=== PATIENT | male | born 1940 | race Caucasian/White ===

== ENCOUNTER 2021-04-23 09:52 | Outpatient (CLI) | payer MEDICARE, SELFPAY ==
--- NOTE | 2021-04-23 10:02 | USCV_ITS ---
Marco Antonio Sebastian Age: 80 Gender: M : 1940 Exam Date: 04/23/2021 10:17 Ordering Phys: Marek Chin MD Technologist: Allie Miller [place] [facility] [place]: HYPERTENSION BP: 167 / 67 HR: 69 Rhythm: Sinus Technical Quality: Adequate MEASUREMENTS (Male / Female) Normal Values 2D ECHO LV Diastolic Diameter PLAX 4.1 cm 4.2 - 5.9 / 3.9 - 5.3 cm LV Systolic Diameter PLAX 2.9 cm IVS Diastolic Thickness 1.5 cm 0.6 - 1.0 / 0.6 - 0.9 cm IVS Systolic Thickness 2.2 cm LVPW Diastolic Thickness 1.1 cm 0.6 - 1.0 / 0.6 - 0.9 cm LVPW Systolic Thickness 1.3 cm RV Chamber Size 3.1 cm LVOT Diameter 2.0 cm LV Ejection Fraction 2D Teich 58.6 % LV Ejection Fraction MOD 2C 55.5 % LV Ejection Fraction 2C AL 56.6 % LA Diameter 3.1 cm LA Width 3.1 cm LA Height 3.5 cm RA Width 2.3 cm RA Height 4.3 cm Aorta at Sinotubular Diameter 2.4 cm M-MODE LV Diastolic Diameter MM 4.9 cm 4.2 - 5.9 / 3.9 - 5.3 cm LV Systolic Diameter MM 3.3 cm LV Ejection Fraction MM Teich 61.3 % IVS Diastolic Thickness MM 1.1 cm 0.6 - 1.0 / 0.6 - 0.9 cm IVS Systolic Thickness MM 1.5 cm LVPW Diastolic Thickness MM 1.2 cm 0.6 - 1.0 / 0.6 - 0.9 cm LVPW Systolic Thickness MM 1.2 cm Aortic Annulus Diameter 2.9 cm LA Ao Ratio MM 1.1 MV E Point Septal Separation 0.4 cm DOPPLER AV Peak Velocity 172.0 cm/s LVOT Peak Velocity 104.0 cm/s AV Area Cont Eq vti 2.2 cm squared AV Area Cont Eq pk 1.9 cm squared MV Area PHT 5.0 cm squared Mitral E to A Ratio 1.3 MV E' Velocity 57.0 cm/s Mitral E to MV E' Ratio 13.3 Mitral E to LV E' Lateral Ratio 12.7 Mitral E to LV E' Septal Ratio 14.0 TR Peak Velocity 272.0 cm/s TR Peak Gradient 29.6 mmHg Right Atrial Pressure 3.0 mmHg Pulmonary Artery Systolic Pressu 32.6 mmHg PV Peak Velocity 99.0 cm/s RV Acceleration Time 0.1 s RV Ejection Time 0.3 s RV AcT/ET 0.3 FINDINGS Left Ventricle Normal left ventricular size. LV systolic function is normal with EF of 55-60%. No regional wall motion abnormalities. Normal diastolic filling pattern. Right Ventricle The right ventricle is normal in size and function. Right Atrium The right atrium is normal in size. Left Atrium The left atrium is normal in size. Mitral Valve Structurally normal mitral valve without significant stenosis or prolapse. There is trace mitral regurgitation. Aortic Valve Thickened aortic valve without significant stenosis. There is mild to moderate aortic regurgitation. Tricuspid Valve Structurally normal tricuspid valve without significant stenosis or regurgitation. Insufficient TR jet to calculate RVSP Pulmonic Valve Structurally normal pulmonic valve without significant stenosis. There is trace pulmonic regurgitation. Pericardium Normal pericardium without effusion. Aorta Normal ascending aorta dimension. CONCLUSIONS LV systolic function is normal with EF of 55-60% Diastolic function is normal Trace mitral regurgitation Mild to moderate aortic regurgitation Trace pumonic regurgitation Jensen Arroyo MD (Electronically Signed) Final Date: 02 May 2021 22:38 S
== END 2021-04-23 09:53 | disposition home or self-care (01) ==
PROVIDERS: PCP Nurse Practitioner Family; Visit Provider Family Medicine
DX: R01.1 Cardiac murmur, unspecified (principal); I10 Essential (primary) hypertension; I35.1 Nonrheumatic aortic (valve) insufficiency
CPT/HCPCS: 93306

== ENCOUNTER 2021-08-03 13:43 | Outpatient (CLI) | payer MEDICARE, SELFPAY ==
--- NOTE | 2021-08-03 13:54 | XR_ITS ---
WS: [id number] Right knee, 4 views, 08/03/2021 Clinical Data: R KNEE JOINT PAIN Comparison: None. Findings: There is lateral joint compartment narrowing with a small spur of the lateral femoral condyle. The po sterior patella shows mild irregularity and there are large spurs in the anterior superior and anteri or inferior portions. No fractures or dislocations. There is vascular calcification. 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 Kellgren-New Classification: grade 3 (moderate): moderate multiple osteoph ytes, definite narrowing of joint space and some sclerosis and possible deformi ty of bone ends
== END 2021-08-03 13:44 | disposition home or self-care (01) ==
PROVIDERS: PCP Nurse Practitioner Family; Visit Provider Nurse Practitioner Family
DX: M17.11 Unilateral primary osteoarthritis, right knee (principal)
CPT/HCPCS: 73564

== ENCOUNTER 2021-12-24 06:33 | Outpatient (CLI) | payer OTHER, SELFPAY ==
--- NOTE | 2021-12-24 | USCV_ITS ---
Marco Antonio Sebastian Age: 81 Gender: M : 1940 Exam Date: 12/24/2021 07:17 Ordering Phys: Tolu Christiansen DO Technologist: Deanna Lucas Exam Location: [facility] [place] Indication: KNOWN BLOCKAGE Risk Factors: Previous Vascular Surgery: Right Brachial BP: / Left Brachial BP: / Right Left Velocity (cm/s) Spectral Plaque Velocity (cm/s) Spectral Plaque Syst/Diast Broadening Syst/Diast Broadening 146.90/20.60 Prox CCA 111.10/ 31.10 107.60/10.60 Hetro Mid CCA 68.50 / 20.90 106.70/13.50 Hetro Distal CCA 74.50 / 11.20 187.30/27.70 Hetro Prox ICA 84.80 / 17.20 Hetro 131.70/28.20 Hetro Mid ICA 143.20/ 28.60 170.90/22.00 Distal ICA 132.90/ 22.90 222.50 Hetro ECA 256.20 Hetro 1.76 ICA/CCA 2.09 Retrograde Vertebral Antegrade / cm/s 52.90/ 8.90 cm/s Bi Subclavian Bi 90.70 180.8 0 CONCLUSIONS Right ICA stenosis 50-69% by strict velocity criteria. Shadowing Right ICA proximally could obscure more severe stenosis. Recommend further evaluation with CTA. . Moderate atheromatous plaque right carotid bulb/ICA. Left ICA stenosis <50%. Moderate atheromatous plaque left carotid bulb/ICA. Retrograde flow noted in the right vertebral artery suspicious for subclavian steal. Blunted biphasic subclavian waveform. Normal antegrade Doppler flow noted in the left vertebral artery. Ramin Rashid MD (Electronically Signed) Final Date: 24 December 2021 11:22 S
--- NOTE | 2021-12-24 | USCV_ITS ---
Marco Antonio Sebastian Age: 81 Gender: M : 1940 Exam Date: 12/24/2021 06:54 Ordering Phys: Tolu Christiansen DO Technologist: Deanna Lucas [place] [facility] [place]: PT STATES KNOW MV DISEASE BP: / HR: 73 Rhythm: Sinus Technical Quality: Adequate MEASUREMENTS (Male / Female) Normal Values 2D ECHO LV Diastolic Diameter PLAX 4.9 cm 4.2 - 5.9 / 3.9 - 5.3 cm LV Systolic Diameter PLAX 2.4 cm LV Chamber Size 3.6 cm IVS Diastolic Thickness 1.1 cm 0.6 - 1.0 / 0.6 - 0.9 cm IVS Systolic Thickness 1.1 cm LVPW Diastolic Thickness 1.1 cm 0.6 - 1.0 / 0.6 - 0.9 cm LVPW Systolic Thickness 1.5 cm RV Chamber Size 3.3 cm LVOT Diameter 2.0 cm LV Ejection Fraction 2D Teich 83.4 % LV Ejection Fraction MOD 2C 68.8 % LV Ejection Fraction 2C AL 68.9 % LA Diameter 3.1 cm LA Width 2.9 cm LA Height 2.7 cm RA Width 2.6 cm RA Height 3.5 cm Aorta at Sinotubular Diameter 3.2 cm M-MODE Aortic Annulus Diameter 0.2 cm LA Ao Ratio MM 16.1 MV E Point Septal Separation 0.5 cm DOPPLER AV Peak Velocity 184.0 cm/s LVOT Peak Velocity 108.0 cm/s AV Area Cont Eq vti 2.2 cm squared AV Area Cont Eq pk 1.9 cm squared MV Area PHT 2.2 cm squared Mitral E to A Ratio 0.9 MV E' Velocity 44.0 cm/s Mitral E to MV E' Ratio 11.3 Mitral E to LV E' Lateral Ratio 11.5 Mitral E to LV E' Septal Ratio 11.2 TR Peak Velocity 228.7 cm/s TR Peak Gradient 20.9 mmHg TR Mean Velocity 175.6 cm/s TR Mean Gradient 13.4 mmHg TR Velocity Time Integral 62.9 cm TV Peak E Velocity 53.0 cm/s Right Atrial Pressure 3.0 mmHg Pulmonary Artery Systolic Pressu 23.9 mmHg PV Peak Velocity 68.0 cm/s RV Acceleration Time 0.2 s RV Ejection Time 0.3 s RV AcT/ET 0.6 FINDINGS Left Ventricle Normal left ventricular cavity size. Normal left ventricular systolic function. No regional wall motion abnormalities. Left ventricular ejection fraction is estimated at 65 %. Grade I/IV diastolic dysfunction (abnormal relaxation filling pattern), normal to mildly elevated filling pressures. Right Ventricle The right ventricle is normal in size and function. Right Atrium The right atrium is normal in size. Left Atrium The left atrium is normal in size. Mitral Valve Moderately thickened mitral valve. No mitral valve stenosis. No mitral valve regurgitation. Aortic Valve Structurally normal aortic valve without significant sclerosis or stenosis. There is no aortic regurgitation. Tricuspid Valve Mild tricuspid valve regurgitation. Pulmonic Valve Structurally normal pulmonic valve without significant stenosis. There is no pulmonic regurgitation. Pericardium Normal pericardium without effusion. Aorta Normal ascending aorta dimension. CONCLUSIONS 1-Normal left ventricular cavity size. Normal left ventricular systolic function. No regional wall motion abnormalities. Left ventricular ejection fraction is estimated at 65 %. Grade I/IV diastolic dysfunction (abnormal relaxation filling pattern), normal to mildly elevated filling pressures. 2-Mild tricuspid valve regurgitation. 3-There is no pericardial effusion. 4-Pulmonary artery systolic pressure is within normal limits. 5-Right atrial pressure is around 5 mm of mercury. 6-No significant change since the prior echocardiogram study of 05/02/2021. Gentry Garduno MD (Electronically Signed) Final Date: 24 December 2021 18:06 S
== END 2021-12-24 06:34 | disposition home or self-care (01) ==
LOC: RAD 06:35
PROVIDERS: PCP Nurse Practitioner Family; Visit Provider Emergency Medicine Emergency Medical Services
DX: I05.9 Rheumatic mitral valve disease, unspecified (principal); I07.1 Rheumatic tricuspid insufficiency; I65.23 Occlusion and stenosis of bilateral carotid arteries
CPT/HCPCS: 93306; 93880

== ENCOUNTER → 2022-01-12 14:24 | Outpatient (BNVA) | payer OTHER, SELFPAY | PROVIDERS: PCP Nurse Practitioner Family; Referring Provider Nurse Practitioner Family; Visit Provider Specialist | DX: M17.12 Unilateral primary osteoarthritis, left knee (principal); M17.11 Unilateral primary osteoarthritis, right knee | CPT/HCPCS: 73560; 73565; 80500; 89051 ==

== ENCOUNTER 2022-09-13 22:09 | Inpatient (IN) | payer MEDICARE, SELFPAY ==
--- NOTE | 2022-09-13 22:11 | XRR_ITS ---
PROCEDURE INFORMATION: Exam: XR Chest Exam date and time: 09/13/2022 10:24 PM Age: 81 years old Clinical indication: Chest pressure and chest wall pain; Additional info: Cp TECHNIQUE: Imaging protocol: Radiologic exam of the chest. Views: 1 view. COMPARISON: CR XR chest 1V [id number] 08/21/2019 6:18 PM FINDINGS: Lungs: Emphysematous changes. Pleural spaces: Unremarkable. No pleural effusion. No pneumothorax. Heart/Mediastinum: Unremarkable. No cardiomegaly. Bones/joints: Unremarkable. XR/XR chest 1V portable [id number] IMPRESSION: 1. Emphysematous changes. 2. Negative for infiltrate
[2022-09-13 22:17] VITALS: BP 187/62; PULSE 78; RESP 16; TEMP 36.3; O2SAT 99
--- NOTE | 2022-09-13 22:17 | ED_ITS ---
HPI - Chest Pain General: Chief Complaint: Chest Pain Stated Complaint: Chest Pain\Cold Sweats Time Seen by Provider: 09/13/22 22:17 Source: patient Mode of arrival: ambulatory Limitations: no limitations History of Present Illness: 81-year-old male states been having chest pains today he states that 3 episodes of a sharp pain he states that has improved currently at 1-2 out of 10. He denies any shortness of breath denies any nausea denies any worsening improving factors. Associated symptoms: Deny abdominal pain, dyspnea, fever(s), nausea or vomiting Review of Systems Const: Denies: fever(s), chills, body aches or change in appetite Eyes: Denies: blurry vision or eye discomfort ENMT: Denies: throat pain or dental pain Card: Reports: chest pain Resp: Denies: dyspnea GI: Denies: abdominal pain, nausea, vomiting or diarrhea : Denies: dysuria Musc: Denies: neck pain or back pain Skin/Breast: Denies: rash Neuro: Denies: headache(s) Psych: Denies: depression Bossman/Lymph: Denies: easy bruising All/Imm: Denies: urticaria PFSH ED PFSH: Medical History (Updated 09/13/22 @ 23:23 by Chance Chaudhry MD) Anemia Gastritis Hyperlipidemia Hypertension Neuropathy PAD (peripheral artery disease) Surgical History H/O colonoscopy 09/11/19 H/O esophagogastroduodenoscopy 09/11/19 History of appendectomy History of hernia surgery Family History Sister Cancer Brother Diabetes Denies family history of Anesthesia complication Bleeding disorder Social History Smoking and tobacco status: current every day smoker Alcohol intake: never Lives independently: Yes Marital status: Single Current occupational status: retired Physical Exam Const: COMMON NORMALS: no acute distress, patient oriented x3 and healthy ap pearing HENMT: COMMON NORMALS: normocephalic and atraumatic HEAD & SCALP: normocephalic and atraumatic Eye: COMMON NORMALS: Equal, round and reactive pupils present and EOMs intact bilaterally PUPIL: Yes Equal, round and reactive pupils present Neck/C-Spine: COMMON NORMALS: full ROM and supple Chest: COMMONS NORMALS: normal inspection of the chest and normal palpation of entire chest wall Resp: COMMON NORMALS: normal respiratory effort, No retractions, No use of accessory muscles and clear to auscultation bilaterally AUSCULTATION: clear to auscultation bilaterally Cardio: COMMON NORMALS: regular rate, regular rhythm and No murmurs present (Cardio) RATE: regular rate RHYTHM: regular rhythm GI: COMMON NORMALS: Normal to inspection, nondistended, normoactive bowel sounds present, Soft to palpation, non-tender and no masses PALPATION: Yes Soft to palpation Extremity: COMMON NORMALS: normal to inspection and full ROM Neuro: COMMON NORMALS: patient oriented x3, moves all extremities and no focal motor deficits Psych: COMMON NORMALS: mental status grossly normal, Normal thought process pr esent and cooperative THOUGHT PROCESS: Normal thought process present Skin: COMMON NORMALS: no rashes or lesions noted and no wounds GENERAL SKIN EXAM: no rashes or lesions noted Course Vital Signs: Vital signs: Vital Signs Temperature 97.4 F L 09/13/22 22:22 Pulse Rate 88 09/13/22 22:50 Respiratory Rate 18 09/13/22 22:50 Blood Pressure 165/56 09/13/22 22:50 Pulse Oximetry 98 09/13/22 22:50 Oxygen Delivery Me thod 09/13/22 22:50 MDM - Chest Pain Medical Decision Making Patient presents here with chest pain his initial troponin here is 71 he is also hyponatremic I spoke to hospitalist Dr. Pettit will admit start on Lovenox he has been pain-free here. Lab Data : 09/13/22 22:20 09/13/22 22:20 Radiology Impressions Chest X-Ray 09/13/22 22:11 IMPRESSION: 1. Emphysematous changes. 2. Negative for infiltrate Laboratory Results WBC 7.2 10^3/uL (4.0-10.0) 09/13/22 22:20 RBC 3.28 10^6/uL (4.1-5.3) L 09/13/22 22:20 Hgb 10.3 g/dL (11.7-16.6) L 09/13/22 22:20 Hct 30.8 % (42.0-52.0) L 09/13/22 22:20 MCV 93.9 fl (80-94) 09/13/22 22:20 MCH 31.4 pg (28.0-34.0) 09/13/22 22:20 MCHC 33.4 g/dL (30.0-36.0) 09/13/22 22:20 RDW 13.2 % (12.1-15.1) 09/13/22:20 Plt Count 246 10^3/cmm (130-400) 09/13/22 22:20 MPV 10.8 fL (7.4-10.4) H 09/13/22 22:20 Neut % (Auto) 58.8 % 09/13/22 22:20 Lymph % (Auto) 25.3 % 09/13/22:20 Beckham % (Auto) 11.6 % 09/13/22 22:20 Eos % (Auto) 3.3 % 09/13/22 22:20 Baso % (Auto) 0.6 % 09/13/22: Neut # (Auto) 4.26 10^3/uL (1.8-7.7) 09/13/22 22:20 Lymph # (Auto) 1.8 10^3/uL (0.8-4.8) 09/13/22 22:20 Beckham # (Auto) 0.8 10^3/uL (0.2-0.9) 09/13/22 22:20 Eos # (Auto) 0.2 10^3/uL (0.0-0.8) 09/13/22:20 Baso # (Auto) 0.0 10^3/uL (0.0-0.1) 09/13/22:20 Nucleated RBC % (auto) 0 % 09/13/22: Nucleated RBCs # 0.0 /100WBC 09/13/22 22:20 PT 14.00 SECONDS (12.1-14.9) 09/13/22 22:20 INR 1.05 (0.8-1.2) 09/13/22 22:20 Sodium 125 mmol/L (136-145) L 09/13/22 22:20 Potassium 4.0 mmol/L (3.5-5.1) 10/18/22 22:20 Chloride 90 mmol/L (98-107) L 09/13/22 22:20 Carbon Dioxide 23 mmol/L (22-29) 09/13/22 22:20 Anion Gap 16.0 (5-19) 09/13/22 22:20 BUN 35 mg/dL (8-23) H 09/13/22 22:20 Creatinine 2.0 mg/dL (0.7-1.2) H 09/13/22 22:20 GFR Calculation Not Reportable 09/13/22 22:20 Glucose 95 mg/dL (65-115) 09/13/22 22:20 Calculated Osmolality 268 mOsm/kg (285-295) L 09/13/22 22:20 Calcium 9.2 mg/dL (8.5-10.5) 09/13/22 22:20 Total Bilirubin 0.3 mg/dL (0.15-1.2) 09/13/22 22:20 AST 16 U/L (0-40) 09/13/22 22:20 ALT 12 U/L (0-41) 09/13/22 22:20 Alkaline Phosphatase 70 U/L (40-130) 09/13/22 22:20 Troponin T Baseline 71 ng/L (0-15) H 09/13/22 22:20 Total Protein 7.3 g/dL (6.6-8.7) 09/13/22 22:20 Albumin 3.7 g/dL (3.5-5.2) 09/13/22 22:20 Globulin 3.6 g/dL (1.3-4.6) 09/13/22 22:20 Discharge Plan Discharge Patient Disposition: Admitted As Inpatient Clinical Impression: Chest pain, Acute hyponatremia Condition: Stable Coding Level of Care Code ED Senior Care Manager for Chg Fwd Exam Comprehensive
--- NOTE | 2022-09-13 22:19 | ECG_ITS ---
[facility] Test Date: 2022-09-13 Pat Name: Marco Antonio Sebastian Department: Room: Gender: Male Information Director: : 1940 Requested By: Chance Chaudhry Order Number: [id number] Rm MD: Patricia Alvarado M.D. Measurements Intervals [place] Rate: 87 P: 71 DC: 173 QRS: 69 QRSD: 93 T: 85 QT: 350 QTc: 423 Interpretive Statements SINUS RHYTHM MODERATE ST DEPRESSION [0.05+ mV ST DEPRESSION] INTERPRETATION BASED ON A DEFAULT AGE OF 40 YEARS No previous ECG available for comparison Electronically Signed On 09-14-2022 21:58:10 CDT by Patricia Alvarado M.D. [id number]
[2022-09-13 22:22] VITALS: BP 187/62; PULSE 78; RESP 16; TEMP 36.3; O2SAT 99
[2022-09-13] MEDS: aspirin 81 mg Chew Tablet 324 MG PO (22:25)
[2022-09-13 22:27] LABS: Basophils % 0.6 %; Eosinophils # 0.2 10^3/uL (0.0-0.8); Eosinophils % 3.3 %; Hematocrit 30.8 % (42.0-52.0); Hemoglobin 10.3 g/dL (11.7-16.6); Lymphocytes # 1.8 10^3/uL (0.8-4.8); Lymphocytes % 25.3 %; Mean Corpuscular HGB Conc 33.4 g/dL (30.0-36.0); Mean Corpuscular Hemoglobin 31.4 pg (28.0-34.0); Mean Corpuscular Volume 93.9 fl (80-94); Mean Platelet Volume 10.8 fL (7.4-10.4); Monocytes # 0.8 10^3/uL (0.2-0.9); Monocytes % 11.6 %; Neutrophils # 4.26 10^3/uL (1.8-7.7); Neutrophils % 58.8 %; Nucleated Red Blood Cells % 0 %; Platelet Count 246 10^3/cmm (130-400); Red Blood Count 3.28 10^6/uL (4.1-5.3); Red Cell Distribution Width 13.2 % (12.1-15.1); White Blood Count 7.2 10^3/uL (4.0-10.0)
[2022-09-13 22:50] VITALS: BP 165/56; PULSE 88; RESP 18; O2SAT 98
[2022-09-13 23:01] LABS: INR 1.05 (0.8-1.2)
[2022-09-13 23:09] LABS: Alanine Aminotransferase 12 U/L (0-41); Albumin Level 3.7 g/dL (3.5-5.2); Alkaline Phosphatase 70 U/L (40-130); Aspartate Amino Transferase 16 U/L (0-40); Blood Urea Nitrogen 35 mg/dL (8-23); Calcium 9.2 mg/dL (8.5-10.5); Carbon Dioxide 23 mmol/L (22-29); Chloride 90 mmol/L (98-107); Globulin 3.6 g/dL (1.3-4.6); Glucose 95 mg/dL (65-115); Osmolality Calculated 268 mOsm/kg (285-295); Sodium 125 mmol/L (136-145); Total Bilirubin 0.3 mg/dL (0.15-1.2); Total Protein 7.3 g/dL (6.6-8.7)
[2022-09-13 23:10] LABS: Troponin(5th) Baseline 71 ng/L (0-15)
[2022-09-13] MEDS: enoxaparin 80 mg/0.8 mL Syringe 60 MG SUBCUT (23:37)
[2022-09-13] MEDS: sodium chloride 0.9% 1,000 ML 999 ML IV (23:37)
[2022-09-13 23:51] VITALS: BP 151/52; PULSE 82; RESP 20; O2SAT 100
[2022-09-14] VITALS (198 sets, daily range): BP systolic 82–176; BP diastolic 40–97; PULSE 65–111; RESP 9–38; TEMP 35.6–36.9; O2SAT 90–100
--- NOTE | 2022-09-14 | P.HP_ITS ---
Providers/Chief Complaint Primary Care Provider: Tyrese Rodriguez NP Chief Complaint: Chest Pain\Cold Sweats History of Present Illness Marco Antonio Sebastian is a 81 year old male with a past medical history of hypertension, hypothyroidism, hyperlipidemia, presenting to the emergency room today for chest pain. His pain started this morning, described as 8 out of 10 at maximum intensity, radiating into the left arm. He was diaphoretic with onset of pain. Denied any dyspnea. Denies any nausea. Has not noted any apparent exacerbating or relieving factors. He received aspirin 325, troponin was noted to be elevated at baseline at 70. No acute ST-T wave changes noted on EKG. No known past history of CAD. Review of Systems General: Reports: 10 or more systems reviewed and unremarkable except in HPI and below Const: Denies: fever(s), chills or body aches Eyes: Denies: change in vision, blurry vision or photophobia ENMT: Reports: hoarseness; Denies: throat pain, enlarged tonsils, odynophagia or nasal congestion Card: Denies: chest pain, palpitations, irregular heart rhythm, edema, swelling of feet/ankles, lightheadedness, pre-syncope, dyspnea on exertion or orthopnea Resp: Denies: dyspnea, productive cough, non-productive cough, wheezing, stridor, pain on inspiration, change in phlegm color, hemoptysis or chest congestion GI: Denies: abdominal pain, nausea, vomiting, hematemesis, coffee ground emesis, dysphagia, heartburn, diarrhea, constipation, GI cramping, change in stool character, hematochezia or melena : Denies: flank pain, dysuria, urinary frequency, urinary urgency, urinary hesitancy or hematuria Musc: Denies: neck pain, back pain, extremity pain, joint swelling, joint warmth or deformity Neuro: Denies: headache(s), numbness in extremities, weakness in extremities, sensory changes, difficulty walking, frequent falls, dizziness, vertigo, behavioral changes, Slurred speech present or seizure-like activity Psych: Denies: anxiety, depression, suicidal ideation or homicidal ideation Endo: Denies: polyuria, polydipsia, tired all the time, cold intolerance or hot flashes Bossman/Lymph: Denies: easy bruising or easy bleeding Medications/Allergies Home Medications Medication Instructions Recorded Confirmed Last Taken Type aspirin 81 mg tablet,delayed 81 mg PO QDAY 12/27/19 09/14/22 09/13/22 History release (Adult Low Dose Aspirin) ferrous sulfate 324 mg (65 mg 324 mg PO BID 12/27/19 09/14/22 09/13/22 History iron) tablet,delayed release gabapentin 400 mg capsule 400 mg PO TID 12/27/19 09/14/22 09/13/22 History pravastatin 40 mg tablet 80 mg PO BEDTIME 12/27/19 09/14/22 09/13/22 20:00 History amlodipine 5 mg tablet 5 mg PO DAILY 09/14/22 09/14/22 09/13/22 08:00 History levothyroxine 112 mcg tablet 112 mcg PO DAILY 09/14/22 09/14/22 09/13/22 08:00 History lisinopril 40 mg tablet 40 mg PO DAILY 09/14/22 09/14/22 09/13/22 08:00 History pantoprazole 40 mg tablet,delayed 40 mg PO DAILY 09/14/22 09/14/22 09/13/22 08:00 History release sucralfate 1 gram tablet 1 g PO BID 09/14/22 09/14/22 09/13/22 18:00 History Allergies Allergy/AdvReac Type Severity Reaction Status Date / Time No Known Allergies Allergy Unverified 01/12/22 14:30 PFSH Acute PFSH: Medical History Anemia Gastritis Hyperlipidemia Hypertension Neuropathy PAD (peripheral artery disease) Surgical History H/O colonoscopy 09/11/19 H/O esophagogastroduodenoscopy 09/11/19 History of appendectomy History of hernia surgery Family History Sister Cancer Brother Diabetes Denies family history of Anesthesia complication Bleeding disorder Social History Smoking and tobacco status: current every day smoker Alcohol intake: never Lives independently: Yes Marital status: Single Current occupational status: retired Vitals/I&O/Wt Last Vital Signs Temp 97.4 F L 09/13/22 22:22 Pulse 82 09/13/22 23:51 Resp 20 H 09/13/22 23:51 BP 151/52 09/13/22 23:51 Pulse Ox 100 09/13/22 23:51 O2 Del Method 09/13/22 23:51 Weight last 48 hrs Weight 63.503 kg Physical Exam Narrative: General: No acute distress, AO x3 HEENT: PERRLA, pupils bilaterally equal and reactive, pallors not present Chest: Normal vesicular breath sounds, no added sounds, equal good air entry bilaterally CVS: S1-S2 regular, no murmurs, no tachycardia, no gallops, no rubs Abdomen: Soft, nontender, no organomegaly, bowel sounds present Neuro: No focal deficits, no facial deformity, AO x3, power 5/5 in all limbs Extremities: No edema clubbing or cyanosis. Data : 09/14/22 03:34 09/14/22 03:34 A&P Assessment and plan (1) Chest pain: Patient presenting today for chest pain, retrosternal, radiating associated with diaphoresis. Baseline for elevated troponin at 70. EKG currently without acute ST-T wave changes. He has received 325 mg of aspirin. Concern for ACS/NSTEMI. Will trend troponin at 2 hours and then again at 6-hour along with serial EKG monitoring. Admitted to [facility]. Aspirin 81 mg p.o. daily, atorvastatin 40 mg p.o. daily to continue Holding lisinopril for now given NIGHAT with creatinine of 2.0. Gentle IV hydration with normal saline at 50 cc an hour. As needed morphine, topical nitro patch for chest pain. He has received 1 mg/kg subcutaneous dose of Lovenox in the ED. Holding off on further doses depending on troponin trend. Attestations Medical Necessity Statement*: Anticipate greater than 2 midnight admission for NSTEMI. Coding Level of Care Code Acute Chartered Financial Analyst for Mark Ochoa Diagnoses Chest pain R07.9
[2022-09-14] MEDS: nitroglycerin 1 gm/inch oint Pkt 0.5 INCH TOPICAL ×4 (01:09→17:50)
[2022-09-14] MEDS: aspirin 81 mg EC Tablet PO ×2 (01:09→12:00)
[2022-09-14] MEDS: sodium chloride 0.9% 1,000 ML 50 ML IV (01:09)
--- NOTE | 2022-09-14 01:12 | PC.NURSE ---
Patient will need transportation to home at discharge.
--- NOTE | 2022-09-14 03:13 | ECG_ITS ---
[facility] Test Date: 2022-09-14 Pat Name: Marco Antonio Sebastian Department: Room: 276 Gender: Male Billing Control Clerk: : 1940 Requested By: Zelda Ross Order Number: [id number] Rm MD: Patricia Alvarado M.D. Measurements Intervals [place] Rate: 82 P: 74 [place]: 176 QRS: 74 QRSD: 102 T: 90 QT: 367 QTc: 430 Interpretive Statements SINUS RHYTHM MARKED ST ELEVATION, CONSIDER INFERIOR INJURY [MARKED ST ELEVATION W/O NORMALLY INFLECTED T-WAVE IN II/aVF] ST changes suggesting high lateral wall ischemia/reciprocal changes ACUTE MD Compared to ECG 09/13/2022 22:19:58 Myocardial infarct finding now present ST (T wave) deviation still present Electronically Signed On 09-14-2022 22:00:17 CDT by Patricia Alvarado M.D. [id number]
[2022-09-14] MEDS: morphine 4 mg/mL SDV 1 mL 2 MG IVP (03:22)
--- NOTE | 2022-09-14 03:28 | PC.NURSE ---
Transfer Note Patient transferred to ICU from [facility] via bed. Handoff received from SUSAN Estevez. Patient oriented to environment and equipment. Covering service notified. Orders reviewed and will continue to monitor. Patient transferred on RA and is alert/oriented x4. Reporting chest pain at this time.
--- NOTE | 2022-09-14 03:28 | PC.RESP ---
critical ekg showing acute WA at approx 0313 printed off and given to to charge nurse (abel)
--- NOTE | 2022-09-14 03:33 | PC.NURSE ---
Observed ST elevation on telemetry monitoring. Patient c/o chest pain. Morphine give as ordered and documented. Informed Dr Ross. Confirmed with ekg st elevation present. STEMI alert called. Patient transferred to ICU 2. Bedside report given to SUSAN Lopez. Dr Ross at bedside discussing plan for emergent heart cath. Patient verbalizing understanding.
--- NOTE | 2022-09-14 03:46 | XACV_ITS ---
Exam Room: [facility] Ht: 178 cm Wt: 64 kg BSA: 1.78 m2 Gender: Male : 1940 Exam Priority: Routine Procedure(s): Procedure Description: Diagnostic procedure Procedure Description: PCI procedure Procedure Description: Drug Eluting Coronary Stent Procedure Description: Coronary Angiography Diagnostic Cath Status: Emergency Diagnostic Findings * Left Main has no significant disease. * Left Anterior Descending has moderate luminal irregularities. Moderate 40% stenosis in mid LAD.. * Circumflex has no disease. Diffuse moderate luminal irregularities. * RCA is a very tortuous * artery * . * Has Leo's crook anatome. Proximal RCA has moderate, calcified 30-40% stenosis. Has mid segment hazy 90% stenosis * . Haziness consistent with thrombus. This is the culprit lesion for ST elevation AK. PDA has a significant 70 % distal vessel stenosis. * INDICATION: 81-year-old man with past medical history of hypertension who had presented with chest pain symptoms that were going on and off. Initial EKG had not shown ST elevation. He developed severe substernal chest pain on the floor and EKG showed inferior wall ST elevations. Auto Body Shop Manager was activated and patient brought emergently to the cardiac Auto Body Shop Manager for coronary angiogram with possible percutaneous coronary intervention.. * Coronary angiography shows right dominance. PCI Status: Emergency PCI Indication: STEMI - Immediate PCI for STEMI Interventional Findings * Procedure detail: We engaged RCA from right radial access with JR4 guide catheter. Wire was advanced into distal vessel however stent could not be advanced given tortuosity and godinez's crook RCA. We then switched to right common femoral artery access. AL 0.75 was used to engage RCA. We used guide liner to advance 3.5 x 15 mm resolute [place] drug-eluting stent to mid RCA. It was successfully dilated and revascularized RCA. Final angiogram was performed that showed excellent stent expansion, no residual stenosis and THELMA-3 flow. Guidewire and guide catheter were removed and patient left the Auto Body Shop Manager in stable condition.. * Mid Right Coronary Artery: 90% stenosis treated with a MDT R LILIA 3.5X15 NIGEL. 0% residual stenosis, THELMA: 3 flow. Conclusions 1. Severe, thrombotic 2. stenosis of mid RCA. This was 3. culprit lesion for ST elevation AK. 4. Revascularization performed with NIGEL x1.. 5. Mid Right Coronary Artery was treated with a Drug Eluting Stent. Recommendations * Transferred back to ICU. * Aspirin and Plavix for at least 1 year. * High intensity statin therapy. * Order echocardiogram. * Outpatient cardiology follow-up in 4 weeks. Interventional RX Recommendation: PCI w/o planned CABG Diagnostic RX Recommendation: PCI w/o planned CABG Anticoagulation: Heparin Pressures Phase:Rest AO : 93 / 41 ( 65 ) @ 5:15:00 AM 130 / 33 ( 69 ) @ 5:52:00 AM 141 / 33 ( 76 ) @ 6:03:00 AM Clinical Evaluation EBL: 5mL-10mL Procedural Details Pre-Procedure Time Out. Identified patient by full name and date of as verbalized by the patient/guarantor. Does the consent match the physician's order: N/A Emergent. Accurate & Complete Informed Consent: N/A Emergent. Inpatient/Outpatient History & Physical on Chart: N/A Emergent. If H&P is completed, is and addenduem needed: No; If yes, is the addendum complete: N/A. Visualize and Verify Site with Patient/Guarantor: N/A. Relevant Radiology Images available: Yes. Relevant Radiology Images available: N/A. Pre-op teaching completed and patient verbalized understanding. The risks, benefits, and alternatives of sedation and/or procedure were discussed by physician. The patient agrees to continue. Procedure started. [facility] Clinical Fraility Score: 4: Vulnerable. Auto Body Shop Manager Indications: ACS <= 24 hours. Chest Pain Symptom Assessment: Typical Angina Symptoms. Correct patient, site and procedure confirmed by cath team. Oxygen started at 3liters/min via nasal canula. Baseline sample Acquired. HR: 85 BPM. Physician arrived. Physician scrubbed in. Immediate Pre-Procedure Time Out. Correct Patient: Yes; Correct Procedure: Yes; Correct Site: Yes; Correct Patient Position: Yes; Correct Supplies: Yes; Dried Flammable Prep: Yes; Blood Products Available: Yes;. Equipment: 6F - Radial. Cardiac Cath Pack. ACIST Manifold Kit Model BT 2000. Heparinized Saline (2 units/mL), 1000 mL bag. Lidocaine 1% infiltrated to the right radial. Arterial access obtained. 6 swazi JR 4 guide catheter was inserted over the wire. Guide catheter out. 6 swazi XB 3.5 guide catheter was inserted over the wire. Multiple views taken of right coronary artery. Multiple views taken of left coronary artery. Inventory is CRD 6FR JR 4 GUIDE 100cm. Inventory is CRD 6 FR XB 3.5 GUIDE. Guide catheter out. 6 swazi JR 4 guide catheter was inserted over the wire. Runthrough guidewire was advanced through the guide catheter to lesion in the mid RCA. Guideliner inserted. MDT R LILIA 3.5x15 NIGEL inserted. Unable to cross lesion in Mid RCA due to difficult anatomy. Intact stent removed. Guideliner and wire removed. Guide catheter out. Physician moving to femoral approach. Lidocaine 1% infiltrated to the right groin. Arterial access obtained with micropuncture set. Inventory is CRD 6FR AL .75 GUIDE. 6 swazi AL 0.75 guide catheter was inserted over the wire. Runthrough guidewire was advanced through the guide catheter to lesion in the mid RCA. MDT R LILIA 3.5x15 NIGEL inserted. Unable to cross lesion in Mid RCA due to difficult anatomy. Intact stent removed. Guideliner inserted. AP pads applied to patient. Inflation Number : 1 A MDT R LILIA 3.5X15 NIGEL -Lot Number# [id number] exp date 01/06/2025 was prepped and advanced across the Mid RCA. The stent was deployed at 12 FRANCES for 0:22 seconds. Stent balloon out over wire. Results checked. Guideliner out. Wire out. Results checked. Guide catheter out. Physician scrubbed out. A Suture was successful obtaining hemostatsis at the Right Femoral artery insertion site. TR band placed. Hemostasis obtained. A TR Band was successful obtaining hemostatsis at the Right Radial artery insertion site. Sheath(s) sutured into position with 2-0 silk and sterile 4x4's and Op-site applied over the site. No oozing or signs and symptoms of hematoma noted. Arterial sheath flushed and connected to tranducer and pressure bag with heparinized saline. Post Procedure: Pulses reassessed and unchanged. PERRLA. Strong, equal hand director marketing bilaterally. No VTE prophylaxis required. Medication's Wasted: Lidocaine 1% = 3 mL. Medication's Wasted: Nitro = 49.6 mg. Medication's Wasted: Heparin = 4000 units. Medication's Wasted: Other = fentanyl 25 mcg. Total IV fluids: 165 mL. Contrast type used: Omnipaque 300 mgI/mL, 500 mL bottle. Post-op diagnosis: severe thrombotic occlusion mid RCA, s/p stent. Complications: none. Estimated blood loss: 5mL-10mL. PCI Indication: STEMI. Responsiveness - Normal response to verbal stimuli; alert and oriented, PERRLA. Airway - Unaffected, no intervention required; spontaneous ventilation. Circulation: W/N/L, pulses unchanged. Nausea/Vomiting: N/A. Procedure completed. Patient transferred by bed to ICU. Vital chart was stopped. Access Site Site: Right Radial artery Sheath Size: 6 Fr Hemostasis Method: TR Band Hemostasis Success: Successful Site: Right Femoral artery Sheath Size: 6 Fr Hemostasis Method: Suture Hemostasis Success: Successful Procedure Medications Start: 4:07 AM Stop: 4:07 AM Medication: Versed Amount: 1 mg Route: I.V. Start: 4:07 AM Stop: 4:07 AM Medication: Fentanyl Amount: 25 mcg Route: I.V. Start: 4:09 AM Stop: 4:09 AM Medication: Versed Amount: 1 mg Route: I.V. Start: 4:12 AM Stop: 4:12 AM Medication: Nitrogylcerin Amount: 200 mcg Route: I.A. Start: 4:19 AM Stop: 4:19 AM Medication: Fentanyl Amount: 25 mcg Route: I.V. Start: 4:28 AM Stop: 4:28 AM Medication: Versed Amount: 1 mg Route: I.V. Start: 4:30 AM Stop: 4:30 AM Medication: Verapamil Amount: 5 mg Route: I.A. Start: 4:41 AM Stop: 4:41 AM Medication: Fentanyl Amount: 25 mcg Route: I.V. Start: 5:01 AM Stop: 5:01 AM Medication: Aggrastat 12.5 mg/250 mL Amount: 32 ml Route: I.V. bolus Start: 5:01 AM Stop: 5:01 AM Medication: Aggrastat 12.5 mg/250 mL Amount: 11.5 ml/hr Route: I.V. drip Start: 5:02 AM Stop: 5:02 AM Medication: Versed Amount: 1 mg Route: I.V. Start: 5:02 AM Stop: 5:02 AM Medication: Nitrogylcerin Amount: 200 mcg Route: I.C. Start: 5:12 AM Stop: 5:12 AM Medication: Plavix Amount: 600 mg Route: P.O. I, the attending physician, have reviewed and verified all procedure medications. Yes, all medications given per verbal order Report Signatures Finalized by Jensen Arroyo MD on 09/14/2022 05:20 PM
[2022-09-14] MEDS: heparin drip 25,000 UNIT/500 ML PREMIX 19 UNIT IV (03:52)
--- NOTE | 2022-09-14 03:55 | PC.NURSE ---
Transfer to Ops Analyst Patient off unit-transferred to oil laboratory analyst.
--- NOTE | 2022-09-14 03:58 | PM.CONSULT ---
Providers/Reason For Consult Consulting Physician/Specialty*: Jensen Arroyo MD/ Interventional Cardiology Reason for Consult*: STEMI Requesting Physician: Dr Ross Attending Physician: Zelda Ross MD Primary Care Provider: Tyrese Rodriguez NP History of Present Illness History of Present Illness Marco Antonio Sebastian is a 81 year old male with past medical history of hypertension who was admitted to the hospital last night with chest pain. Initial troponin was 71. Initial EKG did not show ST elevations. His chest pain was on and off. At around 3 AM, he started having severe substernal chest pain again. EKG was performed that showed inferior leads ST elevations. These changes were dynamic. STEMI alert was called. Patient was emergently taken to the cardiac Sales Vice President. His mid RCA showed filling defect consistent with thrombus. He underwent successful revascularization with NIGEL x1. Review of Systems General: Reports: 10 or more systems reviewed and unremarkable except in HPI and below Const: Denies: fever(s), chills or body aches Eyes: Denies: change in vision, blurry vision or photophobia ENMT: Reports: hoarseness; Denies: throat pain, enlarged tonsils, odynophagia or nasal congestion Card: Reports: chest pain; Denies: palpitations, irregular heart rhythm, edema, swelling of feet/ankles, lightheadedness, pre-syncope, dyspnea on exertion or orthopnea Resp: Denies: dyspnea, productive cough, non-productive cough, wheezing, stridor, pain on inspiration, change in phlegm color, hemoptysis or chest congestion GI: Denies: abdominal pain, nausea, vomiting, hematemesis, coffee ground emesis, dysphagia, heartburn, diarrhea, constipation, GI cramping, change in stool character, hematochezia or melena : Denies: flank pain, dysuria, urinary frequency, urinary urgency, urinary hesitancy or hematuria Musc: Denies: neck pain, back pain, extremity pain, joint swelling, joint warmth or deformity Neuro: Denies: headache(s), numbness in extremities, weakness in extremities, sensory changes, difficulty walking, frequent falls, dizziness, vertigo, behavioral changes, Slurred speech present or seizure-like activity Psych: Denies: anxiety, depression, suicidal ideation or homicidal ideation Endo: Denies: polyuria, polydipsia, tired all the time, cold intolerance or hot flashes Bossman/Lymph: Denies: easy bruising or easy bleeding Medications/Allergies Home Medications Medication Instructions Recorded Confirmed Last Taken Type aspirin 81 mg tablet,delayed 81 mg PO QDAY 12/27/19 09/14/22 09/13/22 History release (Adult Low Dose Aspirin) ferrous sulfate 324 mg (65 mg 324 mg PO BID 12/27/19 09/14/22 09/13/22 History iron) tablet,delayed release gabapentin 400 mg capsule 400 mg PO TID 12/27/19 09/14/22 09/13/22 History pravastatin 40 mg tablet 80 mg PO BEDTIME 12/27/19 09/14/22 09/13/22 20:00 History amlodipine 5 mg tablet 5 mg PO DAILY 09/14/22 09/14/22 09/13/22 08:00 History levothyroxine 112 mcg tablet 112 mcg PO DAILY 09/14/22 09/14/22 09/13/22 08:00 History lisinopril 40 mg tablet 40 mg PO DAILY 09/14/22 09/14/22 09/13/22 08:00 History pantoprazole 40 mg tablet,delayed 40 mg PO DAILY 09/14/22 09/14/22 09/13/22 08:00 History release sucralfate 1 gram tablet 1 g PO BID 09/14/22 09/14/22 09/13/22 18:00 History Allergies Allergy/AdvReac Type Severity Reaction Status Date / Time No Known Allergies Allergy Unverified 01/12/22 14:30 Current Medications Generic Name Dose Route Start Last Admin Trade Name Laurie PRN Reason Stop Dose Admin Aspirin 81 mg 09/13/22 23:45 09/14/22 01:09 Aspirin 81 Mg Ec Tablet PO 81 mg DAILY FATIMAH Administration Sodium Chloride 1,000 mls @ 50 mls/hr 09/13/22 23:45 09/14/22 01:09 Sodium Chloride 0.9% IV 50 mls/hr .Q20H FATIMAH Administration Heparin Sodium/Sodium Chloride 25,000 unit in 500 mls @ 0 mls/hr 09/14/22 03:30 09/14/22 03:52 Heparin Drip IV 14.74 unit/kg/hr .Q0M FATIMAH 19 mls/hr Administration Protocol Per Protocol Morphine Sulfate 2 mg 09/13/22 23:56 09/14/22 03:22 Morphine 4 Mg/Ml Sdv 1 Ml IVP 2 mg Q4H PRN Administration SEVERE PAIN Nitroglycerin 0.5 inch 09/13/22 23:45 09/14/22 01:09 Nitroglycerin 1 Gm/Inch Oint Pkt TOPICAL 0.5 inch Q6H FATIMAH Administration PFSH Acute PFSH: Medical History Anemia CKD (chronic kidney disease) Gastric ulcer Gastritis Hyperlipidemia Hypertension Neuropathy PAD (peripheral artery disease) Primary osteoarthritis of left knee Primary osteoarthritis of right knee Surgical History H/O colonoscopy 09/11/19 H/O esophagogastroduodenoscopy 09/11/19 History of appendectomy History of hernia surgery Family History Sister Cancer Brother Diabetes Denies family history of Anesthesia complication Bleeding disorder Social History Smoking and tobacco status: current every day smoker Alcohol intake: never Lives independently: Yes Marital status: Single Current occupational status: retired Vitals/I&O/Wt Last Vital Signs Temp 98.0 F 09/14/22 00:00 Pulse 106 H 09/14/22 00:00 Resp 20 H 09/14/22 03:22 BP 166/53 09/14/22 00:00 Pulse Ox 99 09/14/22 00:00 O2 Del Method 09/13/22 23:51 09/13/22 09/13/22 09/14/22 14:59 22:59 06:59 Intake Total 1000 / 1000 Balance 1000 / 1000 Weight last 48 hrs Weight 142 lb 1.6 oz Weight 140 lb Physical Exam Narrative: GENERAL: Patient is alert, awake and oriented x3. [] NECK: No jugular vein distension. [] HEENT: No cyanosis. No icterus. No pallor. [] HEART: Regular S1 and S2. No murmur, rub or gallop. [] LUNGS: Clear to auscultate bilaterally. [] ABDOMEN: Soft, nontender and nondistended. Positive bowel sounds. No guarding, rebound or tenderness. [] CENTRAL NERVOUS SYSTEM: Grossly nonfocal. [] EXTREMITIES: Lower extremities with 1+ edema bilaterally. Pulses palpable in the lower extremities, both dorsalis pedis and posterior tibial. [] Data : 09/15/22 04:08 09/15/22 04:08 A&P Assessment and plan (1) ST elevation [place] (STEMI): (2) Chest pain: (3) CKD (chronic kidney disease): (4) Hypertension: (5) Hyperlipidemia: Plan Patient was admitted as a non-ST elevation VT. He evolved into STEMI overnight. Cardiac Sales Vice President was emergently activated and was found to thrombus formation in the mid RCA. He underwent successful revascularization with NIGEL x1. Aspirin and Plavix for at least 1 year ICU monitoring Aggressive risk factor modification. Echocardiogram ordered. Thank you for involving us with care of this patient. We will continue to follow. Please call with questions. Consult Attestations Medical Necessity Statement: Care expected to cross 2 midnights Coding Level of Care Code Acute Park Aide for Mark Ochoa Diagnoses ST elevation [place] (STEMI) I21.3 Chest pain R07.9 CKD (chronic kidney disease) N18.9 Hypertension I10 Hyperlipidemia E78.5
--- NOTE | 2022-09-14 03:59 | W.PM.OPSUD ---
Surgery/Procedure H&P Update DATE OF PROCEDURE: September 14, 2022 DATE H&P PERFORMED: 09/14/22 H&P UPDATE INFORMATION: I have reviewed H&P completed within last 30 days, I have examined patient prior to procedure, No changes to prior documentation and Changes to prior documentation as noted here CHANGES TO PREVIOUS DOCUMENTATION: Patient presented with chest pain that was on and off. Her initial troponin was 71. Patient EKG changes were dynamic and eventually developed inferior wall ST elevations. Cardiac Web Marketing Analyst was emergently activated. Patient brought to the Web Marketing Analyst for emergent coronary angiogram with possible percutaneous coronary intervention PREOP DIAGNOSIS: ST elevation HI PRIMARY INDICATION FOR PROCEDURE: ST elevation HI PLANNED PROCEDURE: Left heart cath with possible percutaneous coronary intervention PATIENT REASSESSED PRIOR TO SEDATION, WITH NO CHANGE NOTED: Yes PHYSICAL EXAM: alert, oriented x 3, clear to auscultation bilaterally and regular rate & rhythm AIRWAY EVAL/ANESTHESIA PLAN: ASA IV, Local Anesthesia, Risks, benefits & alternatives of sedation and/or procedure discussed and Patient agrees to continue as planned ADDITIONAL INFORMATION: Moderate sedation
[2022-09-14 04:01] LABS: Basophils % 0.7 %; Eosinophils # 0.3 10^3/uL (0.0-0.8); Eosinophils % 4.5 %; Hemoglobin 9.6 g/dL (11.7-16.6); Lymphocytes # 2.1 10^3/uL (0.8-4.8); Mean Corpuscular HGB Conc 34.3 g/dL (30.0-36.0); Mean Corpuscular Hemoglobin 31.6 pg (28.0-34.0); Mean Corpuscular Volume 92.1 fl (80-94); Mean Platelet Volume 11.1 fL (7.4-10.4); Monocytes # 0.6 10^3/uL (0.2-0.9); Monocytes % 10.4 %; Neutrophils # 3.04 10^3/uL (1.8-7.7); Neutrophils % 50.2 %; Nucleated Red Blood Cells % 0 %; Platelet Count 228 10^3/cmm (130-400); Red Blood Count 3.04 10^6/uL (4.1-5.3); Red Cell Distribution Width 13.2 % (12.1-15.1); White Blood Count 6.1 10^3/uL (4.0-10.0)
[2022-09-14 04:22] LABS: Alanine Aminotransferase 12 U/L (0-41); Albumin Level 3.4 g/dL (3.5-5.2); Alkaline Phosphatase 61 U/L (40-130); Anion Gap 14.3 (5-19); Aspartate Amino Transferase 13 U/L (0-40); Blood Urea Nitrogen 33 mg/dL (8-23); Calcium 8.8 mg/dL (8.5-10.5); Carbon Dioxide 22 mmol/L (22-29); Chloride 98 mmol/L (98-107); Globulin 2.9 g/dL (1.3-4.6); Glucose 91 mg/dL (65-115); Osmolality Calculated 277 mOsm/kg (285-295); Phosphorus 4.4 mg/dL (2.5-4.5); Potassium 4.3 mmol/L (3.5-5.1); Sodium 130 mmol/L (136-145); Total Bilirubin 0.2 mg/dL (0.15-1.2); Total Protein 6.3 g/dL (6.6-8.7)
--- NOTE | 2022-09-14 04:47 | USCV_ITS ---
Marco Antonio Sebastian Age: 81 Gender: M : 1940 Exam Date: 09/14/2022 05:49 Ordering Phys: Zelda Ross MD Technologist: ESTRELLA Exam Location: [facility] [place] Indication: STEMI BP: 172 / 60 HR: 79 Rhythm: Sinus Technical Quality: Adequate MEASUREMENTS (Male / Female) Normal Values 2D ECHO LVOT Diameter 2.0 cm LV Ejection Fraction MOD 2C 64.8 % LV Ejection Fraction 2C AL 65.7 % LA Diameter 3.4 cm LA Width 3.9 cm LA Height 3.8 cm RA Width 3.5 cm RA Height 3.9 cm Aorta at Sinotubular Diameter 2.4 cm IVC Diameter 0.8 cm M-MODE Aortic Annulus Diameter 2.9 cm LA Ao Ratio MM 1.1 MV E Point Septal Separation 0.2 cm DOPPLER AV Peak Velocity 188.7 cm/s LVOT Peak Velocity 141.0 cm/s AV Area Cont Eq vti 3.5 cm squared AV Area Cont Eq pk 2.4 cm squared MV Peak Velocity 125.0 cm/s MV Area PHT 3.7 cm squared Mitral E to A Ratio 0.9 MV E' Velocity 54.5 cm/s Mitral E to MV E' Ratio 12.7 Mitral E to LV E' Lateral Ratio 11.3 Mitral E to LV E' Septal Ratio 14.5 TV Peak E Velocity 42.0 cm/s Right Atrial Pressure 3.0 mmHg PV Peak Velocity 125.0 cm/s RV Acceleration Time 0.2 s RV Ejection Time 0.4 s RV AcT/ET 0.5 FINDINGS Left Ventricle Left ventricle is normal size. LV systolic function is normal with EF of 60 to 65%. No regional wall motion abnormalities are seen. Right Ventricle Normal in size and function Right Atrium Normal in size Left Atrium Normal in size Mitral Valve Mitral valve is thickened. Mild mitral regurgitation. No significant stenosis Aortic Valve Aortic valve is thickened. No significant stenosis. Mild to moderate aortic regurgitation Tricuspid Valve Mild tricuspid regurgitation. Insufficient TR jet to calculate RVSP Pulmonic Valve Not well visualized Pericardium Normal Aorta Normal in size IVC IVC appears to be normal CONCLUSIONS LV systolic function is normal with EF of 60 to 65%. Mild mitral regurgitation Mild to moderate aortic regurgitation Mild tricuspid regurgitation. Compared to prior echocardiogram from 12/24/2021, patient now has mild to moderate aortic regurgitation and mild mitral regurgitation. Jensen Arroyo MD (Electronically Signed) Final Date: 14 September 2022 17:07 S
--- NOTE | 2022-09-14 05:35 | PC.NURSE ---
Arrival to ICU Patient brought back to ICU via bed from filling station laborer. Upon arrival patient is alert & oriented x4 on room air. Right dorsalis pedis and radial pulses palpable. TR band applied to right wrist with 15mls of air instilled. Sheath to right groin, dressing remains dry/intact with surrounding area soft upon palpation. No lumps/masses felt at this time. Patient denies chest pain.
--- NOTE | 2022-09-14 06:44 | PC.NURSE ---
Shift Note Frequent safety and comfort rounds continue. Orders and/or nursing care completed as indicated. Patient monitored for response to intervention and treatment(s). Education provided includes post cath education. Patient verbalized understanding of teaching. Patient had an eventful shift, please see previous notes for detail. Currently resting in bed, denies chest pain at this time. NS and Aggrastat infusing per orders. Aggrastat to be d/c at 1110 & NS to be d/c at 1400 per . Dina orders. Right wrist TR band and right groin sheath remain in place at this time. Sheath to be removed at 1000 per orders. Will continue to monitor.
[2022-09-14] MEDS: gabapentin 400 mg Capsule PO ×3 (09:16→20:10)
[2022-09-14] MEDS: atorvastatin 40 mg Tablet 80 MG PO (09:16)
[2022-09-14] MEDS: pantoprazole DR 40 mg Tablet PO (10:03)
[2022-09-14] MEDS: amlodipine 10 mg Tablet PO (10:03)
[2022-09-14] MEDS: levothyroxine 125 mcg Tablet PO (10:03)
[2022-09-14 10:12] LABS: Partial Thromboplastin Time 32.5 SECONDS (23.9-36.7)
[2022-09-14 10:14] LABS: Iron 65 ug/dL (59-158); Percent Saturation 27.4 % (20-50); Total Iron Binding Capacity 237 mcg/dl; Unsaturated Iron Binding 172 ug/dL (112-347)
[2022-09-14 10:17] LABS: Estmated Average Glucose 94; Hemoglobin A1C 4.9 % (4.0-6.0)
[2022-09-14 10:33] LABS: Chol HDL Ratio 2.56 mg/dL (1.0-5.00); Cholesterol 138 mg/dL (0-200); HDL Cholesterol 54 mg/dL (60-100); LDL Cholesterol Calculated 74 mg/dL (50-129); Thyroid Stimulating Hormone 0.01 uIU/mL (0.27-4.20); Triglycerides 49 mg/dL (0-150); VLDL Cholestrol Calculation 10 mg/dL (0-30); Vitamin B12 287 pg/mL (232-1245)
[2022-09-14 11:06] LABS: Folate Level 6.8 ng/mL (4.5-32.2)
--- NOTE | 2022-09-14 11:51 | PC.NURSE ---
PTT resulted as 32.5. Nurse removed sheath per orders. Pressure held for 20 minutes. SHeath removed intact. Hematoma formed imemadiately upon removal of sheath, distal to the puncture site. 3CM in size. Hematoma dispersed with manual pressure while also holding pressure on the cath site and is now barely palpable. VItals remained unchanged. Transparent dressing and gauze in place. NUrse continues to monitor.
[2022-09-14] MEDS: clopidogrel 75 mg Tablet PO (12:00)
[2022-09-14 12:09] LABS: Free T4 Free Thyroxine 2.81 ng/dL (0.82-1.77); T3 Free 2.2 PG/ML (2.0-4.4)
[2022-09-14] MEDS: sodium chloride 0.9% 1,000 ML 75 ML IV (12:49)
--- NOTE | 2022-09-14 15:54 | PM.PN ---
Subjective Subjective: H&P, course and labs appreciated. Today morning examination patient lying comfortably in bed. Femoral sheath in place. Denies any chest pain. Denies any nausea vomiting, headache. Blood pressure is elevated. Vitals/I&O/Wt Last Vital Signs Temp 97.7 F 09/14/22 12:25 Pulse 78 09/14/22 14:00 Resp 19 H 09/14/22 12:25 BP 128/54 09/14/22 12:25 Pulse Ox 95 09/14/22 12:25 O2 Del Method 09/14/22 08:00 09/14/22 09/14/22 09/14/22 06:59 14:59 22:59 Intake Total 1002.217 / 1002.217 300 / 300 Output Total 1400 / 1400 Balance 1002.217 / 1002.217 -1100 / -1100 Weight last 48 hrs Weight 64.455 kg Weight 63.503 kg Physical Exam Narrative: General: No acute distress, AO x3 HEENT: PERRLA, pupils bilaterally equal and reactive, pallors not present Chest: Normal vesicular breath sounds, no added sounds, equal good air entry bilaterally CVS: S1-S2 regular, no murmurs, no tachycardia, no gallops, no rubs Abdomen: Soft, nontender, no organomegaly, bowel sounds present Neuro: No focal deficits, no facial deformity, AO x3, power 5/5 in all limbs Extremities: No edema clubbing or cyanosis. Data : 09/14/22 03:34 09/14/22 03:34 A&P Assessment and plan (1) ST elevation [place] (STEMI): Post PCI to RCA. Continue with aspirin, Plavix, statin. Start on metoprolol 25 mg twice daily. Hold off on starting CAROL inhibitor given NIGHAT on CKD. Echocardiogram results appreciated. Appreciate cardiology recommendations. (2) Acute hyponatremia: Most likely secondary to dehydration. Resolving. Sodium back up to 130. Continue with IV hydration. (3) CKD (chronic kidney disease): Baseline creatinine seems to be 1.6 with last BMP from 2019. (4) Acute kidney injury superimposed on CKD: Creatinine on admission 2. Trending down to 1.8. Most likely secondary to ACS. Post cardiac angiography and PCI. Continue with gentle IV hydration. Hold off on CAROL inhibitor's for now. (5) Hyperlipidemia: (6) Hypertension: Goal blood pressure less than 140/90 mmHg. Continuing home dose of amlodipine. Add metoprolol 25 mg twice daily. Plan Hypothyroidism: Takes levothyroxine 112 mcg daily at home. TSH 0.01. Free T4 mildly elevated. Will decrease the dose of levothyroxine 100 mcg daily. Will need to repeat thyroid profile in 1 month. Transfer to CSU. Full code. Cardiac diet. Protonix for PUD prophylaxis. Attestations Medical Necessity Statement*: Requires further hospitalization for management of ST elevation WI, post PCI Time Spent in Patient Care: Greater than 35 minutes Coding Level of Care Code Acute Speech Pathology Supervisor for Chg Fwd Diagnoses ST elevation [place] (STEMI) I21.3 Acute hyponatremia E87.1 CKD (chronic kidney disease) N18.9 Acute kidney injury superimposed on CKD N17.9; N18.9 Hyperlipidemia E78.5 Hypertension I10
[2022-09-14] MEDS: ferrous gluconate 324 mg Tablet PO (17:50)
[2022-09-14] MEDS: sucralfate 1 gm Tablet PO (17:50)
--- NOTE | 2022-09-14 18:33 | PC.NURSE ---
Shift SUmmary: Uneventful shift. Patient came back form equipment operator/laborer this morning. Sheath removed at 11am. Patient remained compliant with bed rest orders. Up to a chair at 5pm. After initial small hematoma formation which was disprersed with manual pressure, no additional hematoma formation or signs of bleeding even after up to a chair.
[2022-09-14] MEDS: metoprolol tartrate 25 mg Tablet PO (20:10)
--- NOTE | 2022-09-14 22:07 | PC.NURSE ---
Blood Pressure Patient's blood pressure trending down. At 2100, blood pressure was 100/41 MAP 60, then at 0 patient's blood pressure further decreased to 82/45 MAP 57. Patient asymptomatic when awake, resting well. 25 mg Metoprolol administered at 2009 as ordered when blood pressure 139/[address] Ross notified; no new orders received. If patient's blood pressure decreases further or he becomes symptomatic, to call for further orders.
[2022-09-15] VITALS (55 sets, daily range): BP systolic 90–182; BP diastolic 42–78; PULSE 68–89; RESP 12–40; TEMP 36.5–37; O2SAT 91–99
--- NOTE | 2022-09-15 00:59 | PC.NURSE ---
Blood Pressure At 2330, Patient's blood pressure 95/43 MAP 60 while patient resting. This shift, patient had voided only once with an amount unknown due to spilled urinal. Fluid responsiveness assessment completed using cheeta; results indicated patient would be fluid responsive with an SVI of 53.2%. Following assessment, patient urinated 250 ml. Topical nitro-bid removed from chest, next scheduled dose not applied due to low blood pressures. Dr. Ross contacted; urine output, fluid balance, cheeta results, and nitro-bid non-administration relayed. Nitro-bid order discontinued by Dr. Ross, no new orders received.
--- NOTE | 2022-09-15 01:45 | PC.NURSE ---
Maintenance Fluid At 0120, Dr. Ross on the unit, patient's blood pressure back down to 90/46 MAP 60. Verbal order received to keep maintenance fluid of NS to run at 75 ml/hr continuous. Order placed and fluids administered per JAN.
[2022-09-15] MEDS: sodium chloride 0.9% 1,000 ML 75 ML IV (02:00)
[2022-09-15 04:27] LABS: Basophils % 0.6 %; Eosinophils # 0.3 10^3/uL (0.0-0.8); Eosinophils % 4.3 %; Hematocrit 22.9 % (42.0-52.0); Hemoglobin 7.3 g/dL (11.7-16.6); Lymphocytes # 1.6 10^3/uL (0.8-4.8); Lymphocytes % 25.9 %; Mean Corpuscular HGB Conc 31.9 g/dL (30.0-36.0); Mean Corpuscular Hemoglobin 30.5 pg (28.0-34.0); Mean Corpuscular Volume 95.8 fl (80-94); Mean Platelet Volume 11.1 fL (7.4-10.4); Monocytes # 0.7 10^3/uL (0.2-0.9); Neutrophils # 3.59 10^3/uL (1.8-7.7); Neutrophils % 57.9 %; Nucleated Red Blood Cells % 0 %; Platelet Count 187 10^3/cmm (130-400); Red Blood Count 2.39 10^6/uL (4.1-5.3); Red Cell Distribution Width 13.5 % (12.1-15.1); White Blood Count 6.2 10^3/uL (4.0-10.0)
[2022-09-15 04:54] LABS: Alanine Aminotransferase 10 U/L (0-41); Albumin Level 2.6 g/dL (3.5-5.2); Alkaline Phosphatase 49 U/L (40-130); Anion Gap 14.5 (5-19); Aspartate Amino Transferase 11 U/L (0-40); Blood Urea Nitrogen 34 mg/dL (8-23); Calcium 8.3 mg/dL (8.5-10.5); Carbon Dioxide 19 mmol/L (22-29); Chloride 105 mmol/L (98-107); Globulin 2.5 g/dL (1.3-4.6); Glucose 88 mg/dL (65-115); Osmolality Calculated 285 mOsm/kg (285-295); Potassium 4.5 mmol/L (3.5-5.1); Sodium 134 mmol/L (136-145); Total Bilirubin 0.2 mg/dL (0.15-1.2); Total Protein 5.1 g/dL (6.6-8.7)
[2022-09-15] MEDS: gabapentin 400 mg Capsule PO ×3 (08:02→20:16)
[2022-09-15] MEDS: metoprolol tartrate 25 mg Tablet PO ×2 (08:02→20:16)
[2022-09-15] MEDS: pantoprazole DR 40 mg Tablet PO ×2 (08:02→17:36)
[2022-09-15] MEDS: ferrous gluconate 324 mg Tablet PO ×2 (08:02→17:36)
[2022-09-15] MEDS: atorvastatin 40 mg Tablet 80 MG PO (08:03)
[2022-09-15] MEDS: aspirin 81 mg EC Tablet PO (08:03)
[2022-09-15] MEDS: clopidogrel 75 mg Tablet PO (08:03)
[2022-09-15] MEDS: sucralfate 1 gm Tablet PO (08:03)
[2022-09-15] MEDS: levothyroxine 100 mcg Tablet PO (08:04)
--- NOTE | 2022-09-15 08:28 | P.PN_ITS ---
Subjective Subjective: Patient is overall stable. No complaints of chest pain. Has drop in hemoglobin. Renal function is stable. Vitals/I&O/Wt Last Vital Signs Temp 98.6 F 09/15/22 04:00 Pulse 86 09/15/22 08:00 Resp 16 09/15/22 06:15 BP 103/47 09/15/22 06:15 Pulse Ox 96 09/15/22 08:00 O2 Del Method 09/15/22 08:00 09/14/22 09/15/22 09/15/22 22:59 06:59 14:59 Intake Total 200 / 500 1000 / 1500 Output Total 275 / 1675 250 / 1925 Balance -75 / -1175 750 / -425 Weight last 48 hrs Weight 142 lb 1.6 oz Weight 140 lb Physical Exam Narrative: GENERAL: Patient is alert, awake and oriented x3. [] NECK: No jugular vein distension. [] HEENT: No cyanosis. No icterus. No pallor. [] HEART: Regular S1 and S2. No murmur, rub or gallop. [] LUNGS: Clear to auscultate bilaterally. [] ABDOMEN: Soft, nontender and nondistended. Positive bowel sounds. No guarding, rebound or tenderness. [] CENTRAL NERVOUS SYSTEM: Grossly nonfocal. [] EXTREMITIES: Lower extremities with no edema bilaterally. Pulses palpable in the lower extremities, both dorsalis pedis and posterior tibial. [] Data : 09/15/22 04:08 09/15/22 04:08 A&P Assessment and plan (1) ST elevation [place] (STEMI): (2) Chest pain: (3) CKD (chronic kidney disease): (4) Hypertension: (5) Hyperlipidemia: Plan Patient was admitted as a non-ST elevation [place]. He evolved into STEMI overnight. Cardiac Large Engine Assembler was emergently activated and was found to thrombus formation in the mid RCA. He underwent successful revascularization with NIGEL x1. Aspirin and Plavix for at least 1 year Hemoglobin has dropped to 7.3. Will recommend blood transfusion and workup per primary team. ICU monitoring Aggressive risk factor modification. Cardiac function is normal on echocardiogram Thank you for involving us with care of this patient. We will continue to follow. Please call with questions. Attestations Medical Necessity Statement*: Care expected to cross 2 midnights. Coding Level of Care Code Acute Production Coordinator for g Fwd Diagnoses ST elevation [place] (STEMI) I21.3 Chest pain R07.9 CKD (chronic kidney disease) N18.9 Hypertension I10 Hyperlipidemia E78.5
--- NOTE | 2022-09-15 09:11 | P.PN_ITS ---
Subjective Subjective: H&P, course and labs appreciated. Today morning examination patient lying comfortably in bed. Femoral sheath in place. Denies any chest pain. Denies any nausea vomiting, headache. Blood pressure is elevated. Vitals/I&O/Wt Last Vital Signs Temp 98.6 F 09/15/22 04:00 Pulse 79 09/15/22 08:00 Resp 20 H 09/15/22 08:00 BP 121/46 09/15/22 08:00 Pulse Ox 95 09/15/22 08:00 O2 Del Method 09/15/22 08:00 09/14/22 09/15/22 09/15/22 22:59 06:59 14:59 Intake Total 200 / 500 1000 / 1500 350 / 350 Output Total 275 / 1675 250 / 1925 Balance -75 / -1175 750 / -425 350 / 350 Weight last 48 hrs Weight 64.455 kg Weight 63.503 kg Physical Exam Narrative: General: No acute distress, AO x3 HEENT: PERRLA, pupils bilaterally equal and reactive, pallors not present Chest: Normal vesicular breath sounds, no added sounds, equal good air entry bilaterally CVS: S1-S2 regular, no murmurs, no tachycardia, no gallops, no rubs Abdomen: Soft, nontender, no organomegaly, bowel sounds present Neuro: No focal deficits, no facial deformity, AO x3, power 5/5 in all limbs Extremities: No edema clubbing or cyanosis. Data : 09/15/22 04:08 09/15/22 04:08 A&P Assessment and plan (1) Anemia: Most likely secondary to dilutional from IV fluids in setting of anemia of CKD. Cannot rule out slow GI bleed. Protonix 40 mg twice daily, Carafate before meals and at bedtime. Transfuse 2 unit of blood transfusion. Target hemoglobin over [address]. Stool for occult blood. Check reticulocyte count, haptoglobin, LDH Patient would benefit from repeat hemoglobin in 2 weeks and if hemoglobin is trending down with plan for endoscopy as an outpatient while we continue aspirin and Plavix which is needed currently secondary to recent PCI. (2) ST elevation CT (STEMI): Post PCI to RCA. Continue with aspirin, Plavix, statin. Start on metoprolol 25 mg twice daily. Hold off on starting CAROL inhibitor given NIGHAT on CKD. Echocardiogram results appreciated. Appreciate cardiology recommendations. (3) Acute hyponatremia: Most likely secondary to dehydration. Resolved. (4) CKD (chronic kidney disease): Baseline creatinine seems to be 1.6 with last BMP from 2019. (5) Acute kidney injury superimposed on CKD: Creatinine back to baseline and stable. Stop IV fluids. Transfusion as above. Post cardiac angiography and PCI. Hold off on CAROL inhibitor's for now. (6) Hyperlipidemia: (7) Hypertension: Goal blood pressure less than 140/90 mmHg. Continuing home dose of amlodipine. Add metoprolol 25 mg twice daily. Plan Hypothyroidism: Takes levothyroxine 112 mcg daily at home. TSH 0.01. Free T4 mildly elevated. Will decrease the dose of levothyroxine 100 mcg daily. Will need to repeat thyroid profile in 1 month. Transfer to CSU. Full code. Cardiac diet. Protonix for PUD prophylaxis. Attestations Medical Necessity Statement*: Requires further hospitalization for management of anemia while patient requires blood transfusion and further work-up in setting of post ST elevation CT emergent PCI Time Spent in Patient Care: Greater than 35 minutes Coding Level of Care Code Acute Investor Relations Specialist for Chg Fwd Diagnoses Anemia D64.[address] (STEMI) I21.3 Acute hyponatremia E87.1 CKD (chronic kidney disease) N18.9 Acute kidney injury superimposed on CKD N17.9; N18.9 Hyperlipidemia E78.5 Hypertension I10
[2022-09-15 09:56] LABS: Lactate Dehydrogenase 99 U/L (135-225)
[2022-09-15] MEDS: cyanocobalamin 1,000 mcg/mL SDV 1000 MCG IM (10:03)
--- NOTE | 2022-09-15 10:10 | PC.NURSE ---
Dr. Cotto at bedside, ordered 2 units of blood, starting meds for possible gastric ulcer, possible D/C tomorrow
--- NOTE | 2022-09-15 12:48 | PC.CHAP ---
Pastoral Care Encounter/Spiritual Assessment Type of Contact [] Declined drive in theater attendant visit [] Patient/Family/Request visit [] Outpatient visit [] Follow-up visit [] Physician referral [] Code/Alert [x] Routine visit [] Staff referral [] Actively dying [] Patient sleeping [] Family support [] [] Out of room [] Palliative care [] [] Receiving care in room [] Pre-surgical visit [] Trauma [] Long length of stay [x] ICU visit [] Other: Relational/Emotional Strength [] Patient feels connected with others/family/visitors/staff [] Distress [] Loneliness/isolation [] Abandonment Spirituality of Patient [] Person of Gayatri [] Attends Episcopal of their Gayatri [] Believes in Prayer [] Reads Bible or Yarsani materials [] There are Spiritual issues to be addressed Vocational Instructor Interventions [x] Prayer [] Active listening [] Non-anxious presence [] Spiritual/emotional support [] Crisis/trauma care [] Spiritual counseling [] Bereavement support [] Provided bereavement packet [] Provided Bible/devotional materials [] Provided toy/stuffed animal, coloring book to patient or family member [] Provided Communion [] Anointing/[place] [] Salvation [x] Completed spiritual assessment [] Other: Impact on Illness or Injury [] Angry [] Fearful [] Anxious [] Often cries [] Exhaustion [] Unable to work [] Unable to attend orthodox [] Unable to walk/stand [] Unable to read [] Unable to drive [] Unable to eat/drink [] Unable to sleep [] Unable to be with family [] Patient intubated [] Other: Summary Time spent with patient
[2022-09-15] MEDS: sucralfate 1 gm/10 mL Oral Liq UDC PO ×2 (17:36→20:16)
--- NOTE | 2022-09-15 18:54 | PC.NURSE ---
Patient refused 2nd unit of blood, Dr. Cotto notified
[2022-09-15] MEDS: acetaminophen 325 mg Tablet 650 MG PO (22:35)
[2022-09-16] VITALS (19 sets, daily range): BP systolic 104–174; BP diastolic 50–62; PULSE 64–78; RESP 14–20; TEMP 36.7–36.8; O2SAT 91–98
--- NOTE | 2022-09-16 01:02 | PHA.FALL ---
A Pharmacy Consult Was Conducted For Marco Antonio Sebastian Due To: Quintero Fall Scale Risk Level: High Fall Risk On 09/15/22 20:06 And A Medication Fall Risk Score Greater Than 10. The Recommendations Are As Follows: Amlodipine ARNAUD: 1,3,4,5,7,9,10 Gabapentin ARNAUD: 1,3,4,5,6,7,8,10 Lisinopril ARNAUD: 1,3,4,5,8,9 Alprazolam ARNAUD: 1,3,4,5,6,8,10 Morphine ARNAUD: 1,2,3,4,5,6,7,8,9,10 Metoprolol ARNAUD: 1,2,3,4,5,9,10 Temazepam ARNAUD: 1,2,4,5,8 Medications which cause/contribute to: 1= sedation/fatigue/lethargy 2= decreased alertness 3= postural/orthostatic hypotension 4= dizziness 5= decreased neuromuscular function/ataxia 6=decreased memory/cognitive impairment 7= blurred vision 8= confusion 9= arrhythmias 10= syncope 11= anemia
[2022-09-16 03:53] LABS: Basophils % 0.5 %; Eosinophils # 0.4 10^3/uL (0.0-0.8); Eosinophils % 4.8 %; Hematocrit 27.6 % (42.0-52.0); Hemoglobin 8.8 g/dL (11.7-16.6); Lymphocytes # 1.8 10^3/uL (0.8-4.8); Lymphocytes % 23.2 %; Mean Corpuscular HGB Conc 31.9 g/dL (30.0-36.0); Mean Corpuscular Hemoglobin 29.9 pg (28.0-34.0); Mean Corpuscular Volume 93.9 fl (80-94); Mean Platelet Volume 11.1 fL (7.4-10.4); Monocytes # 0.7 10^3/uL (0.2-0.9); Monocytes % 9.8 %; Neutrophils # 4.64 10^3/uL (1.8-7.7); Neutrophils % 61.6 %; Nucleated Red Blood Cells % 0 %; Platelet Count 160 10^3/cmm (130-400); Red Blood Count 2.94 10^6/uL (4.1-5.3); Red Cell Distribution Width 14.6 % (12.1-15.1); White Blood Count 7.5 10^3/uL (4.0-10.0)
[2022-09-16 04:22] LABS: Alanine Aminotransferase 9 U/L (0-41); Albumin Level 2.7 g/dL (3.5-5.2); Alkaline Phosphatase 50 U/L (40-130); Anion Gap 12.9 (5-19); Aspartate Amino Transferase 11 U/L (0-40); Blood Urea Nitrogen 30 mg/dL (8-23); Calcium 8.7 mg/dL (8.5-10.5); Carbon Dioxide 20 mmol/L (22-29); Chloride 107 mmol/L (98-107); Globulin 2.7 g/dL (1.3-4.6); Glucose 89 mg/dL (65-115); Osmolality Calculated 286 mOsm/kg (285-295); Potassium 4.9 mmol/L (3.5-5.1); Sodium 135 mmol/L (136-145); Total Bilirubin 0.4 mg/dL (0.15-1.2); Total Protein 5.4 g/dL (6.6-8.7)
[2022-09-16] MEDS: sucralfate 1 gm/10 mL Oral Liq UDC PO (06:16)
--- NOTE | 2022-09-16 07:36 | P.PN_ITS ---
Subjective Subjective: Patient is overall stable. Denies any recurrence of chest pain. His hemoglobin went up to 8.8 after transfusion of blood yesterday. Vitals/I&O/Wt Last Vital Signs Temp 98.2 F 09/16/22 04:00 Pulse 69 09/16/22 06:30 Resp 15 09/16/22 06:30 BP 174/62 09/16/22 06:30 Pulse Ox 98 09/16/22 06:30 O2 Del Method 09/16/22 06:30 09/15/22 09/16/22 09/16/22 22:59 06:59 14:59 Intake Total 650 / 1400 Output Total 275 / 525 350 / 875 Balance 375 / 875 -350 / 525 Physical Exam Narrative: GENERAL: Patient is alert, awake and oriented x3. [] NECK: No jugular vein distension. [] HEENT: No cyanosis. No icterus. No pallor. [] HEART: Regular S1 and S2. No murmur, rub or gallop. [] LUNGS: Clear to auscultate bilaterally. [] ABDOMEN: Soft, nontender and nondistended. Positive bowel sounds. No guarding, rebound or tenderness. [] CENTRAL NERVOUS SYSTEM: Grossly nonfocal. [] EXTREMITIES: Lower extremities with no edema bilaterally. Pulses palpable in the lower extremities, both dorsalis pedis and posterior tibial. [] Data : 09/16/22 03:22 09/16/22 03:22 Micro: Microbiology 09/16/22 00:45 Occult Blood (FIT) - Final Stool Routine Collection A&P Assessment and plan (1) ST elevation [place] (STEMI): (2) Chest pain: (3) CKD (chronic kidney disease): (4) Hypertension: (5) Hyperlipidemia: Plan Patient was admitted as a non-ST elevation [place]. He evolved into STEMI overnight. Cardiac Edging Machine Operator was emergently activated and was found to thrombus formation in the mid RCA. He underwent successful revascularization with NIGEL x1. Aspirin and Plavix for at least 1 year Hemoglobin dropped to 7.3. Received blood transfusion and resolved to 8.8 today. Work-up per primary team. If there is no further decline, can do outpatient CBC monitoring. Metoprolol uptitrated to 50 mg twice daily as blood pressure is elevated. Cardiac function is normal on echocardiogram Thank you for involving us with care of this patient. Please call with questions. Attestations Medical Necessity Statement*: Care expected to cross 2 midnights Coding Level of Care Code Acute Assembler Ping Pong Table for Mark Ochoa Diagnoses ST elevation [place] (STEMI) I21.3 Chest pain R07.9 CKD (chronic kidney disease) N18.9 Hypertension I10 Hyperlipidemia E78.5
[2022-09-16] MEDS: ferrous gluconate 324 mg Tablet PO (08:25)
[2022-09-16] MEDS: cyanocobalamin 1,000 mcg Tablet 500 MCG PO (08:25)
[2022-09-16] MEDS: gabapentin 400 mg Capsule PO (08:25)
[2022-09-16] MEDS: metoprolol tartrate 50 mg Tablet PO (08:25)
[2022-09-16] MEDS: atorvastatin 40 mg Tablet 80 MG PO (08:25)
[2022-09-16] MEDS: levothyroxine 100 mcg Tablet PO (08:25)
[2022-09-16] MEDS: clopidogrel 75 mg Tablet PO (08:25)
[2022-09-16] MEDS: pantoprazole DR 40 mg Tablet PO (08:25)
[2022-09-16] MEDS: aspirin 81 mg EC Tablet PO (08:26)
[2022-09-16] MEDS: sucralfate 1 gm Tablet PO (08:26)
--- NOTE | 2022-09-16 10:14 | P.DS_ITS ---
Discharge Providers Date of Admission: 09/14/22 00:09 Date of Discharge: September 16, 2022 Attending Provider at Admission: Zelda Ross MD Attending Provider at Discharge: Everardo Cotto MD Consults: Cardiology: Dr. Arroyo Primary Care Provider: Tyrese Rodriguez NP Diagnoses at Discharge Discharge Diagnosis (1) ST elevation [place] (STEMI): Status: Acute (2) Chest pain: Status: Acute (3) CKD (chronic kidney disease): Status: Acute (4) Hypertension: Status: Acute (5) Hyperlipidemia: Status: Acute Reason for Visit Reason for Visit: Chest Pain\[place] Hospital Course Hospital Course Marco Antonio Sebastian is a 81 year old male with past medical history of hypertension who was admitted to the hospital on 09/14 night with chest pain.? Initial troponin was 71.? Initial EKG did not show ST elevations.? His chest pain was on and off.? At around 3 AM, he started having severe substernal chest pain again.? EKG was performed that showed inferior leads ST elevations.? These changes were dynamic.? STEMI alert was called.? Patient was emergently taken to the cardiac Manager [employer].? His mid RCA showed filling defect consistent with thrombus.? He underwent successful revascularization with NIGEL x1. Patient hospital course was complicated by him developing anemia. There was no active site of bleeding. There were no concerns for GI bleed for now. It is possible anemia secondary to chronic disease from kidney dysfunction and dilution with IV fluids. He received a blood transfusion and hospitalization to maintain hemoglobin over 8. Has been discharged medically stable condition advised to follow-up with a primary care provider in 2 weeks for repeat CBC. If hemoglobin is trending down at that point he would need an endoscopy and colonoscopy for further evaluation. Patient is to continue taking dual antiplatelets for now. Care plan was discussed in detail with patient and his family members and they were agreeable. All the questions were answered. Physical Exam Narrative: General: No acute distress, AO x3 HEENT: PERRLA, pupils bilaterally equal and reactive, pallors not present Chest: Normal vesicular breath sounds, no added sounds, equal good air entry bilaterally CVS: S1-S2 regular, no murmurs, no tachycardia, no gallops, no rubs Abdomen: Soft, nontender, no organomegaly, bowel sounds present Neuro: No focal deficits, no facial deformity, AO x3, power 5/5 in all limbs Extremities: No edema clubbing or cyanosis. Discharge Data Studies Completed and Pending Completed Studies During Hospitalization Category Date Time Status MATH PROFESSOR request for service Routine Exams 09/14/22 03:46 Completed XR chest 1V portable [id number] Stat Exams 09/13/22 22:11 Completed CV. echo complete* [id number] Routine Ultrasound 09/14/22 04:47 Completed Pending at discharge Category Date Time Status Leukocyte Reduced RBC Stat Lab 09/15/22 09:42 Results Type and Screen Stat Lab 09/15/22 09:42 Results Radiology Impressions Chest X-Ray 09/13/22 22:11 IMPRESSION: 1. Emphysematous changes. 2. Negative for infiltrate Echocardiogram: CONCLUSIONS ?LV systolic function is normal with EF of 60 to 65%. ?Mild mitral regurgitation ?Mild to moderate aortic regurgitation ?Mild tricuspid regurgitation. ?Compared to prior echocardiogram from 12/24/2021, patient now has ?mild to moderate aortic regurgitation and mild mitral ?regurgitation. ?Jensen Arroyo MD ?(Electronically Signed) ?Final Date:? ? ? 14 September 2022 ? 17:07 Laboratory Results WBC 7.5 10^3/uL (4.0-10.0) 09/16/22 03:22 RBC 2.94 10^6/uL (4.1-5.3) L 09/16/22 03:22 Hgb 8.8 g/dL (11.7-16.6) L 09/16/22 03:22 Hct 27.6 % (42.0-52.0) L 09/16/22 03:22 MCV 93.9 fl (80-94) 09/16/22 03:22 MCH 29.9 pg (28.0-34.0) 09/16/22 03:22 MCHC 31.9 g/dL (30.0-36.0) 09/16/22 03:22 RDW 14.6 % (12.1-15.1) 09/16/22 03:22 Plt Count 160 10^3/cmm (130-400) 09/16/22 03:22 MPV 11.1 fL (7.4-10.4) H 09/16/22 03:22 Neut % (Auto) 61.6 % 09/16/22 03:22 Lymph % (Auto) 23.2 % 09/16/22 03:22 Logan % (Auto) 9.8 % 09/16/22 03:22 Eos % (Auto) 4.8 % 09/16/22 03:22 Baso % (Auto) 0.5 % 09/16/22 03:22 Reticulocyte % (Auto) 1.0 % (0.5-2.0) 09/15/22 04:08 Neut # (Auto) 4.64 10^3/uL (1.8-7.7) 09/16/22 03:22 Lymph # (Auto) 1.8 10^3/uL (0.8-4.8) 09/16/22 03:22 Logan # (Auto) 0.7 10^3/uL (0.2-0.9) 09/16/22 03:22 Eos # (Auto) 0.4 10^3/uL (0.0-0.8) 09/16/22 03:22 Baso # (Auto) 0.0 10^3/uL (0.0-0.1) 09/16/22 03:22 Nucleated RBC % (auto) 0 % 09/16/22 03:22 Nucleated RBCs # 0.0 /100WBC 09/16/22 03:22 PT 14.00 SECONDS (12.1-14.9) 09/13/22 22:20 INR 1.05 (0.8-1.2) 09/13/22 22:20 APTT 32.5 SECONDS (23.9-36.7) 09/14/22 09:52 Sodium 135 mmol/L (136-145) L 09/16/22 03:22 Potassium 4.9 mmol/L (3.5-5.1) 09/16/22 03:22 Chloride 107 mmol/L (98-107) 09/16/22 03:22 Carbon Dioxide 20 mmol/L (22-29) L 09/16/22 03:22 Anion Gap 12.9 (5-19) 09/16/22 03:22 BUN 30 mg/dL (8-23) H 09/16/22 03:22 Creatinine 1.7 mg/dL (0.7-1.2) H 09/16/22 03:22 GFR Calculation Not Reportable 09/16/22 03:22 Glucose 89 mg/dL (65-115) 09/16/22 03:22 Estimat Average Glucose 94 09/14/22 03:34 Hemoglobin A1c 4.9 % (4.0-6.0) 09/14/22 03:34 Calculated Osmolality 286 mOsm/kg (285-295) 09/16/22 03:22 Calcium 8.7 mg/dL (8.5-10.5) 09/16/22 03:22 Phosphorus 4.4 mg/dL (2.5-4.5) 09/14/22 03:34 Magnesium 2.0 mg/dL (1.7-2.3) 09/14/22 03:34 Iron 65 ug/dL (59-158) 09/14/22 03:34 TIBC 237 mcg/dl 09/14/22 03:34 % Saturation 27.4 % (20-50) 09/14/22 03:34 Unsat Iron Binding 172 ug/dL (112-347) 09/14/22 03:34 Total Bilirubin 0.4 mg/dL (0.15-1.2) 09/16/22 03:22 AST 11 U/L (0-40) 09/16/22 03:22 ALT 9 U/L (0-41) 09/16/22 03:22 Alkaline Phosphatase 50 U/L (40-130) 09/16/22 03:22 Lactate Dehydrogenase 99 U/L (135-225) L 09/15/22 04:08 Troponin T Baseline 71 ng/L (0-15) H 09/13/22 22:20 Total Protein 5.4 g/dL (6.6-8.7) L 09/16/22 03:22 Albumin 2.7 g/dL (3.5-5.2) L 09/16/22 03:22 Globulin 2.7 g/dL (1.3-4.6) 09/16/22 03:22 Triglycerides 49 mg/dL (0-150) 09/14/22 03:34 Cholesterol 138 mg/dL (0-200) 09/14/22 03:34 LDL Cholesterol, Calc 74 mg/dL (50-129) 09/14/22 03:34 Total VLDL Cholesterol 10 mg/dL (0-30) 09/14/22 03:34 HDL Cholesterol 54 mg/dL (60-100) L 09/14/22 03:34 Cholesterol/HDL Ratio 2.56 mg/dL (1.0-5.00) 09/14/22 03:34 Vitamin B12 287 pg/mL (232-1245) 09/14/22 03:34 Folate 6.8 ng/mL (4.5-32.2) 09/14/22 03:34 TSH 0.01 uIU/mL (0.27-4.20) L 09/14/22 03:34 Free T4 2.81 ng/dL (0.82-1.77) H 09/14/22 03:34 Free T3 2.2 PG/ML (2.0-4.4) 09/14/22 03:34 Blood Type A Positive 09/15/22 09:42 Rho(D) Type Positive 09/15/22 09:42 Antibody Screen Negative 09/15/22 09:42 Crossmatch See Detail 09/15/22 09:42 Vitals Last Vital Signs Temp 98.2 F 09/16/22 04:00 Pulse 78 09/16/22 08:30 Resp 20 H 09/16/22 08:30 BP 153/57 09/16/22 08:30 Pulse Ox 95 09/16/22 08:30 O2 Del Method 09/16/22 06:30 Discharge Plan Discharge Patient Disposition: Home Condition: Stable Prescriptions: New clopidogrel 75 mg Tablet 75 mg PO DAILY Qty: 30 0RF metoprolol tartrate 50 mg Tablet 50 mg PO BID@0900,2100 Qty: 60 0RF levothyroxine [Levoxyl] 100 mcg Tablet 100 mcg PO DAILY Qty: 30 0RF Continued gabapentin 400 mg capsule 400 mg PO TID aspirin [Adult Low Dose Aspirin] 81 mg tablet,delayed release (DR/EC) 81 mg PO QDAY ferrous sulfate 324 mg (65 mg iron) tablet,delayed release (DR/EC) 324 mg PO BID pravastatin 40 mg tablet 80 mg PO BEDTIME sucralfate 1 gram tablet 1 g PO BID Changed pantoprazole 40 mg tablet,delayed release (DR/EC) 40 mg PO BIDWMEAL Qty: 60 0RF lisinopril 40 mg tablet 20 mg PO DAILY Qty: 30 0RF Discontinued amlodipine 5 mg tablet 5 mg PO DAILY levothyroxine 112 mcg tablet 112 mcg PO DAILY Discharge Orders: Discharge Order (Routine); Ordered 09/16/22 Ordered By: Everardo Cotto Referrals: Tyrese Rodriguez NP [Primary Care Provider] - 2 weeks (Repeat CBC and CMP.) Lottie Rider FNP [Nurse Practitioner] - 7-10 days Discharge Diet: Cardiac Discharge Activity: Resume usual activity and Increase activity as tolerated Patient Instructions: Opioid Safety Activity Restrictions/Additional Instructions: Please continue take your medications as prescribed. Dose of levothyroxine has been changed to 100 mcg daily. Dose of lisinopril has been changed to 20 mg daily. Do not take amlodipine anymore. Take metoprolol 50 mg twice daily morning and evening. Take Protonix twice daily morning and evening. Please follow-up with your primary care provider within next 2 weeks for repeat CBC and CMP. Please follow-up with nurse practitioner from [facility] within next 1 week for further evaluation and management. You should have a repeat thyroid profile checked in 1 month. Discharge Attestations Time Spent in Discharge Care*: greater than 30 min Specific Discharge Activities: educating patient, discussing with pcp/other providers, discussing with correctional casework specialist/social workers/dc planners, documenting/other paperwork and evaluating patient/reviewing data Status at Discharge: Cognitive status at discharge: cognitively intact , Behavioral status at discharge: cooperative , Functional status at discharge: independent ambulation , Overall status at discharge: patient is back to baseline Quality Metrics Clinical Quality Measures [ Acute Myocardial Infaction { Clinical Trial Participant: No; Contraindication to aspirin: None; Aspirin prescribed; Contraindication to statin: None; Statin prescribed; Contraindication to PCI: None; PCI performed;}] Coding Level of Care Code Acute [facility] note Diagnoses ST elevation [place] (STEMI) I21.3 Chest pain R07.9 CKD (chronic kidney disease) N18.9 Hypertension I10 Hyperlipidemia E78.5
--- NOTE | 2022-09-16 12:53 | PC.CHAP ---
Pastoral Care Encounter/Spiritual Assessment Type of Contact [] Declined manager route visit [] Patient/Family/Request visit [] Outpatient visit [] Follow-up visit [] Physician referral [] Code/Alert [x] Routine visit [] Staff referral [] Actively dying [] Patient sleeping [] Family support [] [] Out of room [] Palliative care [] [] Receiving care in room [] Pre-surgical visit [] Trauma [] Long length of stay [x] ICU visit [x Other:gone home Relational/Emotional Strength [] Patient feels connected with others/family/visitors/staff [] Distress [] Loneliness/isolation [] Abandonment Spirituality of Patient [] Person of Gayatri [] Attends Yarsani of their Gayatri [] Believes in Prayer [] Reads Bible or Bahai materials [] There are Spiritual issues to be addressed Cpo Interventions [] Prayer [] Active listening [] Non-anxious presence [] Spiritual/emotional support [] Crisis/trauma care [] Spiritual counseling [] Bereavement support [] Provided bereavement packet [] Provided Bible/devotional materials [] Provided toy/stuffed animal, coloring book to patient or family member [] Provided Communion [] Anointing/[place] [] Salvation [] Completed spiritual assessment [] Other: Impact on Illness or Injury [] Angry [] Fearful [] Anxious [] Often cries [] Exhaustion [] Unable to work [] Unable to attend baptism [] Unable to walk/stand [] Unable to read [] Unable to drive [] Unable to eat/drink [] Unable to sleep [] Unable to be with family [] Patient intubated [] Other: Summary Time spent with patient
--- NOTE | 2022-09-16 13:46 | PC.NURSE ---
clarified with daughter over phone medication changes and apts.
== END 2022-09-16 12:00 | disposition home or self-care (01) | DRG 247 ==
LOC: ER 23:23 → MEDSURG 09-14 00:17 → ICU 09-14 08:09 → MEDSURG 09-15 00:50
PROVIDERS: Internal Medicine; Admitting Provider Student in an Organized Health Care Education/Training Program; Emergency Provider Emergency Medicine; PCP Nurse Practitioner Family; Visit Provider Student in an Organized Health Care Education/Training Program
PROC: 027034Z Dilation of Coronary Artery, One Artery with Drug-eluting Intraluminal Device, Percutaneous Approach (ICD-10-PCS; principal; 2022-09-14 03:50)
PROC: 027034Z Dilation of Coronary Artery, One Artery with Drug-eluting Intraluminal Device, Percutaneous Approach (ICD-10-PCS; 2022-09-14 03:50)
DX: I21.11 ST elevation (STEMI) myocardial infarction involving right coronary artery (principal); N17.9 Acute kidney failure, unspecified; E87.1 Hypo-osmolality and hyponatremia; I12.9 Hypertensive chronic kidney disease with stage 1 through stage 4 chronic kidney disease, or unspecified chronic kidney disease; N18.1 Chronic kidney disease, stage 1; E03.9 Hypothyroidism, unspecified; E78.5 Hyperlipidemia, unspecified; D63.1 Anemia in chronic kidney disease; I73.9 Peripheral vascular disease, unspecified; G62.9 Polyneuropathy, unspecified; F17.200 Nicotine dependence, unspecified, uncomplicated; E86.0 Dehydration; Z79.82 Long term (current) use of aspirin
CPT/HCPCS: 36415; 36430; 71045; 80048; 80053; 80061; 82274; 82607; 82746; 83036; 83540; 83550; 83615; 83735; 84100; 84439; 84443; 84481; 84484; 85025; 85045; 85610; 85730; 86850; 86900; 86920; 93005; 93306; 93454; 96360; 96372; 99152; 99153; 99285; C1725; C1769; C1874; C1887; C1894; C9600; J1644; J1650; J2250; J2270; J3010; J3420; J3490; J7030; P9016; Q9967

== ENCOUNTER → 2022-09-29 12:15 | Outpatient (BNVA) | payer MEDICARE, SELFPAY | PROVIDERS: PCP Nurse Practitioner Family; Visit Provider Nurse Practitioner Family | DX: I25.10 Atherosclerotic heart disease of native coronary artery without angina pectoris (principal); F17.200 Nicotine dependence, unspecified, uncomplicated; I12.9 Hypertensive chronic kidney disease with stage 1 through stage 4 chronic kidney disease, or unspecified chronic kidney disease; N18.9 Chronic kidney disease, unspecified | CPT/HCPCS: 99213 ==

== ENCOUNTER → 2022-12-23 11:06 | Outpatient (BNVA) | payer MEDICARE, SELFPAY | PROVIDERS: PCP Nurse Practitioner Family; Visit Provider Internal Medicine | DX: I25.10 Atherosclerotic heart disease of native coronary artery without angina pectoris (principal); E78.5 Hyperlipidemia, unspecified; I65.23 Occlusion and stenosis of bilateral carotid arteries; I12.9 Hypertensive chronic kidney disease with stage 1 through stage 4 chronic kidney disease, or unspecified chronic kidney disease; F17.200 Nicotine dependence, unspecified, uncomplicated; N18.9 Chronic kidney disease, unspecified | CPT/HCPCS: 99214 ==

== ENCOUNTER 2022-12-30 12:09 | Observation (INO) | payer MEDICARE, SELFPAY ==
[2022-12-30] VITALS (8 sets, daily range): BP systolic 149–188; BP diastolic 51–64; PULSE 64–78; RESP 10–18; TEMP 36.5–36.6; O2SAT 93–98; BMI 23.3; BMI 20.7
--- NOTE | 2022-12-30 12:37 | ED_ITS ---
HPI - Chest Pain General: Chief Complaint: Chest Pain Stated Complaint: CHEST DISCOMFORT Time Seen by Provider: 12/30/22 12:34 Source: patient Limitations: no limitations History of Present Illness: This 82-year-old male with a history of coronary artery disease, presents to the ER with chest pain that started 2 to 3 days ago. He finds it difficult to describe the pain but at best notes that the pain is burning and sometimes dull in nature. Pain is 8 out of 10 in severity and does not seem to radiate. Patient denies nausea, vomiting or fever. He had a stent placed just over a month ago and has been taking all his medicat ions as prescribed. Patient has mild bilateral pedal edema but is clinically stable. Review of Systems Const: Denies: chills, body aches or change in appetite Eyes: Denies: change in vision or eye discharge ENMT: Denies: throat pain, dental pain or nasal discharge Card: Reports: chest pain : Denies: dysuria Musc: Denies: neck pain or back pain Neuro: Denies: headache(s) or weakness in extremities Psych: Denies: depression Bossman/Lymph: Denies: easy bruising All/Imm: Denies: urticaria, tongue swelling or facial swelling PFSH ED PFSH: Medical History Anemia Atherosclerosis of coronary artery CKD (chronic kidney disease) Gastric ulcer Gastritis Hyperlipidemia Hypertension Neuropathy PAD (peripheral artery disease) Primary osteoarthritis of left knee Primary osteoarthritis of right knee Surgical History H/O colonoscopy 09/11/19 H/O esophagogastroduodenoscopy 09/11/19 History of appendectomy History of hernia surgery Family History Sister Cancer Brother Diabetes Denies family history of Anesthesia complication Bleeding disorder Social History Smoking and tobacco status: current every day smoker Alcohol intake: never Lives independently: Yes Marital status: Single Current occupational status: retired Physical Exam Const: COMMON NORMALS: no acute distress, patient oriented x3, no limitations and alert HENMT: COMMON NORMALS: normocephalic HEAD & SCALP: normocephalic Eye: COMMON NORMALS: EOMs intact bilaterally Neck/C-Spine: COMMON NORMALS: full ROM and supple Chest: COMMONS NORMALS: normal inspection of the chest Resp: COMMON NORMALS: normal respiratory effort, No retractions and No use of accessory muscles OTHER: Coarse breath sounds bilaterally. Occasional terminal expiratory wheeze. No acute respiratory distress. L Cardio: COMMON NORMALS: regular rate, regular rhythm and No murmurs present (Cardio) RATE: regular rate RHYTHM: regular rhythm GI: COMMON NORMALS: Normal to inspection, nondistended, normoactive bowel sounds present and non-tender : COMMON NORMALS: Yes no CVA tenderness BLADDER/KIDNEY EXAM: Yes no CVA tenderness Back/Pelvis: COMMON NORMALS: no CVA tenderness and no thoracic nor lumbar tenderness Extremity: GENERAL: Yes normal exam except as noted Neuro: COMMON NORMALS: patient oriented x3 and no focal motor deficits SENSORIUM/ORIENTATION: Yes alert Psych: COMMON NORMALS: mental status grossly normal and cooperative Course Vital Signs: Vital signs: Vital Signs Temperature 97.8 F 12/30/22 19:17 Pulse Rate 64 12/30/22 21:25 Respiratory Rate 10 L 12/30/22 20:59 Blood Pressure 149/60 12/30/22 20:59 Pulse Oximetry 93 12/30/22 20:59 Oxygen Delivery Me thod 12/30/22 20:59 MDM - Chest Pain Medical Decision Making Medical decision making: Patient has a history of coronary artery disease and presents to the ER with chest pain. Initial troponin is 48 and repeat troponin 2 hours later is 49.03. Patient had initial relief from nitroglycerin but pain came back later. She will be admitted for serial troponin and further management. Dr. Rolon accepted patient for observation placement. Lab Data 12/30/22 12:22 12/30/22 12:22 Radiology Impressions Chest X-Ray 12/30/22 12:44 Impression: Hyperinflation Laboratory Results WBC 5.4 10^3/uL (4.0-10.0) 12/30/22 12:22 RBC 2.97 10^6/uL (4.1-5.3) L 12/30/22 12:22 Hgb 9.4 g/dL (11.7-16.6) L 12/30/22 12:22 Hct 29.7 % (42.0-52.0) L 12/30/22 12:22 MCV 100.0 fl (80-94) H 12/30/22 12:22 MCH 31.6 pg (28.0-34.0) 12/30/22 12:22 MCHC 31.6 g/dL (30.0-36.0) 12/30/22 12:22 RDW 15.5 % (12.1-15.1) H 12/30/22 12:22 Plt Count 182 10^3/cmm (130-400) 12/30/22 12:22 MPV 11.5 fL (7.4-10.4) H 12/30/22 12:22 Neut % (Auto) 56.4 % 12/30/22 12:22 Lymph % (Auto) 28.1 % 12/30/22 12:22 [place] % (Auto) 8.1 % 12/30/22 12:22 Eos % (Auto) 5.9 % 12/30/22 12:22 Baso % (Auto) 1.3 % 12/30/22 12:22 Neut # (Auto) 3.07 10^3/uL (1.8-7.7) 12/30/22 12:22 Lymph # (Auto) 1.5 10^3/uL (0.8-4.8) 12/30/22 12:22 [place] # (Auto) 0.4 10^3/uL (0.2-0.9) 12/30/22 12:22 Eos # (Auto) 0.3 10^3/uL (0.0-0.8) 12/30/22 12:22 Baso # (Auto) 0.1 10^3/uL (0.0-0.1) 12/30/22 12:22 Nucleated RBC % (auto) 0 % 12/30/22 12:22 Nucleated RBCs # 0.0 /100WBC 12/30/22 12:22 D-Dimer 1.63 ug/mIFEU (0-0.59) H 12/30/22 12:22 Sodium 137 mmol/L (136-145) 12/30/22 12:22 Potassium 3.6 mmol/L (3.5-5.1) 12/30/22 12:22 Chloride 105 mmol/L (98-107) 12/30/22 12:22 Carbon Dioxide 20 mmol/L (22-29) L 12/30/22 12:22 Anion Gap 15.6 (5-19) 12/30/22 12:22 BUN 23 mg/dL (8-23) 12/30/22 12:22 Creatinine 2.2 mg/dL (0.7-1.2) H 12/30/22 12:22 GFR Calculation Not Reportable 12/30/22 12:22 Glucose 117 mg/dL (65-115) H 12/30/22 12:22 Calculated Osmolality 289 mOsm/kg (285-295) 12/30/22 12:22 Calcium 8.6 mg/dL (8.5-10.5) 12/30/22 12:22 Total Bilirubin 0.2 mg/dL (0.15-1.2) 12/30/22 12:22 AST 18 U/L (0-40) 12/30/22 12:22 ALT 9 U/L (0-41) 12/30/22 12:22 Alkaline Phosphatase 63 U/L (40-130) 12/30/22 12:22 Troponin T Baseline 48 ng/L (0-15) H 12/30/22 12:22 Troponin T 120 Minute 49.03 ng/L (0-15) H 12/30/22 14:38 Delta Troponin T 1.03 ABS# (0-10) 12/30/22 14:38 NT-Pro-B Natriuret Pep 1296 pg/mL (0-450) H 12/30/22 12:22 Total Protein 7.1 g/dL (6.6-8.7) 12/30/22 12:22 Albumin 3.7 g/dL (3.5-5.2) 12/30/22 12:22 Globulin 3.4 g/dL (1.3-4.6) 12/30/22 12:22 TSH 58.50 uIU/mL (0.27-4.20) H 12/30/22 14:38 Discharge Plan Discharge Patient Disposition: Placed in Observation Admit Provider: Dhara Rolon Clinical Impression: Chest pain Coding Level of Care Code ED Aeronautical Products Sales Engineer for Chg Fwd Exam Comprehensive
--- NOTE | 2022-12-30 12:40 | ECG_ITS ---
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 Measurements Intervals [place] Rate: 76 P: 77 [place]: 178 QRS: 74 QRSD: 108 T: 76 QT: 419 QTc: 471 Interpretive Statements SINUS RHYTHM Compared to ECG 09/14/2022 03:18:15 Myocardial infarct finding no longer present ST (T wave) deviation no longer present Possible ischemia no longer present Electronically Signed On 12-30-2022 13:06:48 FACILITIES MANAGEMENT EXECUTIVE by Jensen Arroyo M.D. [email or web address]/store/[id number]
--- NOTE | 2022-12-30 12:44 | XR_ITS ---
WS: [id number] Portable AP upright chest, 12/30/2022 Clinical Data: chest pain Comparison: Portable chest, 09/13/2022 Findings: No nodules, masses or effusions are seen. The heart is normal. The pulmonary vascularity is not increased. No pneumonia or pneumothorax is seen. The diaphragms are flattened. XR/XR chest 1V portable [id number] Impression: Hyperinflation
[2022-12-30 13:04] LABS: Basophils # 0.1 10^3/uL (0.0-0.1); Basophils % 1.3 %; Eosinophils # 0.3 10^3/uL (0.0-0.8); Eosinophils % 5.9 %; Hematocrit 29.7 % (42.0-52.0); Hemoglobin 9.4 g/dL (11.7-16.6); Lymphocytes # 1.5 10^3/uL (0.8-4.8); Lymphocytes % 28.1 %; Mean Corpuscular HGB Conc 31.6 g/dL (30.0-36.0); Mean Corpuscular Hemoglobin 31.6 pg (28.0-34.0); Mean Platelet Volume 11.5 fL (7.4-10.4); Monocytes # 0.4 10^3/uL (0.2-0.9); Monocytes % 8.1 %; Neutrophils # 3.07 10^3/uL (1.8-7.7); Neutrophils % 56.4 %; Nucleated Red Blood Cells % 0 %; Platelet Count 182 10^3/cmm (130-400); Red Blood Count 2.97 10^6/uL (4.1-5.3); Red Cell Distribution Width 15.5 % (12.1-15.1); White Blood Count 5.4 10^3/uL (4.0-10.0)
--- NOTE | 2022-12-30 13:12 | ECG_ITS ---
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 Measurements Intervals [place] Rate: 66 P: 73 [place]: 164 QRS: 70 QRSD: 94 T: 72 QT: 434 QTc: 458 Interpretive Statements SINUS RHYTHM MODERATE ST DEPRESSION [0.05+ mV ST DEPRESSION] Compared to ECG 12/30/2022 12:40:09 ST (T wave) deviation now present Electronically Signed On 12-30-2022 23:26:45 LOG WASHER by Jensen Arroyo M.D. [id number]
[2022-12-30] MEDS: nitroglycerin 0.4 mg sublingual Tablet SUBLINGUAL (13:15)
[2022-12-30 13:28] LABS: Troponin(5th) Baseline 48 ng/L (0-15)
[2022-12-30 13:45] LABS: Alanine Aminotransferase 9 U/L (0-41); Albumin Level 3.7 g/dL (3.5-5.2); Alkaline Phosphatase 63 U/L (40-130); Anion Gap 15.6 (5-19); Aspartate Amino Transferase 18 U/L (0-40); Blood Urea Nitrogen 23 mg/dL (8-23); Calcium 8.6 mg/dL (8.5-10.5); Carbon Dioxide 20 mmol/L (22-29); Chloride 105 mmol/L (98-107); Globulin 3.4 g/dL (1.3-4.6); Glucose 117 mg/dL (65-115); NT Pro B Type Natriuretic Pept 1296 pg/mL (0-450); Osmolality Calculated 289 mOsm/kg (285-295); Potassium 3.6 mmol/L (3.5-5.1); Sodium 137 mmol/L (136-145); Total Bilirubin 0.2 mg/dL (0.15-1.2); Total Protein 7.1 g/dL (6.6-8.7)
--- NOTE | 2022-12-30 14:45 | ECG_ITS ---
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 Measurements Intervals [place] Rate: 65 P: 81 [place]: 176 QRS: 73 QRSD: 106 T: 84 QT: 435 QTc: 455 Interpretive Statements SINUS RHYTHM Compared to ECG 12/30/2022 13:12:15 ST (T wave) deviation no longer present Electronically Signed On 12-30-2022 23:28:33 KNIFER UP by Jensen Arroyo M.D. [email or web address] hospitalBardolino [employer]ille/store/[id number]
[2022-12-30 15:02] LABS: Troponin 5 2HR 49.03 ng/L (0-15)
[2022-12-30 15:03] LABS: Troponin 5 2HR Delta 1.03 ABS# (0-10)
--- NOTE | 2022-12-30 16:18 | USCV_ITS ---
Marco Antonio Sebastian Age: 82 Gender: M : 1940 Exam Date: 12/30/2022 17:29 Ordering Phys: Dhara Rolon MD Technologist: RAMO Exam Location: [facility] [place] Indication: chest pain prior 09/17 BP: 0 / 60 HR: 71 Rhythm: Sinus Technical Quality: Adequate MEASUREMENTS (Male / Female) Normal Values DOPPLER AV Peak Velocity 131.0 cm/s LVOT Peak Velocity 109.0 cm/s FINDINGS Left Ventricle Normal left ventricular size, systolic function and wall thickness, with no regional wall motion abnormalities. Left ventricular ejection fraction is estimated at 70 %. Right Ventricle Normal right ventricular size and systolic function. Right Atrium Normal right atrial size. Left Atrium Normal left atrial size. Mitral Valve Mild mitral annular calcification. Mildly thickened mitral valve. No mitral valve stenosis. Trace mitral valve regurgitation. Aortic Valve Structurally normal trileaflet aortic valve. No aortic valve stenosis. Dyls-dq-ehcsevck aortic valve regurgitation. Tricuspid Valve Structurally normal tricuspid valve. Trace tricuspid valve regurgitation. Pulmonic Valve Structurally normal pulmonic valve. No pulmonary valve stenosis. No pulmonary valve regurgitation. Pericardium No pericardial effusion. Aorta Normal size aortic root and proximal ascending aorta. IVC Normal IVC dimension with >50% respiratory change of the inferior vena cava. CONCLUSIONS 1. Normal left ventricular size, systolic function and wall thickness, with no regional wall motion abnormalities. Left ventricular ejection fraction is estimated at 70 %. 2. Wxhb-gx-jtkkuusy aortic valve regurgitation. 3. No change when compared to study dated 09/14/2022. Silvina Velez MD (Electronically Signed) Final Date: 31 December 2022 11:02 S
[2022-12-30] MEDS: pantoprazole DR 40 mg Tablet PO (18:06)
[2022-12-30] MEDS: sucralfate 1 gm Tablet PO (18:06)
--- NOTE | 2022-12-30 18:15 | PC.NURSE ---
I did not administer the heparin due at 16:[address] Rolon. Patient's hgb was 9.4. Dr. Rolon advised to wait for 6 hour troponin.
[2022-12-30] MEDS: acetaminophen 325 mg Tablet 650 MG PO (19:19)
--- NOTE | 2022-12-30 19:29 | P.HP_ITS ---
Providers/Chief Complaint Admitting Physician: Dhara Rolon MD Primary Care Provider: Tyrese Rodriguez NP Chief Complaint: CHEST DISCOMFORT History of Present Illness Marco Antonio Sebastian is a 82 year old male last year he was admitted for NSTEMI, while inpatient he started having chest pain repeat EKG showed inferior wall KS he was taken to the [facility] received RCA stent, hospitalization was complicated by him developing anemia, received 1 unit PRBC, no active GI bleed, it was deemed secondary to chronic kidney disease presenting today with chief complaint of chest pain. Patient is stating that he has been experiencing right-sided chest pain for last 3 days, he is describing chest pain as achy in nature which is reproducible, he has not lifted any heavy objects, no nausea, vomiting, sweating. Last time when he got stent placed he was experiencing chest pain on the left side. He has not felt suffered any injury. No recent flulike symptoms. Patient is endorsing smoking, patient stating he is not ready to quit he has smoked for more than 50 years In the ER troponins are flat, no ischemic or infarctive changes on EKG Hemoglobin 9.4 Chest pain-free Carotid disease with right-sided 50 to 69% stenosis Hypertension EF is preserved He was FOBT negative Review of Systems Const: Denies: fever(s) Eyes: Denies: change in vision ENMT: Denies: throat pain Card: Reports: chest pain Resp: Denies: dyspnea GI: Denies: abdominal pain : Denies: flank pain Musc: Denies: neck pain Skin/Breast: Denies: rash Neuro: Denies: headache(s) Psych: Denies: anxiety Endo: Denies: polyuria Bossman/Lymph: Denies: easy bruising All/Imm: Denies: urticaria Medications/Allergies Home Medications Medication Instructions Recorded Confirmed Last Taken Type gabapentin 400 mg capsule 400 mg PO TID 12/27/19 12/30/22 12/30/22 History sucralfate 1 gram tablet 1 g PO BID 09/14/22 12/30/22 09/13/22 18:00 History levothyroxine 100 mcg tablet 100 mcg PO DAILY #30 tabs 09/16/22 12/30/22 12/30/22 Rx (Levoxyl) pantoprazole 40 mg tablet,delayed 40 mg PO BIDWMEAL #60 tabs 09/16/22 12/30/22 09/13/22 08:00 Rx release aspirin 81 mg tablet,delayed 81 mg PO QDAY #90 tabs 12/23/22 12/30/22 12/30/22 Rx release (Adult Low Dose Aspirin) clopidogrel 75 mg tablet 75 mg PO DAILY #90 tabs 12/23/22 12/30/22 12/30/22 Rx lisinopril 40 mg tablet 40 mg PO DAILY #90 tabs 12/23/22 12/30/22 12/30/22 Rx metoprolol tartrate 50 mg tablet 50 mg PO BID@0900,2100 #180 tabs 12/23/22 12/30/22 12/30/22 Rx pravastatin 40 mg tablet 80 mg PO BEDTIME #90 tabs 12/23/22 12/30/22 12/29/22 Rx amlodipine 5 mg tablet 5 mg PO DAILY 12/30/22 12/30/22 Unknown History hydrochlorothiazide 12.5 mg tablet 12.5 mg PO DAILY 12/30/22 12/30/22 12/30/22 History Allergies Allergy/AdvReac Type Severity Reaction Status Date / Time No Known Allergies Allergy Verified 12/30/22 12:52 PFSH Acute PFSH: Medical History Anemia Atherosclerosis of coronary artery CKD (chronic kidney disease) Gastric ulcer Gastritis Hyperlipidemia Hypertension Neuropathy PAD (peripheral artery disease) Primary osteoarthritis of left knee Primary osteoarthritis of right knee Surgical History H/O colonoscopy 09/11/19 H/O esophagogastroduodenoscopy 09/11/19 History of appendectomy History of hernia surgery Family History Sister Cancer Brother Diabetes Denies family history of Anesthesia complication Bleeding disorder Social History Smoking and tobacco status: current every day smoker Alcohol intake: never Lives independently: Yes Marital status: Single Current occupational status: retired Vitals/I&O/Wt Last Vital Signs Temp 97.8 F 12/30/22 19:17 Pulse 70 12/30/22 19:17 Resp 14 12/30/22 19:17 BP 182/56 12/30/22 19:17 Pulse Ox 94 12/30/22 19:17 O2 Del Method 12/30/22 19:17 12/30/22 12/30/22 12/30/22 06:59 14:59 22:59 Intake Total 240 / 240 Balance 240 / 240 Weight last 48 hrs Weight 65.346 kg Weight 73.936 kg Physical Exam Narrative: Patient is awake and alert Right-sided pleuritic chest pain Reproducible Awake and alert hemodynamic stable Euvolemic Abdomen soft Awake and alert Pleasant and cooperative GCS 15 Nonfocal neuro exam Appears stated age Laying supine Data 12/30/22 12:22 12/30/22 12:22 A&P Assessment and plan (1) Atypical chest pain: Plan Atypical chest pain Reproducible Pleuritic chest pain on right side Check D-dimer Troponins are flat Ischemic or infarctive changes not present on vaccine customer representative overnight Cardiac diet Patient is an active smoker Patient is not ready to quit at all Full code DVT prophylaxis on board Continue dual antiplatelet therapy Carotid disease outpatient follow-up Patient need to readjust his levothyroxine dose TSH is 58, might need 125 mcg at the time of discharge instead of 100 mcg If patient remains stable he might be able to go home by tomorrow, he does not want to stay here until Monday for stress test Attestations 2 Medical Necessity Statement*: Anticipating discharge within 48 hours Time Spent in Patient Care: 30 Coding Level of Care Code Acute Code for Chg Fwd Diagnoses Atypical chest pain R07.89
[2022-12-30 19:35] LABS: Troponin 5 6HR 45.38 ng/L (0-15)
[2022-12-30 19:36] LABS: Troponin 5 6HR Delta -2.62 ng/L (0-12)
[2022-12-30] MEDS: atorvastatin 40 mg Tablet 20 MG PO (20:02)
[2022-12-30] MEDS: metoprolol tartrate 50 mg Tablet PO (20:02)
[2022-12-30] MEDS: gabapentin 400 mg Capsule PO (20:02)
[2022-12-30 21:35] LABS: D Dimer 1.63 ug/mIFEU (0-0.59)
--- NOTE | 2022-12-30 21:47 | PC.NURSE ---
Messaged and made him aware of patient with elevated D-Dimer of 1.63. No new orders at this time.
[2022-12-31] VITALS (105 sets, daily range): BP systolic 119–177; BP diastolic 45–79; PULSE 54–83; RESP 9–22; TEMP 36.6–36.9; O2SAT 82–97
[2022-12-31 04:27] LABS: Basophils % 0.6 %; Eosinophils # 0.3 10^3/uL (0.0-0.8); Eosinophils % 6.5 %; Hematocrit 24.9 % (42.0-52.0); Hemoglobin 7.8 g/dL (11.7-16.6); Lymphocytes # 1.4 10^3/uL (0.8-4.8); Lymphocytes % 27.4 %; Mean Corpuscular HGB Conc 31.3 g/dL (30.0-36.0); Mean Corpuscular Hemoglobin 31.3 pg (28.0-34.0); Mean Platelet Volume 10.9 fL (7.4-10.4); Monocytes # 0.4 10^3/uL (0.2-0.9); Monocytes % 8.7 %; Neutrophils # 2.79 10^3/uL (1.8-7.7); Neutrophils % 56.6 %; Nucleated Red Blood Cells % 0 %; Platelet Count 188 10^3/cmm (130-400); Red Blood Count 2.49 10^6/uL (4.1-5.3); Red Cell Distribution Width 15.2 % (12.1-15.1); White Blood Count 4.9 10^3/uL (4.0-10.0)
[2022-12-31 04:47] LABS: Anion Gap 10.1 (5-19); Blood Urea Nitrogen 25 mg/dL (8-23); Calcium 8.2 mg/dL (8.5-10.5); Carbon Dioxide 24 mmol/L (22-29); Chloride 109 mmol/L (98-107); Glucose 93 mg/dL (65-115); Magnesium 2.2 mg/dL (1.7-2.3); Osmolality Calculated 292 mOsm/kg (285-295); Potassium 4.1 mmol/L (3.5-5.1); Sodium 139 mmol/L (136-145)
[2022-12-31] MEDS: levothyroxine 100 mcg Tablet 125 MCG PO (08:22)
[2022-12-31] MEDS: aspirin 81 mg EC Tablet PO (08:22)
[2022-12-31] MEDS: clopidogrel 75 mg Tablet PO (08:24)
[2022-12-31] MEDS: amlodipine 5 mg Tablet PO (08:24)
[2022-12-31] MEDS: lisinopril 20 mg Tablet 40 MG PO (08:24)
[2022-12-31] MEDS: gabapentin 400 mg Capsule PO ×3 (08:24→20:51)
[2022-12-31] MEDS: hydroCHLOROthiazide 25 mg Tablet 12.5 MG PO (08:25)
[2022-12-31] MEDS: sucralfate 1 gm Tablet PO ×2 (08:25→17:16)
[2022-12-31] MEDS: pantoprazole DR 40 mg Tablet PO ×2 (08:25→17:16)
[2022-12-31] MEDS: metoprolol tartrate 50 mg Tablet PO ×2 (08:26→20:52)
--- NOTE | 2022-12-31 08:41 | PM.PN ---
Subjective Subjective: Seen this AM. No chest pain overnight. Hemoglobin did drop to 7.8. It was 9.4 on admission. Vitals/I&O/Wt Last Vital Signs Temp 98.0 F 12/31/22 08:29 Pulse 55 L 12/31/22 08:29 Resp 14 12/31/22 08:29 BP 136/56 12/31/22 08:29 Pulse Ox 91 12/31/22 08:29 O2 Del Method 12/31/22 08:29 12/30/22 12/31/22 12/31/22 22:59 06:59 14:59 Intake Total 380 / 380 240 / 240 Output Total 250 / 250 250 / 500 Balance 130 / 130 -250 / -120 240 / 240 Weight last 48 hrs Weight 65.346 kg Weight 73.936 kg Physical Exam Narrative: General: Alert oriented x3, patient seen lying in bed appearing comfortable at this time. No chest pain. HEENT: Normocephalic, atraumatic, EOMI, breathing comfortably on room air. Cardio: Regular rate rhythm, normal S1-S2, chest pain reproducible to palpation on right lower thoracic area. Respiratory: Good bilateral air entry, no wheezes no rhonchi appreciated GI: Abdomen soft, nontender, nondistended, bowel sounds + Extremities: Trace bilateral lower extremity edema. Data 12/31/22 03:23 12/31/22 03:23 A&P Assessment and plan (1) Atypical chest pain: (2) Anemia: (3) Hyperlipidemia: (4) Hypertension: (5) Acute kidney injury superimposed on CKD: (6) Chest pain: Plan #Atypical reproducible chest pain on right side of chest #Acute on chronic anemia #History of recent STEMI August 2022 #NIGHAT on CKD #Hyperlipidemia #Hypertension #History of mild to moderate aortic regurgitation ? Hemoglobin dropped to 7.8 from 9.4. Due to patient's history of coronary artery disease threshold to transfuse should be less than 8. We will order 1 unit packed RBC at this time. Check FOBT. Check type and screen -Hemoglobin may be low secondary to kidney disease?. Similar drop in hemoglobin high. Previous admit as well as in August. Patient was advised to have endoscopy colonoscopy for further evaluation if this were to happen again. ? Chest pain seems to be reproducible and atypical in nature. I do not believe this is cardiac. We will wait for echo to rule out wall motion abnormalities ? May consider stress testing however patient is not interested in staying in the hospital till Monday for that. We will check echo and then decide further course of action. Troponins negative x3 and flat. Delta troponin less than 10. ? EKG without ischemic changes ? Patient follows with Dr. Arroyo as an outpatient and recently saw on December 23. ? Continue aspirin Plavix, levothyroxine, hydrochlorothiazide, lisinopril, metoprolol tartrate, pantoprazole, sucralfate. -Await results of FOBT. Full code DVT prophylaxis: SCDs. Due to the hospital point we will hold heparin or Lovenox at this time. Attestations Medical Necessity Statement*: Continue hospitalized patient for acute on chronic anemia at this time. He will be getting unit of blood today. Echo is pending at this time. Coding Level of Care Code Acute Code for Chg Fwd Diagnoses Atypical chest pain R07.89 Anemia D64.9 Hyperlipidemia E78.5 Hypertension I10 Acute kidney injury superimposed on CKD N17.9; N18.9 Chest pain R07.9
[2022-12-31] MEDS: sodium chloride 0.9% (100 ml) 100 ML (12:41)
[2022-12-31 20:34] LABS: Basophils % 0.6 %; Eosinophils # 0.4 10^3/uL (0.0-0.8); Eosinophils % 5.9 %; Hematocrit 30.9 % (42.0-52.0); Lymphocytes # 1.6 10^3/uL (0.8-4.8); Lymphocytes % 25.4 %; Mean Corpuscular HGB Conc 32.4 g/dL (30.0-36.0); Mean Corpuscular Hemoglobin 31.1 pg (28.0-34.0); Mean Platelet Volume 10.7 fL (7.4-10.4); Monocytes # 0.5 10^3/uL (0.2-0.9); Monocytes % 8.7 %; Neutrophils # 3.69 10^3/uL (1.8-7.7); Neutrophils % 59.2 %; Nucleated Red Blood Cells % 0 %; Platelet Count 213 10^3/cmm (130-400); Red Blood Count 3.22 10^6/uL (4.1-5.3); Red Cell Distribution Width 17.5 % (12.1-15.1); White Blood Count 6.2 10^3/uL (4.0-10.0)
[2022-12-31] MEDS: atorvastatin 40 mg Tablet 20 MG PO (20:51)
[2023-01-01] VITALS (9 sets, daily range): BP systolic 134–167; BP diastolic 40–74; PULSE 55–73; RESP 12–19; TEMP 36.4–36.6; O2SAT 86–98
[2023-01-01 05:39] LABS: Basophils # 0.1 10^3/uL (0.0-0.1); Basophils % 0.9 %; Eosinophils # 0.4 10^3/uL (0.0-0.8); Eosinophils % 7.1 %; Hematocrit 30.9 % (42.0-52.0); Hemoglobin 9.6 g/dL (11.7-16.6); Lymphocytes # 1.3 10^3/uL (0.8-4.8); Mean Corpuscular HGB Conc 31.1 g/dL (30.0-36.0); Mean Corpuscular Hemoglobin 30.9 pg (28.0-34.0); Mean Corpuscular Volume 99.4 fl (80-94); Mean Platelet Volume 10.8 fL (7.4-10.4); Monocytes # 0.4 10^3/uL (0.2-0.9); Neutrophils # 3.32 10^3/uL (1.8-7.7); Neutrophils % 60.6 %; Nucleated Red Blood Cells % 0 %; Platelet Count 199 10^3/cmm (130-400); Red Blood Count 3.11 10^6/uL (4.1-5.3); Red Cell Distribution Width 17.4 % (12.1-15.1); White Blood Count 5.5 10^3/uL (4.0-10.0)
[2023-01-01 05:57] LABS: Blood Urea Nitrogen 27 mg/dL (8-23); Calcium 8.2 mg/dL (8.5-10.5); Carbon Dioxide 20 mmol/L (22-29); Chloride 108 mmol/L (98-107); Glucose 87 mg/dL (65-115); Osmolality Calculated 286 mOsm/kg (285-295); Sodium 136 mmol/L (136-145)
[2023-01-01] MEDS: pantoprazole DR 40 mg Tablet PO ×2 (07:51→17:09)
[2023-01-01] MEDS: lisinopril 20 mg Tablet 40 MG PO (07:55)
[2023-01-01] MEDS: amlodipine 5 mg Tablet PO (07:56)
[2023-01-01] MEDS: aspirin 81 mg EC Tablet PO (08:38)
[2023-01-01] MEDS: sucralfate 1 gm Tablet PO ×2 (08:38→17:08)
[2023-01-01] MEDS: gabapentin 400 mg Capsule PO ×3 (08:38→20:41)
[2023-01-01] MEDS: hydroCHLOROthiazide 25 mg Tablet 12.5 MG PO (08:39)
[2023-01-01] MEDS: clopidogrel 75 mg Tablet PO (08:39)
[2023-01-01] MEDS: levothyroxine 100 mcg Tablet 125 MCG PO (08:40)
--- NOTE | 2023-01-01 15:24 | PM.PN ---
Subjective Subjective: Denies any chest pain dyspnea today. On 0.5 L/min supplemental O2. Hemoglobin stable this morning at 9.6. He had 3 bowel movements yesterday, reports brown. FOBT was not collected. He has not noticed any francis melena. Initially patient was being planned to be discharged, however upon standing up he became lightheaded and nearly fell therefore discharge was canceled. Medications: Reviewed: Yes Vitals/I&O/Wt Last Vital Signs Temp 97.5 F L 01/01/23 03:53 Pulse 65 01/01/23 08:00 Resp 19 H 01/01/23 08:00 BP 167/55 01/01/23 08:00 Pulse Ox 95 01/01/23 13:45 O2 Del Method 01/01/23 08:00 O2 Flow Rate 3 01/01/23 13:45 01/01/23 01/01/23 01/01/23 06:59 14:59 22:59 Intake Total 720 / 720 Output Total 350 / 350 Balance 370 / 370 Weight last 48 hrs Weight 65.346 kg Physical Exam Narrative: General: No acute distress, AO x3, chronically ill-appearing male chronically ill appearing male HEENT: PERRLA, pupils bilaterally equal and reactive, pallors not present Chest: Normal vesicular breath sounds, no added sounds, equal good air entry bilaterally CVS: S1-S2 regular, no murmurs, no tachycardia, no gallops, no rubs Abdomen: Soft, nontender, no organomegaly, bowel sounds present Neuro: No focal deficits, no facial deformity, AO x3, power 5/5 in all limbs Extremities: No edema or clubbing Data 01/01/23 05:17 01/01/23 05:17 A&P Assessment and plan (1) Atypical chest pain: (2) Anemia: (3) Hyperlipidemia: (4) Hypertension: (5) Acute kidney injury superimposed on CKD: (6) Chest pain: Plan #Atypical reproducible chest pain on right side of chest, likely musculoskeletal #Acute on chronic anemia, symptomatic #History of recent STEMI August 2022 #NIGHAT on CKD #Hyperlipidemia #Hypertension #History of mild to moderate aortic regurgitation ? Hemoglobin stable today at 9.6 . Due to patient's history of coronary artery disease threshold to transfuse should be less than 8. We will order 1 unit packed RBC at this time. Pending FOBT still -Hemoglobin may be low secondary to kidney disease?. Similar drop in hemoglobin on previous admit as well as in August. Patient was advised to have endoscopy colonoscopy for further evaluation however he is not interested in it at this time. - echo to with LVEF 70%, no new changes - Troponins negative x3 and flat. Delta troponin less than 10. ? EKG without ischemic changes ? Continue aspirin Plavix, hydrochlorothiazide, lisinopril, metoprolol tartrate, pantoprazole, sucralfate. Planned to be discharged today but felt dizzy on getting out of bed and nearly fell over, Check orthostatics, PT/OT assessment, encourge ambulation to ensure safe discharge,. Recheck H&H Hypothyroidism: Elevated TSH at 50, t4 normal, will check FT3, may need adjustment with levothyroxine dose prior to discharge: Full code DVT prophylaxis: SCDs. Due to the hospital point we will hold heparin or Lovenox at this time. Attestations Medical Necessity Statement*: Pres yncopal episode today, check h&H, orthostatics, PT assessment, safe dispo planning Coding Level of Care Code Acute Code for Chg Fwd Diagnoses Atypical chest pain R07.89 Anemia D64.9 Hyperlipidemia E78.5 Hypertension I10 Acute kidney injury superimposed on CKD N17.9; N18.9 Chest pain R07.9
[2023-01-01 16:07] LABS: Hematocrit 33.7 % (42.0-52.0)
[2023-01-01] MEDS: hyDRALAzine 20 mg/mL INJ 1 mL 10 MG IVP ×2 (18:24→18:26)
[2023-01-01 18:53] LABS: Hematocrit 35.5 % (42.0-52.0); Hemoglobin 11.1 g/dL (11.7-16.6)
[2023-01-01] MEDS: metoprolol tartrate 25 mg Tablet PO (20:41)
[2023-01-01] MEDS: atorvastatin 40 mg Tablet 20 MG PO (20:41)
[2023-01-02] VITALS: BP 143/49; PULSE 62; RESP 13; TEMP 36.8; O2SAT 97
[2023-01-02 04:00] VITALS: BP 145/45; PULSE 70; RESP 16; TEMP 36.8; O2SAT 90
[2023-01-02 04:03] LABS: Basophils % 0.5 %; Eosinophils # 0.4 10^3/uL (0.0-0.8); Eosinophils % 4.8 %; Hematocrit 31.1 % (42.0-52.0); Hemoglobin 10.1 g/dL (11.7-16.6); Lymphocytes # 1.4 10^3/uL (0.8-4.8); Lymphocytes % 18.5 %; Mean Corpuscular HGB Conc 32.5 g/dL (30.0-36.0); Mean Corpuscular Hemoglobin 31.1 pg (28.0-34.0); Mean Corpuscular Volume 95.7 fl (80-94); Mean Platelet Volume 11.2 fL (7.4-10.4); Monocytes # 0.6 10^3/uL (0.2-0.9); Monocytes % 7.6 %; Neutrophils # 5.21 10^3/uL (1.8-7.7); Neutrophils % 68.3 %; Nucleated Red Blood Cells % 0 %; Platelet Count 222 10^3/cmm (130-400); Red Blood Count 3.25 10^6/uL (4.1-5.3); Red Cell Distribution Width 16.7 % (12.1-15.1); White Blood Count 7.6 10^3/uL (4.0-10.0)
[2023-01-02 04:32] LABS: Alanine Aminotransferase 7 U/L (0-41); Albumin Level 2.9 g/dL (3.5-5.2); Alkaline Phosphatase 55 U/L (40-130); Anion Gap 11.9 (5-19); Aspartate Amino Transferase 11 U/L (0-40); Blood Urea Nitrogen 24 mg/dL (8-23); Calcium 8.4 mg/dL (8.5-10.5); Carbon Dioxide 21 mmol/L (22-29); Chloride 106 mmol/L (98-107); Globulin 2.8 g/dL (1.3-4.6); Glucose 92 mg/dL (65-115); Osmolality Calculated 284 mOsm/kg (285-295); Potassium 3.9 mmol/L (3.5-5.1); Sodium 135 mmol/L (136-145); Total Bilirubin 0.2 mg/dL (0.15-1.2); Total Protein 5.7 g/dL (6.6-8.7)
[2023-01-02 06:00] VITALS: PULSE 61
[2023-01-02 07:35] VITALS: BP 155/52; PULSE 67; RESP 13; TEMP 36.6; O2SAT 93
[2023-01-02] MEDS: sucralfate 1 gm Tablet PO (08:32)
[2023-01-02] MEDS: metoprolol tartrate 25 mg Tablet PO (08:32)
[2023-01-02] MEDS: amlodipine 5 mg Tablet PO (08:33)
[2023-01-02] MEDS: levothyroxine 100 mcg Tablet 125 MCG PO (08:33)
[2023-01-02] MEDS: lisinopril 20 mg Tablet 40 MG PO (08:33)
[2023-01-02] MEDS: gabapentin 400 mg Capsule PO (08:33)
[2023-01-02] MEDS: pantoprazole DR 40 mg Tablet PO ×2 (08:33→08:39)
[2023-01-02] MEDS: aspirin 81 mg EC Tablet PO (08:34)
[2023-01-02] MEDS: clopidogrel 75 mg Tablet PO (08:36)
[2023-01-02] MEDS: hydroCHLOROthiazide 25 mg Tablet 12.5 MG PO (08:37)
--- NOTE | 2023-01-02 10:45 | P.DS_ITS ---
Discharge Providers Date of Admission: 12/30/22 16:27 Date of Discharge: January 02, 2023 Attending Provider at Admission: Dhara Rolon MD Attending Provider at Discharge: Gentry Lewis MD Primary Care Provider: Tyrese Rodriguez NP Diagnoses at Discharge Discharge Diagnosis (1) Atypical chest pain: Status: Acute (2) Anemia: Status: Acute (3) Hyperlipidemia: Status: Acute (4) Hypertension: Status: Acute (5) Acute kidney injury superimposed on CKD: Status: Acute (6) Chest pain: Status: Acute Reason for Visit Reason for Visit: CHEST DISCOMFORT Hospital Course Hospital Course 82-year-old male who was admitted for management evaluation of chest pain, his chest pain was atypical, reproducible, right-sided, EKG without ischemic or infarctive changes, echo showed EF 70% without regional wall motion abnormalities, patient remained chest pain-free however became bradycardic and Experienced Presyncopal Event in the Hospital on Monday, at the time of discharge his metoprolol dose was decreased, he has uncontrolled hypothyroidism levothyroxine dose was increased. Chronic kidney disease without any worsening, troponins around 40s without significant delta Physical Exam Narrative: Patient is awake and alert Chest pain-free Able to walk down the nova walk 150 feet No chest pain or shortness of breath Doing well on room air Abdomen soft Euvolemic Discharge Data Studies Completed and Pending Completed Studies During Hospitalization Category Date Time Status XR chest 1V portable [id number] Stat Exams 12/30/22 12:44 Completed CV. echo limited [id number] Stat Ultrasound 12/30/22 16:18 Completed Pending at discharge Category Date Time Status Occult Blood Stool [Immunochemical Fecal OCB] Stat Lab 12/31/22 08:40 Uncollected Radiology Impressions Chest X-Ray 12/30/22 12:44 Impression: Hyperinflation Laboratory Results WBC 7.6 10^3/uL (4.0-10.0) 01/02/23 03:23 RBC 3.25 10^6/uL (4.1-5.3) L 01/02/23 03:23 Hgb 10.1 g/dL (11.7-16.6) L 01/02/23 03:23 Hct 31.1 % (42.0-52.0) L 01/02/23 03:23 MCV 95.7 fl (80-94) H 01/02/23 03:23 MCH 31.1 pg (28.0-34.0) 01/02/23 03: MCHC 32.5 g/dL (30.0-36.0) 01/02/23 03: RDW 16.7 % (12.1-15.1) H 01/02/23 03:23 Plt Count 222 10^3/cmm (130-400) 01/02/23 03:23 MPV 11.2 fL (7.4-10.4) H 01/02/23 03:23 Neut % (Auto) 68.3 % 01/02/23 03:23 Lymph % (Auto) 18.5 % 01/02/23 03:23 [place] % (Auto) 7.6 % 01/02/23 03: Eos % (Auto) 4.8 % 01/02/23 03: Baso % (Auto) 0.5 % 01/02/23 03: Neut # (Auto) 5.21 10^3/uL (1.8-7.7) 01/02/23 03:23 Lymph # (Auto) 1.4 10^3/uL (0.8-4.8) 01/02/23 03:23 [place] # (Auto) 0.6 10^3/uL (0.2-0.9) 01/02/23 03:23 Eos # (Auto) 0.4 10^3/uL (0.0-0.8) 01/02/23 03:23 Baso # (Auto) 0.0 10^3/uL (0.0-0.1) 01/02/23 03: Nucleated RBC % (auto) 0 % 01/02/23 03: Nucleated RBCs # 0.0 /100WBC 01/02/23 03:23 D-Dimer 1.63 ug/mIFEU (0-0.59) H 12/30/22 12:22 Sodium 135 mmol/L (136-145) L 01/02/23 03:23 Potassium 3.9 mmol/L (3.5-5.1) 01/02/23 03:23 Chloride 106 mmol/L (98-107) 01/02/23 03:23 Carbon Dioxide 21 mmol/L (22-29) L 01/02/23 03:23 Anion Gap 11.9 (5-19) 01/02/23 03:23 BUN 24 mg/dL (8-23) H 01/02/23 03:23 Creatinine 2.1 mg/dL (0.7-1.2) H 01/02/23 03:23 GFR Calculation Not Reportable 01/02/23 03:23 Glucose 92 mg/dL (65-115) 01/02/23 03:23 Calculated Osmolality 284 mOsm/kg (285-295) L 01/02/23 03:23 Calcium 8.4 mg/dL (8.5-10.5) L 01/02/23 03:23 Magnesium 2.0 mg/dL (1.7-2.3) 01/01/23 05:17 Total Bilirubin 0.2 mg/dL (0.15-1.2) 01/02/23 03:23 AST 11 U/L (0-40) 01/02/23 03:23 ALT 7 U/L (0-41) 01/02/23 03:23 Alkaline Phosphatase 55 U/L (40-130) 01/02/23 03:23 Troponin T Baseline 48 ng/L (0-15) H 12/30/22 12:22 Troponin T 120 Minute 49.03 ng/L (0-15) H 12/30/22 14:38 Delta Troponin T 1.03 ABS# (0-10) 12/30/22 14:38 Troponin T Hi Sens 6Hr 45.38 ng/L (0-15) H 12/30/22 18:56 Troponin T Hi Sens 6Hr Delta -2.62 ng/L (0-12) L 12/30/22 18:56 NT-Pro-B Natriuret Pep 1296 pg/mL (0-450) H 12/30/22 12:22 Total Protein 5.7 g/dL (6.6-8.7) L 01/02/23 03:23 Albumin 2.9 g/dL (3.5-5.2) L 01/02/23 03:23 Globulin 2.8 g/dL (1.3-4.6) 01/02/23 03:23 TSH 58.50 uIU/mL (0.27-4.20) H 12/30/22 14:38 Free T4 1.10 ng/dL (0.82-1.77) 12/30/22 18:56 Blood Type A Positive 12/31/22 09:35 Rho(D) Type Positive 12/31/22 09:35 Antibody Screen Negative 12/31/22 09:35 Crossmatch See Detail 12/31/22 09:35 Vitals Last Vital Signs Temp 97.9 F 01/02/23 07:35 Pulse 67 01/02/23 07:35 Resp 13 01/02/23 07:35 BP 155/52 01/02/23 07:35 Pulse Ox 93 01/02/23 07:35 O2 Del Method 01/02/23 07:35 O2 Flow Rate 3 01/01/23 13:45 Discharge Plan Discharge Patient Disposition: Home Condition: Stable Prescriptions: New metoprolol tartrate 25 mg tablet 12.5 mg PO BID Qty: 60 0RF Continued gabapentin 400 mg capsule 400 mg PO TID lisinopril 40 mg tablet 40 mg PO DAILY Qty: 90 3RF aspirin [Adult Low Dose Aspirin] 81 mg tablet,delayed release (DR/EC) 81 mg PO QDAY Qty: 90 3RF clopidogrel 75 mg tablet 75 mg PO DAILY Qty: 90 3RF pravastatin 40 mg tablet 80 mg PO BEDTIME Qty: 90 3RF sucralfate 1 gram tablet 1 g PO BID pantoprazole 40 mg tablet,delayed release (DR/EC) 40 mg PO BIDWMEAL Qty: 60 0RF amlodipine 5 mg tablet 5 mg PO DAILY hydrochlorothiazide 12.5 mg tablet 12.5 mg PO DAILY Changed Levoxyl 100 mcg Tablet 125 mcg PO DAILY Qty: 30 3RF Discontinued metoprolol tartrate 50 mg tablet 50 mg PO BID@0900,2100 Qty: 180 3RF Discharge Orders: Discharge Order (Routine); Ordered 01/02/23 Ordered By: Gentry Lewis Referrals: Tyrese Rodriguez NP [Primary Care Provider] - 01/05/23 2:30 pm ([facility] has scheduled an appointment with ANDREZ Rodriguez on 01/05/2023 at 2:30. If you have any questons, please call [phone].) Discharge Diet: Cardiac Discharge Activity: Increase activity as tolerated Patient Instructions: Anemia, Chest Pain (DC), COPD Stoplight, Chest Pain Stoplight, Opioid Safety Discharge Attestations Time Spent in Discharge Care*: less than 30 min Status at Discharge: Cognitive status at discharge: cognitively intact , Behavioral status at discharge: cooperative , Quality Metrics Clinical Quality Measures [ No reported AMI, CVA or VTE this stay] Coding Level of Care Code Acute Code for Chg Fwd Diagnoses Atypical chest pain R07.89 Anemia D64.9 Hyperlipidemia E78.5 Hypertension I10 Acute kidney injury superimposed on CKD N17.9; N18.9 Chest pain R07.9
[2023-01-02 11:07] VITALS: BP 155/52; PULSE 67; RESP 13; TEMP 36.6; O2SAT 93
--- NOTE | 2023-01-02 12:05 | PC.NURSE ---
pt ambulated full legth of nova.no c/o dizziness.discharge instructions given and explained to pt and pt's daughter.they verb understanding.discharged via w/c to exit at this time.
== END 2023-01-02 12:03 | disposition home or self-care (01) ==
LOC: ER 16:11 → CSU 16:28
PROVIDERS: Student in an Organized Health Care Education/Training Program; Admitting Provider Internal Medicine; Emergency Provider Family Medicine; PCP Nurse Practitioner Family; Visit Provider Internal Medicine
DX: R07.89 Other chest pain (principal); E78.5 Hyperlipidemia, unspecified; I12.9 Hypertensive chronic kidney disease with stage 1 through stage 4 chronic kidney disease, or unspecified chronic kidney disease; N18.9 Chronic kidney disease, unspecified; D63.1 Anemia in chronic kidney disease; N17.9 Acute kidney failure, unspecified; Z79.82 Long term (current) use of aspirin; I25.10 Atherosclerotic heart disease of native coronary artery without angina pectoris; E03.9 Hypothyroidism, unspecified; F17.200 Nicotine dependence, unspecified, uncomplicated
CPT/HCPCS: 36415; 36430; 71045; 80048; 80053; 83735; 83880; 84439; 84443; 84484; 85014; 85018; 85025; 85378; 86850; 86900; 86920; 93005; 93308; 94760; 96374; 97116; 97161; 97530; 99285; G0378; J0360; P9016

== ENCOUNTER 2023-01-30 07:43 | Outpatient (CLI) | payer MEDICARE, SELFPAY ==
--- NOTE | 2023-01-30 08:00 | USCV_ITS ---
JazMarco Antonio jones Age: 82 Gender: M : 1940 Exam Date: 01/30/2023 07:56 Ordering Phys: Jensen Arroyo M.D ([email or web address]) Technologist: CT [place]am [place] [facility] [place]: stenosis Risk Factors: Previous Vascular Surgery: Right Brachial BP: / Left Brachial BP: / Right Left Velocity (cm/s) Spectral Plaque Velocity (cm/s) Spectral Plaque Syst/Diast Broadening Syst/Diast Broadening 138.60/0.00 Prox CCA 118.10/ 0.00 162.50/0.00 Mid CCA 122.70/ 5.70 87.50/ 0.00 Distal CCA 88.40 / 0.00 206.70/28.00 Prox ICA 82.40 / 9.90 183.30/18.10 Mid ICA 87.70 / 7.90 101.50/11.40 Distal ICA 87.00 / 9.00 329.40 ECA 261.00 1.27 ICA/CCA 0.72 Antegrade Vertebral Antegrade 125.8/ 1.40 cm/s 62.10/ 7.80 cm/s 0 Bi Subclavian Bi 79.00 250.7 0 FINDINGS stenosis on rt, mixed diffuse calcified plq bilaterally CONCLUSIONS Right ICA stenosis 50-69%. Moderate atheromatous plaque right carotid bulb/ICA. Calcified plaque CCA. Left ICA stenosis <50%. Mild atheromatous plaque left carotid bulb/ICA. Normal antegrade Doppler flow noted in the right vertebral artery. Normal antegrade Doppler flow noted in the left vertebral artery. Ramin Rashid MD (Electronically Signed) Final Date: 30 January 2023 11:35 S
== END 2023-01-30 07:44 | disposition home or self-care (01) ==
PROVIDERS: PCP Nurse Practitioner Family; Visit Provider Internal Medicine
DX: I65.23 Occlusion and stenosis of bilateral carotid arteries (principal)
CPT/HCPCS: 93880

== ENCOUNTER 2023-01-31 19:49 | Inpatient (IN) | payer MEDICARE, SELFPAY ==
[2023-01-31] VITALS (39 sets, daily range): BP systolic 141–170; BP diastolic 50–90; PULSE 58–95; RESP 10–21; TEMP 36.7–37.2; O2SAT 66–100; BMI 22.2; BMI 21.2
--- NOTE | 2023-01-31 19:54 | XRR_ITS ---
PROCEDURE INFORMATION: Exam: XR Chest Exam date and time: 01/31/2023 7:58 PM Age: 82 years old Clinical indication: Pain; Chest pressure; Additional info: Cp TECHNIQUE: Imaging protocol: Radiologic exam of the chest. Views: 1 view. COMPARISON: CR XR chest 1V portable [id number] 12/30/2022 12:50 PM FINDINGS: Lungs: Diffuse interstitial infiltrates greatest in the lung bases are now present. Pleural spaces: Unremarkable. Small right pleural effusion. No pneumothorax. Heart/Mediastinum: Heart size unchanged. Bones/joints: Stable bones. XR/XR chest 1V portable [id number] IMPRESSION: 1. Diffuse interstitial infiltrates greatest in the lung bases are now present. This is suspicious for pneumonia - correlate with clinical findings. 2. Small right pleural effusion.
--- NOTE | 2023-01-31 19:54 | ECG_ITS ---
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 Measurements Intervals [place] Rate: 63 P: 68 CT: 178 QRS: 52 QRSD: 100 T: -8 QT: 433 QTc: 445 Interpretive Statements SINUS RHYTHM NONSPECIFIC ST & T-WAVE ABNORMALITY Compared to ECG 12/30/2022 14:45:54 T-wave abnormality now present Electronically Signed On 02-01-2023 15:04:42 GLEASON GEAR GENERATOR by Serge Thomas M.D. [id number]
--- NOTE | 2023-01-31 20:19 | ED_ITS ---
HPI - Chest Pain General: Chief Complaint: Chest Pain Stated Complaint: CP Time Seen by Provider: 01/31/23 19:53 Source: patient Mode of arrival: ambulatory Limitations: no limitations History of Present Illness: 82-year-old male history of chronic kidney disease states that he has had increasing shortness of breath over the last 2 to 3 days along with a cough he is a chronic smoker he denies any known history of COPD or emphysema patient 66% here on room air he denies any oxygen use at home. He has had some slight pain denies any known fevers denies any vomiting or diarrhea. Associated symptoms: Reports dyspnea; Deny abdominal pain, fever(s), nausea or vomiting Review of Systems Const: Denies: fever(s), chills, body aches or change in appetite Eyes: Denies: blurry vision or eye discomfort ENMT: Denies: throat pain or dental pain Card: Denies: chest pain Resp: Reports: dyspnea and non-productive cough GI: Denies: abdominal pain, nausea, vomiting or diarrhea : Denies: dysuria Musc: Denies: neck pain or back pain Skin/Breast: Denies: rash Neuro: Denies: headache(s) Psych: Denies: depression Bossman/Lymph: Denies: easy bruising All/Imm: Denies: urticaria PFSH ED PFSH: Medical History Acute kidney injury superimposed on CKD Anemia Anemia Atherosclerosis of coronary artery Atypical chest pain Chest pain CKD (chronic kidney disease) Gastric ulcer Gastritis Hyperlipidemia Hypertension Neuropathy PAD (peripheral artery disease) Primary osteoarthritis of left knee Primary osteoarthritis of right knee Surgical History H/O colonoscopy 09/11/19 H/O esophagogastroduodenoscopy 09/11/19 History of appendectomy History of hernia surgery Family History Sister Cancer Brother Diabetes Denies family history of Anesthesia complication Bleeding disorder Social History Smoking and tobacco status: current every day smoker Alcohol intake: never Lives independently: Yes Marital status: Single Current occupational status: retired Physical Exam Const: COMMON NORMALS: patient oriented x3 GENERAL APPEARANCE: in distress and ill appearing HENMT: COMMON NORMALS: normocephalic and atraumatic HEAD & SCALP: normocephalic and atraumatic Eye: COMMON NORMALS: Equal, round and reactive pupils present and EOMs intact bilaterally PUPIL: Yes Equal, round and reactive pupils present Neck/C-Spine: COMMON NORMALS: full ROM and supple Chest: COMMONS NORMALS: normal inspection of the chest and normal palpation of entire chest wall Resp: EFFORT & INSPECTION: Yes tachypneic and Yes respiratory distress AUSCULTATION: rales Cardio: COMMON NORMALS: regular rate, regular rhythm and No murmurs present (Cardio) RATE: regular rate RHYTHM: regular rhythm GI: COMMON NORMALS: Normal to inspection, nondistended, normoactive bowel sounds present, Soft to palpation, non-tender and no masses PALPATION: Yes Soft to palpation Extremity: COMMON NORMALS: normal to inspection and full ROM Neuro: COMMON NORMALS: patient oriented x3, moves all extremities and no focal motor deficits Psych: COMMON NORMALS: mental status grossly normal, Normal thought process present and cooperative THOUGHT PROCESS: Normal thought process present Skin: COMMON NORMALS: no rashes or lesions noted and no wounds GENERAL SKIN EXAM: no rashes or lesions noted Course Vital Signs: Vital signs: Vital Signs Temperature 98.9 F 01/31/23 20:02 Pulse Rate 65 01/31/23 22:00 Respiratory Rate 21 H 01/31/23 22:00 Blood Pressure 170/78 01/31/23 22:00 Pulse Oximetry 95 01/31/23 22:00 Oxygen Delivery Me thod 01/31/23 21:15 Fraction of Inspir ed Oxygen 50 01/31/23 21:05 MDM - Chest Pain Medical Decision Making Patient presents for shortness of breath he is quite hypoxic here x-ray shows likely pneumonia he does have an elevated troponin from his baseline along with BNP concern for possible PE as well we will start him on Lovenox EKG is normal he does not have any chest pain he does have chronic kidney disease so not able to do a CTA I spoke to the hospitalist will admit to the ICU and likely get a VQ scan in the morning. He has been stable down here on BiPAP Lab Data 01/31/23 20:10 01/31/23 20:10 Radiology Impressions Chest X-Ray 01/31/23 19:54 IMPRESSION: 1. Diffuse interstitial infiltrates greatest in the lung bases are now present. This is suspicious for pneumonia - correlate with clinical findings. 2. Small right pleural effusion. Laboratory Results WBC 9.3 10^3/uL (4.0-10.0) 01/31/23 20:10 RBC 3.44 10^6/uL (4.1-5.3) L 01/31/23 20:10 Hgb 10.7 g/dL (11.7-16.6) L 01/31/23 20:10 Hct 33.9 % (42.0-52.0) L 01/31/23 20:10 MCV 98.5 fl (80-94) H 01/31/23 20:10 MCH 31.1 pg (28.0-34.0) 01/31/23 20:10 MCHC 31.6 g/dL (30.0-36.0) 01/31/23 20:10 RDW 15.3 % (12.1-15.1) H 01/31/23 20:10 Plt Count 285 10^3/cmm (130-400) 01/31/23 20:10 MPV 10.9 fL (7.4-10.4) H 01/31/23 20:10 Neut % (Auto) 71.7 % 01/31/23 20:10 Lymph % (Auto) 18.0 % 01/31/23 20:10 [place] % (Auto) 6.0 % 01/31/23 20:10 Eos % (Auto) 3.5 % 01/31/23 20:10 Baso % (Auto) 0.4 % 01/31/23 20:10 Neut # (Auto) 6.66 10^3/uL (1.8-7.7) 01/31/23 20:10 Lymph # (Auto) 1.7 10^3/uL (0.8-4.8) 01/31/23 20:10 [place] # (Auto) 0.6 10^3/uL (0.2-0.9) 01/31/23 20:10 Eos # (Auto) 0.3 10^3/uL (0.0-0.8) 01/31/23 20:10 Baso # (Auto) 0.0 10^3/uL (0.0-0.1) 01/31/23 20:10 Nucleated RBC % (auto) 0 % 01/31/23 20:10 Nucleated RBCs # 0.0 /100WBC 01/31/23 20:10 PT 13.50 SECONDS (12.1-14.9) 01/31/23 20:10 INR 1.00 (0.8-1.2) 01/31/23 20:10 Specimen Type Arterial 01/31/23 20:12 Sample Site Brachial, right 01/31/23 20:12 ABG pH 7.37 (7.35-7.45) 01/31/23 20:12 ABG pCO2 36.7 mmHg (35-45) 01/31/23 20:12 ABG pO2 72.2 mmHg (80.0-100.0) L 01/31/23 20:12 ABG HCO3 21.3 mmol/L (22-26) L 01/31/23 20:12 ABG Base Excess -3.5 mmol/L (-2.0-2.0) L 01/31/23 20:12 Narinder Test Pos 01/31/23 20:12 Hematocrit 30.2 % (42-52) L 01/31/23 20:12 O2 Delivery Device Nrb 01/31/23 20:12 FiO2 99.0 % 01/31/23 20:12 Apprenticeship Training Representative ID [email or web address] 01/31/23 20:12 Sodium 139 mmol/L (136-145) 01/31/23 20:10 Potassium 4.2 mmol/L (3.5-5.1) 01/31/23 20:10 Chloride 104 mmol/L (98-107) 01/31/23 20:10 Carbon Dioxide 21 mmol/L (22-29) L 01/31/23 20:10 Anion Gap 18.2 (5-19) 01/31/23 20:10 BUN 34 mg/dL (8-23) H 01/31/23 20:10 Creatinine 1.9 mg/dL (0.7-1.2) H 01/31/23 20:10 GFR Calculation Not Reportable 01/31/23 20:10 Glucose 116 mg/dL (65-115) H 01/31/23 20:10 Calculated Osmolality 297 mOsm/kg (285-295) H 01/31/23 20:10 Calcium 8.7 mg/dL (8.5-10.5) 01/31/23 20:10 Total Bilirubin 0.2 mg/dL (0.15-1.2) 01/31/23 20:10 AST 17 U/L (0-40) 01/31/23 20:10 ALT 9 U/L (0-41) 01/31/23 20:10 Alkaline Phosphatase 95 U/L (40-130) 01/31/23 20:10 Troponin T Baseline 111 ng/L (0-15) H* 01/31/23 20:10 NT-Pro-B Natriuret Pep 56028 pg/mL (0-450) H 01/31/23 20:10 Total Protein 7.6 g/dL (6.6-8.7) 01/31/23 20:10 Albumin 3.6 g/dL (3.5-5.2) 01/31/23 20:10 Globulin 4.0 g/dL (1.3-4.6) 01/31/23 20:10 Influenza Type A Ag negative (Negative) 01/31/23 20:36 Influenza Type B Ag negative (Negative) 01/31/23 20:36 SARS-CoV-2 Ag (Rapid) negative (Negative) 01/31/23 20:36 EKG Data EKG 1: I personally reviewed and interpreted this EKG as follows: EKG interpretation date: 01/31/23 EKG interpretation time: 20:50 Interpretation: nsr hr [address] or t wave abnormalities qrs 100 qtc 441 Critical Care Time Critical Care Time: Critical Care Time: Yes Total Critical Care Time: 45 Attestation: The high probability of a clinically significant, sudden or life threatening deterioration of the patient's resp system(s) required my full and direct attention, intervention and personal management. The critical care time is as shown. This time is in addition to time spent performing any reported procedures but includes the following: [x] Data and vital sign review and interpretation [x] Patient assessment, examination and intervention [x] Documentation [x] Medication orders and management Discharge Plan Discharge Patient Disposition: Admitted As Inpatient Admit Provider: Zelda Ross Clinical Impression: Pneumonia, Acute respiratory failure with hypoxia, Elevated troponin Condition: Stable Coding Level of Care Code ED Sieve Maker for Chg Fwd
[2023-01-31 20:22] LABS: Basophils % 0.4 %; Eosinophils # 0.3 10^3/uL (0.0-0.8); Eosinophils % 3.5 %; Hematocrit 33.9 % (42.0-52.0); Hemoglobin 10.7 g/dL (11.7-16.6); Lymphocytes # 1.7 10^3/uL (0.8-4.8); Mean Corpuscular HGB Conc 31.6 g/dL (30.0-36.0); Mean Corpuscular Hemoglobin 31.1 pg (28.0-34.0); Mean Corpuscular Volume 98.5 fl (80-94); Mean Platelet Volume 10.9 fL (7.4-10.4); Monocytes # 0.6 10^3/uL (0.2-0.9); Neutrophils # 6.66 10^3/uL (1.8-7.7); Neutrophils % 71.7 %; Nucleated Red Blood Cells % 0 %; Platelet Count 285 10^3/cmm (130-400); Red Blood Count 3.44 10^6/uL (4.1-5.3); Red Cell Distribution Width 15.3 % (12.1-15.1); White Blood Count 9.3 10^3/uL (4.0-10.0)
[2023-01-31 20:22] LABS: ABG PCO2 36.7 mmHg (35-45); ABG PH Result 7.37 (7.35-7.45); Arterial Blood Gas Hematocrit 30.2 % (42-52); Base Excess ABG -3.5 mmol/L (-2.0-2.0); Blood Gas Allen Test Pos; Blood Gas Sample Type Arterial; HCO3 ABG 21.3 mmol/L (22-26); PO2 ABG 72.2 mmHg (80.0-100.0)
[2023-01-31 20:23] LABS: Blood Gas Sample Site Brachial, right; Oxygen Device NRB
[2023-01-31 20:49] LABS: Alanine Aminotransferase 9 U/L (0-41); Albumin Level 3.6 g/dL (3.5-5.2); Alkaline Phosphatase 95 U/L (40-130); Anion Gap 18.2 (5-19); Aspartate Amino Transferase 17 U/L (0-40); Blood Urea Nitrogen 34 mg/dL (8-23); Calcium 8.7 mg/dL (8.5-10.5); Carbon Dioxide 21 mmol/L (22-29); Chloride 104 mmol/L (98-107); Glucose 116 mg/dL (65-115); NT Pro B Type Natriuretic Pept 19750 pg/mL (0-450); Osmolality Calculated 297 mOsm/kg (285-295); Potassium 4.2 mmol/L (3.5-5.1); Sodium 139 mmol/L (136-145); Total Bilirubin 0.2 mg/dL (0.15-1.2); Total Protein 7.6 g/dL (6.6-8.7)
[2023-01-31] MEDS: FUROsemide 10 mg/mL SDV 4mL 40 MG IVP (21:03)
[2023-01-31] MEDS: ipratropium 0.5 mg/2.5 mL Neb 0.25 MG INHALATION (21:05)
[2023-01-31] MEDS: albuterol 2.5 mg/3 mL Neb 5 MG INHALATION (21:05)
[2023-01-31 21:06] LABS: Influenza A by IFA negative (Negative); Influenza B by IFA negative (Negative); SARS Covid-2 Antigen negative (Negative)
[2023-01-31] MEDS: cefTRIAXone 1,000 MG in sodium chloride 0.9% (plus) 50 ML 100 MG IV (21:15)
[2023-01-31] MEDS: azithromycin 500 MG in sodium chloride 0.9% 250 ML 250 MG IV (21:37)
[2023-01-31 21:44] LABS: Troponin(5th) Baseline 111 ng/L (0-15)
[2023-01-31] MEDS: enoxaparin 80 mg/0.8 mL Syringe 70 MG SUBCUT (22:05)
--- NOTE | 2023-01-31 22:44 | ECG_ITS ---
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 Measurements Intervals [place] Rate: 63 P: 73 [place]: 194 QRS: 77 QRSD: 94 T: 39 QT: 472 QTc: 484 Interpretive Statements SINUS RHYTHM MODERATE ST DEPRESSION [0.05+ mV ST DEPRESSION] PROLONGED QT INTERVAL Compared to ECG 01/31/2023 20:50:46 ST (T wave) deviation now present Prolonged QT interval now present T-wave abnormality no longer present Electronically Signed On 02-01-2023 15:11:26 ASSISTANT FARM OPERATIONS MANAGER by Serge Thomas M.D. [id number]
--- NOTE | 2023-01-31 23:20 | P.HP_ITS ---
Providers/Chief Complaint Admitting Physician: Zelda Ross MD Primary Care Provider: Tyrese Rodriguez NP Chief Complaint: CP History of Present Illness Marco Antonio Sebastian is a 82 year old male with history of coronary artery disease, status post stenting to RCA in August 2022 for a STEMI presenting to the emergency room today with 2 days of feeling unwell. He reports symptoms of fe dany chills breaking out into sweats cough with sputum production. He has not measured his fever however subjectively states that he possibly has these. Planes of vague chest discomfort which she attributes to excessive coughing. Denies any palpitations syncope or shortness of breath. Upon arrival to the ER he was noted to be hypoxic with O2 sat 66% on room air. He is currently on 4 L/min supplemental O2. CXR shows Diffuse interstitial infiltrates greatest in the lung bases suspi cious for pneumonia and a small right pleural effusion. His baseline trop is elevated > 100, pending 2 and 6 hr assessments. Review of Systems General: Reports: 10 or more systems reviewed and unremarkable except in HPI and below Const: Denies: fever(s), chills or body aches Eyes: Denies: change in vision, blurry vision or photophobia ENMT: Reports: hoarseness; Denies: throat pain, enlarged tonsils, odynophagia or nasal congestion Card: Denies: chest pain, palpitations, irregular heart rhythm, edema, swelling of feet/ankles, lightheadedness, pre-syncope, dyspnea on exertion or orthopnea Resp: Denies: dyspnea, productive cough, non-productive cough, wheezing, st ridor, pain on inspiration, change in phlegm color, hemoptysis or chest congestion GI: Denies: abdominal pain, nausea, vomiting, hematemesis, coffee ground emesis, dysphagia, heartburn, diarrhea, constipation, GI cramping, change in stool character, hematochezia or melena : Denies: flank pain, dysuria, urinary frequency, urinary urgency, urinary hesitancy or hematuria Musc: Denies: neck pain, back pain, extremity pain, joint swelling, joint warmth or deformity Neuro: Denies: headache(s), numbness in extremities, weakness in extremities, sensory changes, difficulty walking, frequent falls, dizziness, vertigo, behavioral changes, Slurred speech present or seizure-like activity Psych: Denies: anxiety, depression, suicidal ideation or homicidal ideation Endo: Denies: polyuria, polydipsia, tired all the time, cold intolerance or hot flashes Bossman/Lymph: Denies: easy bruising or easy bleeding Medications/Allergies Home Medications Medication Instructions Recorded Confirmed Last Taken Type gabapentin 400 mg capsule 400 mg PO TID 12/27/19 01/03/23 12/30/22 History sucralfate 1 gram tablet 1 g PO BID 09/14/22 01/03/23 09/13/22 18:00 History pantoprazole 40 mg tablet,delayed 40 mg PO BIDWMEAL #60 tabs 09/16/22 01/03/23 09/13/22 08:00 Rx release aspirin 81 mg tablet,delayed 81 mg PO QDAY #90 tabs 12/23/22 01/03/23 12/30/22 Rx release (Adult Low Dose Aspirin) clopidogrel 75 mg tablet 75 mg PO DAILY #90 tabs 12/23/22 01/03/23 12/30/22 Rx lisinopril 40 mg tablet 40 mg PO DAILY #90 tabs 12/23/22 01/03/23 12/30/22 Rx pravastatin 40 mg tablet 80 mg PO BEDTIME #90 tabs 12/23/22 01/03/23 12/29/22 Rx amlodipine 5 mg tablet 5 mg PO DAILY 12/30/22 01/03/23 Unknown History hydrochlorothiazide 12.5 mg tablet 12.5 mg PO DAILY 12/30/22 01/03/23 12/30/22 History levothyroxine 100 mcg tablet 125 mcg PO DAILY #30 tabs 01/02/23 01/03/23 12/30/22 Rx (Levoxyl) metoprolol tartrate 25 mg tablet 12.5 mg PO BID #60 tabs 01/02/23 01/03/23 Unknown Rx Allergies Allergy/AdvReac Type Severity Reaction Status Date / Time No Known Allergies Allergy Verified 12/30/22 12:52 PFSH Acute PFSH: Medical History Acute kidney injury superimposed on CKD Anemia Anemia Atherosclerosis of coronary artery Atypical chest pain Chest pain CKD (chronic kidney disease) Gastric ulcer Gastritis Hyperlipidemia Hypertension Neuropathy PAD (peripheral artery disease) Primary osteoarthritis of left knee Primary osteoarthritis of right knee Surgical History H/O colonoscopy 09/11/19 H/O esophagogastroduodenoscopy 09/11/19 History of appendectomy History of hernia surgery Family History Sister Cancer Brother Diabetes Denies family history of Anesthesia complication Bleeding disorder Social History Smoking and tobacco status: current every day smoker Alcohol intake: never Lives independently: Yes Marital status: Single Current occupational status: retired Vitals/I&O/Wt Last Vital Signs Temp 98.9 F 01/31/23 20:02 Pulse 65 01/31/23 22:00 Resp 21 H 01/31/23 22:00 BP 170/78 01/31/23 22:00 Pulse Ox 95 01/31/23 22:00 O2 Del Method 01/31/23 21:15 FiO2 50 01/31/23 21:05 01/31/23 01/31/23 02/01/23 14:59 22:59 06:59 Intake Total 300 / 300 Balance 300 / 300 Weight last 48 hrs Weight 70.307 kg Physical Exam Narrative: General: No acute distress, AO x3 HEENT: PERRLA, pupils bilaterally equal and reactive, pallors not present Chest: Normal vesicular breath sounds, no added sounds, equal good air entry bilaterally CVS: S1-S2 regular, no murmurs, no tachycardia, no gallops, no rubs Abdomen: Soft, nontender, no organomegaly, bowel sounds present Neuro: No focal deficits, no facial deformity, AO x3, power 5/5 in all limbs Data 01/31/23 20:10 01/31/23 20:10 Micro: Microbiology 01/31/23 21:00 Blood Culture - Preliminary Blood SPECIMEN COLLECTED 01/31/23 20:44 Blood Culture - Preliminary Blood SPECIMEN COLLECTED A&P Assessment and plan (1) Pneumonia: chest x-ray showing bilateral infiltrates right greater than left concerning for pneumonia Start treatment with ceftriaxone 1 g IV every 24 hours added azithromycin 500 mg daily Check urine bacterial antigen and Legionella antigen, sputum culture. Blood culture taken in the emergency room. Initially required BiPAP upon presentation, currently comfortable on 4 L/min supplemental O2 (2) Acute respiratory failure with hypoxia: Likely contributed by pneumonia. Laso noted to have Elevated BN comcerning for CHF, , patient has received 40 mg IV Lasix in the emergency room. He clinically currently does not appear to be in decompensated heart failure. (3) NSTEMI (non-ST elevated myocardial infarction): Nonspecific ST-T wave depression in leads II and aVF Elevated troponin baseline greater than 100, pending 2 one 6-hour levels Given Lovenox full dose in the emergency room. Continue aspirin Plavix statin and metoprolol holding lisinopril 5mg given soft BP 70s Attestations Medical Necessity Statement*: Greater than 2 midnight admission is anticipated for IV antibiotics for pneumonia, NSTEMI Coding Level of Care Code Acute Code for Chg Fwd High MDM includes number and complexity of problems actively addressed during encounter, amount and/or complexity of data reviewed/ordered and described risk of complication, morbidity or mortality of management as documented Diagnoses Pneumonia J18.9 Acute respiratory failure with hypoxia J96.01 NSTEMI (non-ST elevated myocardial infarction) I21.4
[2023-02-01] VITALS (93 sets, daily range): BP systolic 87–167; BP diastolic 42–84; PULSE 58–99; RESP 11–29; TEMP 36.6–37.1; O2SAT 85–100
[2023-02-01] MEDS: aspirin 81 mg EC Tablet PO (00:32)
--- NOTE | 2023-02-01 01:54 | ECG_ITS ---
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 Measurements Intervals [place] Rate: 66 P: 69 VA: 169 QRS: 67 QRSD: 97 T: -32 QT: 456 QTc: 478 Interpretive Statements SINUS RHYTHM NONSPECIFIC ST & T-WAVE ABNORMALITY PROLONGED QT INTERVAL Compared to ECG 01/31/2023 22:44:37 T-wave abnormality now present ST (T wave) deviation no longer present Electronically Signed On 02-01-2023 15:11:46 FEED HANDLER by Serge Thomas M.D. [id number]
[2023-02-01 03:33] LABS: Basophils % 0.1 %; Hematocrit 32.2 % (42.0-52.0); Hemoglobin 10.1 g/dL (11.7-16.6); Lymphocytes # 0.7 10^3/uL (0.8-4.8); Lymphocytes % 9.1 %; Mean Corpuscular HGB Conc 31.4 g/dL (30.0-36.0); Mean Corpuscular Hemoglobin 30.8 pg (28.0-34.0); Mean Corpuscular Volume 98.2 fl (80-94); Mean Platelet Volume 11.5 fL (7.4-10.4); Monocytes % 0.5 %; Neutrophils # 6.54 10^3/uL (1.8-7.7); Neutrophils % 89.9 %; Nucleated Red Blood Cells % 0 %; Platelet Count 273 10^3/cmm (130-400); Red Blood Count 3.28 10^6/uL (4.1-5.3); Red Cell Distribution Width 15.2 % (12.1-15.1); White Blood Count 7.3 10^3/uL (4.0-10.0)
[2023-02-01 03:56] LABS: Alanine Aminotransferase 9 U/L (0-41); Albumin Level 3.2 g/dL (3.5-5.2); Alkaline Phosphatase 80 U/L (40-130); Anion Gap 17.1 (5-19); Aspartate Amino Transferase 16 U/L (0-40); Blood Urea Nitrogen 36 mg/dL (8-23); Calcium 8.3 mg/dL (8.5-10.5); Carbon Dioxide 21 mmol/L (22-29); Chloride 104 mmol/L (98-107); Globulin 3.6 g/dL (1.3-4.6); Glucose 190 mg/dL (65-115); Osmolality Calculated 299 mOsm/kg (285-295); Potassium 4.1 mmol/L (3.5-5.1); Sodium 138 mmol/L (136-145); Total Bilirubin 0.2 mg/dL (0.15-1.2); Total Protein 6.8 g/dL (6.6-8.7)
[2023-02-01] MEDS: heparin drip 25,000 UNIT/500 ML PREMIX 19 UNIT IV (04:46)
--- NOTE | 2023-02-01 05:53 | PC.NURSE ---
0430 Critical troponin called by lab, [address] Ross in unit and result reported verbally, orders received for heparin gtt, no bolus. Started as ordered.
[2023-02-01] MEDS: metoprolol tartrate 25 mg Tablet 12.5 MG PO ×2 (08:13→17:25)
[2023-02-01] MEDS: sucralfate 1 gm Tablet PO ×2 (08:15→17:25)
[2023-02-01] MEDS: gabapentin 400 mg Capsule PO ×3 (08:15→20:19)
[2023-02-01] MEDS: pantoprazole DR 40 mg Tablet PO (08:15)
[2023-02-01] MEDS: levothyroxine 125 mcg Tablet PO (08:16)
--- NOTE | 2023-02-01 09:52 | P.CONIM_ITS ---
Providers/Reason For Consult Consulting Physician/Specialty*: ADEEL Alvarado MD/cardiology Reason for Consult*: Patient with chest pain and elevated troponin T Requesting Physician: Attending Physician: Gentry Lewis MD Primary Care Provider: Tyrese Rodriguez NP History of Present Illness History of Present Illness Marco Antonio Sebastian is a 82 year old male with a history of coronary artery disease and severe COPD, he is admitted to hospital with worsening shortness of breath and cough. He also was complaining of some chest tightness/heaviness. He was found to have elevated troponin T. He also has features of pneumonia with a COPD exacerbation. Cardiology consult is requested for further cardiac evaluation recommendations. This patient apparently has been his baseline state of health up until 3 days ago when he started having using shortness of breath and cough. He was bringing up yellowish sputum. No hemoptysis. He has a history of previous smoking abuse. He continues to smoke. He described the chest pain as a squeezing/pressure-like feeling in the mid substernal area more towards the right side no associated nausea or vomiting. No sweating or dizziness. He has a baseline shortness of breath which was getting worse for the last few days. He is not sure whether he had a fever or not. No chills. No other specific complaints. In August of last year, he had a non-ST elevation myocardial infarction. He had a high-grade lesion in the mid RCA and a 70% gnosis in the distal PDA. He had angioplasty and stent. Placement of the mid RCA lesion at that time. He was found to have mild diffuse disease in the other vessels. The RCA was found to be very tortuous. The angiogram was done through the right radial artery. But intervention was performed to the right groin because of the abnormal jennifer ghanshyam of the artery-the RCA ostium had a godinez hook takeoff. Patient initially had hypercapnic respiratory failure. He was placed on BiPAP. Currently he is off the BiPAP. He is on 5 L of oxygen by nasal cannula. Oxygen saturation is around 94% ? Review of Systems Narrative: CONSTITUTIONAL: No fever or chills. EYES: No blurring of vision or other visual disturbances lately. ENT: No hoarseness of voice, auditory disturbances or sore throat. CARDIOVASCULAR: As mentioned above. RESPIRATORY: Severe COPD and ongoing smoking abuse GASTROINTESTINAL: No hematemesis or melena. GENITOURINARY: No dysuria or hematuria. INTEGUMENTARY: No skin rashes or history of skin cancer. NEURO: No transient ischemic attacks or amaurosis. PSYCHIATRIC: No history of psychosis or major depression. HEMATOLOGIC: No bleeding disorders or significant anemia. ENDOCRINE: No history of polyuria or polydipsia. MUSCULOSKELETAL: No recent joint pain or swelling. ALLERGY/IMMUNOLOGY: As mentioned above. Medications/Allergies Home Medications Medication Instructions Recorded Confirmed Last Taken Type gabapentin 400 mg capsule 400 mg PO TID 12/27/19 02/01/23 12/30/22 History sucralfate 1 gram tablet 1 g PO BID 09/14/22 02/01/23 09/13/22 18:00 History clopidogrel 75 mg tablet 75 mg PO DAILY #90 tabs 12/23/22 02/01/23 12/30/22 Rx lisinopril 40 mg tablet 40 mg PO DAILY #90 tabs 12/23/22 02/01/23 12/30/22 Rx pravastatin 40 mg tablet 80 mg PO BEDTIME #90 tabs 12/23/22 02/01/23 12/29/22 Rx amlodipine 5 mg tablet 10 mg PO QAM 12/30/22 02/01/23 Unknown History hydrochlorothiazide 12.5 mg tablet 12.5 mg PO QAM 12/30/22 02/01/23 12/30/22 History aspirin 81 mg tablet,delayed 81 mg PO QAM 02/01/23 02/01/23 Unknown History release levothyroxine 100 mcg tablet 100 mcg PO QAM 02/01/23 02/01/23 Unknown History metoprolol tartrate 50 mg tablet 50 mg PO BID 02/01/23 02/01/23 Unknown History pantoprazole 40 mg tablet,delayed 40 mg PO DAILY 02/01/23 02/01/23 Unknown History release Allergies Allergy/AdvReac Type Severity Reaction Status Date / Time No Known Allergies Allergy Verified 02/01/23 09:59 Current Medications Generic Name Dose Route Start Last Admin Trade Name Freq PRN Reason Stop Dose Admin Gabapentin 400 mg 02/01/23 09:00 02/01/23 08:15 Gabapentin 400 Mg Capsule PO 400 mg TID FATIMAH Administration Heparin Sodium/Sodium Chloride 25,000 unit in 500 mls @ 0 mls/hr 02/01/23 04:30 02/01/23 04:46 Heparin Drip IV 14.16 unit/kg/hr .Q0M FATIMAH 19 mls/hr Administration Protocol Per Protocol Levothyroxine Sodium 125 mcg 02/01/23 09:00 02/01/23 08:16 Levothyroxine 125 Mcg Tablet PO 125 mcg DAILY FATIMAH Administration Metoprolol Tartrate 12.5 mg 02/01/23 09:00 02/01/23 08:13 Metoprolol Tartrate 25 Mg Tablet PO 12.5 mg BID FATIMAH Administration Pantoprazole Sodium 40 mg 02/01/23 09:00 02/01/23 08:[address] 40 Mg Tablet PO 40 mg DAILY FATIMAH Administration Sucralfate 1 gm 02/01/23 09:00 02/01/23 08:15 Sucralfate 1 Gm Tablet PO 1 gm BID FATIMAH Administration PFSH Acute PFSH: Medical History (Updated 02/02/23 @ 11:32 by Gentry Lewis MD) Acute kidney injury superimposed on CKD Anemia Anemia Atherosclerosis of coronary artery Atypical chest pain Chest pain CKD (chronic kidney disease) Gastric ulcer Gastritis Hyperlipidemia Hypertension Neuropathy PAD (peripheral artery disease) Primary osteoarthritis of left knee Primary osteoarthritis of right knee Surgical History H/O colonoscopy 09/11/19 H/O esophagogastroduodenoscopy 09/11/19 History of appendectomy History of hernia surgery Family History Sister Cancer Brother Diabetes Denies family history of Anesthesia complication Bleeding disorder Social History Smoking and tobacco status: current every day smoker Alcohol intake: never Lives independently: Yes Marital status: Single Current occupational status: retired Vitals/I&O/Wt Last Vital Signs Temp 98.8 F 02/01/23 07:30 Pulse 64 02/01/23 08:30 Resp 16 02/01/23 08:30 BP 149/51 02/01/23 08:30 Pulse Ox 98 02/01/23 08:30 O2 Del Method 01/31/23 23:57 O2 Flow Rate 4 01/31/23 23:57 FiO2 30 01/31/23 23:48 01/31/23 02/01/23 02/01/23 22:59 06:59 14:59 Intake Total 300 / 300 Output Total 1000 / 1000 Balance 300 / 300 -1000 / -700 Weight last 48 hrs Weight 147 lb 14.883 oz Weight 155 lb Physical Exam Narrative: GENERAL: The patient is alert and oriented times three. Not in any acute distress. HEENT: No significant pallor, icterus or lymphadenopathy.Oral cavity: There are no mucous membrane lesions. NECK: Trachea appears to be central. No masses noted. No JVD or thyromegaly appreciated. RESPIRATORY: The breath sounds are heard bilaterally. Patient has coarse crackles and scattered expiratory wheezes bilaterally. The intensity of breath sounds are diminished in the bases. BREASTS: Deferred. HEART: The heart sounds are normal. No S3 or S4. Short systolic murmur in the lower sternal border. No diastolic murmurs no pericardial rub ABDOMEN: No vessel pulsations or distention. No tenderness. No organomegaly appreciated. Bowel sounds are normally heard. : Deferred. RECTAL: Deferred. LYMPHATIC: No lymphadenopathy noted in the neck. EXTREMITIES: No edema or cyanosis. No clubbing. MUSCULOSKELETAL: No acute joint deformities or swelling SKIN: There are no significant rashes or ecchymosis NEUROPSYCHIATRIC: The patient is alert and oriented x3. Appears to be in a good mood. No tremors or rigidity noted. Urinary Catheter Management: [place]: Cath Placed During This Visit: yes Reason for Continuing Indwelling Catheter: Accurate Measurement of Urinary Output in Critically Ill Patients Urinary Catheter Date of Insertion: 01/31/23 Urinary Catheter Time of Insertion: 23:30 Data 02/01/23 02:21 02/01/23 02:21 Other Labs: Laboratory Last Values WBC 7.3 10^3/uL (4.0-10.0) 02/01/23 02:21 RBC 3.28 10^6/uL (4.1-5.3) L 02/01/23 02:21 Hgb 10.1 g/dL (11.7-16.6) L 02/01/23 02:21 Hct 32.2 % (42.0-52.0) L 02/01/23 02:21 MCV 98.2 fl (80-94) H 02/01/23 02:21 MCH 30.8 pg (28.0-34.0) 02/01/23 02:21 MCHC 31.4 g/dL (30.0-36.0) 02/01/23 02:21 RDW 15.2 % (12.1-15.1) H 02/01/23 02:21 Plt Count 273 10^3/cmm (130-400) 02/01/23 02:21 MPV 11.5 fL (7.4-10.4) H 02/01/23 02:21 Neut % (Auto) 89.9 % 02/01/23 02:21 Lymph % (Auto) 9.1 % 02/01/23 02:21 [place] % (Auto) 0.5 % 02/01/23 02:21 Eos % (Auto) 0.0 % 02/01/23 02:21 Baso % (Auto) 0.1 % 02/01/23 02: Neut # (Auto) 6.54 10^3/uL (1.8-7.7) 02/01/23 02:21 Lymph # (Auto) 0.7 10^3/uL (0.8-4.8) L 02/01/23 02:21 [place] # (Auto) 0.0 10^3/uL (0.2-0.9) L 02/01/23 02:21 Eos # (Auto) 0.0 10^3/uL (0.0-0.8) 02/01/23 02:21 Baso # (Auto) 0.0 10^3/uL (0.0-0.1) 02/01/23 02:21 Nucleated RBC % (auto) 0 % 02/01/23 02: Nucleated RBCs # 0.0 /100WBC 02/01/23 02:21 PT 13.50 SECONDS (12.1-14.9) 01/31/23 20:10 INR 1.00 (0.8-1.2) 01/31/23 20:10 Specimen Type Arterial 01/31/23 20:12 Sample Site Brachial, right 01/31/23 20:12 ABG pH 7.37 (7.35-7.45) 01/31/23 20:12 ABG pCO2 36.7 mmHg (35-45) 01/31/23 20:12 ABG pO2 72.2 mmHg (80.0-100.0) L 01/31/23 20:12 ABG HCO3 21.3 mmol/L (22-26) L 01/31/23 20:12 ABG Base Excess -3.5 mmol/L (-2.0-2.0) L 01/31/23 20:12 Narinder Test Pos 01/31/23 20:12 Hematocrit 30.2 % (42-52) L 01/31/23 20:12 O2 Delivery Device Nrb 01/31/23 20:12 FiO2 99.0 % 01/31/23 20:12 Animal Pathologist ID [email or web address] 01/31/23 20:12 Sodium 138 mmol/L (136-145) 02/01/23 02:21 Potassium 4.1 mmol/L (3.5-5.1) 02/01/23 02:21 Chloride 104 mmol/L (98-107) 02/01/23 02:21 Carbon Dioxide 21 mmol/L (22-29) L 02/01/23 02:21 Anion Gap 17.1 (5-19) 02/01/23 02:21 BUN 36 mg/dL (8-23) H 02/01/23 02:21 Creatinine 2.3 mg/dL (0.7-1.2) H 02/01/23 02:21 GFR Calculation Not Reportable 02/01/23 02:21 Glucose 190 mg/dL (65-115) H 02/01/23 02:21 Calculated Osmolality 299 mOsm/kg (285-295) H 02/01/23 02:21 Calcium 8.3 mg/dL (8.5-10.5) L 02/01/23 02:21 Total Bilirubin 0.2 mg/dL (0.15-1.2) 02/01/23 02:21 AST 16 U/L (0-40) 02/01/23 02:21 ALT 9 U/L (0-41) 02/01/23 02:21 Alkaline Phosphatase 80 U/L (40-130) 02/01/23 02:21 Troponin T Baseline 111 ng/L (0-15) H* 01/31/23 20:10 Troponin T 120 Minute 125.0 ng/L (0-15) H 01/31/23 22:17 Delta Troponin T 14.0 ABS# (0-10) H* 01/31/23 22:17 Troponin T Hi Sens 6Hr 143.0 ng/L (0-15) H 02/01/23 02:21 Troponin T Hi Sens 6Hr Delta 32.0 ng/L (0-12) H* 02/01/23 02:21 NT-Pro-B Natriuret Pep 43057 pg/mL (0-450) H 01/31/23 20:10 Total Protein 6.8 g/dL (6.6-8.7) 02/01/23 02:21 Albumin 3.2 g/dL (3.5-5.2) L 02/01/23 02:21 Globulin 3.6 g/dL (1.3-4.6) 02/01/23 02:21 Procalcitonin 0.10 ng/mL (0-0.5) 02/01/23 02:21 Influenza Type A Ag negative (Negative) 01/31/23 20:36 Influenza Type B Ag negative (Negative) 01/31/23 20:36 SARS-CoV-2 Ag (Rapid) negative (Negative) 01/31/23 20:36 Micro: Microbiology 01/31/23 21:00 Blood Culture - Preliminary Blood SPECIMEN COLLECTED 01/31/23 20:44 Blood Culture - Preliminary Blood SPECIMEN COLLECTED Cardiac catheterization: My impression: 09/14/2022 ?Left Main has no significant disease. ? * Left Anterior Descending has moderate luminal irregularities.? Moderate 40% stenosis in mid LAD.. ? * Circumflex has no disease. Diffuse moderate luminal irregularities. ? * RCA is a very tortuous ? * artery ? * . ? * Has Leo's crook anatome. Proximal RCA has moderate, calcified 30-40% stenosis. Has mid segment hazy 90% stenosis ? * . Haziness consistent with thrombus. This is the culprit lesion for ST elevation DE.? PDA has a significant 70 % distal vessel stenosis. CXR: My impression: ? EKG 1: My Interpretation: The EKG showed a sinus rhythm with nonspecific ST-T changes in the inferolateral leads. No acute ST-T changes. A&P Assessment and plan (1) NSTEMI (non-ST elevated myocardial infarction): Patient has elevated baseline 2-hour delta of 14 and 6-hour delta of 32. The EKG changes are nonspecific. And non-ST lesion myocardial infarction is a likely possibility. Patient may be treated with Plavix, aspirin, subcu Lovenox and other current medications. A limited 2D echocardiogram be helpful to evaluate LV function and rule out any other pathology. After reviewing the above, further recommendations will be made (2) Acute respiratory failure with hypoxia: The patient's oxygen saturation is improving. He was on a BiPAP but currently on 5 L of oxygen by nasal cannula. Oxygen saturation seems to be appropriate. (3) Pneumonia: May continue the current medication. (4) Atherosclerosis of coronary artery: The angiogram findings from August 2022 is as mentioned above. Patient may require a repeat angiogram which will be decided after reviewing the echocardiogram. (5) Hypertension: May continue on the current medications. The blood pressures are stage II. We will try to optimize the antihypertensive medications. (6) Hyperlipidemia: Patient may be kept on the statin drug. Plan Based on the clinical progress and the results of the above, further recommendations will be made. Thank you for the opportunity to evaluate this patient and make these recommendations. Consult Attestations Medical Necessity Statement: Patient requires continued hospital stay for close monitoring and further management Coding Level of Care Code Acute Code for [facility] Diagnoses NSTEMI (non-ST elevated myocardial infarction) I21.4 Acute respiratory failure with hypoxia J96.01 Pneumonia J18.9 Atherosclerosis of coronary artery I25.10 Hypertension I10 Hyperlipidemia E78.5
--- NOTE | 2023-02-01 10:00 | USCV_ITS ---
Marco Antonio Sebastian Age: 82 Gender: M : 1940 Exam Date: 02/01/2023 10:52 Ordering Phys: Patricia Alvarado MD ([email or web address]) Technologist: Edmund Ernst Exam Location: [facility] [place] Indication: elevated trops BP: 149 / 51 HR: 61 Rhythm: Sinus Technical Quality: Adequate MEASUREMENTS (Male / Female) Normal Values 2D ECHO LV Diastolic Diameter PLAX 5.6 cm 4.2 - 5.9 / 3.9 - 5.3 cm LV Systolic Diameter PLAX 3.8 cm IVS Diastolic Thickness 0.7 cm 0.6 - 1.0 / 0.6 - 0.9 cm IVS Systolic Thickness 1.1 cm LVPW Diastolic Thickness 1.1 cm 0.6 - 1.0 / 0.6 - 0.9 cm LVPW Systolic Thickness 1.7 cm LVOT Diameter 2.0 cm LV Ejection Fraction 2D Teich 60.1 % LV Ejection Fraction MOD 2C 68.0 % LV Ejection Fraction 2C AL 67.6 % LA Diameter 3.8 cm LA Width 3.2 cm LA Height 3.8 cm RA Width 4.0 cm RA Height 4.4 cm Aorta at Sinotubular Diameter 2.4 cm IVC Diameter 1.3 cm M-MODE Aortic Annulus Diameter 2.5 cm LA Ao Ratio MM 1.6 MV E Point Septal Separation 0.5 cm DOPPLER AV Peak Velocity 188.0 cm/s LVOT Peak Velocity 96.0 cm/s AV Area Cont Eq vti 2.0 cm squared AV Area Cont Eq pk 1.7 cm squared MV Peak Velocity 122.0 cm/s MV Area PHT 5.9 cm squared Mitral E to A Ratio 1.0 MV E' Velocity 44.0 cm/s Mitral E to MV E' Ratio 7.1 Mitral E to LV E' Lateral Ratio 5.3 Mitral E to LV E' Septal Ratio 10.7 TR Peak Velocity 360.8 cm/s TR Peak Gradient 52.1 mmHg TR Mean Velocity 288.7 cm/s TR Mean Gradient 35.0 mmHg TR Velocity Time Integral 99.5 cm Right Atrial Pressure 3.0 mmHg Pulmonary Artery Systolic Pressu 55.1 mmHg PV Peak Velocity 78.0 cm/s RV Acceleration Time 0.1 s RV Ejection Time 0.3 s RV AcT/ET 0.2 FINDINGS Left Ventricle Normal left ventricular size and systolic function, EF 61 %. Mild left ventricular hypertrophy. No regional wall motion abnormalities. Grade I/IV diastolic dysfunction (abnormal relaxation filling pattern), normal to mildly elevated filling pressures. Right Ventricle The right ventricle is normal in size and function. Right Atrium The right atrium is normal in size. Left Atrium The left atrium is normal in size. Mitral Valve Thickened mitral valve. Mild-moderate mitral valve regurgitation. Aortic Valve Thickened aortic valve. [id number] aortic valve regurgitation. Tricuspid Valve Trace tricuspid valve regurgitation. Pulmonic Valve Structurally normal pulmonic valve without significant stenosis. There is no pulmonic regurgitation. Pericardium Normal pericardium without effusion. Aorta . Normal aortic annulus size. IVC Normal inferior vena cava. CONCLUSIONS Normal left ventricular size and systolic function, EF 61 %. Mild left ventricular hypertrophy. No regional wall motion abnormalities. Grade I/IV diastolic dysfunction (abnormal relaxation filling pattern), normal to mildly elevated filling pressures. Thickened mitral valve. Mild-moderate mitral valve regurgitation. Thickened aortic valve. [id number] aortic valve regurgitation. Trace tricuspid valve regurgitation. Estimated pulmonary artery peak systolic pressure was 35 mmHg. This could be an underestimation because of poor Doppler signal There is no pericardial effusion. Dr Patricia Alvarado MD [facility] (Electronically Signed) Final Date: 02 February 2023 12:57 S
--- NOTE | 2023-02-01 10:08 | PC.PHAR ---
pt and pts daughter verified medications-pt states the dr increased his amlodipine to 10mg daily ext med history shows last filled 11/28/22 90d/s 5mg daily-pts daughter states the pts med bottle has levothyroxine 100mcg daily filled 11/28/22 60d/s rx written on 01/02/23 125mcg daily-notes are made in the pharmacy comments
--- NOTE | 2023-02-01 10:11 | USCV_ITS ---
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 Dr Patricia Alvarado MD [facility] (Electronically Signed) Final Date: 02 February 2023 12:48 S
--- NOTE | 2023-02-01 11:47 | PM.PN ---
Subjective Subjective: Patient not in any active chest pain Cardiac consultation and recommendation appreciated Afebrile Currently on 3 L Chest pain-free Pleuritic pain on taking deep breaths Afebrile No leukocytosis Troponin elevation noted Vitals/I&O/Wt Last Vital Signs Temp 98.8 F 02/01/23 07:30 Pulse 64 02/01/23 08:30 Resp 16 02/01/23 08:30 BP 149/51 02/01/23 08:30 Pulse Ox 98 02/01/23 08:30 O2 Del Method 01/31/23 23:57 O2 Flow Rate 4 01/31/23 23:57 FiO2 30 01/31/23 23:48 01/31/23 02/01/23 02/01/23 22:59 06:59 14:59 Intake Total 300 / 300 Output Total 1000 / 1000 Balance 300 / 300 -1000 / -700 Weight last 48 hrs Weight 67.1 kg Weight 70.307 kg Physical Exam Narrative: Fatigue lethargic currently on 3 L No active wheezing Pleuritic pain S1, S2 Pleasant cooperative Euvolemic Nonfocal neuro exam GCS 15 Urinary Catheter Management: Lizarraga: Cath Placed During This Visit: yes Reason for Continuing Indwelling Catheter: Accurate Measurement of Urinary Output in Critically Ill Patients Urinary Catheter Date of Insertion: 01/31/23 Urinary Catheter Time of Insertion: 23:30 Data 02/01/23 02:21 02/01/23 02:21 Micro: Microbiology 01/31/23 21:00 Blood Culture - Preliminary Blood SPECIMEN COLLECTED 01/31/23 20:44 Blood Culture - Preliminary Blood SPECIMEN COLLECTED A&P Assessment and plan (1) NSTEMI (non-ST elevated myocardial infarction): (2) Pneumonia: (3) Acute respiratory failure with hypoxia: (4) Elevated troponin: Plan Right lower lobe pneumonia Continue antibiotics DuoNeb every 4 as needed NSTEMI: ACS protocol for now Requested cardiac consultation We will follow-up with echo report Procalcitonin unremarkable No active chest pain Complaining of pleuritic pain Chronic kidney disease creatinine seems around baseline Full code Cardiac diet ACS protocol Attestations Medical Necessity Statement*: Continue medical management Diagnoses NSTEMI (non-ST elevated myocardial infarction) I21.4 Pneumonia J18.9 Acute respiratory failure with hypoxia J96.01 Elevated troponin R77.8
[2023-02-01 12:11] LABS: Partial Thromboplastin Time 67.1 SECONDS (23.9-36.7)
[2023-02-01 18:18] LABS: Partial Thromboplastin Time 30.9 SECONDS (23.9-36.7)
[2023-02-01] MEDS: heparin 5,000 unit/mL INJ 1 mL IV (19:04)
[2023-02-01] MEDS: azithromycin 250 mg Tablet 500 MG PO (20:19)
[2023-02-01] MEDS: atorvastatin 40 mg Tablet PO (20:19)
[2023-02-01] MEDS: cefTRIAXone 1,000 MG in sodium chloride 0.9% (plus) 50 ML 100 MG IV (20:20)
[2023-02-02] VITALS (43 sets, daily range): BP systolic 90–149; BP diastolic 39–69; PULSE 59–82; RESP 11–23; TEMP 36.6–37.2; O2SAT 85–100
[2023-02-02 01:31] LABS: Basophils % 0.2 %; Hematocrit 25.4 % (42.0-52.0); Lymphocytes # 2.1 10^3/uL (0.8-4.8); Lymphocytes % 11.4 %; Mean Corpuscular HGB Conc 31.5 g/dL (30.0-36.0); Mean Corpuscular Hemoglobin 31.5 pg (28.0-34.0); Mean Platelet Volume 11.5 fL (7.4-10.4); Monocytes # 1.4 10^3/uL (0.2-0.9); Monocytes % 7.3 %; Neutrophils # 14.89 10^3/uL (1.8-7.7); Nucleated Red Blood Cells % 0 %; Platelet Count 212 10^3/cmm (130-400); Red Blood Count 2.54 10^6/uL (4.1-5.3); Red Cell Distribution Width 15.6 % (12.1-15.1); White Blood Count 18.6 10^3/uL (4.0-10.0)
[2023-02-02 01:46] LABS: Anion Gap 14.1 (5-19); Blood Urea Nitrogen 44 mg/dL (8-23); Calcium 7.9 mg/dL (8.5-10.5); Carbon Dioxide 22 mmol/L (22-29); Chloride 106 mmol/L (98-107); Glucose 120 mg/dL (65-115); Osmolality Calculated 298 mOsm/kg (285-295); Potassium 4.1 mmol/L (3.5-5.1); Sodium 138 mmol/L (136-145)
[2023-02-02 02:07] LABS: Partial Thromboplastin Time 196.6 SECONDS (23.9-36.7)
--- NOTE | 2023-02-02 03:07 | PC.NURSE ---
PTT Patient's ptt came back critical at 196.6 at 0206 A.M. Three attempts made to notify physician. Heparin drip stopped. Dr. Ross contacted again at [phone] and telephone orders received to keep heparin drip stopped for total of 4 hours, then recheck the ptt.
[2023-02-02 07:03] LABS: Partial Thromboplastin Time 51.8 SECONDS (23.9-36.7)
[2023-02-02 08:12] LABS: Basophils % 0.2 %; Eosinophils % 0.1 %; Hematocrit 23.3 % (42.0-52.0); Hemoglobin 7.4 g/dL (11.7-16.6); Lymphocytes # 2.4 10^3/uL (0.8-4.8); Lymphocytes % 14.8 %; Mean Corpuscular HGB Conc 31.8 g/dL (30.0-36.0); Mean Corpuscular Hemoglobin 31.4 pg (28.0-34.0); Mean Corpuscular Volume 98.7 fl (80-94); Mean Platelet Volume 12.2 fL (7.4-10.4); Monocytes # 1.1 10^3/uL (0.2-0.9); Monocytes % 6.6 %; Neutrophils # 12.71 10^3/uL (1.8-7.7); Neutrophils % 77.8 %; Nucleated Red Blood Cells % 0 %; Platelet Count 193 10^3/cmm (130-400); Red Blood Count 2.36 10^6/uL (4.1-5.3); Red Cell Distribution Width 15.7 % (12.1-15.1); White Blood Count 16.4 10^3/uL (4.0-10.0)
[2023-02-02] MEDS: gabapentin 400 mg Capsule PO ×3 (08:27→20:16)
[2023-02-02] MEDS: metoprolol tartrate 25 mg Tablet 12.5 MG PO (08:27)
[2023-02-02] MEDS: sucralfate 1 gm Tablet PO (08:27)
[2023-02-02] MEDS: pantoprazole DR 40 mg Tablet PO (08:27)
[2023-02-02] MEDS: levothyroxine 125 mcg Tablet PO (08:27)
--- NOTE | 2023-02-02 11:30 | PM.PN ---
Subjective Subjective: Patient is chest pain-free Feeling slightly better today Hemoglobin 7.4 patient endorsing hemoptysis with excessive cough Repeat H&H Leukocytosis 16,000 Afebrile Currently on 4 L Plan for stress test tomorrow morning Spoke with Dr. Christiano Encarnacion 2.3 Vitals/I&O/Wt Last Vital Signs Temp 97.9 F 02/02/23 04:00 Pulse 75 02/02/23 08:30 Resp 17 02/02/23 08:30 BP 127/59 02/02/23 08:30 Pulse Ox 92 02/02/23 08:30 O2 Del Method 02/02/23 07:57 O2 Flow Rate 4 02/02/23 07:57 FiO2 30 01/31/23 23:48 02/01/23 02/02/23 02/02/23 22:59 06:59 14:59 Intake Total 611.7 / 971.7 228.3 / 1200.0 240 / 240 Output Total 625 / 625 275 / 900 200 / 200 Balance -13.3 / 346.7 -46.7 / 300.0 40 / 40 Weight last 48 hrs Weight 67.1 kg Weight 70.307 kg Physical Exam Narrative: Patient is euvolemic Chest pain-free Currently on 4 L Awake and alert GCS 15 Lizarraga catheter draining dilute urine Pleasant cooperative Resting comfortably in Urinary Catheter Management: Lizarraga: Cath Placed During This Visit: yes Reason for Continuing Indwelling Catheter: Accurate Measurement of Urinary Output in Critically Ill Patients Urinary Catheter Date of Insertion: 01/31/23 Urinary Catheter Time of Insertion: 23:30 Data 02/02/23 06:45 02/02/23 01:20 Micro: Microbiology 01/31/23 21:00 Blood Culture - Preliminary Blood NEGATIVE TO DATE 01/31/23 20:44 Blood Culture - Preliminary Blood NEGATIVE TO DATE A&P Assessment and plan (1) NSTEMI (non-ST elevated myocardial infarction): (2) Hyperlipidemia: (3) Hypertension: (4) Pneumonia: (5) Elevated troponin: (6) Hemoptysis: Plan Acute on chronic anemia: Patient is endorsing mild hypophyseal excessive coughing Drop in hemoglobin noted Repeat H&H Hold heparin drip for now NSTEMI Plan for stress test tomorrow morning Considering anemia I will hold heparin Community-acquired pneumonia continue ceftriaxone and azithromycin GERD: Continue sucralfate and Protonix Hypotension given 1 L IV fluid Transfer out of ICU Fatigued and lethargic Stress test tomorrow morning N.p.o. after midnight Attestations Medical Necessity Statement*: Patient will return home over the weekend Diagnoses NSTEMI (non-ST elevated myocardial infarction) I21.4 Hyperlipidemia E78.5 Hypertension I10 Pneumonia J18.9 Elevated troponin R77.8 Hemoptysis R04.2
[2023-02-02 12:01] LABS: Hematocrit 24.5 % (42.0-52.0); Hemoglobin 7.8 g/dL (11.7-16.6)
--- NOTE | 2023-02-02 13:29 | ECG_ITS ---
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 Interpretive Statements NAME OF STUDY: LEXISCAN SESTAMIBI STRESS TEST INDICATION: NSTEMI PROCEDURE: At the baseline, the EKG revealed normal sinus rhythm with a poor R wave progression. Nonspecific ST-T changes in the inferior and anterolateral leads. The baseline heart was 77 bpm with a blood pressue of 147 on a mm of Hg Lexiscan was infused over a period of 20 seconds. A total of 0.4 milligrams of Lexiscan was infused. The stress phase was continued for a total of 5 minutes. Heart rate at the end of the stress phase was 92 bpm with a blood pressure 102/50 to mm of Hg. The EKG at the peak infusion revealed more prominent ST-T changes with occasional PVCs. Sestamibi was injected 20 seconds after the Lexiscan infusion. Heart rate at the end of the recovery phase was 97 bpm with a blood pressure of 95/46 mm of Hg. CONCLUSION: 1. Nonspecific EKG changes with the LexiScan infusion 2. No LexiScan induced chest pain or cardiac arrhythmia 3. Normal blood pressure and heart rate response 4. Sestamibi/sestamibi perfusion scan pending; see separate report. Electronically Signed On 02-06-2023 0:23:54 CDT by Patricia Alvarado M.D. [id number]
[2023-02-02 15:28] LABS: Partial Thromboplastin Time 36.1 SECONDS (23.9-36.7)
--- NOTE | 2023-02-02 17:26 | PM.PN ---
Subjective Subjective: This patient apparently had a hemoptysis and drop in the hemoglobin to 7.8. He denies any chest pain. Heparin was held. Shortness of breath is improving. Currently he is on 3 L of oxygen by nasal cannula. Medications: Medication Review Details: Current Medications Acetaminophen (Acetaminophen 325 Mg Tablet) 650 mg PO Q6H PRN PRN Reason: Mild/Mod Pain Or Temp >/= 101 Atorvastatin Calcium (Atorvastatin 40 Mg Tablet) 40 mg PO BEDTIME FATIMAH Last Admin: 02/01/23 20:19 Dose: 40 mg Azithromycin (Azithromycin 250 Mg Tablet) 500 mg PO BEDTIME FATIMAH; Protocol Last Admin: 02/01/23 20:19 Dose: 500 mg Benzonatate (Benzonatate 100 Mg Capsule) 100 mg PO TID PRN PRN Reason: COUGH Gabapentin (Gabapentin 400 Mg Capsule) 400 mg PO TID [facility] Last Admin: 02/02/23 14:01 Dose: 400 mg Heparin Sodium (Porcine) (Heparin 5,000 Unit/Ml Inj 1 Ml) 0 unit IV PRN PRN; Protocol PRN Reason: Heparin weight-base protocol Last Admin: 02/01/23 19:04 Dose: 3,400 unit Ceftriaxone Sodium 1,000 mg/ (Sodium Chloride) 50 mls @ 100 mls/hr IV Q24H FATIMAH; Protocol Last Infusion: 02/01/23 20:50 Dose: Infused Heparin Sodium/Sodium Chloride (Heparin Drip) 25,000 unit in 500 mls @ 0 mls/hr IV .Q0M FATIMAH; Protocol Last Titration: 02/02/23 02:30 Dose: Infused Levothyroxine Sodium (Levothyroxine 125 Mcg Tablet) 125 mcg PO DAILY FATIMAH Last Admin: 02/02/23 08:27 Dose: 125 mcg Levothyroxine Sodium (Levothyroxine 100 Mcg Tablet) 100 mcg PO QAM FATIMAH Metoprolol Tartrate (Metoprolol Tartrate 25 Mg Tablet) 12.5 mg PO BID [facility] Last Admin: 02/02/23 08:27 Dose: 12.5 mg Morphine Sulfate (Morphine 4 Mg/Ml Sdv 1 Ml) 2 mg IVP Q4H PRN PRN Reason: SEVERE PAIN Naloxone HCl (Naloxone 0.4 Mg/Ml Sdv) 0.1 mg IVP Q2M PRN PRN Reason: OPIATERV Ondansetron HCl (Ondansetron 2 Mg/Ml Sdv 2 Ml) 4 mg IVP Q8H PRN PRN Reason: vomiting, or N/V if npo Pantoprazole Sodium (Pantoprazole Dr 40 Mg Tablet) 40 mg PO DAILY [facility] Last Admin: 02/02/23 08:27 Dose: 40 mg Pantoprazole Sodium (Pantoprazole Dr 40 Mg Tablet) 40 mg PO DAILY [facility] Sucralfate (Sucralfate 1 Gm Tablet) 1 gm PO BID [facility] Last Admin: 02/02/23 16:48 Dose: Not Given Vitals/I&O/Wt Last Vital Signs Temp 97.9 F 02/02/23 04:00 Pulse 67 02/02/23 16:30 Resp 13 02/02/23 16:30 BP 124/64 02/02/23 16:00 Pulse Ox 96 02/02/23 16:30 O2 Del Method 02/02/23 07:57 O2 Flow Rate 4 02/02/23 07:57 FiO2 30 01/31/23 23:48 02/02/23 02/02/23 02/02/23 06:59 14:59 22:59 Intake Total 228.3 / 1200.0 600 / 600 Output Total 275 / 900 200 / 200 600 / 800 Balance -46.7 / 300.0 400 / 400 -600 / -200 Weight last 48 hrs Weight 147 lb 14.883 oz Weight 155 lb Physical Exam Narrative: GENERAL: The patient is alert and oriented times three. Not in any acute distress. HEENT: No significant pallor, icterus or lymphadenopathy.Oral cavity: There are no mucous membrane lesions. NECK: Trachea appears to be central. No masses noted. No JVD or thyromegaly appreciated. RESPIRATORY: Scattered expiratory wheezing. BREASTS: Deferred. HEART: The heart sounds are normal. No S3 or S4. No significant murmurs. No pericardial rub ABDOMEN: No vessel pulsations or distention. No tenderness. No organomegaly appreciated. Bowel sounds are normally heard. : Deferred. RECTAL: Deferred. LYMPHATIC: No lymphadenopathy noted in the neck. EXTREMITIES: No edema or cyanosis. No clubbing. MUSCULOSKELETAL: No acute joint deformities or swelling SKIN: There are no significant rashes or ecchymosis NEUROPSYCHIATRIC: The patient is alert and oriented x3. Appears to be in a good mood. No tremors or rigidity noted. Urinary Catheter Management: Lizarraga: Cath Placed During This Visit: yes Reason for Continuing Indwelling Catheter: Accurate Measurement of Urinary Output in Critically Ill Patients Urinary Catheter Date of Insertion: 01/31/23 Urinary Catheter Time of Insertion: 23:30 Data 02/02/23 11:45 02/02/23 01:20 Other Labs: Laboratory Last Values WBC 16.4 10^3/uL (4.0-10.0) H 02/02/23 06:45 RBC 2.36 10^6/uL (4.1-5.3) L 02/02/23 06:45 Hgb 7.8 g/dL (11.7-16.6) L 02/02/23 11:45 Hct 24.5 % (42.0-52.0) L 02/02/23 11:45 MCV 98.7 fl (80-94) H 02/02/23 06:45 MCH 31.4 pg (28.0-34.0) 02/02/23 06:45 MCHC 31.8 g/dL (30.0-36.0) 02/02/23 06:45 RDW 15.7 % (12.1-15.1) H 02/02/23 06:45 Plt Count 193 10^3/cmm (130-400) 02/02/23 06:45 MPV 12.2 fL (7.4-10.4) H 02/02/23 06:45 Neut % (Auto) 77.8 % 02/02/23 06:45 Lymph % (Auto) 14.8 % 02/02/23 06:45 Sullivan % (Auto) 6.6 % 02/02/23 06:45 Eos % (Auto) 0.1 % 02/02/23 06:45 Baso % (Auto) 0.2 % 02/02/23 06:45 Neut # (Auto) 12.71 10^3/uL (1.8-7.7) H 02/02/23 06:45 Lymph # (Auto) 2.4 10^3/uL (0.8-4.8) 02/02/23 06:45 Sullivan # (Auto) 1.1 10^3/uL (0.2-0.9) H 02/02/23 06:45 Eos # (Auto) 0.0 10^3/uL (0.0-0.8) 02/02/23 06:45 Baso # (Auto) 0.0 10^3/uL (0.0-0.1) 02/02/23 06:45 Nucleated RBC % (auto) 0 % 02/02/23 06:45 Nucleated RBCs # 0.0 /100WBC 02/02/23 06:45 PT 13.50 SECONDS (12.1-14.9) 01/31/23 20:10 INR 1.00 (0.8-1.2) 01/31/23 20:10 APTT 36.1 SECONDS (23.9-36.7) 02/02/23 14:45 Specimen Type Arterial 01/31/23 20:12 Sample Site Brachial, right 01/31/23 20:12 ABG pH 7.37 (7.35-7.45) 01/31/23 20:12 ABG pCO2 36.7 mmHg (35-45) 01/31/23 20:12 ABG pO2 72.2 mmHg (80.0-100.0) L 01/31/23 20:12 ABG HCO3 21.3 mmol/L (22-26) L 01/31/23 20:12 ABG Base Excess -3.5 mmol/L (-2.0-2.0) L 01/31/23 20:12 Narinder Test Pos 01/31/23 20:12 Hematocrit 30.2 % (42-52) L 01/31/23 20:12 O2 Delivery Device Nrb 01/31/23 20:12 FiO2 99.0 % 01/31/23 20:12 Centrifugal Casting Machine Operator ID [email or web address] 01/31/23 20:12 Sodium 138 mmol/L (136-145) 02/02/23 01:20 Potassium 4.1 mmol/L (3.5-5.1) 02/02/23 01:20 Chloride 106 mmol/L (98-107) 02/02/23 01:20 Carbon Dioxide 22 mmol/L (22-29) 02/02/23 01:20 Anion Gap 14.1 (5-19) 02/02/23 01:20 BUN 44 mg/dL (8-23) H 02/02/23 01:20 Creatinine 2.3 mg/dL (0.7-1.2) H 02/02/23 01:20 GFR Calculation Not Reportable 02/02/23 01:20 Glucose 120 mg/dL (65-115) H 02/02/23 01:20 Calculated Osmolality 298 mOsm/kg (285-295) H 02/02/23 01:20 Calcium 7.9 mg/dL (8.5-10.5) L 02/02/23 01:20 Total Bilirubin 0.2 mg/dL (0.15-1.2) 02/01/23 02:21 AST 16 U/L (0-40) 02/01/23 02:21 ALT 9 U/L (0-41) 02/01/23 02:21 Alkaline Phosphatase 80 U/L (40-130) 02/01/23 02:21 Troponin T Baseline 111 ng/L (0-15) H* 01/31/23 20:10 Troponin T 120 Minute 125.0 ng/L (0-15) H 01/31/23 22:17 Delta Troponin T 14.0 ABS# (0-10) H* 01/31/23 22:17 Troponin T Hi Sens 6Hr 143.0 ng/L (0-15) H 02/01/23 02:21 Troponin T Hi Sens 6Hr Delta 32.0 ng/L (0-12) H* 02/01/23 02:21 NT-Pro-B Natriuret Pep 60477 pg/mL (0-450) H 01/31/23 20:10 Total Protein 6.8 g/dL (6.6-8.7) 02/01/23 02:21 Albumin 3.2 g/dL (3.5-5.2) L 02/01/23 02:21 Globulin 3.6 g/dL (1.3-4.6) 02/01/23 02:21 Procalcitonin 0.10 ng/mL (0-0.5) 02/01/23 02:21 Influenza Type A Ag negative (Negative) 01/31/23 20:36 Influenza Type B Ag negative (Negative) 01/31/23 20:36 SARS-CoV-2 Ag (Rapid) negative (Negative) 01/31/23 20:36 Micro: Microbiology 01/31/23 21:00 Blood Culture - Preliminary Blood NEGATIVE TO DATE 01/31/23 20:44 Blood Culture - Preliminary Blood NEGATIVE TO DATE Other data: Echocardiogram on 02/01/2023 ?normal left ventricular size and systolic function, EF 61 %. ?Mild left ventricular hypertrophy. No regional wall motion ?abnormalities. Grade I/IV diastolic dysfunction (abnormal ?relaxation filling pattern), normal to mildly elevated filling ?pressures. ?Thickened mitral valve. Mild-moderate mitral valve ?regurgitation. ?Thickened aortic valve. Zhly-[id number] aortic valve ?regurgitation. ?Trace tricuspid valve regurgitation. ?Estimated pulmonary artery peak systolic pressure was 35 mmHg.? ?This could be an underestimation because of poor Doppler signal ?There is no pericardial effusion. A&P Assessment and plan (1) NSTEMI (non-ST elevated myocardial infarction): Patient has elevated baseline 2-hour delta of 14 and 6-hour delta of 32. The EKG changes are nonspecific. And non-ST lesion myocardial infarction is a likely possibility. In view of the hemoptysis, the heparin and aspirin were discontinued. Continue the Plavix. (2) Acute respiratory failure with hypoxia: The respiratory status is improving. (3) Pneumonia: Management as per the primary attending. (4) Atherosclerosis of coronary artery: In view of the patient's anemia, chronic kidney disease and poor physical condition, he is at high risk for procedure related complications. Once the hemoglobin improves, it would be appropriate to do a Myocardial perfusion imaging and then decide on angiogram. If the ischemic burden is low, it would be appropriate to manage medically. (5) Hypertension: The blood pressure seems to be under full at this time. Continue the monitoring. (6) Hyperlipidemia: Patient may be kept on the statin drug. Plan I would like to see the hemoglobin around 9, before proceeding with the stress test. May continue with your current measures. Discussed with Dr. Joshua Styles Medical Necessity Statement*: Patient requires continued hospital stay for close monitoring and further management Coding Level of Care Code 21968 Diagnoses NSTEMI (non-ST elevated myocardial infarction) I21.4 Acute respiratory failure with hypoxia J96.01 Pneumonia J18.9 Atherosclerosis of coronary artery I25.10 Hypertension I10 Hyperlipidemia E78.5
--- NOTE | 2023-02-02 19:16 | PC.NURSE ---
Heparin gtt off this shift per orders. Lizarraga also removed per pt request this AM. Patient was able to void shortly after.
[2023-02-02 19:33] LABS: Ferritin 43 ng/mL (30-400); Iron 32 ug/dL (59-158); Percent Saturation 11.8 % (20-50); Total Iron Binding Capacity 271 mcg/dl; Unsaturated Iron Binding 239 ug/dL (112-347)
[2023-02-02] MEDS: azithromycin 250 mg Tablet 500 MG PO (20:16)
[2023-02-02] MEDS: atorvastatin 40 mg Tablet PO (20:17)
[2023-02-02] MEDS: cefTRIAXone 1,000 MG in sodium chloride 0.9% (plus) 50 ML 100 MG IV (23:33)
[2023-02-03] VITALS (10 sets, daily range): BP systolic 95–148; BP diastolic 45–72; PULSE 67–100; RESP 14–21; TEMP 36.4–37; O2SAT 90–98
[2023-02-03 05:15] LABS: Basophils % 0.4 %; Eosinophils # 0.1 10^3/uL (0.0-0.8); Eosinophils % 1.1 %; Hematocrit 27.2 % (42.0-52.0); Hemoglobin 8.5 g/dL (11.7-16.6); Lymphocytes # 1.5 10^3/uL (0.8-4.8); Lymphocytes % 15.1 %; Mean Corpuscular HGB Conc 31.3 g/dL (30.0-36.0); Mean Corpuscular Hemoglobin 30.4 pg (28.0-34.0); Mean Corpuscular Volume 97.1 fl (80-94); Mean Platelet Volume 11.8 fL (7.4-10.4); Monocytes # 0.8 10^3/uL (0.2-0.9); Neutrophils # 7.52 10^3/uL (1.8-7.7); Nucleated Red Blood Cells % 0 %; Platelet Count 182 10^3/cmm (130-400)
[2023-02-03 05:47] LABS: Anion Gap 14.7 (5-19); Blood Urea Nitrogen 42 mg/dL (8-23); Calcium 8.2 mg/dL (8.5-10.5); Carbon Dioxide 21 mmol/L (22-29); Chloride 108 mmol/L (98-107); Glucose 88 mg/dL (65-115); Osmolality Calculated 300 mOsm/kg (285-295); Potassium 3.7 mmol/L (3.5-5.1); Sodium 140 mmol/L (136-145)
[2023-02-03] MEDS: levothyroxine 100 mcg Tablet PO (06:18)
--- NOTE | 2023-02-03 07:14 | CT_ITS ---
WS: [id number] CT CHEST TECHNIQUE: Noncontrast CT of the chest with coronal and sagittal reformatted images. CLINICAL INFORMATION: hemoptysis COMPARISON: CT chest 2008 DLP: 320.[address] scans at [facility] use at least one of these dose optimization techniques: automated e xposure control; mA and/or kV adjustment per patient size (includes targeted exams where dose is matc hed to clinical indication); or iterative reconstruction. FINDINGS: Chronic emphysematous changes. Small bilateral pleural effusions with compressive atelectasis in the lung bases. Mild interstitial edema in the lung bases. Upper lobes are better aerated. Fibrosis in th e lung apices. Normal caliber thoracic aorta. Aortic calcification. Coronary calcification. No mediastinal or hilar lymphadenopathy. No axillary lymphadenopathy. Small RIGHT hepatic cyst. Small esophageal hiatal herni a. Adrenal glands are normal. Increased attenuation LEFT renal lesion likely proteinaceous or hemorrh agic cyst measuring [address]/CT chest wo con [id number] IMPRESSION: 1. Moderate chronic emphysematous changes. 2. Small bilateral pleural effusions with compressive atelectasis in the lung bases. 3. Slight interstitial thickening in the lung bases bilaterally and inferior s egments of the upper lobes. 4. No mediastinal or hilar lymphadenopathy. 5. No other remarkable findings.
--- NOTE | 2023-02-03 07:14 | PM.PN ---
Subjective Subjective: Patient is still endorsing some mild hemoptysis Blood pressure stable Hemoglobin 8.4 after 1 unit PRBC Continue Plavix Aspirin heparin on hold We will request home O2 eval Awaiting stress test today: If stress test is negative we might be able to discharge him todayif oxygen currently below 4 L Vitals/I&O/Wt Last Vital Signs Temp 98.1 F 02/03/23 04:26 Pulse 74 02/03/23 04:26 Resp 16 02/03/23 04:26 BP 121/53 02/03/23 04:26 Pulse Ox 92 02/03/23 04:26 O2 Del Method 02/03/23 00:00 O2 Flow Rate 5 02/03/23 00:00 FiO2 30 02/02/23 20:00 02/02/23 02/03/23 02/03/23 22:59 06:59 14:59 Intake Total 0 / 600 400 / 1000 Output Total 600 / 800 Balance -600 / -200 400 / 200 Physical Exam Narrative: Patient is still endorsing hemoptysis Awake and alert No conversational dyspnea Euvolemic No extremity no edema Abdomen soft S1, S2 Currently on 4 L of nasal cannula GCS 15 Nonfocal neuro exam Urinary Catheter Management: Lizarraga: Cath Placed During This Visit: yes Reason for Continuing Indwelling Catheter: Accurate Measurement of Urinary Output in Critically Ill Patients Urinary Catheter Date of Insertion: 01/31/23 Urinary Catheter Time of Insertion: 23:30 Data 02/03/23 04:09 02/03/23 04:09 A&P Assessment and plan (1) Hemoptysis: (2) Hypertension: (3) NSTEMI (non-ST elevated myocardial infarction): (4) Pneumonia: (5) Hypoxia: Plan Hypoxemia related to pneumonia Currently patient is on 4 L of oxygen Try to wean oxygen down to room air if possible We will request CT chest as patient is endorsing hemoptysis Active hemoptysis mild, status post 1 unit PRBC I do believe his anemia is secondary to anemia of chronic disease due to underlying chronic renal dysfunction Hemodynamically stable NSTEMI Awaiting cardiac stress test today Chronic kidney disease creatinine 1.8 Hemoglobin 8.5 today Low iron with low saturation consistent with iron deficiency anemia FOBT is pending Requesting home O2 eval there is any possibility for PE related hemoptysis I will be able to CTA chest because of creatinine 1.8 Attestations Medical Necessity Statement*: Awaiting cardiac stress test today Diagnoses Hemoptysis R04.2 Hypertension I10 NSTEMI (non-ST elevated myocardial infarction) I21.4 Pneumonia J18.9 Hypoxia R09.02
--- NOTE | 2023-02-03 08:00 | NMCV_ITS ---
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 Supine position only as patient was unable to lay prone. SPECT RESULTS Technical Quality: Excellent Raw Data Analysis: Normal Image Corrections: No attenuation or motion correction applied Summed Stress Score: 20 Summed Rest Score: 23 Summed Difference Score: 1 PERFUSION FINDINGS Moderate area of moderate to severely decreased tracer uptake was noted in the mid and apical inferior, mid inferolateral, and all the apical segments. A small area of slight reversibility was noted in the mid inferolateral region FUNCTIONAL RESULTS (calculated via Gated SPECT) Stress Image LV EF (%): 54 Stress EDV (mL):142 TID: 1.02 Stress ESV (mL):65 FUNCTIONAL FINDINGS: Segmental wall motion analysis revealed severe diffuse hypokinesia of the LV apex. IMPRESSIONS 1. Myocardial perfusion imaging revealing moderate area of moderate to severely decreased tracer uptake in the inferior, inferolateral and apical regions with a subtle area of reversibility in the inferolateral region, suggestive of myocardial scarring in the distribution of all the 3 coronary arteries with a small area of possible rama-infarction ischemia in the distribution of the left circumflex artery. 2. Normal LV ejection fraction of 54%. 3. LV wall motion abnormalities as mentioned above. 4. Mildly dilated LV cavity with an end-systolic volume of 65 ml. No similar previous studies are available for comparison Dr Patricia Alvarado MD [facility] (Electronically Signed) Final Date: 03 February 2023 10:55 S
[2023-02-03] MEDS: regadenoson 0.4 Mg/5 ml Syringe IVP (08:56)
[2023-02-03] MEDS: sucralfate 1 gm Tablet PO ×2 (10:31→17:21)
[2023-02-03] MEDS: clopidogrel 75 mg Tablet PO (10:31)
[2023-02-03] MEDS: pantoprazole DR 40 mg Tablet PO (10:31)
[2023-02-03] MEDS: gabapentin 400 mg Capsule PO ×3 (10:31→21:25)
[2023-02-03] MEDS: levothyroxine 125 mcg Tablet PO (10:32)
--- NOTE | 2023-02-03 13:54 | PM.PN ---
Subjective Subjective: Patient had a Myocardial perfusion imaging today. He was found to have areas of fixed defects in the distribution of the circumflex artery and the right coronary artery with some reversibility in the distribution of the right coronary artery. The ischemic burden appears to be small. The hemoglobin has improved to 8.5 today. No fever or chills Medications: Medication Review Details: Current Medications Acetaminophen (Acetaminophen 325 Mg Tablet) 650 mg PO Q6H PRN PRN Reason: Mild/Mod Pain Or Temp >/= 101 Aminophylline (Aminophylline 25 Mg/Ml Sdv 10 Ml) 25 mg IVP Q2M PRN PRN Reason: see dose instructions Stop: 02/04/23 08:10 Atorvastatin Calcium (Atorvastatin 40 Mg Tablet) 40 mg PO BEDTIME FATIMAH Last Admin: 02/02/23 20:17 Dose: 40 mg Azithromycin (Azithromycin 250 Mg Tablet) 500 mg PO BEDTIME FATIMAH; Protocol Last Admin: 02/02/23 20:16 Dose: 500 mg Benzonatate (Benzonatate 100 Mg Capsule) 100 mg PO TID PRN PRN Reason: COUGH Clopidogrel Bisulfate (Clopidogrel 75 Mg Tablet) 75 mg PO DAILY [facility] Last Admin: 02/03/23 10:31 Dose: 75 mg Gabapentin (Gabapentin 400 Mg Capsule) 400 mg PO TID FATIMAH Last Admin: 02/03/23 10:31 Dose: 400 mg Heparin Sodium (Porcine) (Heparin 5,000 Unit/Ml Inj 1 Ml) 0 unit IV PRN PRN; Protocol PRN Reason: Heparin weight-base protocol Last Admin: 02/01/23 19:04 Dose: 3,400 unit Ceftriaxone Sodium 1,000 mg/ (Sodium Chloride) 50 mls @ 100 mls/hr IV Q24H FATIMAH; Protocol Last Infusion: 02/03/23 00:52 Dose: Infused Heparin Sodium/Sodium Chloride (Heparin Drip) 25,000 unit in 500 mls @ 0 mls/hr IV .Q0M FATIMAH; Protocol Last Titration: 02/02/23 02:30 Dose: Infused Levothyroxine Sodium (Levothyroxine 125 Mcg Tablet) 125 mcg PO DAILY [facility] Last Admin: 02/03/23 10:32 Dose: 125 mcg Levothyroxine Sodium (Levothyroxine 100 Mcg Tablet) 100 mcg PO QAM FATIMAH Last Admin: 02/03/23 06:18 Dose: 100 mcg Metoprolol Tartrate (Metoprolol Tartrate 25 Mg Tablet) 12.5 mg PO BID [facility] Last Admin: 02/02/23 08:27 Dose: 12.5 mg Morphine Sulfate (Morphine 4 Mg/Ml Sdv 1 Ml) 2 mg IVP Q4H PRN PRN Reason: SEVERE PAIN Naloxone HCl (Naloxone 0.4 Mg/Ml Sdv) 0.1 mg IVP Q2M PRN PRN Reason: OPIATERV Nitroglycerin (Nitroglycerin 0.4 Mg Sublingual Tablet) 0.4 mg SUBLINGUAL Q5M PRN PRN Reason: CHEST PAIN Stop: 02/04/23 08:10 Ondansetron HCl (Ondansetron 2 Mg/Ml Sdv 2 Ml) 4 mg IVP Q8H PRN PRN Reason: vomiting, or N/V if npo Ondansetron HCl (Ondansetron 2 Mg/Ml Sdv 2 Ml) 4 mg IVP Q2M PRN PRN Reason: NAUSEA Pantoprazole Sodium (Pantoprazole Dr 40 Mg Tablet) 40 mg PO DAILY [facility] Last Admin: 02/03/23 10:31 Dose: 40 mg Sodium Chloride (Sodium Chloride 0.9% 100 Ml Bag) 50 ml IV PRN PRN PRN Reason: Blood transfusion prime and flush Stop: 02/03/23 18:04 Sucralfate (Sucralfate 1 Gm Tablet) 1 gm PO BID [facility] Last Admin: 02/03/23 10:31 Dose: 1 gm Vitals/I&O/Wt Last Vital Signs Temp 98.2 F 02/03/23 12:00 Pulse 76 02/03/23 12:00 Resp 16 02/03/23 12:00 BP 113/50 02/03/23 12:00 Pulse Ox 98 02/03/23 12:00 O2 Del Method 02/03/23 12:00 O2 Flow Rate 5 02/03/23 00:00 FiO2 30 02/02/23 20:00 02/02/23 02/03/23 02/03/23 22:59 06:59 14:59 Intake Total 0 / 600 400 / 1000 Output Total 600 / 800 Balance -600 / -200 400 / 200 Physical Exam Narrative: GENERAL: The patient is alert and oriented times three. Not in any acute distress. Chronically debilitated HEENT: No significant pallor, icterus or lymphadenopathy.Oral cavity: There are no mucous membrane lesions. NECK: Trachea appears to be central. No masses noted. No JVD or thyromegaly appreciated. RESPIRATORY: Chest is symmetrical. No intercostals muscle retraction or any accessory muscle activation. There is no chest wall tenderness. Breath sounds are heard bilaterally. Diminished intensity of breath sounds in the bases. No evidence of consolidation. BREASTS: Deferred. HEART: The heart sounds are normal. No S3 or S4. No significant murmurs. No pericardial rub ABDOMEN: No vessel pulsations or distention. No tenderness. No organomegaly appreciated. Bowel sounds are normally heard. : Deferred. RECTAL: Deferred. LYMPHATIC: No lymphadenopathy noted in the neck. EXTREMITIES: No edema or cyanosis. No clubbing. MUSCULOSKELETAL: No acute joint deformities or swelling SKIN: There are no significant rashes or ecchymosis NEUROPSYCHIATRIC: The patient is alert and oriented x3. Appears to be in a good mood. No tremors or rigidity noted. Urinary Catheter Management: Lizarraga: Cath Placed During This Visit: yes Reason for Continuing Indwelling Catheter: Accurate Measurement of Urinary Output in Critically Ill Patients Urinary Catheter Date of Insertion: 01/31/23 Urinary Catheter Time of Insertion: 23:30 Data 02/03/23 04:09 02/03/23 04:09 Other Labs: Laboratory Last Values WBC 10.0 10^3/uL (4.0-10.0) 02/03/23 04:09 RBC 2.80 10^6/uL (4.1-5.3) L 02/03/23 04:09 Hgb 8.5 g/dL (11.7-16.6) L 02/03/23 04:09 Hct 27.2 % (42.0-52.0) L 02/03/23 04:09 MCV 97.1 fl (80-94) H 02/03/23 04:09 MCH 30.4 pg (28.0-34.0) 02/03/23 04:09 MCHC 31.3 g/dL (30.0-36.0) 02/03/23 04:09 RDW 16.0 % (12.1-15.1) H 02/03/23 04:09 Plt Count 182 10^3/cmm (130-400) 02/03/23 04:09 MPV 11.8 fL (7.4-10.4) H 02/03/23 04:09 Neut % (Auto) 75.0 % 02/03/23 04:09 Lymph % (Auto) 15.1 % 02/03/23 04:09 [place] % (Auto) 8.0 % 02/03/23 04:09 Eos % (Auto) 1.1 % 02/03/23 04:09 Baso % (Auto) 0.4 % 02/03/23 04:09 Neut # (Auto) 7.52 10^3/uL (1.8-7.7) 02/03/23 04:09 Lymph # (Auto) 1.5 10^3/uL (0.8-4.8) 02/03/23 04:09 [place] # (Auto) 0.8 10^3/uL (0.2-0.9) 02/03/23 04:09 Eos # (Auto) 0.1 10^3/uL (0.0-0.8) 02/03/23 04:09 Baso # (Auto) 0.0 10^3/uL (0.0-0.1) 02/03/23 04:09 Nucleated RBC % (auto) 0 % 02/03/23 04:09 Nucleated RBCs # 0.0 /100WBC 02/03/23 04:09 PT 13.50 SECONDS (12.1-14.9) 01/31/23 20:10 INR 1.00 (0.8-1.2) 01/31/23 20:10 APTT 36.1 SECONDS (23.9-36.7) 02/02/23 14:45 Specimen Type Arterial 01/31/23 20:12 Sample Site Brachial, right 01/31/23 20:12 ABG pH 7.37 (7.35-7.45) 01/31/23 20:12 ABG pCO2 36.7 mmHg (35-45) 01/31/23 20:12 ABG pO2 72.2 mmHg (80.0-100.0) L 01/31/23 20:12 ABG HCO3 21.3 mmol/L (22-26) L 01/31/23 20:12 ABG Base Excess -3.5 mmol/L (-2.0-2.0) L 01/31/23 20:12 Narinder Test Pos 01/31/23 20:12 Hematocrit 30.2 % (42-52) L 01/31/23 20:12 O2 Delivery Device Nrb 01/31/23 20:12 FiO2 99.0 % 01/31/23 20:12 Statement Clerks Supervisor ID [email or web address] 01/31/23 20:12 Sodium 140 mmol/L (136-145) 02/03/23 04:09 Potassium 3.7 mmol/L (3.5-5.1) 02/03/23 04:09 Chloride 108 mmol/L (98-107) H 02/03/23 04:09 Carbon Dioxide 21 mmol/L (22-29) L 02/03/23 04:09 Anion Gap 14.7 (5-19) 02/03/23 04:09 BUN 42 mg/dL (8-23) H 02/03/23 04:09 Creatinine 1.8 mg/dL (0.7-1.2) H 02/03/23 04:09 GFR Calculation Not Reportable 02/03/23 04:09 Glucose 88 mg/dL (65-115) 02/03/23 04:09 Calculated Osmolality 300 mOsm/kg (285-295) H 02/03/23 04:09 Calcium 8.2 mg/dL (8.5-10.5) L 02/03/23 04:09 Iron 32 ug/dL (59-158) L 02/02/23 18:48 TIBC 271 mcg/dl 02/02/23 18:48 % Saturation 11.8 % (20-50) L 02/02/23 18:48 Unsat Iron Binding 239 ug/dL (112-347) 02/02/23 18:48 Ferritin 43 ng/mL (30-400) 02/02/23 18:48 Total Bilirubin 0.2 mg/dL (0.15-1.2) 02/01/23 02:21 AST 16 U/L (0-40) 02/01/23 02:21 ALT 9 U/L (0-41) 02/01/23 02:21 Alkaline Phosphatase 80 U/L (40-130) 02/01/23 02:21 Troponin T Baseline 111 ng/L (0-15) H* 01/31/23 20:10 Troponin T 120 Minute 125.0 ng/L (0-15) H 01/31/23 22:17 Delta Troponin T 14.0 ABS# (0-10) H* 01/31/23 22:17 Troponin T Hi Sens 6Hr 143.0 ng/L (0-15) H 02/01/23 02:21 Troponin T Hi Sens 6Hr Delta 32.0 ng/L (0-12) H* 02/01/23 02:21 NT-Pro-B Natriuret Pep 82381 pg/mL (0-450) H 01/31/23 20:10 Total Protein 6.8 g/dL (6.6-8.7) 02/01/23 02:21 Albumin 3.2 g/dL (3.5-5.2) L 02/01/23 02:21 Globulin 3.6 g/dL (1.3-4.6) 02/01/23 02:21 Procalcitonin 0.10 ng/mL (0-0.5) 02/01/23 02:21 Influenza Type A Ag negative (Negative) 01/31/23 20:36 Influenza Type B Ag negative (Negative) 01/31/23 20:36 SARS-CoV-2 Ag (Rapid) negative (Negative) 01/31/23 20:36 Blood Type A Positive 02/02/23 18:48 Rho(D) Type Positive 02/02/23 18:48 Antibody Screen Not Reportable 02/02/23 18:48 PEG Antibody Screen Negative 02/02/23 18:48 Crossmatch See Detail 02/02/23 18:48 Myocardial perfusion imaging: My impression: 1.? Myocardial perfusion imaging revealing moderate area of moderate to ?severely decreased tracer uptake in the inferior, inferolateral and apical ?regions with a subtle area of reversibility in the inferolateral region, ?suggestive of myocardial scarring in the distribution of all the 3 coronary ?arteries with a small area of possible rama-infarction ischemia in the ?distribution of the left circumflex artery. ?2.? Normal LV ejection fraction of 54%. ?3.? LV wall motion abnormalities as mentioned above. ?4.? Mildly dilated LV cavity with an end-systolic volume of 65 ml. ?No similar previous studies are available for comparison A&P Assessment and plan (1) NSTEMI (non-ST elevated myocardial infarction): Myocardial perfusion imaging results were discussed with the patient and his family in detail. Based on the current findings, the ischemic burden is small. At this point, it may be appropriate to optimize the medical treatment. Because of his low blood pressure, I may start him on Ranexa 500 mg p.o. twice daily. Other medications may be continued as the days. (2) Atherosclerosis of coronary artery: As long as the patient remaining asymptomatic with no chest pain, I may hold off for any invasive procedures. Continue the medications as mentioned above (3) Acute respiratory failure with hypoxia: The respiratory status is improving. Continue the current measures (4) Pneumonia: Management as per the primary attending. (5) Hypertension: The blood pressure seems to be remaining in the normal range. We will continue on the current medications. (6) Hyperlipidemia: Patient may be kept on the statin drug. Plan If he continues to remain stable, may be discharged home tomorrow. He will be appropriate to see his response to the Plavix-making sure that he has no more hemoptysis on this medication Attestations Medical Necessity Statement*: Deferred to the primary Coding Level of Care Code 99547 Diagnoses NSTEMI (non-ST elevated myocardial infarction) I21.4 Atherosclerosis of coronary artery I25.10 Acute respiratory failure with hypoxia J96.01 Pneumonia J18.9 Hypertension I10 Hyperlipidemia E78.5
[2023-02-03] MEDS: cefTRIAXone 1,000 MG in sodium chloride 0.9% (plus) 50 ML 100 MG IV (21:25)
[2023-02-03] MEDS: azithromycin 250 mg Tablet 500 MG PO (21:25)
[2023-02-03] MEDS: atorvastatin 40 mg Tablet PO (21:25)
[2023-02-04] VITALS (7 sets, daily range): BP systolic 109–153; BP diastolic 43–69; PULSE 16–88; RESP 15–17; TEMP 36.6–36.8; O2SAT 81–96
[2023-02-04 03:25] LABS: Basophils % 0.5 %; Eosinophils # 0.1 10^3/uL (0.0-0.8); Eosinophils % 2.1 %; Hematocrit 28.6 % (42.0-52.0); Hemoglobin 8.9 g/dL (11.7-16.6); Lymphocytes # 1.4 10^3/uL (0.8-4.8); Lymphocytes % 21.5 %; Mean Corpuscular HGB Conc 31.1 g/dL (30.0-36.0); Mean Corpuscular Hemoglobin 30.4 pg (28.0-34.0); Mean Corpuscular Volume 97.6 fl (80-94); Mean Platelet Volume 11.6 fL (7.4-10.4); Monocytes # 0.6 10^3/uL (0.2-0.9); Monocytes % 9.7 %; Neutrophils # 4.34 10^3/uL (1.8-7.7); Neutrophils % 65.7 %; Nucleated Red Blood Cells % 0 %; Platelet Count 190 10^3/cmm (130-400); Red Blood Count 2.93 10^6/uL (4.1-5.3); Red Cell Distribution Width 16.1 % (12.1-15.1); White Blood Count 6.6 10^3/uL (4.0-10.0)
[2023-02-04 04:01] LABS: Anion Gap 14.9 (5-19); Blood Urea Nitrogen 38 mg/dL (8-23); Calcium 8.4 mg/dL (8.5-10.5); Carbon Dioxide 22 mmol/L (22-29); Chloride 107 mmol/L (98-107); Glucose 107 mg/dL (65-115); Osmolality Calculated 300 mOsm/kg (285-295); Potassium 3.9 mmol/L (3.5-5.1); Sodium 140 mmol/L (136-145)
[2023-02-04 04:03] LABS: Creatinine Clr Calc Pharmacy 29.4333
[2023-02-04] MEDS: levothyroxine 100 mcg Tablet PO (05:54)
--- NOTE | 2023-02-04 08:55 | P.DS_ITS ---
Discharge Providers Date of Admission: 01/31/23 22:14 Date of Discharge: February 03, 2023 Attending Provider at Admission: Zelda Ross MD Attending Provider at Discharge: Gentry Lewis MD Primary Care Provider: Tyrese Rodriguez NP Diagnoses at Discharge Discharge Diagnosis (1) NSTEMI (non-ST elevated myocardial infarction): Status: Acute (2) Atherosclerosis of coronary artery: Status: Acute (3) Acute respiratory failure with hypoxia: Status: Acute (4) Pneumonia: Status: Acute (5) Hypertension: Status: Acute (6) Hyperlipidemia: Status: Acute Reason for Visit Reason for Visit: CP Hospital Course Hospital Course 82-year-old male who was admitted for management evaluation of NSTEMI, community-acquired pneumonia, he was put on ACS protocol, heparin was discontinued when his hemoglobin dropped secondary to chronic kidney disease with iron-deficiency anemia, he was given 1 unit PRBC, no active source of bleed was identified, he did show some speckles of blood on a piece of tissue paper with cough. CT chest was done which did not show any sign of malignancy, stress test was recommended in order to avoid giving contrast for angiogram, stress test is showing no significant area of ischemia Dr. Alvarado has recommended medical management. Echo did not show any new wall motion abnormality. Preserved ejection fraction. Grade 1 diastolic function. Cultures remain negative In the hospital patient received ceftriaxone and azithromycin, at the time of discharge she will receive levofloxacin every other day regimen Secondary to low blood pressure and chronic kidney disease I have discontinued hydrochlorothiazide, lisinopril and amlodipine His systolic blood pressure has been ranging between 10 9-1 20s mmhg. Physical Exam Narrative: Patient is doing well on room air Hemodynamically stable Euvolemic GCS 15 Pleasant and cooperative No audible stridor or wheezing No active chest pain Urinary Catheter Management: Lizarraga: Cath Placed During This Visit: yes Reason for Continuing Indwelling Catheter: Accurate Measurement of Urinary Output in Critically Ill Patients Urinary Catheter Date of Insertion: 01/31/23 Urinary Catheter Time of Insertion: 23:30 Discharge Data Studies Completed and Pending Completed Studies During Hospitalization Category Date Time Status CT chest wo con [id number] Routine Cat Scan 02/03/23 07:14 Completed Sestamibi Stress Test Request Routine Exams 02/02/23 13:29 Draft XR chest 1V portable [id number] Stat Exams 01/31/23 19:54 Completed NM abdullahi perf SPECT r/s* [id number] Routine Nuc Med 02/03/23 08:00 Completed US YEIMY [CV ankle brachial index 03419] Stat Ultrasound 02/01/23 10:11 Completed US echo complete [CV. echo complete* [id number]] Stat Ultrasound 02/01/23 10:00 Completed Pending at discharge Category Date Time Status Basic Metabolic Panel AM LABS Lab 02/04/23 04:00 Ordered Blood Culture Stat Lab 01/31/23 21:00 Results Complete Blood Count w/Auto AM LABS Lab 02/04/23 04:00 Ordered Occult Blood Stool [Immunochemical Fecal OCB] Routine Lab 02/02/23 18:05 Uncollected Platelet Count Q2D Lab 02/05/23 04:00 Ordered Radiology Impressions Chest X-Ray 01/31/23 19:54 IMPRESSION: 1. Diffuse interstitial infiltrates greatest in the lung bases are now present. This is suspicious for pneumonia - correlate with clinical findings. 2. Small right pleural effusion. Chest CT 02/03/23 07:14 IMPRESSION: 1. Moderate chronic emphysematous changes. 2. Small bilateral pleural effusions with compressive atelectasis in the lung bases. 3. Slight interstitial thickening in the lung bases bilaterally and inferior segments of the upper lobes. 4. No mediastinal or hilar lymphadenopathy. 5. No other remarkable findings. Laboratory Results WBC 10.0 10^3/uL (4.0-10.0) 02/03/23 04:09 RBC 2.80 10^6/uL (4.1-5.3) L 02/03/23 04:09 Hgb 8.5 g/dL (11.7-16.6) L 02/03/23 04:09 Hct 27.2 % (42.0-52.0) L 02/03/23 04:09 MCV 97.1 fl (80-94) H 02/03/23 04:09 MCH 30.4 pg (28.0-34.0) 02/03/23 04:09 MCHC 31.3 g/dL (30.0-36.0) 02/03/23 04:09 RDW 16.0 % (12.1-15.1) H 02/03/23 04:09 Plt Count 182 10^3/cmm (130-400) 02/03/23 04:09 MPV 11.8 fL (7.4-10.4) H 02/03/23 04:09 Neut % (Auto) 75.0 % 02/03/23 04:09 Lymph % (Auto) 15.1 % 02/03/23 04:09 [place] % (Auto) 8.0 % 02/03/23 04:09 Eos % (Auto) 1.1 % 02/03/23 04:09 Baso % (Auto) 0.4 % 02/03/23 04:09 Neut # (Auto) 7.52 10^3/uL (1.8-7.7) 02/03/23 04:09 Lymph # (Auto) 1.5 10^3/uL (0.8-4.8) 02/03/23 04:09 [place] # (Auto) 0.8 10^3/uL (0.2-0.9) 02/03/23 04:09 Eos # (Auto) 0.1 10^3/uL (0.0-0.8) 02/03/23 04:09 Baso # (Auto) 0.0 10^3/uL (0.0-0.1) 02/03/23 04:09 Nucleated RBC % (auto) 0 % 02/03/23 04:09 Nucleated RBCs # 0.0 /100WBC 02/03/23 04:09 PT 13.50 SECONDS (12.1-14.9) 01/31/23 20:10 INR 1.00 (0.8-1.2) 01/31/23 20:10 APTT 36.1 SECONDS (23.9-36.7) 02/02/23 14:45 Specimen Type Arterial 01/31/23 20:12 Sample Site Brachial, right 01/31/23 20:12 ABG pH 7.37 (7.35-7.45) 01/31/23 20:12 ABG pCO2 36.7 mmHg (35-45) 01/31/23 20:12 ABG pO2 72.2 mmHg (80.0-100.0) L 01/31/23 20:12 ABG HCO3 21.3 mmol/L (22-26) L 01/31/23 20:12 ABG Base Excess -3.5 mmol/L (-2.0-2.0) L 01/31/23 20:12 Narinder Test Pos 01/31/23 20:12 Hematocrit 30.2 % (42-52) L 01/31/23 20:12 O2 Delivery Device Nrb 01/31/23 20:12 FiO2 99.0 % 01/31/23 20:12 Fire Watcher ID [email or web address] 01/31/23 20:12 Sodium 140 mmol/L (136-145) 02/03/23 04:09 Potassium 3.7 mmol/L (3.5-5.1) 02/03/23 04:09 Chloride 108 mmol/L (98-107) H 02/03/23 04:09 Carbon Dioxide 21 mmol/L (22-29) L 02/03/23 04:09 Anion Gap 14.7 (5-19) 02/03/23 04:09 BUN 42 mg/dL (8-23) H 02/03/23 04:09 Creatinine 1.8 mg/dL (0.7-1.2) H 02/03/23 04:09 GFR Calculation Not Reportable 02/03/23 04:09 Glucose 88 mg/dL (65-115) 02/03/23 04:09 Calculated Osmolality 300 mOsm/kg (285-295) H 02/03/23 04:09 Calcium 8.2 mg/dL (8.5-10.5) L 02/03/23 04:09 Iron 32 ug/dL (59-158) L 02/02/23 18:48 TIBC 271 mcg/dl 02/02/23 18:48 % Saturation 11.8 % (20-50) L 02/02/23 18:48 Unsat Iron Binding 239 ug/dL (112-347) 02/02/23 18:48 Ferritin 43 ng/mL (30-400) 02/02/23 18:48 Total Bilirubin 0.2 mg/dL (0.15-1.2) 02/01/23 02:21 AST 16 U/L (0-40) 02/01/23 02:21 ALT 9 U/L (0-41) 02/01/23 02:21 Alkaline Phosphatase 80 U/L (40-130) 02/01/23 02:21 Troponin T Baseline 111 ng/L (0-15) H* 01/31/23 20:10 Troponin T 120 Minute 125.0 ng/L (0-15) H 01/31/23 22:17 Delta Troponin T 14.0 ABS# (0-10) H* 01/31/23 22:17 Troponin T Hi Sens 6Hr 143.0 ng/L (0-15) H 02/01/23 02:21 Troponin T Hi Sens 6Hr Delta 32.0 ng/L (0-12) H* 02/01/23 02:21 NT-Pro-B Natriuret Pep 54565 pg/mL (0-450) H 01/31/23 20:10 Total Protein 6.8 g/dL (6.6-8.7) 02/01/23 02:21 Albumin 3.2 g/dL (3.5-5.2) L 02/01/23 02:21 Globulin 3.6 g/dL (1.3-4.6) 02/01/23 02:21 Procalcitonin 0.10 ng/mL (0-0.5) 02/01/23 02:21 Influenza Type A Ag negative (Negative) 01/31/23 20:36 Influenza Type B Ag negative (Negative) 01/31/23 20:36 SARS-CoV-2 Ag (Rapid) negative (Negative) 01/31/23 20:36 Blood Type A Positive 02/02/23 18:48 Rho(D) Type Positive 02/02/23 18:48 Antibody Screen Not Reportable 02/02/23 18:48 PEG Antibody Screen Negative 02/02/23 18:48 Crossmatch See Detail 02/02/23 18:48 Vitals Last Vital Signs Temp 98.1 F 02/03/23 16:00 Pulse 77 02/03/23 16:00 Resp 15 02/03/23 16:00 BP 107/57 02/03/23 16:00 Pulse Ox 95 02/03/23 16:00 O2 Del Method 02/03/23 12:00 O2 Flow Rate 5 02/03/23 00:00 FiO2 30 02/02/23 20:00 Discharge Plan Discharge Patient Disposition: Home Condition: Stable Prescriptions: New metoprolol tartrate 25 mg Tablet 12.5 mg PO BID Qty: 60 2RF levofloxacin 750 mg tablet 750 mg PO Q48H 7 Days Qty: 4 0RF Continued gabapentin 400 mg capsule 400 mg PO TID clopidogrel 75 mg tablet 75 mg PO DAILY Qty: 90 3RF pravastatin 40 mg tablet 80 mg PO BEDTIME Qty: 90 3RF levothyroxine 100 mcg tablet 100 mcg PO QAM pantoprazole 40 mg tablet,delayed release (DR/EC) 40 mg PO DAILY sucralfate 1 gram tablet 1 g PO BID aspirin 81 mg Tablet,Delayed Release (Dr/Ec) 81 mg PO QAM Qty: 30 0RF Discontinued lisinopril 40 mg tablet 40 mg PO DAILY Qty: 90 3RF metoprolol tartrate 50 mg tablet 50 mg PO BID amlodipine 5 mg tablet 10 mg PO QAM hydrochlorothiazide 12.5 mg tablet 12.5 mg PO QAM Referrals: Tyrese Rodriguez NP [Primary Care Provider] - Lottie Rider FNP [Nurse Practitioner] - 2 weeks Patient Instructions: Opioid Safety Discharge Attestations Time Spent in Discharge Care*: less than 30 min Status at Discharge: Cognitive status at discharge: cognitively intact , Behavioral status at discharge: cooperative , Quality Metrics Clinical Quality Measures [ No reported AMI, CVA or VTE this stay] Coding Level of Care Code Acute Code for [facility] Diagnoses NSTEMI (non-ST elevated myocardial infarction) I21.4 Atherosclerosis of coronary artery I25.10 Acute respiratory failure with hypoxia J96.01 Pneumonia J18.9 Hypertension I10 Hyperlipidemia E78.5
[2023-02-04] MEDS: levothyroxine 125 mcg Tablet PO (09:07)
[2023-02-04] MEDS: gabapentin 400 mg Capsule PO ×3 (09:07→22:24)
[2023-02-04] MEDS: pantoprazole DR 40 mg Tablet PO (09:07)
[2023-02-04] MEDS: clopidogrel 75 mg Tablet PO (09:07)
[2023-02-04] MEDS: sucralfate 1 gm Tablet PO ×2 (09:07→18:28)
--- NOTE | 2023-02-04 10:52 | PM.PN ---
Subjective Subjective: Patient continues to feel better. No chest pain or shortness of breath. Remains afebrile. He is not ambulating much. Mostly stays in bed. Medications: Medication Review Details: Current Medications Acetaminophen (Acetaminophen 325 Mg Tablet) 650 mg PO Q6H PRN PRN Reason: Mild/Mod Pain Or Temp >/= 101 Atorvastatin Calcium (Atorvastatin 40 Mg Tablet) 40 mg PO BEDTIME [facility] Last Admin: 02/03/23 21:25 Dose: 40 mg Azithromycin (Azithromycin 250 Mg Tablet) 500 mg PO BEDTIME [facility]; Protocol Last Admin: 02/03/23 21:25 Dose: 500 mg Benzonatate (Benzonatate 100 Mg Capsule) 100 mg PO TID PRN PRN Reason: COUGH Clopidogrel Bisulfate (Clopidogrel 75 Mg Tablet) 75 mg PO DAILY [facility] Last Admin: 02/04/23 09:07 Dose: 75 mg Gabapentin (Gabapentin 400 Mg Capsule) 400 mg PO TID [facility] Last Admin: 02/04/23 09:07 Dose: 400 mg Heparin Sodium (Porcine) (Heparin 5,000 Unit/Ml Inj 1 Ml) 0 unit IV PRN PRN; Protocol PRN Reason: Heparin weight-base protocol Last Admin: 02/01/23 19:04 Dose: 3,400 unit Ceftriaxone Sodium 1,000 mg/ (Sodium Chloride) 50 mls @ 100 mls/hr IV Q24H [facility]; Protocol Last Infusion: 02/03/23 23:11 Dose: Infused Heparin Sodium/Sodium Chloride (Heparin Drip) 25,000 unit in 500 mls @ 0 mls/hr IV .Q0M [facility]; Protocol Last Titration: 02/02/23 02:30 Dose: Infused Levothyroxine Sodium (Levothyroxine 125 Mcg Tablet) 125 mcg PO DAILY [facility] Last Admin: 02/04/23 09:07 Dose: 125 mcg Levothyroxine Sodium (Levothyroxine 100 Mcg Tablet) 100 mcg PO QAM [facility] Last Admin: 02/04/23 05:54 Dose: 100 mcg Metoprolol Tartrate (Metoprolol Tartrate 25 Mg Tablet) 12.5 mg PO BID [facility] Last Admin: 02/02/23 08:27 Dose: 12.5 mg Morphine Sulfate (Morphine 4 Mg/Ml Sdv 1 Ml) 2 mg IVP Q4H PRN PRN Reason: SEVERE PAIN Naloxone HCl (Naloxone 0.4 Mg/Ml Sdv) 0.1 mg IVP Q2M PRN PRN Reason: OPIATERV Ondansetron HCl (Ondansetron 2 Mg/Ml Sdv 2 Ml) 4 mg IVP Q8H PRN PRN Reason: vomiting, or N/V if npo Ondansetron HCl (Ondansetron 2 Mg/Ml Sdv 2 Ml) 4 mg IVP Q2M PRN PRN Reason: NAUSEA Pantoprazole Sodium (Pantoprazole Dr 40 Mg Tablet) 40 mg PO DAILY [facility] Last Admin: 02/04/23 09:07 Dose: 40 mg Sucralfate (Sucralfate 1 Gm Tablet) 1 gm PO BID [facility] Last Admin: 02/04/23 09:07 Dose: 1 gm Vitals/I&O/Wt Last Vital Signs Temp 97.9 F 02/04/23 08:00 Pulse 16 L 02/04/23 08:00 Resp 16 02/04/23 08:00 BP 153/69 02/04/23 08:00 Pulse Ox 88 L 02/04/23 09:33 O2 Del Method 02/04/23 03:57 O2 Flow Rate 4 02/04/23 09:33 FiO2 30 02/02/23 20:00 02/03/23 02/04/23 02/04/23 22:59 06:59 14:59 Intake Total 340 / 340 530 / 870 240 / 240 Output Total 200 / 200 Balance 140 / 140 530 / 670 240 / 240 Physical Exam Narrative: GENERAL: The patient is alert and oriented times three. Not in any acute distress. HEENT: No significant pallor, icterus or lymphadenopathy.Oral cavity: There are no mucous membrane lesions. NECK: Trachea appears to be central. No masses noted. No JVD or thyromegaly appreciated. RESPIRATORY: Chest is symmetrical. No intercostals muscle retraction or any accessory muscle activation. There is no chest wall tenderness. Breath sounds are heard bilaterally. No rales or rhonchi heard. No evidence of any consolidation. BREASTS: Deferred. HEART: The heart sounds are normal. No S3 or S4. Short systolic murmur in the lower sternal border. No diastolic murmurs no pericardial rub ABDOMEN: No vessel pulsations or distention. No tenderness. No organomegaly appreciated. Bowel sounds are normally heard. : Deferred. RECTAL: Deferred. LYMPHATIC: No lymphadenopathy noted in the neck. EXTREMITIES: No edema or cyanosis. No clubbing. MUSCULOSKELETAL: No acute joint deformities or swelling SKIN: There are no significant rashes or ecchymosis NEUROPSYCHIATRIC: The patient is alert and oriented x3. Appears to be in a good mood. No tremors or rigidity noted. Urinary Catheter Management: Lizarraga: Cath Placed During This Visit: yes Reason for Continuing Indwelling Catheter: Accurate Measurement of Urinary Output in Critically Ill Patients Urinary Catheter Date of Insertion: 01/31/23 Urinary Catheter Time of Insertion: 23:30 Data 02/04/23 03:05 02/04/23 03:05 Other Labs: Laboratory Last Values WBC 6.6 10^3/uL (4.0-10.0) 02/04/23 03:05 RBC 2.93 10^6/uL (4.1-5.3) L 02/04/23 03:05 Hgb 8.9 g/dL (11.7-16.6) L 02/04/23 03:05 Hct 28.6 % (42.0-52.0) L 02/04/23 03:05 MCV 97.6 fl (80-94) H 02/04/23 03:05 MCH 30.4 pg (28.0-34.0) 02/04/23 03:05 MCHC 31.1 g/dL (30.0-36.0) 02/04/23 03:05 RDW 16.1 % (12.1-15.1) H 02/04/23 03:05 Plt Count 190 10^3/cmm (130-400) 02/04/23 03:05 MPV 11.6 fL (7.4-10.4) H 02/04/23 03:05 Neut % (Auto) 65.7 % 02/04/23 03:05 Lymph % (Auto) 21.5 % 02/04/23 03:05 Rice % (Auto) 9.7 % 02/04/23 03:05 Eos % (Auto) 2.1 % 02/04/23 03:05 Baso % (Auto) 0.5 % 02/04/23 03:05 Neut # (Auto) 4.34 10^3/uL (1.8-7.7) 02/04/23 03:05 Lymph # (Auto) 1.4 10^3/uL (0.8-4.8) 02/04/23 03:05 Rice # (Auto) 0.6 10^3/uL (0.2-0.9) 02/04/23 03:05 Eos # (Auto) 0.1 10^3/uL (0.0-0.8) 02/04/23 03:05 Baso # (Auto) 0.0 10^3/uL (0.0-0.1) 02/04/23 03:05 Nucleated RBC % (auto) 0 % 02/04/23 03:05 Nucleated RBCs # 0.0 /100WBC 02/04/23 03:05 PT 13.50 SECONDS (12.1-14.9) 01/31/23 20:10 INR 1.00 (0.8-1.2) 01/31/23 20:10 APTT 36.1 SECONDS (23.9-36.7) 02/02/23 14:45 Specimen Type Arterial 01/31/23 20:12 Sample Site Brachial, right 01/31/23 20:12 ABG pH 7.37 (7.35-7.45) 01/31/23 20:12 ABG pCO2 36.7 mmHg (35-45) 01/31/23 20:12 ABG pO2 72.2 mmHg (80.0-100.0) L 01/31/23 20:12 ABG HCO3 21.3 mmol/L (22-26) L 01/31/23 20:12 ABG Base Excess -3.5 mmol/L (-2.0-2.0) L 01/31/23 20:12 Narinder Test Pos 01/31/23 20:12 Hematocrit 30.2 % (42-52) L 01/31/23 20:12 O2 Delivery Device Nrb 01/31/23 20:12 FiO2 99.0 % 01/31/23 20:12 Wax Pumper ID Tunca2 01/31/23 20:12 Sodium 140 mmol/L (136-145) 02/04/23 03:05 Potassium 3.9 mmol/L (3.5-5.1) 02/04/23 03:05 Chloride 107 mmol/L (98-107) 02/04/23 03:05 Carbon Dioxide 22 mmol/L (22-29) 02/04/23 03:05 Anion Gap 14.9 (5-19) 02/04/23 03:05 BUN 38 mg/dL (8-23) H 02/04/23 03:05 Creatinine 1.9 mg/dL (0.7-1.2) H 02/04/23 03:05 GFR Calculation Not Reportable 02/04/23 03:05 Glucose 107 mg/dL (65-115) 02/04/23 03:05 Calculated Osmolality 300 mOsm/kg (285-295) H 02/04/23 03:05 Calcium 8.4 mg/dL (8.5-10.5) L 02/04/23 03:05 Iron 32 ug/dL (59-158) L 02/02/23 18:48 TIBC 271 mcg/dl 02/02/23 18:48 % Saturation 11.8 % (20-50) L 02/02/23 18:48 Unsat Iron Binding 239 ug/dL (112-347) 02/02/23 18:48 Ferritin 43 ng/mL (30-400) 02/02/23 18:48 Total Bilirubin 0.2 mg/dL (0.15-1.2) 02/01/23 02:21 AST 16 U/L (0-40) 02/01/23 02:21 ALT 9 U/L (0-41) 02/01/23 02:21 Alkaline Phosphatase 80 U/L (40-130) 02/01/23 02:21 Troponin T Baseline 111 ng/L (0-15) H* 01/31/23 20:10 Troponin T 120 Minute 125.0 ng/L (0-15) H 01/31/23 22:17 Delta Troponin T 14.0 ABS# (0-10) H* 01/31/23 22:17 Troponin T Hi Sens 6Hr 143.0 ng/L (0-15) H 02/01/23 02:21 Troponin T Hi Sens 6Hr Delta 32.0 ng/L (0-12) H* 02/01/23 02:21 NT-Pro-B Natriuret Pep 62651 pg/mL (0-450) H 01/31/23 20:10 Total Protein 6.8 g/dL (6.6-8.7) 02/01/23 02:21 Albumin 3.2 g/dL (3.5-5.2) L 02/01/23 02:21 Globulin 3.6 g/dL (1.3-4.6) 02/01/23 02:21 Procalcitonin 0.10 ng/mL (0-0.5) 02/01/23 02:21 Influenza Type A Ag negative (Negative) 01/31/23 20:36 Influenza Type B Ag negative (Negative) 01/31/23 20:36 SARS-CoV-2 Ag (Rapid) negative (Negative) 01/31/23 20:36 Blood Type A Positive 02/02/23 18:48 Rho(D) Type Positive 02/02/23 18:48 Antibody Screen Not Reportable 02/02/23 18:48 PEG Antibody Screen Negative 02/02/23 18:48 Crossmatch See Detail 02/02/23 18:48 A&P Assessment and plan (1) NSTEMI (non-ST elevated myocardial infarction): Ranexa 500 mg p.o. twice daily. Continue the Plavix. The hemoglobin continues to improve. No evidence of any bleed (2) Atherosclerosis of coronary artery: As long as the patient remaining asymptomatic with no chest pain, I may hold off for any invasive procedures. Continue the medications as mentioned above (3) Acute respiratory failure with hypoxia: The respiratory status is improving. Continue the current measures (4) Pneumonia: Management as per the primary attending. (5) Hypertension: Blood pressure seems to be fluctuating. We will hold off on any medication changes at this time. (6) Hyperlipidemia: Patient may be kept on the statin drug. Plan Possible discharge home today. Attestations Medical Necessity Statement*: Disposition as per the primary attending. Coding Level of Care Code 41057 Diagnoses NSTEMI (non-ST elevated myocardial infarction) I21.4 Atherosclerosis of coronary artery I25.10 Acute respiratory failure with hypoxia J96.01 Pneumonia J18.9 Hypertension I10 Hyperlipidemia E78.5
--- NOTE | 2023-02-04 11:14 | PC.NURSE ---
Waiting on oxygen to be delivered and FOBT before patient can be discharged.
[2023-02-04] MEDS: ranolazine (12HR) 500 mg Tablet PO (18:28)
--- NOTE | 2023-02-04 18:38 | PC.NURSE ---
Pt is currently resting comfortably in bed. Pt was going to d/c earlier but has further testing for tomorrow. This nurse has addressed any questions/concerns of the pt. Pt denies any pain or needs at this time. Call light and table are within reach.
--- NOTE | 2023-02-04 22:08 | PM.PN ---
Subjective Subjective: Discharge order was canceled when his stool test came back positive for occult blood For EGD General surgery was consulted Patient remained hemodynamically stable Vitals/I&O/Wt Last Vital Signs Temp 98.2 F 02/04/23 19:37 Pulse 88 02/04/23 19:37 Resp 16 02/04/23 19:37 BP 116/62 02/04/23 19:37 Pulse Ox 96 02/04/23 19:37 O2 Del Method 02/04/23 19:37 O2 Flow Rate 4 02/04/23 09:33 FiO2 30 02/02/23 20:00 02/04/23 02/04/23 02/04/23 06:59 14:59 22:59 Intake Total 530 / 870 480 / 480 560 / 1040 Balance 530 / 670 480 / 480 560 / 1040 Physical Exam Narrative: Awake and alert S1, S2 Abdomen soft GCS 15 In good spirits On 2 L of oxygen Urinary Catheter Management: Lizarraga: Cath Placed During This Visit: yes Reason for Continuing Indwelling Catheter: Accurate Measurement of Urinary Output in Critically Ill Patients Urinary Catheter Date of Insertion: 01/31/23 Urinary Catheter Time of Insertion: 23:30 Data 02/04/23 03:05 02/04/23 03:05 Micro: Microbiology 02/04/23 06:06 Occult Blood (FIT) - Final Stool Routine Collection A&P Assessment and plan (1) Occult blood in stools: (2) Hypoxia: (3) Hemoptysis: (4) Hypertension: (5) Hyperlipidemia: (6) NSTEMI (non-ST elevated myocardial infarction): (7) Pneumonia: Plan Cancel discharge orders Patient will need EGD Positive FOBT Required 1 unit PRBC Hemoglobin stable Iron deficiency anemia Anemia of chronic disease as well Community-acquired pneumonia he will go home on antibiotics Chronic kidney disease, stable Disposition: Home possibly tomorrow after EGD After EGD for the changes will need whether we can continue aspirin and Plavix for recent PCI Spoke with the nurse and the surgeon Patient was hypoxic without respiratory failure Attestations Medical Necessity Statement*: Continue medical management Diagnoses Occult blood in stools R19.5 Hypoxia R09.02 Hemoptysis R04.2 Hypertension I10 Hyperlipidemia E78.5 NSTEMI (non-ST elevated myocardial infarction) I21.4 Pneumonia J18.9
[2023-02-04] MEDS: sodium chloride 0.9% 1,000 ML 30 ML IV (22:23)
[2023-02-04] MEDS: azithromycin 250 mg Tablet 500 MG PO (22:24)
[2023-02-04] MEDS: cefTRIAXone 1,000 MG in sodium chloride 0.9% (plus) 50 ML 100 MG IV (22:24)
[2023-02-04] MEDS: atorvastatin 40 mg Tablet PO (22:25)
[2023-02-05] VITALS (9 sets, daily range): BP systolic 127–151; BP diastolic 46–69; PULSE 72–82; RESP 14–16; TEMP 36.4–36.9; O2SAT 92–94
[2023-02-05] MEDS: levothyroxine 100 mcg Tablet PO (06:00)
--- NOTE | 2023-02-05 06:16 | ANES.PREANE2 ---
Pre-Anesthetic Assessment Height/Weight: Height 1.78 m Weight 67.1 kg Temp Pulse Resp BP Pulse Ox O2 Del Method O2 Flow Rate 98.0 F 72 16 127/64 92 2 02/04/23 23:40 02/05/23 05:33 02/05/23 04:00 02/05/23 04:00 02/05/23 04:00 02/05/23 04:00 02/05/23 04:00 FiO2 30 02/02/23 20:00 Preop Diagnosis: Heme posiive stool with nausea Operation Date: 02/05/23 08:30 Proposed Procedures p EGD(Not Applicable) - Jorge Mejia MD Familial anesthetic complications: None Was Beta Stewart taken within 24 hours: Yes Was Clonidine taken within 24 hours: N/A Last intake: Intake Last Liquid Date 02/04/23 Last Liquid Time 23:00 Last Solid Date 02/04/23 Last Solid Time 17:00 Social Tobacco and No alcohol Exam alert, oriented x 3, clear to auscultation bilaterally and regular rate & rhythm Airway Mallampati: Class II Dentition: other (very poor dentition) Pulmonary Chronic Obstructive Pulmonary Disease (on 2 L NC) CV/HEM Anemia, Stable Angina, Coronary Artery Disease, Hypertension and Myocardial Infarction (RCA stent sep 17) EF 61% w/ Mild to Mod Mitral and aortic valve regurge GI gastric ulcre Anesthetic Plan ASA status: 4 Anesthesia: MAC Risk of > 500 ml blood loss (7ml/kg in children): No Medications/Allergies Home Medications Medication Instructions Recorded Confirmed Last Taken Type gabapentin 400 mg capsule 400 mg PO TID 12/27/19 02/01/23 12/30/22 History sucralfate 1 gram tablet 1 g PO BID 09/14/22 02/01/23 09/13/22 18:00 History clopidogrel 75 mg tablet 75 mg PO DAILY #90 tabs 12/23/22 02/01/23 12/30/22 Rx pravastatin 40 mg tablet 80 mg PO BEDTIME #90 tabs 12/23/22 02/01/23 12/29/22 Rx levothyroxine 100 mcg tablet 100 mcg PO QAM 02/01/23 02/01/23 Unknown History pantoprazole 40 mg tablet,delayed 40 mg PO DAILY 02/01/23 02/01/23 Unknown History release aspirin 81 mg tablet,delayed 81 mg PO QAM #30 tabs 02/03/23 02/01/23 Unknown Rx release metoprolol tartrate 25 mg tablet 12.5 mg PO BID #60 tabs 02/03/23 Unknown Rx amlodipine 5 mg tablet 10 mg PO QAM #60 tabs 02/04/23 02/01/23 Unknown Rx isosorbide mononitrate 30 mg 30 mg PO DAILY #30 tabs 02/04/23 Unknown Rx tablet,extended release 24 hr levofloxacin 750 mg tablet 750 mg PO Q48H 7 days #4 tabs 02/04/23 Unknown Rx Allergies Allergy/AdvReac Type Severity Reaction Status Date / Time No Known Allergies Allergy Verified 02/01/23 09:59 Current Medications Generic Name Dose Route Start Last Admin Trade Name Freq PRN Reason Stop Dose Admin Atorvastatin Calcium 40 mg 02/01/23 21:00 02/04/23 22:25 Atorvastatin 40 Mg Tablet PO 40 mg BEDTIME FATIMAH Administration Azithromycin 500 mg 02/01/23 21:00 02/04/23 22:24 Azithromycin 250 Mg Tablet PO 500 mg BEDTIME FATIMAH Administration Protocol Clopidogrel Bisulfate 75 mg 02/03/23 09:00 02/04/23 09:07 Clopidogrel 75 Mg Tablet PO 75 mg DAILY FATIMAH Administration Gabapentin 400 mg 02/01/23 09:00 02/04/23 22:24 Gabapentin 400 Mg Capsule PO 400 mg TID FATIMAH Administration Heparin Sodium (Porcine) 0 unit 02/01/23 04:22 02/01/23 19:04 Heparin 5,000 Unit/Ml Inj 1 Ml IV 3,400 unit PRN PRN Administration Heparin weight-base protocol Protocol Ceftriaxone Sodium 1,000 mg/ 50 mls @ 100 mls/hr 02/01/23 21:00 02/04/23 23:12 Sodium Chloride IV Infused Q24H FATIMAH Infusion Protocol Heparin Sodium/Sodium Chloride 25,000 unit in 500 mls @ 0 mls/hr 02/01/23 04:30 02/02/23 02:30 Heparin Drip IV Infused .Q0M FATIMAH Titration Protocol Per Protocol Sodium Chloride 1,000 mls @ 30 mls/hr 02/04/23 17:47 02/04/23 22:23 Sodium Chloride 0.9% IV 02/05/23 17:46 30 mls/hr .Q24H ONE Administration Levothyroxine Sodium 125 mcg 02/01/23 09:00 02/04/23 09:07 Levothyroxine 125 Mcg Tablet PO 125 mcg DAILY FATIMAH Administration Levothyroxine Sodium 100 mcg 02/03/23 06:00 02/05/23 06:00 Levothyroxine 100 Mcg Tablet PO 100 mcg QAM FATIMAH Administration Metoprolol Tartrate 12.5 mg 02/01/23 09:00 02/02/23 08:27 Metoprolol Tartrate 25 Mg Tablet PO 12.5 mg BID FATIMAH Administration Pantoprazole Sodium 40 mg 02/01/23 09:00 02/04/23 09:[address] 40 Mg Tablet PO 40 mg DAILY FATIMAH Administration Ranolazine 500 mg 02/04/23 18:00 02/04/23 18:28 Ranolazine (12hr) 500 Mg Tablet PO 500 mg BID FATIMAH Administration Sucralfate 1 gm 02/01/23 09:00 02/04/23 18:28 Sucralfate 1 Gm Tablet PO 1 gm BID FATIMAH Administration [facility] Anesthesia Medical History (Updated 02/03/23 @ 07:17 by Gentry Lewis MD) Acute kidney injury superimposed on CKD Anemia Anemia Atherosclerosis of coronary artery Atypical chest pain Chest pain CKD (chronic kidney disease) Gastric ulcer Gastritis Hyperlipidemia Hypertension Neuropathy PAD (peripheral artery disease) Primary osteoarthritis of left knee Primary osteoarthritis of right knee Surgical History H/O colonoscopy 09/11/19 H/O esophagogastroduodenoscopy 09/11/19 History of appendectomy History of hernia surgery Family History Sister Cancer Brother Diabetes Denies family history of Anesthesia complication Bleeding disorder Social History Smoking and tobacco status: current every day smoker Alcohol intake: never Lives independently: Yes Marital status: Single Current occupational status: retired Data Anesthesia 02/04/23 03:05 02/04/23 03:05 Short CBC 02/04/23 Range/Units 03:05 WBC 6.6 (4.0-10.0) 10^3/uL Hgb 8.9 L (11.7-16.6) g/dL Hct 28.6 L (42.0-52.0) % MCV 97.6 H (80-94) fl Plt Count 190 (130-400) 10^3/cmm Neut % (Auto) 65.7 % Neut # (Auto) 4.34 (1.8-7.7) 10^3/uL BMP 02/03/23 02/04/23 04:09 03:05 Sodium 140 140 Potassium 3.7 3.9 Chloride 108 H 107 Carbon Dioxide 21 L 22 BUN 42 H 38 H Creatinine 1.8 H 1.9 H Glucose 88 107 Calcium 8.2 L 8.4 L Microbiology 02/04/23 06:06 Occult Blood (FIT) - Final Stool Routine Collection Cardiac Studies: Echocardiogram 02/01/23 Echocardiogram Limited Views 12/30/22 Echocardiogram Ultrasound 04/23/21 Sestamibi Stress Test (Cardiology) 02/02/23
--- NOTE | 2023-02-05 07:10 | PM.CONSULT ---
Providers/Reason For Consult Consulting Physician/Specialty*: Jorge Mejia M.D., General surgery Reason for Consult*: Heme + stool and history of anemia Attending Physician: Gentry Lewis MD Primary Care Provider: Tyrese Rodriguez NP History of Present Illness History of Present Illness Marco Antonio Sebastian is a 82 year old male who has undergone evaluation for cardiopulmonary status and is now found to have heme + stool with history of anemia. Request is made for esophagogastroduodenoscopy prior to discharge Review of Systems General: Reports: 10 or more systems reviewed and unremarkable except in HPI and below Const: Denies: fever(s) or chills Eyes: Denies: change in vision or blurry vision ENMT: Denies: throat pain or hoarseness Card: Denies: orthopnea Resp: Reports: dyspnea and hemoptysis GI: Reports: nausea and hematochezia; Denies: dysphagia, early satiety, change in bowel habits or melena : Denies: difficulty urinating or urinary urgency Skin/Breast: Denies: rash or pruritus Medications/Allergies Home Medications Medication Instructions Recorded Confirmed Last Taken Type gabapentin 400 mg capsule 400 mg PO TID 12/27/19 02/06/23 12/30/22 History sucralfate 1 gram tablet 1 g PO BID 09/14/22 02/06/23 09/13/22 18:00 History clopidogrel 75 mg tablet 75 mg PO DAILY #90 tabs 12/23/22 02/06/23 12/30/22 Rx pravastatin 40 mg tablet 80 mg PO BEDTIME #90 tabs 12/23/22 02/06/23 12/29/22 Rx levothyroxine 100 mcg tablet 100 mcg PO QAM 02/01/23 02/06/23 Unknown History pantoprazole 40 mg tablet,delayed 40 mg PO DAILY 02/01/23 02/06/23 Unknown History release aspirin 81 mg tablet,delayed 81 mg PO QAM #30 tabs 02/03/23 02/06/23 Unknown Rx release metoprolol tartrate 25 mg tablet 12.5 mg PO BID #60 tabs 02/03/23 02/06/23 Unknown Rx amlodipine 5 mg tablet 10 mg PO QAM #60 tabs 02/04/23 02/06/23 Unknown Rx isosorbide mononitrate 30 mg 30 mg PO DAILY #30 tabs 03/11/23 03/13/23 Unknown Rx tablet,extended release 24 hr levofloxacin 750 mg tablet 750 mg PO Q48H 7 days #4 tabs 02/04/23 02/06/23 Unknown Rx Allergies Allergy/AdvReac Type Severity Reaction Status Date / Time No Known Allergies Allergy Verified 02/01/23 09:59 Current Medications Generic Name Dose Route Start Last Admin Trade Name Freq PRN Reason Stop Dose Admin Atorvastatin Calcium 40 mg 02/01/23 21:00 02/04/23 22:25 Atorvastatin 40 Mg Tablet PO 40 mg BEDTIME FATIMAH Administration Azithromycin 500 mg 02/01/23 21:00 02/04/23 22:24 Azithromycin 250 Mg Tablet PO 500 mg BEDTIME FATIMAH Administration Protocol Clopidogrel Bisulfate 75 mg 02/03/23 09:00 02/04/23 09:07 Clopidogrel 75 Mg Tablet PO 75 mg DAILY FATIMAH Administration Gabapentin 400 mg 02/01/23 09:00 02/04/23 22:24 Gabapentin 400 Mg Capsule PO 400 mg TID FATIMAH Administration Heparin Sodium (Porcine) 0 unit 02/01/23 04:22 02/01/23 19:04 Heparin 5,000 Unit/Ml Inj 1 Ml IV 3,400 unit PRN PRN Administration Heparin weight-base protocol Protocol Ceftriaxone Sodium 1,000 mg/ 50 mls @ 100 mls/hr 02/01/23 21:00 02/04/23 23:12 Sodium Chloride IV Infused Q24H FATIMAH Infusion Protocol Heparin Sodium/Sodium Chloride 25,000 unit in 500 mls @ 0 mls/hr 02/01/23 04:30 02/02/23 02:30 Heparin Drip IV Infused .Q0M FATIMAH Titration Protocol Per Protocol Sodium Chloride 1,000 mls @ 30 mls/hr 02/04/23 17:47 02/04/23 22:23 Sodium Chloride 0.9% IV 02/05/23 17:46 30 mls/hr .Q24H ONE Administration Levothyroxine Sodium 125 mcg 02/01/23 09:00 02/04/23 09:07 Levothyroxine 125 Mcg Tablet PO 125 mcg DAILY FATIMAH Administration Levothyroxine Sodium 100 mcg 02/03/23 06:00 02/05/23 06:00 Levothyroxine 100 Mcg Tablet PO 100 mcg QAM FATIMAH Administration Metoprolol Tartrate 12.5 mg 02/01/23 09:00 02/02/23 08:27 Metoprolol Tartrate 25 Mg Tablet PO 12.5 mg BID FATIMAH Administration Pantoprazole Sodium 40 mg 02/01/23 09:00 02/04/23 09:[address] 40 Mg Tablet PO 40 mg DAILY FATIMAH Administration Ranolazine 500 mg 02/04/23 18:00 02/04/23 18:28 Ranolazine (12hr) 500 Mg Tablet PO 500 mg BID FATIMAH Administration Sucralfate 1 gm 02/01/23 09:00 02/04/23 18:28 Sucralfate 1 Gm Tablet PO 1 gm BID FATIMAH Administration PFSH Acute PFSH: Medical History (Updated 02/09/23 @ 14:46 by Jorge Mejia MD) Acute kidney injury superimposed on CKD Acute respiratory failure with hypoxia Anemia Anemia Atherosclerosis of coronary artery Atypical chest pain Chest pain CKD (chronic kidney disease) Elevated troponin Gastric ulcer Gastritis Hemoptysis Hyperlipidemia Hypertension Hypoxia Neuropathy NSTEMI (non-ST elevated myocardial infarction) Occult blood in stools PAD (peripheral artery disease) Pneumonia Primary osteoarthritis of left knee Primary osteoarthritis of right knee Surgical History H/O colonoscopy 09/11/19 H/O esophagogastroduodenoscopy 09/11/19 History of appendectomy History of hernia surgery Family History Sister Cancer Brother Diabetes Denies family history of Anesthesia complication Bleeding disorder Social History Smoking and tobacco status: current every day smoker Alcohol intake: never Lives independently: Yes Marital status: Single Current occupational status: retired Vitals/I&O/Wt Last Vital Signs Temp 98.0 F 02/04/23 23:40 Pulse 72 02/05/23 05:33 Resp 16 02/05/23 04:00 BP 127/64 02/05/23 04:00 Pulse Ox 92 02/05/23 04:00 O2 Del Method 02/05/23 04:00 O2 Flow Rate 2 02/05/23 04:00 FiO2 30 02/02/23 20:00 02/04/23 02/05/23 02/05/23 21:59 06:59 14:59 Intake Total Output Total Balance Physical Exam Narrative: WDWN male in no distress Const: COMMON NORMALS: no acute distress and patient oriented x3 HENMT: COMMON NORMALS: normocephalic HEAD & SCALP: normocephalic Eye: COMMON NORMALS: Equal, round and reactive pupils present, EOMs intact bilaterally and no scleral icterus PUPIL: Yes Equal, round and reactive pupils present Neck/C-Spine: COMMON NORMALS: supple Lymph: LYMPHATIC: no lymphadenopathy noted Chest: COMMONS NORMALS: normal inspection of the chest Resp: COMMON NORMALS: clear to auscultation bilaterally AUSCULTATION: clear to auscultation bilaterally Cardio: COMMON NORMALS: regular rate and No murmurs present (Cardio) RATE: regular rate GI: COMMON NORMALS: Soft to palpation and non-tender PALPATION: Yes Soft to palpation Extremity: COMMON NORMALS: normal to inspection and full ROM Neuro: COMMON NORMALS: patient oriented x3 and CN's II-XII intact bilaterally Psych: COMMON NORMALS: mental status grossly normal and cooperative Skin: COMMON NORMALS: no rashes or lesions noted and no wounds GENERAL SKIN EXAM: no rashes or lesions noted Urinary Catheter Management: Lizarraga: Cath Placed During This Visit: yes Reason for Continuing Indwelling Catheter: Accurate Measurement of Urinary Output in Critically Ill Patients Urinary Catheter Date of Insertion: 01/31/23 Urinary Catheter Time of Insertion: 23:30 Data 02/04/23 03:05 02/04/23 03:05 Micro: Microbiology 02/04/23 06:06 Occult Blood (FIT) - Final Stool Routine Collection A&P Assessment and plan (1) Hemoptysis: Plan Heme positive stool with history of anemia Plan: inpatient EGD on 02/05/23 Consult Attestations Medical Necessity Statement: Patient warrants this assessment prior to consideration for disposition from hospital. Coding Level of Care Code Acute Code for Chg Fwd Diagnoses Hemoptysis R04.2
[2023-02-05] MEDS: sodium chloride 0.9% 1,000 ML 30 ML IV (08:18)
--- NOTE | 2023-02-05 08:47 | P.OP_ITS ---
Operative Report Date of procedure: February 05, 2023 Pre-op diagnosis: Preop Diagnosis Heme posiive stool with nausea Post-op diagnosis: Same Post-op findings: No source of bleeding pathology in UGI tract Procedure done: Esophagogastroduodenoscopy with h. pylori biopsy of antrum Pathology: Gastric antrum for h. pylori Surgeon: Jorge Mejia M.D. Anesthesia: MAC Estimated blood loss: Minimal from biopsy Findings: No active bleeding, no hiatal hernia, no active duodenitis, gastritis or reflux esophagitis. Condition: stable Disposition: floor Brief History: 82 y.o. male with heme + stool and hemoptysis of uncertain source Procedure: Risks and benefits of procedure were explained to patient, who accepts. Time out was accomplished per WHO three-phase protocol. Patient was placed in left lateral decubitus position and titrated to sedation with intravenous propafol. Pentax gastroscope was inserted under direct visualization through the oropharynx, esophagus and stomach, to second part of the duodenum. No active inflammation of the duodenum was noted, and there were no retained clots. Duodenal bulb was well-visualized. Scope was retracted to the antrum of the stomach, and again no clots, gastritis, or active pathology was noted. A biopsy was obtained from the antrum for h.pylori evaluation. Scope was then retroflexed to allow full visualization of the fundus, and no pathology was identified. No hiatal hernia could be demonstr ated under insufflation, and there was no suggestion of reflux esophagitis. No polyps, tumors, or other neoplasia was identified. Scope was withdrawn, and patient tolerated the procedure well. Findings: Normal esophagus, stomach and duodenum No tumors, polyps or other neoplasia No retained clots or active bleeding Biopsy of antrum for h.pylori obtained.
--- NOTE | 2023-02-05 11:15 | PC.NURSE ---
Message sent to [facility] to make follow up appointment for patient in 2 weeks.
--- NOTE | 2023-02-05 12:42 | P.DS_ITS ---
Discharge Providers Date of Admission: 01/31/23 22:14 Date of Discharge: February 05, 2023 Attending Provider at Admission: Zelda Ross MD Attending Provider at Discharge: Gentry Lewis MD Primary Care Provider: Tyrese Rodriguez NP Diagnoses at Discharge Discharge Diagnosis (1) Hemoptysis: Status: Deleted Reason for Visit Reason for Visit: CP Hospital Course Hospital Course 82-year-old male who was admitted for management evaluation of NSTEMI, community-acquired pneumonia, he was put on ACS protocol, heparin was discontinued when his hemoglobin dropped secondary to chronic kidney disease with iron-deficiency anemia, he was given 1 unit PRBC, no active source of bleed was identified, he did show some speckles of blood on a piece of tissue paper with cough. CT chest was done which did not show any sign of malignancy, stress test was recommended in order to avoid giving contrast for angiogram, stress test is showing no significant area of ischemia Dr. Alvarado has recommended medical management. Echo did not show any new wall motion abnormality. Pres erved ejection fraction. Grade 1 diastolic function. Cultures remain negative In the hospital patient received ceftriaxone and azithromycin, at the time of discharge she will receive levofloxacin every other day regimen Secondary to low blood pressure and chronic kidney disease I have discontinued hydrochlorothiazide, lisinopril and amlodipine His systolic blood pressure has been ranging between 10 9-1 20s mmhg. General surgery was consulted for EGD for positive FOBT EGD which showed gastritis, biopsies consistent with gastritis as well no sign of malignancy Physical Exam Narrative: Patient is doing well on room air Hemodynamically stable Euvolemic GCS 15 Pleasant and cooperative No audible stridor or wheezing No active chest pain Urinary Catheter Management: Lizarraga: Cath Placed During This Visit: yes Reason for Continuing Indwelling Catheter: Accurate Measurement of Urinary Output in Critically Ill Patients Urinary Catheter Date of Insertion: 01/31/23 Urinary Catheter Time of Insertion: 23:30 Discharge Data Studies Completed and Pending Completed Studies During Hospitalization Category Date Time Status CT chest wo con [id number] Routine Cat Scan 02/03/23 07:14 Completed Sestamibi Stress Test Request Routine Exams 02/02/23 13:29 Completed XR chest 1V portable [id number] Stat Exams 01/31/23 19:54 Completed NM abdullahi perf SPECT r/s* [id number] Routine Nuc Med 02/03/23 08:00 Completed Pathology: Surgical [PTH] Routine Pth 02/05/23 08:33 Completed US YEIMY [CV ankle brachial index [id number]] Stat Ultrasound 02/01/23 10:11 Completed US echo complete [CV. echo complete* [id number]] Stat Ultrasound 02/01/23 10:00 Completed Radiology Impressions Chest X-Ray 01/31/23 19:54 IMPRESSION: 1. Diffuse interstitial infiltrates greatest in the lung bases are now present. This is suspicious for pneumonia - correlate with clinical findings. 2. Small right pleural effusion. Chest CT 02/03/23 07:14 IMPRESSION: 1. Moderate chronic emphysematous changes. 2. Small bilateral pleural effusions with compressive atelectasis in the lung bases. 3. Slight interstitial thickening in the lung bases bilaterally and inferior segments of the upper lobes. 4. No mediastinal or hilar lymphadenopathy. 5. No other remarkable findings. Laboratory Results WBC 6.6 10^3/uL (4.0-10.0) 02/04/23 03:05 RBC 2.93 10^6/uL (4.1-5.3) L 02/04/23 03:05 Hgb 8.9 g/dL (11.7-16.6) L 02/04/23 03:05 Hct 28.6 % (42.0-52.0) L 02/04/23 03:05 MCV 97.6 fl (80-94) H 02/04/23 03:05 MCH 30.4 pg (28.0-34.0) 02/04/23 03:05 MCHC 31.1 g/dL (30.0-36.0) 02/04/23 03:05 RDW 16.1 % (12.1-15.1) H 02/04/23 03:05 Plt Count 190 10^3/cmm (130-400) 02/04/23 03:05 MPV 11.6 fL (7.4-10.4) H 02/04/23 03:05 Neut % (Auto) 65.7 % 02/04/23 03:05 Lymph % (Auto) 21.5 % 02/04/23 03:05 [place] % (Auto) 9.7 % 02/04/23 03:05 Eos % (Auto) 2.1 % 02/04/23 03:05 Baso % (Auto) 0.5 % 02/04/23 03:05 Neut # (Auto) 4.34 10^3/uL (1.8-7.7) 02/04/23 03:05 Lymph # (Auto) 1.4 10^3/uL (0.8-4.8) 02/04/23 03:05 [place] # (Auto) 0.6 10^3/uL (0.2-0.9) 02/04/23 03:05 Eos # (Auto) 0.1 10^3/uL (0.0-0.8) 02/04/23 03:05 Baso # (Auto) 0.0 10^3/uL (0.0-0.1) 02/04/23 03:05 Nucleated RBC % (auto) 0 % 02/04/23 03:05 Nucleated RBCs # 0.0 /100WBC 02/04/23 03:05 PT 13.50 SECONDS (12.1-14.9) 01/31/23 20:10 INR 1.00 (0.8-1.2) 01/31/23 20:10 APTT 36.1 SECONDS (23.9-36.7) 02/02/23 14:45 Specimen Type Arterial 01/31/23 20:12 Sample Site Brachial, right 01/31/23 20:12 ABG pH 7.37 (7.35-7.45) 01/31/23 20:12 ABG pCO2 36.7 mmHg (35-45) 01/31/23 20:12 ABG pO2 72.2 mmHg (80.0-100.0) L 01/31/23 20:12 ABG HCO3 21.3 mmol/L (22-26) L 01/31/23 20:12 ABG Base Excess -3.5 mmol/L (-2.0-2.0) L 01/31/23 20:12 Narinder Test Pos 01/31/23 20:12 Hematocrit 30.2 % (42-52) L 01/31/23 20:12 O2 Delivery Device Nrb 01/31/23 20:12 FiO2 99.0 % 01/31/23 20:12 Tool And Die Technician ID [email or web address] 01/31/23 20:12 Sodium 140 mmol/L (136-145) 02/04/23 03:05 Potassium 3.9 mmol/L (3.5-5.1) 02/04/23 03:05 Chloride 107 mmol/L (98-107) 02/04/23 03:05 Carbon Dioxide 22 mmol/L (22-29) 02/04/23 03:05 Anion Gap 14.9 (5-19) 02/04/23 03:05 BUN 38 mg/dL (8-23) H 02/04/23 03:05 Creatinine 1.9 mg/dL (0.7-1.2) H 02/04/23 03:05 GFR Calculation Not Reportable 02/04/23 03:05 Glucose 107 mg/dL (65-115) 02/04/23 03:05 Calculated Osmolality 300 mOsm/kg (285-295) H 02/04/23 03:05 Calcium 8.4 mg/dL (8.5-10.5) L 02/04/23 03:05 Iron 32 ug/dL (59-158) L 02/02/23 18:48 TIBC 271 mcg/dl 02/02/23 18:48 % Saturation 11.8 % (20-50) L 02/02/23 18:48 Unsat Iron Binding 239 ug/dL (112-347) 02/02/23 18:48 Ferritin 43 ng/mL (30-400) 02/02/23 18:48 Total Bilirubin 0.2 mg/dL (0.15-1.2) 02/01/23 02:21 AST 16 U/L (0-40) 02/01/23 02:21 ALT 9 U/L (0-41) 02/01/23 02:21 Alkaline Phosphatase 80 U/L (40-130) 02/01/23 02:21 Troponin T Baseline 111 ng/L (0-15) H* 01/31/23 20:10 Troponin T 120 Minute 125.0 ng/L (0-15) H 01/31/23 22:17 Delta Troponin T 14.0 ABS# (0-10) H* 01/31/23 22:17 Troponin T Hi Sens 6Hr 143.0 ng/L (0-15) H 02/01/23 02:21 Troponin T Hi Sens 6Hr Delta 32.0 ng/L (0-12) H* 02/01/23 02:21 NT-Pro-B Natriuret Pep 66457 pg/mL (0-450) H 01/31/23 20:10 Total Protein 6.8 g/dL (6.6-8.7) 02/01/23 02:21 Albumin 3.2 g/dL (3.5-5.2) L 02/01/23 02:21 Globulin 3.6 g/dL (1.3-4.6) 02/01/23 02:21 Procalcitonin 0.10 ng/mL (0-0.5) 02/01/23 02:21 Influenza Type A Ag negative (Negative) 01/31/23 20:36 Influenza Type B Ag negative (Negative) 01/31/23 20:36 SARS-CoV-2 Ag (Rapid) negative (Negative) 01/31/23 20:36 Blood Type A Positive 02/02/23 18:48 Rho(D) Type Positive 02/02/23 18:48 Antibody Screen Not Reportable 02/02/23 18:48 PEG Antibody Screen Negative 02/02/23 18:48 Crossmatch See Detail 02/02/23 18:48 Vitals Last Vital Signs Temp 98.3 F 02/05/23 12:42 Pulse 73 02/05/23 12:42 Resp 16 02/05/23 12:42 BP 143/69 02/05/23 12:42 Pulse Ox 93 02/05/23 12:42 O2 Del Method 02/05/23 09:19 O2 Flow Rate 3 02/05/23 09:19 FiO2 30 02/02/23 20:00 Discharge Plan Discharge Patient Disposition: Home Condition: Stable Prescriptions: New metoprolol tartrate 25 mg Tablet 12.5 mg PO BID Qty: 60 2RF Continued clopidogrel 75 mg tablet 75 mg PO DAILY Qty: 90 3RF pravastatin 40 mg tablet 80 mg PO BEDTIME Qty: 90 3RF levothyroxine 100 mcg tablet 100 mcg PO QAM aspirin 81 mg Tablet,Delayed Release (Dr/Ec) 81 mg PO QAM Qty: 30 0RF Discontinued lisinopril 40 mg tablet 40 mg PO DAILY Qty: 90 3RF metoprolol tartrate 50 mg tablet 50 mg PO BID amlodipine 5 mg tablet 10 mg PO QAM hydrochlorothiazide 12.5 mg tablet 12.5 mg PO QAM No Action Vitamin B-12 1,000 mcg Tablet 500 mcg PO DAILY Qty: 30 0RF gabapentin 100 mg Capsule 200 mg PO TID Qty: 90 0RF ferrous sulfate 325 mg (65 mg iron) Tablet,Delayed Release (Dr/Ec) 325 mg PO BIDWM Qty: 60 0RF sucralfate 100 mg/mL Suspension 1 g PO AC&BEDTIME 14 Days Qty: 300 0RF Lasix 40 mg tablet 40 mg PO BID Qty: 60 0RF Spiriva with HandiHaler 18 mcg capsule, w/inhalation device 1 cap inhalation DAILY Qty: 30 0RF Rx Instructions: puncture 1 cap using device; one dose = 2 inhalations Breo Ellipta 100-25 mcg/dose blister with device 1 inh inhalation DAILY Qty: 60 0RF isosorbide mononitrate 30 mg tablet extended release 24 hr 30 mg PO BID Qty: 60 0RF pantoprazole 40 mg tablet,delayed release (DR/EC) 40 mg PO BIDWM Qty: 60 0RF Discharge Orders: Discharge Order (Routine); Ordered 02/05/23 Ordered By: Gentry Lewis Other Ambulatory Orders: DME: Oxygen (Order) Location: None Selected Ordered By: Gentry Lewis Referrals: Tyrese Rodriguez, MUSIC VIDEO PRODUCER [Primary Care Provider] - (Please call Monday and schedule your follow up appointment with Tyrese.) Lottie Rider FNP [Nurse Practitioner] - 2 weeks ([facility] will call with your followup appointment.) Patient Instructions: Metoprolol (By mouth), Isosorbide Mononitrate (By mouth) (Imdur, Imdur ER, Ismo), Levofloxacin (By mouth), Heart Attack (DC), Heart Healthy Diet (DC), Chronic Hypertension (DC), Opioid Safety Discharge Attestations Time Spent in Discharge Care*: less than 30 min Status at Discharge: Cognitive status at discharge: cognitively intact , Behavioral status at discharge: cooperative , Quality Metrics Clinical Quality Measures [ No reported AMI, CVA or VTE this stay] Coding Level of Care Code Acute Code for Chg Fwd Diagnoses Hemoptysis R04.2
== END 2023-02-05 12:30 | disposition home or self-care (01) | DRG 280 ==
LOC: ER 22:08 → ICU 22:14 → MEDSURG 02-02 21:19
PROVIDERS: Surgery; Admitting Provider Student in an Organized Health Care Education/Training Program; Emergency Provider Emergency Medicine; PCP Nurse Practitioner Family; Visit Provider Internal Medicine
PROC: 0DJ08ZZ Inspection of Upper Intestinal Tract, Via Natural or Artificial Opening Endoscopic (ICD-10-PCS; CPT 43235; principal; 2023-02-05 08:30)
DX: I21.4 Non-ST elevation (NSTEMI) myocardial infarction (principal); J18.9 Pneumonia, unspecified organism; J96.01 Acute respiratory failure with hypoxia; R04.2 Hemoptysis; J44.1 Chronic obstructive pulmonary disease with (acute) exacerbation; J44.0 Chronic obstructive pulmonary disease with (acute) lower respiratory infection; N18.9 Chronic kidney disease, unspecified; I11.0 Hypertensive heart disease with heart failure; D50.9 Iron deficiency anemia, unspecified; D63.1 Anemia in chronic kidney disease; K29.70 Gastritis, unspecified, without bleeding; Z79.02 Long term (current) use of antithrombotics/antiplatelets; Z79.82 Long term (current) use of aspirin; I25.10 Atherosclerotic heart disease of native coronary artery without angina pectoris; Z95.5 Presence of coronary angioplasty implant and graft; I25.2 Old myocardial infarction; E78.5 Hyperlipidemia, unspecified; I73.9 Peripheral vascular disease, unspecified; M17.0 Bilateral primary osteoarthritis of knee; G62.9 Polyneuropathy, unspecified; R19.5 Other fecal abnormalities; I95.9 Hypotension, unspecified; K21.9 Gastro-esophageal reflux disease without esophagitis; F17.200 Nicotine dependence, unspecified, uncomplicated
CPT/HCPCS: 36415; 36430; 36600; 43239; 51702; 71045; 71250; 78452; 80048; 80053; 82274; 82728; 82803; 83540; 83550; 83880; 84145; 84484; 85014; 85018; 85025; 85610; 85730; 86850; 86900; 86920; 87040; 87426; 87804; 88305; 88342; 93005; 93017; 93306; 93880; 93922; 94640; 94660; 94760; 96365; 96367; 96372; 96374; 96375; 99291; A9500; J0456; J0696; J1644; J1650; J1940; J2704; J2785; J2930; J7030; J7050; J7613; J7644; P9016; Q0144

== ENCOUNTER 2023-02-14 09:21 | Inpatient (IN) | payer MEDICARE, SELFPAY ==
[2023-02-14] VITALS (26 sets, daily range): BP systolic 96–150; BP diastolic 51–65; PULSE 76–117; RESP 12–25; TEMP 35.9–36.9; O2SAT 89–99
--- NOTE | 2023-02-14 09:25 | ECG_ITS ---
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 Measurements Intervals [place] Rate: 92 P: 0 NM: 0 QRS: 54 QRSD: 101 T: -79 QT: 376 QTc: 467 Interpretive Statements ATRIAL FIBRILLATION ST DEVIATION AND MODERATE T-WAVE ABNORMALITY, CONSIDER LATERAL ISCHEMIA [-0.1+ mV T-WAVE IN I/aVL/V5/V6] ST DEVIATION AND MODERATE T-WAVE ABNORMALITY, CONSIDER INFERIOR ISCHEMIA [-0.1+ mV T-WAVE IN II/aVF] Compared to ECG 02/01/2023 01:42:41 Possible ischemia now present Sinus rhythm no longer present Prolonged QT interval no longer present T-wave abnormality still present Electronically Signed On 02-14-2023 23:07:17 CDT by Patricia Alvarado M.D. [email or web address]
--- NOTE | 2023-02-14 09:25 | XR_ITS ---
WS: [id number] EXAMINATION: XR chest 1V portable [id number] REASON FOR EXAM: dyspnea/cough COMPARISON: 01/31/2023 ORDER DATE: 02/14/2023 9:28 AM TECHNIQUE: A single, portable frontal chest x-ray was obtained. FINDINGS: Lungs: Diffuse interstitial infiltrates greatest in the lung bases but throughout each lung are uncha nged and greater on the right. Pleural spaces: Small bilateral subpulmonic pleural effusions. No pneumothorax. Heart/Mediastinum: Heart size unchanged. Atherosclerotic aortic change Bones/joints: Stable bones. XR/XR chest 1V portable [id number] IMPRESSION: 1. Diffuse interstitial infiltrates greatest in the lung bases are again noted. These changes do not include a component of chronic interstitial disease since they were not present on previous study in 2021. This may be a combination of early interstitial edema with or without bilateral basal pneumonia - correlate with clinical findings. 2. Small bilateral pleural effusions.
--- NOTE | 2023-02-14 09:26 | ED_ITS ---
HPI - SOB/Dyspnea General: Chief Complaint: Shortness of Breath/Dyspnea Stated Complaint: SOB/ LEG EDEMA Time Seen by Provider: 02/14/23 09:25 Source: patient Mode of arrival: EMS History of Present Illness: HPI Narrative: 82-year-old male presents emergency room complaining of shortness of breath and increasing leg edema. Patient has a lifelong history of smoking 3 to 4 packs a day cut back about a year ago to half pack a day he is normally on 3 to 4 L by nasal cannula at home and it turned up to 6 L at home. He had increasing shortness of breath and edema with increasing nonproductive cough. He denies any chest pain he has noticed increased swelling in his legs he is awake alert and oriented. When they increased his oxygen levels morning he states he did not particularly feel like his symptoms got a lot better. MD elicited complaint: shortness of breath and cough Pertinent past history: COPD Timing: constant Severity: moderate Exacerbating factors: lying flat, exertion and coughing Relieving factors: oxygen and rest Known history of: COPD Associated symptoms: Reports chest congestion and palpitations; Deny abdominal pain, chest pain, cough, diaphoresis, dizziness, extremity pain, fever(s), hemoptysis, lightheadedness, myalgias, nausea, orthopnea, parest hesias, polydipsia, polyuria, rash, sense of impending doom, syncope or vomiting Review of Systems Const: Denies: fever(s), chills, fatigue, malaise or diaphoresis ENMT: Denies: throat pain, ear or mastoid pain, nasal discharge or nasal congestion Card: Reports: palpitations, irregular heart rhythm, edema and swelling of feet/ankles; Denies: chest pain, lightheadedness, syncope or orthopnea Resp: Reports: dyspnea, non-productive cough, wheezing and chest congestion; Denies: productive cough or hemoptysis GI: Denies: abdominal pain, nausea or vomiting : Denies: flank pain, dysuria, urinary frequency or urinary urgency Musc: Denies: extremity pain Skin/Breast: Denies: rash or pruritus Neuro: Denies: dizziness Endo: Denies: polyuria or polydipsia PFS ED PFSH: Medical History (Updated 02/15/23 @ 05:54 by Tony Schmitz DO) Atherosclerosis of coronary artery CAD (coronary artery disease) STEMI 08/2022 with NIGEL to mid RCA CHF (congestive heart failure) CKD (chronic kidney disease) COPD (chronic obstructive pulmonary disease) Gastric ulcer by EGD in 2019 Hemoptysis History of cardiovascular stress test 02/06/2023 nonspecific EKG changes with lexiscan infusion. Myocardial imaging suggestive of scarring in distribution of all 3 coronary arteries with a small area of possible rama-infarction ischemia in left circumflex distribution History of Doppler ultrasound carotids 01/30/2023 Right ICA 50-60% stenosis, Left ICA <50% stenosis, normal antegrade flow in right and left vertebral arteries History of echocardiogram 02/02/2023 EF 61%, mild LVH, no wall motion abnormalities, Grade I/IV diastolic dysfunction, estimated PAP 35 mmHg, mild to moderate AR and MR Hyperlipidemia Hypertension Hypothyroidism Iron deficiency anemia Neuropathy Occult blood in stools PAD (peripheral artery disease) YEIMY 02/02/2023 Abnormal resting ABIs bilaterally(0.78 on the right and 0.73 on the left) suggesting moderate peripheral arterial disease. Primary osteoarthritis of left knee Primary osteoarthritis of right knee Surgical History (Updated 02/14/23 @ 15:01 by Brandie Miguel MD) H/O colonoscopy 09/11/19 H/O esophagogastroduodenoscopy 09/11/19; 02/05/2023 - no active bleeding History of appendectomy History of cardiac catheterization 08/2022 severe RCA stenosis s/p NIGEL. Angiogram was done through the right radial artery, but intervention was performed to the right groin because of the abnormal anatomy of the artery-the RCA ostium had a godinez hook takeoff. History of hernia surgery Family History Sister Cancer Brother Diabetes Denies family history of Anesthesia complication Bleeding disorder Social History (Updated 02/14/23 @ 15:03 by Brandie Miguel MD) Smoking and tobacco status: current every day smoker cigarettes [ Other cigarette details: smoked since age 14, cut back significantly] Alcohol intake: never Substance/Drug Use: never Lives independently: Yes Current occupational status: retired Physical Exam Const: GENERAL APPEARANCE: cooperative and comfortable ORIENTATION/CONSCIOUSNESS: Yes awake, Yes oriented to person, Yes oriented to place and Yes oriented to time HENMT: COMMON NORMALS: normocephalic, atraumatic and hearing grossly normal bilaterally HEAD & SCALP: normocephalic and atraumatic Resp: COMMON NORMALS: normal respiratory effort, No retractions and No use of accessory muscles AUSCULTATION: wheezes Cardio: COMMON NORMALS: regular rate and No murmurs present (Cardio) RATE: regular rate RHYTHM: abnormal rhythm irregularly irregular GI: COMMON NORMALS: Soft to palpation and No hepatosplenomegaly present AUSCULTATION: Yes normoactive bowel sounds PALPATION: Yes Soft to palpation, No Tenderness to palpation present (GI), No Guarding due to palpation present (GI) and Yes No hepatosplenomegaly present Extremity: COMMON NORMALS: normal to inspection, capillary refill normal and no calf tenderness GENERAL: Yes edema (2+ lower extremity) Neuro: SENSORIUM/ORIENTATION: Yes oriented to person, Yes oriented to place and Yes oriented to time Skin: COMMON NORMALS: no rashes or lesions noted GENERAL SKIN EXAM: no rashes or lesions noted Course Vital Signs: Vital signs: Vital Signs Temperature 97.9 F 02/15/23 03:42 Pulse Rate 71 02/15/23 04:51 Respiratory Rate 16 02/15/23 03:42 Blood Pressure 117/45 02/15/23 05:47 Pulse Oximetry 97 02/15/23 03:42 Oxygen Delivery Me thod 02/15/23 03:42 Oxygen Flow Rate 5 02/15/23 03:42 MDM - SOB/Dyspnea Medical Decision Making Labs and imaging reviewed EKG does not show any acute changes. Patient had a Lexiscan sestamibi stress test that was read as negative earlier this month. Patient is anemic but this is a chronic condition. She does have worsening congestive heart failure is here with Lasix will admit based on his oxygen need discussed the hospitalist orders written Medical Records I reviewed the patient's medical records. Lab Data I reviewed the patient's lab results. 02/14/23 09:36 02/14/23 09:36 Labs/Radiology: Radiology Impressions Chest X-Ray 02/14/23 09:25 IMPRESSION: 1. Diffuse interstitial infiltrates greatest in the lung bases are again noted. These changes do not include a component of chronic interstitial disease since they were not present on previous study in 2021. This may be a combination of early interstitial edema with or without bilateral basal pneumonia - correlate with clinical findings. 2. Small bilateral pleural effusions. Laboratory Results WBC 6.1 10^3/uL (4.0-10.0) 02/14/23 09:36 RBC 2.81 10^6/uL (4.1-5.3) L 02/14/23 09:36 Hgb 8.5 g/dL (11.7-16.6) L 02/14/23 09:36 Hct 28.4 % (42.0-52.0) L 02/14/23 09:36 MCV 101.1 fl (80-94) H 02/14/23 09:36 MCH 30.2 pg (28.0-34.0) 02/14/23 09:36 MCHC 29.9 g/dL (30.0-36.0) L 02/14/23 09:36 RDW 15.3 % (12.1-15.1) H 02/14/23 09:36 Plt Count 233 10^3/cmm (130-400) 02/14/23 09:36 MPV 11.1 fL (7.4-10.4) H 02/14/23 09:36 Neut % (Auto) 68.8 % 02/14/23 09:36 Lymph % (Auto) 21.8 % 02/14/23 09:36 [place] % (Auto) 5.7 % 02/14/23 09:36 Eos % (Auto) 2.5 % 02/14/23 09:36 Baso % (Auto) 0.7 % 02/14/23 09:36 Neut # (Auto) 4.21 10^3/uL (1.8-7.7) 02/14/23 09:36 Lymph # (Auto) 1.3 10^3/uL (0.8-4.8) 02/14/23 09:36 [place] # (Auto) 0.4 10^3/uL (0.2-0.9) 02/14/23 09:36 Eos # (Auto) 0.2 10^3/uL (0.0-0.8) 02/14/23 09:36 Baso # (Auto) 0.0 10^3/uL (0.0-0.1) 02/14/23 09:36 Nucleated RBC % (auto) 0 % 02/14/23 09:36 Nucleated RBCs # 0.0 /100WBC 02/14/23 09:36 PT 13.50 SECONDS (12.1-14.9) 02/14/23 09:36 INR 1.00 (0.8-1.2) 02/14/23 09:36 APTT 27.8 SECONDS (23.9-36.7) 02/14/23 09:36 Specimen Type Arterial 02/14/23 10:09 Sample Site Radial, left 02/14/23 10:09 ABG pH 7.41 (7.35-7.45) 02/14/23 10:09 ABG pCO2 28.5 mmHg (35-45) L 02/14/23 10:09 ABG pO2 55.1 mmHg (80.0-100.0) L 02/14/23 10:09 ABG HCO3 18.1 mmol/L (22-26) L 02/14/23 10:09 ABG O2 Saturation 89.3 02/14/23 10:09 ABG Base Excess -5.4 mmol/L (-2.0-2.0) L 02/14/23 10:09 Narinder Test Pos 02/14/23 10:09 A-a O2 Gradient 21.7 mmHg (5-10) H 02/14/23 10:09 Hematocrit 36.3 % (42-52) L 02/14/23 10:09 Hgb O2 Saturation 88.1 % (95-100) L 02/14/23 10:09 Carboxyhemoglobin 1.0 %THgb (0.4-20.1) 02/14/23 10:09 Methemoglobin 0.4 % (0.4-1.5) 02/14/23 10:09 Total Hemoglobin 11.8 g/dL (14-18) L 02/14/23 10:09 Sodium 142.0 mmol/L (131-143) 02/14/23 10:09 Potassium 4.1 mmol/L (3.5-5.0) 02/14/23 10:09 Glucose 100.0 mg/dL (70-115) 02/14/23 10:09 Ionized Calcium 1.2 mmol/L (1.1-1.4) 02/14/23 10:09 O2 Delivery Device Nc 02/14/23 10:09 O2 Liters/Min 4.0 % 02/14/23 10:09 FiO2 36.0 % 02/14/23 10:09 Veneer Manufacturer ID glc 02/14/23 10:09 Sodium 140 mmol/L (136-145) 02/14/23 09:36 Potassium 4.1 mmol/L (3.5-5.1) 02/14/23 09:36 Chloride 111 mmol/L (98-107) H 02/14/23 09:36 Carbon Dioxide 19 mmol/L (22-29) L 02/14/23 09:36 Anion Gap 14.1 (5-19) 02/14/23 09:36 BUN 43 mg/dL (8-23) H 02/14/23 09:36 Creatinine 2.6 mg/dL (0.7-1.2) H 02/14/23 09:36 GFR Calculation Not Reportable 02/14/23 09:36 Glucose 99 mg/dL (65-115) 02/14/23 09:36 Calculated Osmolality 301 mOsm/kg (285-295) H 02/14/23 09:36 Calcium 8.9 mg/dL (8.5-10.5) 02/14/23 09:36 Total Bilirubin 0.2 mg/dL (0.15-1.2) 02/14/23 09:36 AST 18 U/L (0-40) 02/14/23 09:36 ALT 12 U/L (0-41) 02/14/23 09:36 Alkaline Phosphatase 60 U/L (40-130) 02/14/23 09:36 NT-Pro-B Natriuret Pep 10500 pg/mL (0-450) H 02/14/23 09:36 Total Protein 7.1 g/dL (6.6-8.7) 02/14/23 09:36 Albumin 3.4 g/dL (3.5-5.2) L 02/14/23 09:36 Globulin 3.7 g/dL (1.3-4.6) 02/14/23 09:36 Discharge Plan Discharge Patient Disposition: Admitted As Inpatient Admit Provider: Brandie Miguel Clinical Impression: CHF (congestive heart failure), Iron deficiency anemia, CKD (chronic kidney disease), COPD (chronic obstructive pulmonary disease), Hypertension Condition: Stable Coding Level of Care Code ED Emergency Medical Technician Basic for Chg Gabriela
[2023-02-14] MEDS: ipratropium-albuterol 3 mL Neb INHALATION (09:54)
[2023-02-14 10:05] LABS: Basophils % 0.7 %; Eosinophils # 0.2 10^3/uL (0.0-0.8); Eosinophils % 2.5 %; Hematocrit 28.4 % (42.0-52.0); Hemoglobin 8.5 g/dL (11.7-16.6); Lymphocytes # 1.3 10^3/uL (0.8-4.8); Lymphocytes % 21.8 %; Mean Corpuscular HGB Conc 29.9 g/dL (30.0-36.0); Mean Corpuscular Hemoglobin 30.2 pg (28.0-34.0); Mean Corpuscular Volume 101.1 fl (80-94); Mean Platelet Volume 11.1 fL (7.4-10.4); Monocytes # 0.4 10^3/uL (0.2-0.9); Monocytes % 5.7 %; Neutrophils # 4.21 10^3/uL (1.8-7.7); Neutrophils % 68.8 %; Nucleated Red Blood Cells % 0 %; Platelet Count 233 10^3/cmm (130-400); Red Blood Count 2.81 10^6/uL (4.1-5.3); Red Cell Distribution Width 15.3 % (12.1-15.1); White Blood Count 6.1 10^3/uL (4.0-10.0)
--- NOTE | 2023-02-14 10:06 | PC.PHAR ---
pts daughter verified pts medications-states the pt hasnt started taking sucralfate 1g bid filled 02/09/23 30d/s-states the pt may have one tab left of levaquin 750mg q48h for 7 days filled 02/04/23 states thinks pt last took last on sat 02/11/23-notes are made in the pharmacy comments
[2023-02-14 10:17] LABS: ABG PCO2 28.5 mmHg (35-45); ABG PH Result 7.41 (7.35-7.45); Alveolar-Arterial Oxygen Gradi 21.7 mmHg (5-10); Arterial Blood Gas Hematocrit 36.3 % (42-52); Base Excess ABG -5.4 mmol/L (-2.0-2.0); Blood Gas Allen Test Pos; Blood Gas Operator Identificat glc; Blood Gas Sample Site Radial, left; Blood Gas Sample Type Arterial; HCO3 ABG 18.1 mmol/L (22-26); HGB O2 Sat 88.1 % (95-100); Ionized Calcium Level - ABG 1.2 mmol/L (1.1-1.4); Methemoglobin 0.4 % (0.4-1.5); Oxygen Device NC; Oxygen Saturation ABG 89.3; PO2 ABG 55.1 mmHg (80.0-100.0); Potassium Level - ABG 4.1 mmol/L (3.5-5.0); Total Hemoglobin 11.8 g/dL (14-18)
[2023-02-14 10:39] LABS: Alanine Aminotransferase 12 U/L (0-41); Albumin Level 3.4 g/dL (3.5-5.2); Alkaline Phosphatase 60 U/L (40-130); Anion Gap 14.1 (5-19); Aspartate Amino Transferase 18 U/L (0-40); Blood Urea Nitrogen 43 mg/dL (8-23); Calcium 8.9 mg/dL (8.5-10.5); Carbon Dioxide 19 mmol/L (22-29); Chloride 111 mmol/L (98-107); Globulin 3.7 g/dL (1.3-4.6); Glucose 99 mg/dL (65-115); NT Pro B Type Natriuretic Pept 23610 pg/mL (0-450); Osmolality Calculated 301 mOsm/kg (285-295); Potassium 4.1 mmol/L (3.5-5.1); Sodium 140 mmol/L (136-145); Total Bilirubin 0.2 mg/dL (0.15-1.2); Total Protein 7.1 g/dL (6.6-8.7)
--- NOTE | 2023-02-14 11:39 | ECG_ITS ---
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 Measurements Intervals [place] Rate: 112 P: 0 VA: 0 QRS: 63 QRSD: 105 T: -71 QT: 344 QTc: 470 Interpretive Statements ATRIAL FIBRILLATION WITH RAPID VENTRICULAR RESPONSE ST DEVIATION AND MODERATE T-WAVE ABNORMALITY, CONSIDER INFERIOR ISCHEMIA [-0.1+ mV T-WAVE IN II/aVF] Compared to ECG 02/14/2023 09:32:21 No significant changes Electronically Signed On 02-14-2023 23:15:48 CDT by Patricia Alvarado M.D. [id number]
[2023-02-14] MEDS: FUROsemide 10 mg/mL SDV 4mL 40 MG IVP (12:56)
--- NOTE | 2023-02-14 14:37 | P.HP_ITS ---
Providers/Chief Complaint Admitting Physician: Brandie Miguel MD Primary Care Provider: Tyrese Rodriguez NP Chief Complaint: SOB/ LEG EDEMA History of Present Illness Marco Antonio Sebastian is a 82 year old male who presented to the emergency room with chief complaint of difficulty breathing. He has been hospitalized a couple of times this year already with chest pain, respiratory issues, anemia. He has a history of coronary artery disease identified when he had an ST elevation UT in August 2022. He has an RCA stent. He has had issues with chronic kidney disease and anemia for some time. He has a longstanding history of smoking and COPD for which he is on 4 L of oxygen by nasal cannula. Most recent hospitalization was earlier this month when he was felt to have pneumonia. He was discharged on February 09 with continuation of a course of Levaquin. He has 1 more dose to complete. He has not been having any increased productive cough. He thinks he was probably doing okay until last night he became acutely short of breath around 2 AM. He felt like his oxygen was not working but when he checked it was blowing out the nasal cannula. He got up to go to the bathroom in the middle of the night having to only walk a couple of steps and was very short of breath with that degree of exertion. He has had some right-sided chest pain. Denies any left-sided chest pain. He continued to worsen through the night and this morning he called his daughter around 7 AM saying that he needed to come into the emergency room. His daughter describes him as sounding very short of b reath and she was worried about him. He has been having some increasing edema. In addition he has had some penile edema which he associates with having had a Lizarraga catheter last hospital stay. He coughs all the time. Cough is sometimes productive of mucus and other times he does describe hemoptysis. This is not a new problem but 1 that has not yet been able to be worked up much because of his renal function. Sometimes he has small amounts of bright red blood and other times he gets some clots up. He has had some dark stools. He was found to have Hemoccult positive stools earlier this month and underwent EGD that was unrevealing for any source of bleeding on February 05. He did receive 1 unit of packed red blood cells during the last hospital stay for worsening anemia. He was found to have significant iron deficiency with percent saturation at 11.8%. Over the last few months he has had multiple changes to medications as will be described below that were identified on review of records dating back to August of last year. He has had issues with both high and low blood pressures, at least one documented episode of bradycardia into the low 50s that was symptomatic. Overall he has had clinical decline for the last few months. He denies significant change in weight stating that he is holding his own . Reviewing available measurements within the computer I believe most of the weights are stated rather than exact so difficult to discern. Mr. Perez does report that he has not been able to smoke more than a couple of cigarettes since the last left the hospital. In the emergency room he was noted to have significant swelling, evidence of pulmonary edema on chest x-ray and significant increase in BNP compared to prior values along with worsening renal function. Clinically was felt to have acute CHF. He received a dose of Lasix. Based on his COPD history he was initially treated with steroids and breathing treatments. At the present time he is breathing a little bit better. Hospitalist were contactted for admission. Review of Systems Const: Reports: fatigue; Denies: fever(s) or chills Resp: Reports: hemoptysis; Denies: pain on inspiration GI: Reports: melena; Denies: nausea or vomiting : Reports: hematuria (Reports intermittent issues with blood in the urine but none recently) and other (Is circumcised, penile edema new since last stay); Denies: difficulty urinating, dysuria, difficulty starting urination, genital pain or penile discharge Musc: Reports: muscle weakness; Denies: extremity pain Neuro: Denies: frequent falls or difficulty communicating thoughts Medications/Allergies Home Medications Medication Instructions Recorded Confirmed Last Taken Type gabapentin 400 mg capsule 400 mg PO TID 12/27/19 02/14/23 02/13/23 History sucralfate 1 gram tablet 1 g PO BID 09/14/22 02/14/23 09/13/22 18:00 History clopidogrel 75 mg tablet 75 mg PO DAILY #90 tabs 12/23/22 02/14/23 02/13/23 Rx pravastatin 40 mg tablet 80 mg PO BEDTIME #90 tabs 12/23/22 02/14/23 02/13/23 Rx levothyroxine 100 mcg tablet 100 mcg PO QAM 02/01/23 02/14/23 02/13/23 History pantoprazole 40 mg tablet,delayed 40 mg PO DAILY 02/01/23 02/14/23 02/13/23 History release aspirin 81 mg tablet,delayed 81 mg PO QAM #30 tabs 02/03/23 02/14/23 02/13/23 Rx release metoprolol tartrate 25 mg tablet 12.5 mg PO BID #60 tabs 02/03/23 02/14/23 02/13/23 Rx amlodipine 10 mg tablet 10 mg PO QAM 02/14/23 02/14/23 02/14/23 History isosorbide mononitrate 30 mg 30 mg PO QAM 02/14/23 02/14/23 02/13/23 History tablet,extended release 24 hr levofloxacin 750 mg tablet 750 mg PO Q48H 02/14/23 02/14/23 02/11/23 History has 1 tab per daught Allergies Allergy/AdvReac Type Severity Reaction Status Date / Time No Known Allergies Allergy Verified 02/14/23 10:00 PFSH Acute PFSH: Medical History (Updated 02/14/23 @ 16:21 by Brandie Miguel MD) Atherosclerosis of coronary artery CAD (coronary artery disease) STEMI 08/2022 with NIGEL to mid RCA CHF (congestive heart failure) CKD (chronic kidney disease) COPD (chronic obstructive pulmonary disease) Gastric ulcer by EGD in 2019 Hemoptysis History of cardiovascular stress test 02/06/2023 nonspecific EKG changes with lexiscan infusion. Myocardial imaging suggestive of scarring in distribution of all 3 coronary arteries with a small area of possible rama-infarction ischemia in left circumflex distribution History of Doppler ultrasound carotids 01/30/2023 Right ICA 50-60% stenosis, Left ICA <50% stenosis, normal antegrade flow in right and left vertebral arteries History of echocardiogram 02/02/2023 EF 61%, mild LVH, no wall motion abnormalities, Grade I/IV diastolic dysfunction, estimated PAP 35 mmHg, mild to moderate AR and MR Hyperlipidemia Hypertension Hypothyroidism Iron deficiency anemia Neuropathy Occult blood in stools PAD (peripheral artery disease) YEIMY 02/02/2023 Abnormal resting ABIs bilaterally(0.78 on the right and 0.73 on the left) suggesting moderate peripheral arterial disease. Primary osteoarthritis of left knee Primary osteoarthritis of right knee Surgical History (Updated 02/14/23 @ 15:01 by Brandie Miguel MD) H/O colonoscopy 09/11/19 H/O esophagogastroduodenoscopy 09/11/19; 02/05/2023 - no active bleeding History of appendectomy History of cardiac catheterization 08/2022 severe RCA stenosis s/p NIGEL. Angiogram was done through the right radial artery, but intervention was performed to the right groin because of the abnormal anatomy of the artery-the RCA ostium had a godinez hook takeoff. History of hernia surgery Family History Sister Cancer Brother Diabetes Denies family history of Anesthesia complication Bleeding disorder Social History (Updated 02/14/23 @ 15:03 by Brandie Miguel MD) Smoking and tobacco status: current every day smoker cigarettes [ Other cigarette details: smoked since age 14, cut back significantly] Alcohol intake: never Substance/Drug Use: never Lives independently: Yes Current occupational status: retired Vitals/I&O/Wt Last Vital Signs Temp 96.7 F L 02/14/23 09:23 Pulse 89 02/14/23 14:16 Resp 24 H 02/14/23 14:16 BP 144/65 02/14/23 14:16 Pulse Ox 93 02/14/23 14:16 O2 Del Method 02/14/23 09:55 O2 Flow Rate 4 02/14/23 09:55 Weight last 48 hrs Weight 70.307 kg Physical Exam Narrative: Patient is awake and alert. Oriented to person place and situation and able to provide history. Thin build with some mild bitemporal wasting noted. Arcus senilis noted bilaterally. Pupils are reactive bilaterally. Nasopharynx is clear. Oropharynx with moist mucous membranes. Neck is supple. JVD to the earlobe. Cardiovascular exam reveals a regular rate and rhythm. Apical impulse just to the left of the midclavicular line. Pulses are equal x4. Lungs are remarkable for decreased breath sounds at the bases. No rales wheezes or rhonchi noted. Pauses every now and then when speaking but no current accessory muscle use while at rest. Gets more short of breath with movement. Abdomen is soft with full bladder but otherwise nontender. Positive bowel sounds. Penis remarkable for swelling distal to the glans as shown in images below. There are some scabbed areas with no drainage at the tip of the penis as shown. Meatal opening is patent. No similarly notable scrotal edema. 3+ pitting edema bilaterally. No calf tenderness. Patient has bruising to the left great toe medially extending to the bottom of the toe but no tenderness with movement of the digit or palpation. Speech is clear. Moves all extremities. Face is symmetric. : OTHER: Data 02/14/23 09:36 02/14/23 09:36 Other Labs: Radiology Impressions Chest X-Ray 02/14/23 09:25 IMPRESSION: 1. Diffuse interstitial infiltrates greatest in the lung bases are again noted. These changes do not include a component of chronic interstitial disease since they were not present on previous study in 2021. This may be a combination of early interstitial edema with or without bilateral basal pneumonia - correlate with clinical findings. 2. Small bilateral pleural effusions. Laboratory Results WBC 6.1 10^3/uL (4.0-10.0) 02/14/23 09:36 RBC 2.81 10^6/uL (4.1-5.3) L 02/14/23 09:36 Hgb 8.5 g/dL (11.7-16.6) L 02/14/23 09:36 Hct 28.4 % (42.0-52.0) L 02/14/23 09:36 MCV 101.1 fl (80-94) H 02/14/23 09:36 MCH 30.2 pg (28.0-34.0) 02/14/23 09:36 MCHC 29.9 g/dL (30.0-36.0) L 02/14/23 09:36 RDW 15.3 % (12.1-15.1) H 02/14/23 09:36 Plt Count 233 10^3/cmm (130-400) 02/14/23 09:36 MPV 11.1 fL (7.4-10.4) H 02/14/23 09:36 Neut % (Auto) 68.8 % 02/14/23 09:36 Lymph % (Auto) 21.8 % 02/14/23 09:36 [place] % (Auto) 5.7 % 02/14/23 09:36 Eos % (Auto) 2.5 % 02/14/23 09:36 Baso % (Auto) 0.7 % 02/14/23 09:36 Neut # (Auto) 4.21 10^3/uL (1.8-7.7) 02/14/23 09:36 Lymph # (Auto) 1.3 10^3/uL (0.8-4.8) 02/14/23 09:36 [place] # (Auto) 0.4 10^3/uL (0.2-0.9) 02/14/23 09:36 Eos # (Auto) 0.2 10^3/uL (0.0-0.8) 02/14/23 09:36 Baso # (Auto) 0.0 10^3/uL (0.0-0.1) 02/14/23 09:36 Nucleated RBC % (auto) 0 % 02/14/23 09:36 Nucleated RBCs # 0.0 /100WBC 02/14/23 09:36 Specimen Type Arterial 02/14/23 10:09 Sample Site Radial, left 02/14/23 10:09 ABG pH 7.41 (7.35-7.45) 02/14/23 10:09 ABG pCO2 28.5 mmHg (35-45) L 02/14/23 10:09 ABG pO2 55.1 mmHg (80.0-100.0) L 02/14/23 10:09 ABG HCO3 18.1 mmol/L (22-26) L 02/14/23 10:09 ABG O2 Saturation 89.3 02/14/23 10:09 ABG Base Excess -5.4 mmol/L (-2.0-2.0) L 02/14/23 10:09 Narinder Test Pos 02/14/23 10:09 A-a O2 Gradient 21.7 mmHg (5-10) H 02/14/23 10:09 Hematocrit 36.3 % (42-52) L 02/14/23 10:09 Hgb O2 Saturation 88.1 % (95-100) L 02/14/23 10:09 Carboxyhemoglobin 1.0 %THgb (0.4-20.1) 02/14/23 10:09 Methemoglobin 0.4 % (0.4-1.5) 02/14/23 10:09 Total Hemoglobin 11.8 g/dL (14-18) L 02/14/23 10:09 Sodium 142.0 mmol/L (131-143) 02/14/23 10:09 Potassium 4.1 mmol/L (3.5-5.0) 02/14/23 10:09 Glucose 100.0 mg/dL (70-115) 02/14/23 10:09 Ionized Calcium 1.2 mmol/L (1.1-1.4) 02/14/23 10:09 O2 Delivery Device Nc 02/14/23 10:09 O2 Liters/Min 4.0 % 02/14/23 10:09 FiO2 36.0 % 02/14/23 10:09 Operations Inspector ID [id number] 02/14/23 10:09 Sodium 140 mmol/L (136-145) 02/14/23 09:36 Potassium 4.1 mmol/L (3.5-5.1) 02/14/23 09:36 Chloride 111 mmol/L (98-107) H 02/14/23 09:36 Carbon Dioxide 19 mmol/L (22-29) L 02/14/23 09:36 Anion Gap 14.1 (5-19) 02/14/23 09:36 BUN 43 mg/dL (8-23) H 02/14/23 09:36 Creatinine 2.6 mg/dL (0.7-1.2) H 02/14/23 09:36 GFR Calculation Not Reportable 02/14/23 09:36 Glucose 99 mg/dL (65-115) 02/14/23 09:36 Calculated Osmolality 301 mOsm/kg (285-295) H 02/14/23 09:36 Calcium 8.9 mg/dL (8.5-10.5) 02/14/23 09:36 Total Bilirubin 0.2 mg/dL (0.15-1.2) 02/14/23 09:36 AST 18 U/L (0-40) 02/14/23 09:36 ALT 12 U/L (0-41) 02/14/23 09:36 Alkaline Phosphatase 60 U/L (40-130) 02/14/23 09:36 NT-Pro-B Natriuret Pep 29992 pg/mL (0-450) H 02/14/23 09:36 Total Protein 7.1 g/dL (6.6-8.7) 02/14/23 09:36 Albumin 3.4 g/dL (3.5-5.2) L 02/14/23 09:36 Globulin 3.7 g/dL (1.3-4.6) 02/14/23 09:36 A&P Assessment and plan (1) CHF (congestive heart failure): Acute on chronic diastolic CHF. Reviewing records it does not appear he carries a chronic diagnosis of CHF. He was first identified as having coronary artery disease in August [address] an [address] elevation UT. RCA was stented at that time. He has followed with Dr. Arroyo since then. Prior to that hospital stay his blood pressure had been managed with amlodipine and lisinopril prescribed by primary care provider. After stent placement metoprolol was added as well as aspirin and Plavix. Amlodipine was recommended to be stopped but at some point in time either through primary care or through hospital stays amlodipine was resumed, lisin opril was stopped, I believe because of worsening chronic kidney disease, metoprolol dosing was adjusted. Primary care provider appears to have added hydrochlorothiazide in November of this year. I do not believe that cardiology was aware of this addition. Mr. Sebastian has been hospitalized in December and again in January already this year. At his most recent hospital stay hydrochlorothiazide was stopped as well as amlodipine. Metoprolol dosing was decreased and lisinopril was discontinued. In the interim since discharge on February 05, he has had isosorbide initiated and amlodipine resumed. He has had variability in blood pressures as low as 90s over 40s to as high as 150s over 70s which I believe has contributed to some of the adjustments to medications, along with bradycardia with heart rate into the 50s at one point leading to decrease and beta-blockade. Variability in his renal function has also contributed in terms of CAROL inhibitor and diuresis. During his last hospital stay it looks like he only received 1 dose of IV Lasix in the emergency room. He was diagnosed with pneumonia as primary source of his respiratory symptoms and was treated with antibiotics and pulmonary toilet. Again instructions were given to discontinue or alter multiple medications though several have been resumed or change since then. Echocardiogram this month showed ejection fraction of 61% with grade 1 diastolic dysfunction, no wall motion abnormalities, mild to moderate AR and MR and pulmon gene artery peak pressures of 35 mmHg. At this point in time I think frequent changes to medications by several different providers at different points in times has contributed to current presentation in the setting of chronic kidney disease, known coronary artery disease, chronic lung disease, variable blood pressures and heart rates and clinical findings. He did have stress testing this month that suggested possibility of a small area of rama-infarct ischemia in the left circumflex distribution with plan for medical management given the small size and comorbidities. He has had heme positive stools with unremarkable EGD, complaints of hemoptysis with no obvious source noted on contrasted CT of the chest imaging beyond possibility of pneumonia, significant iron deficiency anemia that has necessitated transfusion with 1 unit of packed red blood cells this month, hypothyroidism recently with significant increase in TSH for which levothyroxine dosing was adjusted and unclear baseline creatinine. He also has COPD for which he is on oxygen and is 82 years old. He has been able to main tain independent living but clinically appears to have had decline in the last 6 months. (2) CAD (coronary artery disease): ST elevation UT in August 2022 with an RCA stent, followed by Dr. Arroyo outpatient. Has right sided chest pain at times, not left sided. Describes dyspnea on exertion. Twelve-lead EKG done in the emergency room has poor baseline tracing and some unusual markings such that I am not certain how to interpret it but no gross ST segment changes compared to prior by my interpretation. (3) CKD (chronic kidney disease): Stage IIIb at baseline most likely versus stage IV, baseline creatinine unclear at this point in time (4) Penile edema: Occurring since Lizarraga catheter was placed last hospital stay. Reviewed the situation with urology. Patient is circumcised and not having any pain or di fficulty urinating. Likely secondary to volume status. Superficial sores from Lizarraga catheter are improving. (5) Iron deficiency anemia: Longstanding duration. By history appears to be secondary to chronic kidney disease as well as probability of chronic blood loss. Remotely in 2019 he had gastric ulcer, gastritis and duodenitis and has been managed with PPI and Caraf ate ever since. EGD earlier this month, after stool was again noted to be Hemoccult positive, did not show any active bleeding or findings of gastritis. Last colonoscopy in 2019 was notated as showing a normal colon in available viewable records. Renal function has progressively worsened over time. Laboratory studies within the last month have shown iron level of 32 with percent saturation of 11.8%. He reports hemoptysis occasionally with clots in addition to intermittent black stools. He is not currently on iron replacement. (6) Hemoptysis: Some bright red blood and other times clots. Not constant. CT of the chest without contrast was unrevealing. Longstanding tobacco use. (7) Hypothyroidism: Chronically on levothyroxine. TSH was 58 in December of this year and levothyroxine dosing was decreased at that time. (8) Hypertension: Essential hypertension. At the time of this admission appears to be on amlodipine, isosorbide and metoprolol though has been on multiple different combinations of medications as described above over the last few months. Current blood pressures are acceptable, though probably above what would be ideal for him given comorbidities as long as he was not having other symptoms. (9) COPD (chronic obstructive pulmonary disease): Treated initially in the ER for possibility of acute COPD exacerbation with steroids and breathing treatments. At the time of my examination does not appear to be acutely exacerbated. He is completing treatment for pneumonia diagnosed earlier this month currently. He is down to having only had a couple of cigarettes since his discharge. He is on 4 L of oxygen at home. (10) Hyperlipidemia: Chronically on statin therapy (11) Neuropathy: Chronically on gabapentin, specific type of neuropathy unknown (12) BMI 22.0-22.9, adult: Plan Inpatient admission Telemetry monitoring Check repeat EKG and cardiac enzymes Monitor output from initial dose of Lasix Strict I's and O's and daily weights Currently anticipate continuation of diuresis with potassium replacement Continue isosorbide for now Continue aspirin and Plavix Continue metoprolol at presently prescribed dose that may need to adjust I have held amlodipine presently Continuing statin therapy I have asked Dr. Arroyo to see to assist with overall management Check urinalysis and urine electrolytes Avoid Lizarraga catheter absolutely indicated Triple antibiotic ointment to meatus Keep penis elevated and monitor for worsening penile edema Clinical situation was discussed with urology on-call for recommendations Monitor hemoglobin Add iron replacement Monitor for described hemoptysis; discussed with on-call pulmonology and at this point in time can monitor while managing other issues. If starts having more consistent bright red hemoptysis or hemoptysis in quantities of 100 mL or more would consider bronchoscopy/intervention options not available at our facility. We will continue to completion course of Levaquin that was initiated from last hospital stay Breathing treatments as needed We will hold on further steroid treatment at this time though monitor for signs of acute COPD exacerbation that might merit resumption Continue usual home oxygen of 4 L by nasal cannula titrating if needed Repeat TSH and free T4 For now we will continue current levothyroxine dosing Continue home gabapentin Continue home PPI though with recent EGD findings I have discontinued Carafate If patient will allow, will attempt to initiate DVT prophylaxis with subcutaneous heparin; in anticipation of possible decline of also ordered SCDs. Supportive care otherwise Anticipate discharge home. Findings, concerns and plans were discussed with patient and his daughter and both were given an opportunity to ask questions. Daughter states that he can stay with her if needed after discharge and she does participate in his care. One thing that will need to be clearly addressed prior to discharge is very clear instructions on which medications to take or not to take and the reasons why. Patient follows with cardiology, nephrology and primary care on an outpatient basis, in addition to seeing several providers in the inpatient setting lately. I suspect different findings and different goals of care are contributing to a degree to recent increase in hospitalization. I do have some concerns about possibility of an as of yet not identified guy lynne contributing to overall current clinical condition apart from known cardiopulmonary and renal/hematologic issues. Clear delineation of goals of care should he not start to show signs of improvement with management will need to be had. At this point in time patient does wish to be FULL CODE but would only want temporary intubation and mechanical ventilation, absolutely would not want tracheostomy and would be okay with CPR and defibrillation for short period of time with chance of recovery. Attestations Medical Necessity Statement*: Anticipated stay greater than 2 midnights in this gentleman presenting with acute shortness of breath clinically felt to have acute on chronic CHF in the setting of known coronary artery disease, COPD on oxygen therapy, iron deficiency anemia, chronic kidney disease and hypothyroidism among other chronic and acute issues noted above. Despite previous hospital stays and adjustments in care in the outpatient setting he has had worsening renal function and respiratory status. Currently requiring IV diuresis, monitoring of response to diuresis, monitoring of renal function and other care as outlined above. Without such care in the inpatient setting with opportunity to monitor responses to treatment changes appropriately, I suspect he will continue to have repeat acute events and hospitalizations. and High Time for a total of 80 minutes, includes reviewing past or interval history, examining/interviewing patient, placing orders, communicating with other healthcare providers and documenting encounter Diagnoses CHF (congestive heart failure) I50.9 CAD (coronary artery disease) I25.10 CKD (chronic kidney disease) N18.9 Penile edema N48.89 Iron deficiency anemia D50.9 Hemoptysis R04.2 Hypothyroidism E03.9 Hypertension I10 COPD (chronic obstructive pulmonary disease) J44.9 Hyperlipidemia E78.5 Neuropathy G62.9 BMI 22.0-22.9, adult Z68.22
--- NOTE | 2023-02-14 15:44 | ECG_ITS ---
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 Measurements Intervals [place] Rate: 92 P: 64 WA: 174 QRS: 50 QRSD: 106 T: -46 QT: 386 QTc: 478 Interpretive Statements Possible SINUS RHYTHM ST DEVIATION AND MODERATE T-WAVE ABNORMALITY, CONSIDER INFERIOR ISCHEMIA [-0.1+ mV T-WAVE IN II/aVF] Compared to ECG 02/14/2023 09:32:21 Atrial fibrillation no longer present T-wave abnormality still present Possible ischemia still present Electronically Signed On 02-14-2023 23:12:25 CDT by Patricia Alvarado M.D. [id number]
[2023-02-14 16:56] LABS: Troponin(5th) Baseline 472 ng/L (0-15)
--- NOTE | 2023-02-14 17:00 | P.CONIM_ITS ---
Providers/Reason For Consult Consulting Physician/Specialty*: Jensen Arroyo MD/ Cardiology Reason for Consult*: NSTEMI Requesting Physician: Dr Miguel Attending Physician: Brandie Miguel MD Primary Care Provider: Tyrese Rodriguez NP History of Present Illness History of Present Illness Marco Antonio Sebastian is a 82 year old male with past medical history of CAD s/p PCI of RCA in about 6 months ago for STEMI, CKD, COPD on 4 L oxygen, anemia is here for shortness of breath. Was found to have pulmonary edema. NT proBNP was elevated. Initial troponin is elevated at 472 and trended down to 448 at 2 hours. Complains of chest pain on the right side of chest that gets worse with breathing. He has NIGHAT on CKD. Also has anemia and recently required blood transfusion. Complains of dark stools. EKG shows T wave inversions in the infe rior leads. No ST elevation. Recent echo showed normal LV systolic function with grade 1 diastolic dysfunction. Review of Systems Const: Denies: fatigue Card: Reports: lightheadedness and dyspnea on exertion; Denies: chest pain, palpitations, irregular heart rhythm, swelling of feet/ank les, pre-syncope, orthopnea or leg pain with exertion Resp: Reports: dyspnea; Denies: productive cough or non-productive cough Musc: Denies: neck pain or back pain Neuro: Denies: headache(s) or dizziness Psych: Denies: anxiety, depression, suicidal ideation or homicidal ideation Bossman/Lymph: Reports: easy bruising and easy bleeding Medications/Allergies Home Medications Medication Instructions Recorded Confirmed Last Taken Type gabapentin 400 mg capsule 400 mg PO TID 12/27/19 02/14/23 02/13/23 History sucralfate 1 gram tablet 1 g PO BID 09/14/22 02/14/23 09/13/22 18:00 History clopidogrel 75 mg tablet 75 mg PO DAILY #90 tabs 12/23/22 02/14/23 02/13/23 Rx pravastatin 40 mg tablet 80 mg PO BEDTIME #90 tabs 12/23/22 02/14/23 02/13/23 Rx levothyroxine 100 mcg tablet 100 mcg PO QAM 02/01/23 02/14/23 02/13/23 History pantoprazole 40 mg tablet,delayed 40 mg PO DAILY 02/01/23 02/14/23 02/13/23 History release aspirin 81 mg tablet,delayed 81 mg PO QAM #30 tabs 02/03/23 02/14/23 02/13/23 Rx release metoprolol tartrate 25 mg tablet 12.5 mg PO BID #60 tabs 02/03/23 02/14/23 02/13/23 Rx amlodipine 10 mg tablet 10 mg PO QAM 02/14/23 02/14/23 02/14/23 History isosorbide mononitrate 30 mg 30 mg PO QAM 02/14/23 02/14/23 02/13/23 History tablet,extended release 24 hr levofloxacin 750 mg tablet 750 mg PO Q48H 02/14/23 02/14/23 02/11/23 History has 1 tab per daught Allergies Allergy/AdvReac Type Severity Reaction Status Date / Time No Known Allergies Allergy Verified 02/14/23 10:00 PFSH Acute PFSH: Medical History Atherosclerosis of coronary artery CAD (coronary artery disease) STEMI 08/2022 with NIGEL to mid RCA CHF (congestive heart failure) CKD (chronic kidney disease) COPD (chronic obstructive pulmonary disease) Gastric ulcer by EGD in 2019 Hemoptysis History of cardiovascular stress test 02/06/2023 nonspecific EKG changes with lexiscan infusion. Myocardial imaging suggestive of scarring in distribution of all 3 coronary arteries with a small area of possible rama-infarction ischemia in left circumflex distribution History of Doppler ultrasound carotids 01/30/2023 Right ICA 50-60% stenosis, Left ICA <50% stenosis, normal antegrade flow in right and left vertebral arteries History of echocardiogram 02/02/2023 EF 61%, mild LVH, no wall motion abnormalities, Grade I/IV diastolic dysfunction, estimated PAP 35 mmHg, mild to moderate AR and MR Hyperlipidemia Hypertension Hypothyroidism Iron deficiency anemia Neuropathy Occult blood in stools PAD (peripheral artery disease) YEIMY 02/02/2023 Abnormal resting ABIs bilaterally(0.78 on the right and 0.73 on the left) suggesting moderate peripheral arterial disease. Primary osteoarthritis of left knee Primary osteoarthritis of right knee Surgical History H/O colonoscopy 09/11/19 H/O esophagogastroduodenoscopy 09/11/19; 02/05/2023 - no active bleeding History of appendectomy History of cardiac catheterization 08/2022 severe RCA stenosis s/p NIGEL. Angiogram was done through the right radial artery, but intervention was performed to the right groin because of the abnormal anatomy of the artery-the RCA ostium had a godinez hook takeoff. History of hernia surgery Family History Sister Cancer Brother Diabetes Denies family history of Anesthesia complication Bleeding disorder Social History Smoking and tobacco status: current every day smoker cigarettes [ Other c igarette details: smoked since age 14, cut back significantly] Alcohol intake: never Substance/Drug Use: never Lives independently: Yes Current occupational status: retired Vitals/I&O/Wt Last Vital Signs Temp 98.0 F 02/14/23 16:00 Pulse 95 02/14/23 16:00 Resp 21 H 02/14/23 16:00 BP 150/58 02/14/23 16:00 Pulse Ox 97 02/14/23 16:00 O2 Del Method 02/14/23 16:00 O2 Flow Rate 4 02/14/23 09:55 Weight last 48 hrs Weight 155 lb Physical Exam Narrative: GENERAL: Patient is alert, awake and oriented x3. [] NECK: No jugular vein distension. [] HEENT: No cyanosis. No icterus. No pallor. [] HEART: Regular S1 and S2. No murmur, rub or gallop. [] LUNGS: Clear to auscultate bilaterally. [] ABDOMEN: Soft CENTRAL NERVOUS SYSTEM: Grossly nonfocal. [] EXTREMITIES: Lower extremities with 1+ edema Data 02/14/23 09:36 02/14/23 09:36 A&P Assessment and plan (1) CAD (coronary artery disease): (2) Occult blood in stools: (3) Hemoptysis: (4) COPD (chronic obstructive pulmonary disease): (5) CHF (congestive heart failure): (6) Hyperlipidemia: (7) Hypertension: (8) CKD (chronic kidney disease): Plan Patient has presented with worsening shortness of breath is likely multifactorial. NT proBNP is elevated and has pulmonary edema. Agree with IV Lasix for now. Monitor renal function closely. Troponin elevation can be likely secondary to demand ischemia in the setting of CHF, NIGHAT on CKD and anemia. Can treat with 48 hours of anticoagulation if no bleeding. Continue dual antiplatelet therapy. We will hold off on any invasive procedures given his anemia and significant CKD. Also has hemoptysis. Can repeat limited echocardiogram to reassess LV systolic function Thank you for involving us with care of this patient. We will continue to follow. Please call with questions. Consult Attestations Medical Necessity Statement: Care expected to cross 2 midnights. Coding Level of Care Code Acute Code for Chg Fwd Diagnoses CAD (coronary artery disease) I25.10 Occult blood in stools R19.5 Hemoptysis R04.2 COPD (chronic obstructive pulmonary disease) J44.9 CHF (congestive heart failure) I50.9 Hyperlipidemia E78.5 Hypertension I10 CKD (chronic kidney disease) N18.9
[2023-02-14 17:39] LABS: Partial Thromboplastin Time 27.8 SECONDS (23.9-36.7)
[2023-02-14] MEDS: docusate sodium 100 mg Capsule PO (18:00)
[2023-02-14] MEDS: ferrous sulfate EC 325 mg Tablet PO (18:00)
[2023-02-14] MEDS: metoprolol tartrate 25 mg Tablet 12.5 MG PO (18:00)
[2023-02-14] MEDS: heparin drip 25,000 UNIT/500 ML PREMIX 20 UNIT IV (18:09)
[2023-02-14] MEDS: heparin 5,000 unit/mL INJ 1 mL IV (18:36)
[2023-02-14 19:01] LABS: Add Urine Microscopic? YES; Bilirubin Urine Neg (Negative); Blood Urine Neg (Negative); Glucose Urine UA Norm (Normal); Ketones Urine Negative (Negative); Leukocyte Esterase Urine Negative (Negative); Nitrate Urine Negative (Negative); Protein Urine 1+ (Negative); Urine Appearance Clear (CLEAR); Urine Color Straw (Yellow); Urobilinogen Urine Neg (Negative); pH Urine 5 (5-7)
[2023-02-14 19:02] LABS: Add Urine Culture? No
[2023-02-14 20:29] LABS: Urine Creatinine 24 mg/dL (39-259); Urine Random Sodium 122 mmol/L
[2023-02-14 21:01] LABS: Troponin 5 2HR Delta -23.3 ABS# (0-10)
--- NOTE | 2023-02-14 21:01 | ECG_ITS ---
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 Measurements Intervals [place] Rate: 93 P: 57 SC: 136 QRS: 40 QRSD: 99 T: -11 QT: 393 QTc: 490 Interpretive Statements SINUS RHYTHM WITH FREQUENT VENTRICULAR PREMATURE COMPLEXES NONSPECIFIC ST & T-WAVE ABNORMALITY ABNORMAL RHYTHM ECG Compared to ECG 02/14/2023 16:36:16 Ventricular premature complex(es) now present Possible ischemia no longer present T-wave abnormality still present Electronically Signed On 02-14-2023 23:17:19 CDT by Patricia Alvarado M.D. [id number]
[2023-02-14 21:03] LABS: Troponin 5 2HR 448.7 ng/L (0-15)
[2023-02-14] MEDS: atorvastatin 40 mg Tablet PO (22:15)
[2023-02-14] MEDS: gabapentin 400 mg Capsule PO (22:16)
[2023-02-14 23:43] LABS: Troponin 5 6HR 485.5 ng/L (0-15); Troponin 5 6HR Delta 13.5 ng/L (0-12)
[2023-02-15] VITALS (13 sets, daily range): BP systolic 93–123; BP diastolic 37–85; PULSE 64–81; RESP 12–18; TEMP 36.5–36.7; O2SAT 93–99
[2023-02-15 00:05] LABS: Partial Thromboplastin Time 125.4 SECONDS (23.9-36.7)
[2023-02-15] MEDS: levoFLOXacin 750 mg Tablet PO (05:34)
[2023-02-15] MEDS: isosorbide mononitrate ER 30 mg Tablet PO (05:34)
[2023-02-15] MEDS: FUROsemide 10 mg/mL SDV 4mL 40 MG IVP ×2 (05:34→17:16)
[2023-02-15] MEDS: aspirin 81 mg EC Tablet PO (05:34)
[2023-02-15] MEDS: levothyroxine 100 mcg Tablet PO (05:34)
[2023-02-15 06:34] LABS: Basophils % 0.1 %; Hematocrit 21.3 % (42.0-52.0); Hemoglobin 6.6 g/dL (11.7-16.6); Lymphocytes % 11.9 %; Mean Corpuscular Hemoglobin 30.7 pg (28.0-34.0); Mean Corpuscular Volume 99.1 fl (80-94); Monocytes # 0.1 10^3/uL (0.2-0.9); Monocytes % 1.6 %; Neutrophils # 7.29 10^3/uL (1.8-7.7); Neutrophils % 85.8 %; Nucleated Red Blood Cells % 0 %; Platelet Count 197 10^3/cmm (130-400); Red Blood Count 2.15 10^6/uL (4.1-5.3); Red Cell Distribution Width 15.3 % (12.1-15.1); White Blood Count 8.5 10^3/uL (4.0-10.0)
[2023-02-15 07:09] LABS: Anion Gap 12.3 (5-19); Blood Urea Nitrogen 45 mg/dL (8-23); Calcium 8.1 mg/dL (8.5-10.5); Carbon Dioxide 20 mmol/L (22-29); Chloride 111 mmol/L (98-107); Free T4 Free Thyroxine 0.96 ng/dL (0.82-1.77); Glucose 126 mg/dL (65-115); Magnesium 2.1 mg/dL (1.7-2.3); Osmolality Calculated 301 mOsm/kg (285-295); Phosphorus 4.3 mg/dL (2.5-4.5); Potassium 4.3 mmol/L (3.5-5.1); Sodium 139 mmol/L (136-145); Thyroid Stimulating Hormone 10.18 uIU/mL (0.27-4.20); Uric Acid 9.1 mg/dL (3.4-7.0)
[2023-02-15 07:28] LABS: Partial Thromboplastin Time 96.2 SECONDS (23.9-36.7)
[2023-02-15] MEDS: gabapentin 400 mg Capsule PO (08:32)
[2023-02-15] MEDS: clopidogrel 75 mg Tablet PO (08:32)
[2023-02-15] MEDS: pantoprazole DR 40 mg Tablet PO (08:32)
[2023-02-15] MEDS: potassium chloride ER 20 mEq Tablet PO (08:33)
[2023-02-15] MEDS: docusate sodium 100 mg Capsule PO ×2 (08:33→17:16)
[2023-02-15] MEDS: ferrous sulfate EC 325 mg Tablet PO ×2 (08:34→17:16)
[2023-02-15] MEDS: metoprolol tartrate 25 mg Tablet 12.5 MG PO ×2 (08:35→17:16)
--- NOTE | 2023-02-15 08:44 | CTR_ITS ---
PROCEDURE INFORMATION: Exam: CT Chest Without Contrast; Diagnostic Exam date and time: 02/15/2023 9:38 AM Age: 82 years old Clinical indication: Shortness of breath; Prior surgery; Surgery type: Hernia, appy; Patient HX: SOB, matty, . HX of copd, ckd, chf TECHNIQUE: Imaging protocol: Diagnostic computed tomography of the chest without contrast. Radiation optimization: All CT scans at this facility use at least one of these dose optimization techniques: automated exposure control; mA and/or kV adjustment per patient size (includes targeted exams where dose is matched to clinical indication); or iterative reconstruction. REPORTING DATA: Count of CT and Cardiac NM exams in prior 12 months: This patient has received 2 known CTs and 0 known cardiac nuclear medicine studies in the 12 months prior to the current study. COMPARISON: CT chest con [id number] 02/03/2023 1:39 PM RADIATION DOSE METRICS: Total DLP (mGy-cm): 533 FINDINGS: Lungs: There is moderate upper lung predominant centrilobular emphysema. There is partial compressive atelectasis of both lower lobes. There is mild bilateral apical subpleural scarring. There are mildly prominent interlobular septa and fissures in the lower thorax bilaterally which could represent mild interstitial edema and is similar to 02/03/2023. Pleural spaces: Moderate simple dependent bilateral pleural effusions. Heart: Right ventricle is hypoplastic. There is no pericardial effusion. Coronary arteries: There is severe coronary artery calcification. Lymph nodes: There is no mediastinal or hilar lymphadenopathy. Vasculature: There is moderate aortic atherosclerotic disease. Bones/joints: Bones are unremarkable. Soft tissues: The extrathoracic soft tissues are unremarkable. PROCEDURE INFORMATION: Exam: CT Abdomen And Pelvis Without Contrast Exam date and time: 02/15/2023 9:38 AM Age: 82 years old Clinical indication: Shortness of breath; Prior surgery; Surgery type: Hernia, appy; Patient HX: SOB, matty, . HX of copd, ckd, chf TECHNIQUE: Imaging protocol: Computed tomography of the abdomen and pelvis without contrast. Radiation optimization: All CT scans at this facility use at least one of these dose optimization techniques: automated exposure control; mA and/or kV adjustment per patient size (includes targeted exams where dose is matched to clinical indication); or iterative reconstruction. REPORTING DATA: Count of CT and Cardiac NM exams in prior 12 months: This patient has received 2 known CTs and 0 known cardiac nuclear medicine studies in the 12 months prior to the current study. COMPARISON: CT chest wo con [id number] 02/03/2023 1:39 PM RADIATION DOSE METRICS: Total DLP (mGy-cm): 533 FINDINGS: Liver: There is high attenuation of the liver relative to the spleen. That there is a simple cyst in the right lobe of the liver. Gallbladder and bile ducts: The gallbladder is normal. There is no biliary dilation. Pancreas: The pancreas is unremarkable. Spleen: The spleen is unremarkable. Adrenal glands: The adrenal glands are unremarkable. Kidneys and ureters: There are simple and hemorrhagic cysts in the left kidney. There is no hydronephrosis or stones. Stomach and bowel: The stomach is unremarkable. The small bowel is nondilated. The cecum is mildly stool distended. There is no sign of colonic inflammation. The remainder of the colon is nondistended. There is mild sigmoid colonic diverticulosis without evidence of diverticulitis. Appendix: The appendix is not visible. Intraperitoneal space: There is no free air or significant intraperitoneal free fluid. Vasculature: There is severe aortic atherosclerotic disease. Lymph nodes: There is no lymphadenopathy in the retroperitoneum, mesentery, pelvis or inguinal regions. Urinary bladder: The urinary bladder is unremarkable. Reproductive: There is nonspecific mild enlargement of the prostate gland. Bones/joints: There is moderate degenerative disease in the lumbar spine. There is mild degenerative disease of both hips. Soft tissues: The abdominal wall is intact. CT/[place] [id number] IMPRESSION: 1. Moderate bilateral pleural effusions and compressive atelectasis in both lower lobes, similar to findings on 02/03/2023. 2. Mild interstitial edema, similar to 02/03/2023. 3. Moderate centrilobular emphysema. 4. Incidental findings above. IMPRESSION: 1. No acute findings. 2. Incidental findings above. COMMENTS: Consistent with the [place] [employer]'s Incidental Findings Committee white paper (J Am Radha Radiol 2018): Any incidental renal lesion less than 1 cm or classified as too small to characterize, or any incidental cystic renal lesion characterized as simple-appearing, is likely benign. No follow-up imaging is recommended for these lesions per consensus recommendations based on imaging criteria.
[2023-02-15 09:30] LABS: Iron 78 ug/dL (59-158); Percent Saturation 35.6 % (20-50); Total Iron Binding Capacity 219 mcg/dl; Unsaturated Iron Binding 141 ug/dL (112-347)
--- NOTE | 2023-02-15 09:36 | PC.CHAP ---
Pastoral Care Encounter/Spiritual Assessment Type of Contact [] Declined per diem physical therapist assistant visit [] Patient/Family/Request visit [] Outpatient visit [] Follow-up visit [] Physician referral [] Code/Alert [x] Routine visit [] Staff referral [] Actively dying [] Patient sleeping [] Family support [] [] Out of room [] Palliative care [] [] Receiving care in room [] Pre-surgical visit [] Trauma [] Long length of stay [] ICU visit [] Other: Relational/Emotional Strength [x] Patient feels connected with others/family/visitors/staff [] Distress [] Loneliness/isolation [] Abandonment Spirituality of Patient [] Person of Gayatri [] Attends Lutheran of their Gayatri [] Believes in Prayer [] Reads Bible or Pentecostalism materials [x] There are Spiritual issues to be addressed Real Estate Legal Assistant Interventions [] Prayer [x] Active listening [x] Non-anxious presence [x] Spiritual/emotional support [] Crisis/trauma care [] Spiritual counseling [] Bereavement support [] Provided bereavement packet [] Provided Bible/devotional materials [] Provided toy/stuffed animal, coloring book to patient or family member [] Provided Communion [] Anointing/[place] [] Salvation [] Completed spiritual assessment [] Other: Impact on Illness or Injury [] Angry [] Fearful [] Anxious [] Often cries [] Exhaustion [] Unable to work [] Unable to attend yazidi [] Unable to walk/stand [] Unable to read [] Unable to drive [] Unable to eat/drink [] Unable to sleep [] Unable to be with family [] Patient intubated [] Other: Summary Pt stated he did not want to talk about politics or voodoo. We did have a good visit regarding other issues. He seems to have an appropriate support system outside the hospital. Nurse came in so we cut visit short. Time spent with patient 5m
--- NOTE | 2023-02-15 09:40 | P.PN_ITS ---
Subjective Subjective: No active chest pain. Hemoglobin has dropped significantly. Vitals/I&O/Wt Last Vital Signs Temp 98.0 F 02/15/23 06:58 Pulse 81 02/15/23 08:00 Resp 18 02/15/23 06:58 BP 102/48 02/15/23 06:58 Pulse Ox 96 02/15/23 08:00 O2 Del Method 02/15/23 08:00 O2 Flow Rate 5 02/15/23 08:00 02/14/23 02/15/23 02/15/23 22:59 06:59 14:59 Intake Total 480 / 480 480.667 / 960.667 499.933 / 499.933 Output Total 200 / 200 325 / 525 680 / 680 Balance 280 / 280 155.667 / 435.667 -180.067 / -180.067 Weight last 48 hrs Weight 154 lb 4.8 oz Weight 155 lb Physical Exam Narrative: GENERAL: Patient is alert, awake and oriented x3. [] NECK: No jugular vein distension. [] HEENT: No cyanosis. No icterus. No pallor. [] HEART: Regular S1 and S2. No murmur, rub or gallop. [] LUNGS: Clear to auscultate bilaterally. [] ABDOMEN: Soft CENTRAL NERVOUS SYSTEM: Grossly nonfocal. [] EXTREMITIES: Lower extremities with 1+ edema Data 02/15/23 06:13 02/15/23 06:13 A&P Assessment and plan (1) CAD (coronary artery disease): (2) Occult blood in stools: (3) Hemoptysis: (4) COPD (chronic obstructive pulmonary disease): (5) CHF (congestive heart failure): (6) Hyperlipidemia: (7) Hypertension: (8) CKD (chronic kidney disease): Plan Stop heparin drip as there is a significant drop in hemoglobin. Continue aspirin and Plavix. Continue IV Lasix. Monitor renal function Repeat limited echocardiogram to assess LV systolic function. Thank you for involving us with care of this patient. We will continue to follow. Please call with questions. Attestations Medical Necessity Statement*: Care expected to cross 2 midnights. Coding Level of Care Code Acute Code for [facility] Fwd Diagnoses CAD (coronary artery disease) I25.10 Occult blood in stools R19.5 Hemoptysis R04.2 COPD (chronic obstructive pulmonary disease) J44.9 CHF (congestive heart failure) I50.9 Hyperlipidemia E78.5 Hypertension I10 CKD (chronic kidney disease) N18.9
[2023-02-15 09:47] LABS: Vitamin B12 336 pg/mL (232-1245)
[2023-02-15 09:55] LABS: Troponin T (5th) Once 493 ng/L (0-15)
[2023-02-15] MEDS: pantoprazole 40 mg SDV IVP ×2 (10:59→20:47)
[2023-02-15 11:05] LABS: Folate Level 5.5 ng/mL (4.5-32.2)
[2023-02-15] MEDS: neomycin-poly-bacitracin oint 28 gm 1 APPLIC TOPICAL ×2 (11:33→17:15)
[2023-02-15] MEDS: sucralfate 1 gm/10 mL Oral Liq UDC PO ×3 (11:33→20:47)
--- NOTE | 2023-02-15 14:30 | P.PN_ITS ---
Subjective Subjective: Hospital course, labs appreciated. On examination patient lying comfortably in bed on heparin drip. Denies any nausea, vomiting, headache. States he is not having any further chest pain. States he has been having black tarry bowel movements with most recently yesterday morning. Has not had a colonoscopy in over 3 years.Post patient most recent endoscopy in earlier this month showed no active signs of bleeding. Patient states he continues to have difficulty in breathing before coming to the hospital though has settled for now. Shortness of breath gets worse on lying down and on minimal exertion. Has remained hemodynamically stable and afebrile. Currently on 5 L of oxygen supplementation. Vitals/I&O/Wt Last Vital Signs Temp 97.7 F 02/15/23 12:46 Pulse 72 02/15/23 12:46 Resp 18 02/15/23 12:00 BP 115/45 02/15/23 12:46 Pulse Ox 99 02/15/23 12:46 O2 Del Method 02/15/23 12:00 O2 Flow Rate 5 02/15/23 08:00 02/14/23 02/15/23 02/15/23 22:59 06:59 14:59 Intake Total 480 / 480 480.667 / 960.667 859.933 / 859.933 Output Total 200 / 200 325 / 525 880 / 880 Balance 280 / 280 155.667 / 435.667 -20.067 / -20.067 Weight last 48 hrs Weight 69.989 kg Weight 70.307 kg Physical Exam Narrative: General: No acute distress, AO x3, nasal cannula oxygen supplementation HEENT: PERRLA, pupils bilaterally equal and reactive Chest: Bilateral bronchial breath sounds all over lung shi, occasional rhonchi present all lung shi with fine crackles present in base going up to mid lungs, decreased air entry bilaterally in lower zones CVS: S1-S2 regular, no murmurs, no tachycardia, no gallops, no rubs Abdomen: Soft, nontender, no organomegaly, bowel sounds present Neuro: No focal deficits, no facial deformity, AO x3, power 5/5 in all limbs Data 02/15/23 06:13 02/15/23 06:13 A&P Assessment and plan (1) Hypoxia: Chronically on 4 L. Hypoxia most likely in setting of exacerbation of CHF in setting of acute anemia along with COPD exacerbation. Pneumonia unlikely currently. Check respiratory viral panel, urine Legionella, bacterial antigen, sputum culture. Hold off on starting antibiotics for now. Start on DuoNebs every 6 hour, budesonide twice daily. Check CT chest without contrast. Patient is already on heparin drip which has been discontinued given worsening of anemia. Oxygen supplementation keeping saturation over 88%. (2) CHF (congestive heart failure): Acute on chronic diastolic CHF. proBNP grossly elevated of more than 23,000. Seems like patient was not discharged on any diuretic after recent hospitalization. Most recent echocardiogram from February 01 shows an EF of 61%, grade 1 diastolic dysfunction, mild to moderate MR and aortic regurgitation with PASP of 35 mmHg and trace TR. getting exacerbated right now from ongoing anemia. Attempt Lizarraga catheterization. Strict input output charting. Increase Lasix to 40 mg twice daily. Fluid restriction up to 1500 cc. (3) COPD (chronic obstructive pulmonary disease): Hold off on starting steroids for now given ongoing congestive heart failure, anemia is possibly secondary to GI bleed. Treatment as above. (4) CAD (coronary artery disease): No active chest pain. Post ST elevation and PCI to RCA and August 2022. Angiogram that time showed LAD with 40% mid stenosis, no disease in circumflex or left main. With 70% stenosis in PDA. Troponin cycle elevated. Cannot rule out type II [place] in setting of congestive heart failure. Cardiology on board. Continue with DAPT, statin. Stop heparin drip given worsening of anemia and no active chest pain. Recheck troponin level to morning blood work. (5) CKD (chronic kidney disease): Baseline creatinine seems to be running from 1.6-2. Currently mildly elevated at 2.4. Cannot rule out mild CRS. Appreciate urinalysis. CT abdomen pelvis without contrast to rule out obstructive nephropathy. Lizarraga catheterization. Monitor BMP daily. No electrolyte abnormality. (6) Iron deficiency anemia: Recent stool for occult blood positive. Recent EGD earlier this month no active bleeding. Last colonoscopy in 2019 reported normal. Check iron panel, vitamin B12, folate level. Patient gives history of black tarry bowel movements. Most likely will should repeat colonoscopy if hemoglobin continues to trend down. Target hemoglobin over 8. Transfuse 1 unit PRBC. Start on IV Protonix twice daily and Carafate before meals and at bedtime. Switch to full liquid diet for now. Given worsening of anemia we will hold off on heparin drip for now. (7) Penile edema: Occurring since Lizarraga catheter was placed last hospital stay. Reviewed the situation with urology. Patient is circumcised and not having any pain or difficulty urinating. Likely secondary to volume status. Superficial sores from Lizarraga catheter are improving. (8) Hemoptysis: Some bright red blood and other times clots. Not constant. CT of the chest without contrast was unrevealing. Longstanding tobacco use. (9) Hypothyroidism: Chronically on levothyroxine. Repeat TSH and free T4. (10) Hypertension: Essential hypertension. Goal blood pressure less than 140/90 mmHg. It seems patient takes amlodipine 10 mg, Imdur 30 mg and metoprolol 12.5 mg twice daily. Blood pressures at goal for now. Continue with home dose of Imdur and metoprolol for now. Holding off on amlodipine for now. Will uptitrate as per goal blood pressures. Patient not on CAROL/ARB given fluctuant renal functions for now. (11) Hyperlipidemia: Chronically on statin therapy (12) Neuropathy: Chronically on gabapentin, specific type of neuropathy unknown (13) BMI 22.0-22.9, adult: (14) On home oxygen therapy: Plan Analgesia: Tylenol as needed Glycemic control: Not needed. Nutrition: Full liquid diet. CODE STATUS: Discussed in detail with the patient. Full code. PUD prophylaxis: Protonix 40 mg twice daily DVT prophylaxis: SCDs for DVT prophylaxis given worsening anemia. Discharge planning: Patient has had recurrent admissions recently. Most likely plan for discharge once hemodynamically stable to home with home health. Continue with care at [facility] This documentation was created by [email or web address] senior consulting manager software. Every effort was made to ensure accuracy of senior consulting manager. Any obvious errors or omissions should be clarified with the author of the document. Attestations Medical Necessity Statement*: Patient requested hospitalization for management of hypoxia in setting of congestive heart failure exacerbation, COPD, worsening anemia and possibility of a GI bleed in a patient with type III CKD with mild NIGHAT Diagnoses Hypoxia R09.02 CHF (congestive heart failure) I50.9 COPD (chronic obstructive pulmonary disease) J44.9 CAD (coronary artery disease) I25.10 CKD (chronic kidney disease) N18.9 Iron deficiency anemia D50.9 Penile edema N48.89 Hemoptysis R04.2 Hypothyroidism E03.9 Hypertension I10 Hyperlipidemia E78.5 Neuropathy G62.9 BMI 22.0-22.9, adult Z68.22 On home oxygen therapy Z99.81
[2023-02-15] MEDS: gabapentin 100 mg Capsule 200 MG PO ×2 (16:36→20:47)
[2023-02-15 19:08] LABS: Adenovirus Not Detected (NOT DETECT); Chlamydia Pneumoniae Not Detected (NOT DETECT); Coronavirus 229E,HKU1,NL63,OC4 Not Detected (NOT DETECT); Human Metapneumovirus Not Detected (NOT DETECT); Human Rhinovirus/Enterovirus Not Detected (NOT DETECT); Influenza A Not Detected (NOT DETECT); Influenza A H1 Not Detected (NOT DETECT); Influenza A H1-2009 Not Detected (NOT DETECT); Influenza A H3 Not Detected (NOT DETECT); Influenza B Not Detected (NOT DETECT); Mycoplasma Pneumoniae Not Detected (NOT DETECT); Parainfluenza Virus Type 1 Not Detected (NOT DETECT); Parainfluenza Virus Type 2 Not Detected (NOT DETECT); Parainfluenza Virus Type 3 Not Detected (NOT DETECT); Parainfluenza Virus Type 4 Not Detected (NOT DETECT); Respiratory Syncytial Virus A Not Detected (NOT DETECT); Respiratory Syncytial Virus B Not Detected (NOT DETECT); SARS-COV-2 Not Detected (NOT DETECT)
[2023-02-15] MEDS: atorvastatin 40 mg Tablet PO (20:47)
[2023-02-16] VITALS (12 sets, daily range): BP systolic 88–120; BP diastolic 37–62; PULSE 54–72; RESP 12–20; TEMP 36.6–36.9; O2SAT 96–99
[2023-02-16 03:54] LABS: Basophils % 0.2 %; Eosinophils % 0.4 %; Hematocrit 23.2 % (42.0-52.0); Hemoglobin 7.4 g/dL (11.7-16.6); Lymphocytes # 1.8 10^3/uL (0.8-4.8); Lymphocytes % 17.2 %; Mean Corpuscular HGB Conc 31.9 g/dL (30.0-36.0); Mean Corpuscular Hemoglobin 30.5 pg (28.0-34.0); Mean Corpuscular Volume 95.5 fl (80-94); Mean Platelet Volume 11.3 fL (7.4-10.4); Monocytes # 0.7 10^3/uL (0.2-0.9); Monocytes % 6.3 %; Neutrophils # 7.85 10^3/uL (1.8-7.7); Neutrophils % 75.3 %; Nucleated Red Blood Cells % 0 %; Platelet Count 188 10^3/cmm (130-400); Red Blood Count 2.43 10^6/uL (4.1-5.3); Red Cell Distribution Width 16.2 % (12.1-15.1); White Blood Count 10.4 10^3/uL (4.0-10.0)
[2023-02-16 04:25] LABS: Alanine Aminotransferase 8 U/L (0-41); Albumin Level 2.7 g/dL (3.5-5.2); Alkaline Phosphatase 47 U/L (40-130); Aspartate Amino Transferase 12 U/L (0-40); Blood Urea Nitrogen 51 mg/dL (8-23); Calcium 8.3 mg/dL (8.5-10.5); Carbon Dioxide 22 mmol/L (22-29); Chloride 108 mmol/L (98-107); Globulin 2.6 g/dL (1.3-4.6); Glucose 89 mg/dL (65-115); Osmolality Calculated 301 mOsm/kg (285-295); Sodium 139 mmol/L (136-145); Total Bilirubin 0.6 mg/dL (0.15-1.2); Total Protein 5.3 g/dL (6.6-8.7)
[2023-02-16] MEDS: levothyroxine 100 mcg Tablet PO (05:31)
[2023-02-16] MEDS: aspirin 81 mg EC Tablet PO (05:31)
[2023-02-16] MEDS: isosorbide mononitrate ER 30 mg Tablet PO (05:31)
[2023-02-16] MEDS: FUROsemide 10 mg/mL SDV 4mL 40 MG IVP (05:31)
[2023-02-16] MEDS: sucralfate 1 gm/10 mL Oral Liq UDC PO ×4 (05:32→22:23)
--- NOTE | 2023-02-16 08:25 | USCV_ITS ---
Marco Antonio Sebastian Age: 82 Gender: M : 1940 Exam Date: 02/16/2023 09:04 Ordering Phys: Everardo Cotto MD Technologist: Kennedy Allen Exam Location: [facility] [place] Indication: ef BP: 113 / 40 HR: 72 Rhythm: Sinus Technical Quality: Adequate MEASUREMENTS (Male / Female) Normal Values 2D ECHO LV Diastolic Diameter PLAX 5.1 cm 4.2 - 5.9 / 3.9 - 5.3 cm LV Systolic Diameter PLAX 4.3 cm IVS Diastolic Thickness 1.2 cm 0.6 - 1.0 / 0.6 - 0.9 cm IVS Systolic Thickness 1.7 cm LVPW Diastolic Thickness 1.5 cm 0.6 - 1.0 / 0.6 - 0.9 cm LVPW Systolic Thickness 1.4 cm LVOT Diameter 2.1 cm LV Ejection Fraction 2D Teich 24.6 % LV Ejection Fraction MOD 2C 19.0 % LV Ejection Fraction 2C AL 19.5 % LA Diameter 3.5 cm IVC Diameter 1.3 cm M-MODE Aortic Annulus Diameter 3.8 cm LA Ao Ratio MM 1.0 MV E Point Septal Separation 1.1 cm FINDINGS Left Ventricle Moderate hypokinesia of the mid and apical septum and the anteroseptal segments. LV ejection fraction around 40%. Technically difficult study because of the poor ultrasonic window Right Ventricle Possibly of normal size and ejection fraction Right Atrium Possibly of normal size Left Atrium Mildly increased left atrial size. Mitral Valve Thickened mitral valve. Aortic Valve Thickened aortic valve. Tricuspid Valve No gross abnormalities noted Pulmonic Valve Pulmonic valve not well visualized. Pericardium No significant pericardial effusion Aorta Normal aortic annulus size. IVC Possible large pleural effusion. Normal IVC CONCLUSIONS Moderate hypokinesia of the mid and apical septum and the anteroseptal segments. LV ejection fraction possibly around 40%.(Visual). Technically difficult study because of the poor ultrasonic window. Mildly increased left atrial size. Thickened aortic valve. Possible large pleural effusion on the left side Consider contrast echo to better evaluate the LV ejection fraction. Compared to the previous study from 02/01/2023, there is a drop in the LV ejection fraction. Dr. Li was informed about this finding Dr Patricia Alvarado MD [facility] (Electronically Signed) Final Date: 16 February 2023 17:46 S
[2023-02-16] MEDS: neomycin-poly-bacitracin oint 28 gm 1 APPLIC TOPICAL ×2 (08:30→17:10)
[2023-02-16] MEDS: docusate sodium 100 mg Capsule PO ×2 (08:30→17:11)
[2023-02-16] MEDS: acetaminophen 325 mg Tablet 650 MG PO ×2 (08:31→17:10)
[2023-02-16] MEDS: gabapentin 100 mg Capsule 200 MG PO ×3 (08:31→22:22)
[2023-02-16] MEDS: ferrous sulfate EC 325 mg Tablet PO ×2 (08:31→17:11)
[2023-02-16] MEDS: metoprolol tartrate 25 mg Tablet 12.5 MG PO ×2 (08:31→17:11)
[2023-02-16] MEDS: pantoprazole 40 mg SDV IVP ×2 (08:33→22:22)
[2023-02-16] MEDS: clopidogrel 75 mg Tablet PO (08:39)
[2023-02-16 09:37] LABS: Troponin T (5th) Once 594 ng/L (0-15)
--- NOTE | 2023-02-16 09:56 | PM.PN ---
Subjective Subjective: Patient denies chest pain. Hemoglobin is stable since stopping the heparin drip. He is on aspirin and Plavix. Vitals/I&O/Wt Last Vital Signs Temp 98.5 F 02/16/23 07:12 Pulse 63 02/16/23 07:12 Resp 12 02/16/23 07:12 BP 113/46 02/16/23 07:12 Pulse Ox 99 02/16/23 08:00 O2 Del Method 02/16/23 08:00 O2 Flow Rate 5 02/16/23 08:00 02/15/23 02/16/23 02/16/23 22:59 06:59 14:59 Intake Total 830 / 1689.933 240 / 240 Output Total 1200 / 2080 1100 / 3180 800 / 800 Balance -370 / -390.067 -1100 / -1490.067 -560 / -560 Weight last 48 hrs Weight 154 lb 12.8 oz Weight 158 lb Weight 154 lb 4.8 oz Physical Exam Narrative: GENERAL: Patient is alert, awake and oriented x3. [] NECK: No jugular vein distension. [] HEENT: No cyanosis. No icterus. No pallor. [] HEART: Regular S1 and S2. No murmur, rub or gallop. [] LUNGS: Clear to auscultate bilaterally. [] ABDOMEN: Soft CENTRAL NERVOUS SYSTEM: Grossly nonfocal. [] EXTREMITIES: Lower extremities with 1+ edema Urinary Catheter Management: Lizarraga Latex Free: Cath Placed During This Visit: no Reason for Continuing Indwelling Catheter: Acute Urinary Retention or Obstruction Data 02/16/23 03:16 02/16/23 03:16 Micro: Microbiology 02/14/23 18:15 Legionella Urinary Antigen - Final Unknown Source 02/14/23 18:15 Bacterial Antigens - Final Urine Kidney A&P Assessment and plan (1) CAD (coronary artery disease): (2) Occult blood in stools: (3) Hemoptysis: (4) COPD (chronic obstructive pulmonary disease): (5) CHF (congestive heart failure): (6) Hyperlipidemia: (7) Hypertension: (8) CKD (chronic kidney disease): Plan Hemoglobin has been staying stable. Continue aspirin and Plavix. Close monitoring of renal function as creatinine has started going up. Given patient's multiple medical problems, had a discussion with his daughter about goals of care. They inquired about possibility of hospice care. After discussion decision was made to pursue medical therapy at this time however hospice would be an appropriate option in case of worsening of condition/ in future. Thank you for involving us with care of this patient. We will continue to follow. Please call with questions. Attestations Medical Necessity Statement*: Care expected to cross 2 midnights. Coding Level of Care Code Acute Code for g Fwd Diagnoses CAD (coronary artery disease) I25.10 Occult blood in stools R19.5 Hemoptysis R04.2 COPD (chronic obstructive pulmonary disease) J44.9 CHF (congestive heart failure) I50.9 Hyperlipidemia E78.5 Hypertension I10 CKD (chronic kidney disease) N18.9
--- NOTE | 2023-02-16 14:18 | P.PN_ITS ---
Subjective Subjective: No acute events overnight. Patient has remained hemodynamically stable and afebrile. Received 1 L of blood transfusion yesterday. Documented urine output of around 3 L in last 24 hours. States breathing little better. Continues to remain on 4 to 5 L of oxygen supplementation. Last bowel movement yesterday evening. Denies any chest pains. Vitals/I&O/Wt Last Vital Signs Temp 98.5 F 02/16/23 11:42 Pulse 60 02/16/23 11:42 Resp 12 02/16/23 11:42 BP 114/43 02/16/23 11:42 Pulse Ox 96 02/16/23 11:42 O2 Del Method 02/16/23 11:42 O2 Flow Rate 5 02/16/23 08:00 02/15/23 02/16/23 02/16/23 22:59 06:59 14:59 Intake Total 830 / 1689.933 960 / 960 Output Total 1200 / 2080 1100 / 3180 1400 / 1400 Balance -370 / -390.067 -1100 / -1490.067 -440 / -440 Weight last 48 hrs Weight 70.216 kg Weight 71.668 kg Weight 69.989 kg Physical Exam Narrative: General: No acute distress, AO x3, nasal cannula oxygen sup plementation HEENT: PERRLA, pupils bilaterally equal and reactive Chest: Bilateral bronchial breath sounds all over lung shi, occasional rhonchi present all lung shi with fine crackles present in base going up to mid lungs, decreased air entry bilaterally in lower zones CVS: S1-S2 regular, no murmurs, no tachycardia, no gallops, no rubs Abdomen: Soft, nontender, no organomegaly, bowel sounds present Neuro: No focal deficits, no facial deformity, AO x3, power 5/5 in all limbs Urinary Catheter Management: Lizarraga Latex Free: Cath Placed During This Visit: no Reason for Continuing Indwelling Catheter: Acute Urinary Retention or Obstruction Data 02/16/23 03:16 02/16/23 03:16 Micro: Microbiology 02/14/23 18:15 Legionella Urinary Antigen - Final Unknown Source 02/14/23 18:15 Bacterial Antigens - Final Urine Kidney A&P Assessment and plan (1) Hypoxia: Chronically on 4 L. Hypoxia most likely in setting of exacerbation of CHF in setting of acute anemia along with COPD exacerbation. Pneumonia unlikely currently. Respiratory viral panel, urine Legionella, bacterial antigen negative, sputum culture still pending. Hold off on starting antibiotics for now. Start on DuoNebs every 6 hour, budesonide twice daily. Appreciate CT chest results. Oxygen supplementation keeping saturation over 88%. (2) CHF (congestive heart failure): Acute on chronic diastolic CHF. proBNP grossly elevated of more than 23,000. Seems like patient was not discharged on any diuretic after recent hospitalization. Most recent echocardiogram from February 01 shows an EF of 61%, grade 1 diastolic dysfunction, mild to moderate MR and aortic regurgitation with PASP of 35 mmHg and trace TR. getting exacerbated right now from ongoing anemia. Repeat echocardiogram for limited EF and regional wall motion abnormality Strict input output charting. Continue Lasix to 40 mg twice daily. Fluid restriction up to 1500 cc. (3) COPD (chronic obstructive pulmonary disease): Hold off on starting steroids for now given ongoing congestive heart failure, anemia is possibly secondary to GI bleed. Treatment as above. (4) CAD (coronary artery disease): No active chest pain. Post ST elevation and PCI to RCA and August 2022. Angiogram that time showed LAD with 40% mid stenosis, no disease in circumflex or left main. With 70% herminia nosis in PDA. Troponin cycle elevated. Cannot rule out type II [place] in setting of congestive heart failure. Cardiology on board. Continue with DAPT, statin. Patient so far not a candidate to have on complete anticoagulation given possible GI bleed requiring blood transfusion. If stool for occult blood negative can try to restart heparin drip. (5) CKD (chronic kidney disease): Baseline creatinine seems to be running from 1.6-2. Cannot rule out mild CRS. Appreciate urinalysis. CT abdomen pelvis without contrast ruled out obstructive nephropathy. Lizarraga catheterization. Monitor BMP daily. No electrolyte abnormality. (6) Iron deficiency anemia: Recent stool for occult blood positive. Recent EGD earlier this month no active bleeding. Last colonoscopy in 2019 reported normal. Normal iron panel, folate level. Start on Vit B12 supplementation Patient gives history of black tarry bowel movements. Most likely will should repeat colonoscopy if hemoglobin continues to trend down. Target hemoglobin over 8. Monitor CBC in afternoon. If continues to remain low will transfuse 1 unit of PRBC more. Continue with IV Protonix twice daily and Carafate before meals and at bedtime. Given worsening of anemia we will hold off on heparin drip for now. (7) Penile edema: Occurring since Lizarraga catheter was placed last hospital stay. Reviewed the situation with urology. Patient is circumcised and not having any pain or difficulty urinating. Likely secondary to volume status. Superficial sores from Lizarraga catheter are improving. (8) Hemoptysis: Some bright red blood and other times clots. Not constant. CT of the chest without contrast was unrevealing. Longstanding tobacco use. (9) Hypothyroidism: Chronically on levothyroxine. (10) Hypertension: Essential hypertension. Goal blood pressure less than 140/90 mmHg. It seems patient takes amlodipine 10 mg, Imdur 30 mg and metoprolol 12.5 mg twice daily. Blood pressures at goal for now. Continue with home dose of Imdur and metoprolol for now. Holding off on amlodipine for now. Will uptitrate as per goal blood pressures. Patient not on CAROL/ARB given fluctuant renal functions for now. (11) Hyperlipidemia: Chronically on statin therapy (12) Neuropathy: Chronically on gabapentin, specific type of neuropathy unknown. Continue with gabapentin at a lower dose of 200 mg 3 times a day given further kidney dysfunction (13) BMI 22.0-22.9, adult: (14) On home oxygen therapy: (15) Goals of care, counseling/discussion: Plan Analgesia: Tylenol as needed Glycemic control: Not needed. Nutrition: Full liquid diet. CODE STATUS: Discussed in detail with the patient. Full code. PUD prophylaxis: Protonix 40 mg twice daily DVT prophylaxis: SCDs for DVT prophylaxis given worsening anemia. Discharge planning: Patient has had recurrent admissions recently. Most likely plan for discharge once hemodynamically stable to home with home health. Continue with care at [facility] Patient's care discussed in detail with patient's daughter on phone. We discussed that unfortunately patient has multiple organs involved with COPD, congestive heart failure, ongoing possible non-ST elevation [place], renal dysfunction in setting of CKD and a GI bleed making things complicated. We di scussed for possible non-ST elevation [place] we cannot put him on anticoagulation given severity of anemia from possibility of GI bleed and a positive stool for occult blood, it would be dangerous taken for [employer] as he is at a high risk of RIMA and being dialysis dependent and patient does not want to be on on dialysis along with difficulty in breathing which is complicated by congestive heart failure and COPD. We discussed that patient will most likely need a colonoscopy going forward at the earliest but not emergently and the option would be to either transfer him to a higher facility versus wait for the surgeon to come back on-call from for a possible colonoscopy. Daughter wants to stay till and see how he does. She does understand that he is extremely sick with multiple organs involved and testing going forward hospice versus AND would be a good idea and would be going to talk with the patient regarding this in detail. Family meeting set for 02/17 at 1 PM. This documentation was created by [employer] meteorologist liaison software. Every effort was made to ensure accuracy of meteorologist liaison. Any obvious errors or omissions should be clarified with the author of the document. Attestations Medical Necessity Statement*: Patient requires further hospitalization for management of acute on chronic anemia secondary to possible GI bleed, non-ST elevation [place], congestive heart failure and COPD exacerbation leading to worsening hypoxia in setting of severe CKD Diagnoses Hypoxia R09.02 CHF (congestive heart failure) I50.9 COPD (chronic obstructive pulmonary disease) J44.9 CAD (coronary artery disease) I25.10 CKD (chronic kidney disease) N18.9 Iron deficiency anemia D50.9 Penile edema N48.89 Hemoptysis R04.2 Hypothyroidism E03.9 Hypertension I10 Hyperlipidemia E78.5 Neuropathy G62.9 BMI 22.0-22.9, adult Z68.22 On home oxygen therapy Z99.81 Goals of care, counseling/discussion Z71.89
[2023-02-16] MEDS: cyanocobalamin 1,000 mcg/mL SDV 1000 MCG IM (15:53)
[2023-02-16 16:29] LABS: Hematocrit 24.8 % (42.0-52.0); Hemoglobin 7.9 g/dL (11.7-16.6)
[2023-02-16 16:58] LABS: Anion Gap 12.9 (5-19); Blood Urea Nitrogen 49 mg/dL (8-23); Calcium 8.3 mg/dL (8.5-10.5); Carbon Dioxide 24 mmol/L (22-29); Chloride 105 mmol/L (98-107); Glucose 84 mg/dL (65-115); Osmolality Calculated 298 mOsm/kg (285-295); Potassium 3.9 mmol/L (3.5-5.1); Sodium 138 mmol/L (136-145)
--- NOTE | 2023-02-16 20:05 | PC.NURSE ---
Spoke with regarding patients lasix dose. Patient is due for lasix 40mg IVP but BP was 88/37 at change of shift. After repositioning patient BP was 116/47 but nurse is concerned about overdiuressing patient. The patient lower leg edema is gone and patient has negative fluid balance of -1490. said hold the dose of lasix tonight due to low BP. Patient is due to receieve dose at 6am tomorrow.
[2023-02-16] MEDS: ipratropium-albuterol 3 mL Neb INHALATION (21:15)
[2023-02-16] MEDS: budesonide 0.5 mg/2 mL Neb INHALATION (21:15)
[2023-02-16] MEDS: atorvastatin 40 mg Tablet PO (22:22)
[2023-02-17] VITALS (52 sets, daily range): BP systolic 105–174; BP diastolic 33–64; PULSE 57–77; RESP 6–35; TEMP 36.3–37.1; O2SAT 92–100
[2023-02-17] MEDS: ipratropium-albuterol 3 mL Neb INHALATION ×4 (02:41→20:51)
[2023-02-17 05:35] LABS: Basophils % 0.3 %; Eosinophils # 0.1 10^3/uL (0.0-0.8); Eosinophils % 1.4 %; Hemoglobin 7.9 g/dL (11.7-16.6); Lymphocytes # 1.7 10^3/uL (0.8-4.8); Lymphocytes % 24.7 %; Mean Corpuscular HGB Conc 31.6 g/dL (30.0-36.0); Mean Corpuscular Hemoglobin 30.7 pg (28.0-34.0); Mean Corpuscular Volume 97.3 fl (80-94); Mean Platelet Volume 11.3 fL (7.4-10.4); Monocytes # 0.5 10^3/uL (0.2-0.9); Monocytes % 7.4 %; Neutrophils # 4.57 10^3/uL (1.8-7.7); Neutrophils % 65.9 %; Nucleated Red Blood Cells % 0 %; Platelet Count 197 10^3/cmm (130-400); Red Blood Count 2.57 10^6/uL (4.1-5.3); Red Cell Distribution Width 15.8 % (12.1-15.1); White Blood Count 6.9 10^3/uL (4.0-10.0)
[2023-02-17 05:42] LABS: Alanine Aminotransferase 7 U/L (0-41); Albumin Level 2.5 g/dL (3.5-5.2); Alkaline Phosphatase 50 U/L (40-130); Aspartate Amino Transferase 13 U/L (0-40); Blood Urea Nitrogen 46 mg/dL (8-23); Calcium 8.5 mg/dL (8.5-10.5); Carbon Dioxide 25 mmol/L (22-29); Chloride 106 mmol/L (98-107); Globulin 2.7 g/dL (1.3-4.6); Glucose 84 mg/dL (65-115); Osmolality Calculated 297 mOsm/kg (285-295); Sodium 138 mmol/L (136-145); Total Bilirubin 0.2 mg/dL (0.15-1.2); Total Protein 5.2 g/dL (6.6-8.7)
[2023-02-17] MEDS: levothyroxine 100 mcg Tablet PO (05:44)
[2023-02-17] MEDS: isosorbide mononitrate ER 30 mg Tablet PO ×2 (05:44→17:48)
[2023-02-17] MEDS: aspirin 81 mg EC Tablet PO (05:44)
[2023-02-17] MEDS: FUROsemide 10 mg/mL SDV 4mL 40 MG IVP (05:44)
[2023-02-17] MEDS: sucralfate 1 gm/10 mL Oral Liq UDC PO ×4 (06:00→21:05)
[2023-02-17] MEDS: docusate sodium 100 mg Capsule PO ×2 (08:30→17:39)
[2023-02-17] MEDS: gabapentin 100 mg Capsule 200 MG PO ×3 (08:30→21:05)
[2023-02-17] MEDS: clopidogrel 75 mg Tablet PO (08:30)
[2023-02-17] MEDS: cyanocobalamin 1,000 mcg Tablet 500 MCG PO (08:30)
[2023-02-17] MEDS: ferrous sulfate EC 325 mg Tablet PO ×2 (08:30→17:39)
[2023-02-17] MEDS: metoprolol tartrate 25 mg Tablet 12.5 MG PO ×2 (08:31→17:38)
--- NOTE | 2023-02-17 08:31 | US_ITS ---
WS: [id number] ULTRASOUND-GUIDED THORACENTESIS CLINICAL INFORMATION: left pleural effusion COMPARISON: None. PROCEDURE: Informed consent: The risks, benefits, and alternatives of the procedure were discussed with the jay ent. Verbal and written consent was obtained. Timeout: A timeout was performed to confirm the correct patient, procedure, and site. Site: LEFT chest Preparation: A suitable skin site was identified. The patient was prepped and draped in usual sterile fashion. Lidocaine 1% was used for local anesthesia. Catheter: 4 Tamazight One-Step catheter. Fluid Volume: 600 ml Color: Clear yellow Discarded safely. Complications: LEFT pleural effusion resolved on the portable radiograph. No pneumothorax. Patient disposition: Discharged from the department in stable condition. / thoracentesis [id number] IMPRESSION: Uncomplicated ultrasound-guided LEFT thoracentesis with removal of 600 cc.
[2023-02-17] MEDS: neomycin-poly-bacitracin oint 28 gm 1 APPLIC TOPICAL (08:32)
[2023-02-17] MEDS: pantoprazole 40 mg SDV IVP ×2 (08:32→21:06)
--- NOTE | 2023-02-17 08:58 | P.PN_ITS ---
Subjective Subjective: No chest pain. Medical therapy decided for CAD. Vitals/I&O/Wt Last Vital Signs Temp 97.8 F 02/17/23 08:26 Pulse 63 02/17/23 08:26 Resp 15 02/17/23 08:26 BP 114/41 02/17/23 08:26 Pulse Ox 95 02/17/23 08:26 O2 Del Method 02/17/23 08:26 O2 Flow Rate 3 02/17/23 08:26 02/16/23 02/17/23 02/17/23 22:59 06:59 14:59 Intake Total 236 / 1196 700 / 1896 100 / 100 Output Total 300 / 1700 500 / 2200 1000 / 1000 Balance -64 / -504 200 / -304 -900 / -900 Weight last 48 hrs Weight 153 lb 6.4 oz Weight 154 lb 12.8 oz Weight 158 lb Physical Exam Narrative: GENERAL: Patient is alert, awake and oriented x3. [] NECK: No jugular vein distension. [] HEENT: No cyanosis. No icterus. No pallor. [] HEART: Regular S1 and S2. No murmur, rub or gallop. [] LUNGS: Clear to auscultate bilaterally. [] CENTRAL NERVOUS SYSTEM: Grossly nonfocal. [] EXTREMITIES: Lower extremities with 1+ edema Urinary Catheter Management: Lizarraga Latex Free: Cath Placed During This Visit: no Reason for Continuing Indwelling Catheter: Acute Urinary Retention or Obstruction Data 02/17/23 04:44 02/17/23 04:44 A&P Assessment and plan (1) CAD (coronary artery disease): (2) Occult blood in stools: (3) Hemoptysis: (4) COPD (chronic obstructive pulmonary disease): (5) CHF (congestive heart failure): (6) Hyperlipidemia: (7) Hypertension: (8) CKD (chronic kidney disease): Plan Medical therapy decided. Continue aspirin and Plavix. Continue to monitor hemoglobin. Continue diuretics. Close I and Os. Monitor renal function Thank you for involving us with care of this patient. We will continue to follow. Please call with questions. Attestations Medical Necessity Statement*: Care expected to cross 2 midnights. Coding Level of Care Code Acute Code for [facility] Diagnoses CAD (coronary artery disease) I25.10 Occult blood in stools R19.5 Hemoptysis R04.2 COPD (chronic obstructive pulmonary disease) J44.9 CHF (congestive heart failure) I50.9 Hyperlipidemia E78.5 Hypertension I10 CKD (chronic kidney disease) N18.9
[2023-02-17] MEDS: budesonide 0.5 mg/2 mL Neb INHALATION ×2 (09:08→20:51)
--- NOTE | 2023-02-17 09:14 | PC.SOCIAL ---
Pg 2 IMM Explained to pt Pg 2 IMM. No questions voiced. Provided pt a copy. Initialed, dated, timed a copy & placed in chart.
--- NOTE | 2023-02-17 14:37 | XR_ITS ---
WS: [id number] CHEST XRAY TECHNIQUE: Portable chest. CLINICAL INFORMATION: post thoracentesis COMPARISON: February 14, 2023 FINDINGS: Heart: Stable cardiomegaly. Lungs: Hyperinflation. Advanced chronic emphysematous changes. LEFT pleural effusion has resolved pos t thoracentesis. No pneumothorax. Small RIGHT pleural effusion with compressive atelectasis RIGHT low er lobe. Bones: Osteopenia. XR/XR chest 1V portable [id number] IMPRESSION: LEFT pleural effusion has resolved post thoracentesis. No pneumothorax.
--- NOTE | 2023-02-17 16:39 | P.PN_ITS ---
Subjective Subjective: No acute events overnight. Patient has remained hemodynamically stable and afebrile. Continues to remain on 3 to 4 L of oxygen supplementation but saturating better and is up to 98%. Complains of pain in the right medial thigh which seems to be deep shooting down to his knee. Seen with daughter at bedside. Goals of care discussions in detail as below. Vitals/I&O/Wt Last Vital Signs Temp 97.7 F 02/17/23 11:05 Pulse 69 02/17/23 16:15 Resp 14 02/17/23 16:15 BP 148/54 02/17/23 16:15 Pulse Ox 98 02/17/23 16:15 O2 Del Method 02/17/23 13:28 O2 Flow Rate 3 02/17/23 13:28 02/17/23 02/17/23 02/17/23 06:59 14:59 22:59 Intake Total 700 / 1896 1050 / 1050 Output Total 500 / 2200 1000 / 1000 Balance 200 / -304 50 / 50 Weight last 48 hrs Weight 69.581 kg Weight 70.216 kg Weight 71.668 kg Physical Exam Narrative: General: No acute distress, AO x3, nasal cannula oxygen supplementation, chronically sick appearing HEENT: PERRLA, pupils bilaterally equal and reactive Chest: Bilateral bronchial breath sounds all over lung shi, occasional rhonchi present all lung shi with fine crackles present in base going up to mid lungs, decreased air entry bilaterally in lower zones CVS: S1-S2 regular, no murmurs, no tachycardia, no gallops, no rubs Abdomen: Soft, nontender, no organomegaly, bowel sounds present Neuro: No focal deficits, no facial deformity, AO x3, power 5/5 in all limbs Urinary Catheter Management: Lizarraga Latex Free: Cath Placed During This Visit: no Reason for Continuing Indwelling Catheter: Acute Urinary Retention or Obstruction Data 02/17/23 04:44 02/17/23 04:44 A&P Assessment and plan (1) Hypoxia: Chronically on 4 L. Hypoxia most likely in setting of exacerbation of CHF in setting of acute anemia along with COPD exacerbation. Pneumonia unlikely currently. Respiratory viral panel, urine Legionella, bacterial antigen negative, sputum cu lture still pending. Hold off on starting antibiotics for now. Continue with DuoNebs every 6 hour, budesonide twice daily. We will plan to discharge on inhalers. Appreciate CT chest results. Oxygen supplementation keeping saturation over 88%. (2) CHF (congestive heart failure): Acute on chronic diastolic CHF. proBNP grossly elevated of more than 23,000. Seems like patient was not discharged on any diuretic after recent hospitalization. We will plan to discharge on oral Lasix 40 mg twice daily. Most recent echocardiogram from February 01 shows an EF of 61%, grade 1 diastolic dysfunction, mild to moderate MR and aortic regurgitation with PASP of 35 mmHg and trace TR. getting exacerbated right now from ongoing anemia. Repeat echocardiogram for limited EF and regional wall motion abnormality this admission shows an EF of around 40% with hypokinesia across mid and apical septum and anteroseptal naranjo. Strict input output charting. Hold off on Lasix for today. Fluid restriction up to 1500 cc. (3) Pleural effusion: Patient does have significant pleural effusion on the left side. Most likely in setting of congestive heart failure. Given the fact that patient is diuresis on maximum and has ongoing CKD he is at a higher risk of renal dysfunction with further diuresis and to maximize his oxygen capacity for now we will go ahead and plan for thoracentesis. Follow-up fluid studies. (4) COPD (chronic obstructive pulmonary disease): Hold off on starting steroids for now given ongoing congestive heart failure, anemia is possibly secondary to GI bleed. Treatment as above. (5) CAD (coronary artery disease): No active chest pain. Post ST elevation and PCI to RCA and August 2022. Angiogram that time showed LAD with 40% mid stenosis, no disease in circumflex or left main. With 70% stenosis in PDA. Ongoing possible non-ST elevation IL with elevated troponins. Echocardiogram showing new regional wall motion abnormality with low EF. Unfortunately patient is not a good candidate for anticoagulation given possible GI bleed with hemoglobin dropping down to 6.6 hence heparin has been stopped. Patient also not a good candidate for cardiac catheterization given ongoing NIGHAT on CKD with concerns for possible need of dialysis as patient is at high risk of RIMA. Possibilities of both kind of treatment discussed in detail with patient and patient's daughter at bedside. They both verbalized understanding and are agreeable not to do anticoagulation and cardiac catheterization. They both understand that he is at a high risk of cardiac arrhythmia or cardiac arrest given ongoing non-ST elation IL. Continue with DAPT and statins. Further optimization of cardiac medications. (6) CKD (chronic kidney disease): Baseline creatinine seems to be running from 1.6-2. There is high possibility of dry body weight creatinine nearing 2.5. Cannot rule out mild CRS. Appreciate urinalysis. CT abdomen pelvis without contrast ruled out obstructive nephropathy. Lizarraga catheterization. Monitor BMP daily. No electrolyte abnormality. (7) Iron deficiency anemia: Hemoglobin stable since stopping heparin drip. Recent stool for occult blood positive. Recent EGD earlier this month no active bleeding. Last colonoscopy in 2019 reported normal. Normal iron panel, folate level. Continue on vitamin B12 supplementation. Patient gives history of black tarry bowel movements. Most likely will should repeat colonoscopy if hemoglobin continues to trend down. Stool for occult blood pending. Post monitor blood transfusion. Will repeat blood transfusion with target hemoglobin of more than 8. Continue with IV Protonix 40 mg twice daily along with Carafate before meals and at bedtime. Patient will need to follow-up as an outpatient with surgery for colonoscopy given stable hemoglobin of heparin drip. (8) Penile edema: Occurring since Lizarraga catheter was placed last hospital stay. Reviewed the situation with urology. Patient is circumcised and not having any pain or difficulty urinating. Likely secondary to volume status. Superficial sores from Lizarraga catheter are improving. (9) Hemoptysis: Some bright red blood and other times clots. Not constant. CT of the chest without contrast was unrevealing. Longstanding tobacco use. (10) Hypothyroidism: Chronically on levothyroxine. (11) Hypertension: Essential hypertension. Goal blood pressure less than 140/90 mmHg. It seems patient takes amlodipine 10 mg, Imdur 30 mg and metoprolol 12.5 mg twice daily. Blood pressures at goal for now. Continue with home dose of metoprolol. Increase Imdur to 30 mg twice daily. Holding off on amlodipine for now. Will uptitrate as per goal blood pressures. Patient not on CAROL/ARB given fluctuant renal functions for now. (12) Hyperlipidemia: Chronically on statin therapy (13) Neuropathy: Chronically on gabapentin, specific type of neuropathy unknown. Continue with gabapentin at a lower dose of 200 mg 3 times a day given further kidney dysfunction (14) BMI 22.0-22.9, adult: (15) On home oxygen therapy: (16) Goals of care, counseling/discussion: Plan Analgesia: Tylenol as needed Glycemic control: Not needed. Nutrition: Full liquid diet. CODE STATUS: DNR/DNI. PUD prophylaxis: Protonix 40 mg twice daily DVT prophylaxis: SCDs for DVT prophylaxis given worsening anemia. Out of bed to chair. Physical therapy evaluation. Goals of care discussion done at bedside in detail with patient and patient's daughter. We discussed currently there are 4 things going on with him including non-ST elevation IL, congestive heart failure because of non-ST ovation IL, COPD complicated by left-sided pleural effusion, treatment complicated by possibility of ongoing lower GI slow bleed leading to anemia and CKD which puts him at a h igher risk of RIMA. We discussed his difficulty in breathing on oxygen because of congestive heart failure which has been getting worse given his cardiac status along with pleural effusion and COPD. We discussed that he should be on inhalers and daily water pill. We discussed for non-ST ovation IL treatment plan could be heparin drip for anticoagulation versus cardiac angiogram. Also discussed the concerns for both treatment with the possibility of worsening GI bleed requiring more blood transfusions versus high chance of RIMA given CKD leading up to dialysis. Patient does not want dialysis no matter what. Discussed given the frailty of his condition along with multiple comorbidities any treatment would come with high chances of adverse effects. Both verbalized understanding and do not want to go ahead with either anticoagulation or cardiac angiogram. Discussed CODE STATUS in detail given multiple comorbidities as above. Patient does not want to live as a vegetable. We discussed in the event of possible cardiac arrest is quality of life would deteriorate further. CODE STATUS c hanged to DNR/DNI as per patient's request. He will follow-up as an outpatient with surgery for a possible colonoscopy while he continues on cardiac optimization medications. Discharge plan: Plan to discharge in the next 24 hours to home with daughter on oral medications with advised to follow-up with cardiology and surgery as an outpatient. Continue care at [facility]. This documentation was created by [employer] housekeeping coordinator software. Every effort was made to ensure accuracy of housekeeping coordinator. Any obvious errors or omissions should be clarified with the author of the document. Attestations Medical Necessity Statement*: Requires further hospitalization for management of non-ST elevation IL in a patient with ongoing possible GI bleed leading to anemia requiring blood transfusions, congestive heart failure, COPD with left- sided pleural effusion requiring thoracentesis. Diagnoses Hypoxia R09.02 CHF (congestive heart failure) I50.9 Pleural effusion J90 COPD (chronic obstructive pulmonary disease) J44.9 CAD (coronary artery disease) I25.10 CKD (chronic kidney disease) N18.9 Iron deficiency anemia D50.9 Penile edema N48.89 Hemoptysis R04.2 Hypothyroidism E03.9 Hypertension I10 Hyperlipidemia E78.5 Neuropathy G62.9 BMI 22.0-22.9, adult Z68.22 On home oxygen therapy Z99.81 Goals of care, counseling/discussion Z71.89
[2023-02-17 16:44] LABS: Apprearance, Body Fluid CLEAR; Body Fluid Polynuclear #Cells 0.048; Body Fluid WBC 174 /uL; Color, Body Fluid PALE YELLOW; Monocytes # Body Fluid 0.126; RBC, Body Fluid 0 10^3/uL
[2023-02-17 16:45] LABS: Cyto Order Verification Order Verified
[2023-02-17 16:48] LABS: Body Fluid Specific Gravity 1.005
[2023-02-17 17:04] LABS: Albumin Body Fluid 0.9 g/dL; Amylase Body Fluid 33 U/L; Cholesterol Body Fluid 27 mg/dL (0-200); Fluid Alkaline Phos. 9 IU/L; LDH Body Fluid 88 U/L; Total Protein Pleural Fluid 1.6 g/dL; Triglycerides Body Fluid 9 mg/dL (0-150); Uric Acid Body Fluid 11 mg/dL
[2023-02-17] MEDS: atorvastatin 40 mg Tablet PO (21:06)
[2023-02-18] VITALS (7 sets, daily range): BP systolic 130–147; BP diastolic 44–68; PULSE 65–79; RESP 14–22; TEMP 36.6–37.2; O2SAT 94–99
[2023-02-18 03:34] LABS: Basophils % 0.3 %; Eosinophils # 0.2 10^3/uL (0.0-0.8); Eosinophils % 2.5 %; Hematocrit 29.7 % (42.0-52.0); Hemoglobin 9.7 g/dL (11.7-16.6); Lymphocytes # 1.2 10^3/uL (0.8-4.8); Lymphocytes % 18.1 %; Mean Corpuscular HGB Conc 32.7 g/dL (30.0-36.0); Mean Corpuscular Hemoglobin 30.5 pg (28.0-34.0); Mean Corpuscular Volume 93.4 fl (80-94); Mean Platelet Volume 10.9 fL (7.4-10.4); Monocytes # 0.6 10^3/uL (0.2-0.9); Monocytes % 9.5 %; Neutrophils # 4.52 10^3/uL (1.8-7.7); Neutrophils % 69.3 %; Nucleated Red Blood Cells % 0 %; Platelet Count 202 10^3/cmm (130-400); Red Blood Count 3.18 10^6/uL (4.1-5.3); Red Cell Distribution Width 15.9 % (12.1-15.1); White Blood Count 6.5 10^3/uL (4.0-10.0)
[2023-02-18 03:52] LABS: Alanine Aminotransferase 7 U/L (0-41); Albumin Level 2.5 g/dL (3.5-5.2); Alkaline Phosphatase 54 U/L (40-130); Anion Gap 11.7 (5-19); Aspartate Amino Transferase 11 U/L (0-40); Blood Urea Nitrogen 42 mg/dL (8-23); Calcium 8.3 mg/dL (8.5-10.5); Carbon Dioxide 25 mmol/L (22-29); Chloride 102 mmol/L (98-107); Globulin 2.9 g/dL (1.3-4.6); Glucose 89 mg/dL (65-115); Osmolality Calculated 290 mOsm/kg (285-295); Potassium 3.7 mmol/L (3.5-5.1); Sodium 135 mmol/L (136-145); Total Bilirubin 0.5 mg/dL (0.15-1.2); Total Protein 5.4 g/dL (6.6-8.7)
[2023-02-18] MEDS: aspirin 81 mg EC Tablet PO (06:14)
[2023-02-18] MEDS: sucralfate 1 gm/10 mL Oral Liq UDC PO (06:14)
[2023-02-18] MEDS: levothyroxine 100 mcg Tablet PO (06:14)
--- NOTE | 2023-02-18 06:48 | PM.PN ---
Subjective Subjective: Patient denies chest pain Vitals/I&O/Wt Last Vital Signs Temp 97.9 F 02/18/23 04:00 Pulse 65 02/18/23 05:48 Resp 22 H 02/18/23 04:00 BP 130/44 02/18/23 04:00 Pulse Ox 99 02/18/23 04:00 O2 Del Method 02/18/23 04:00 O2 Flow Rate 2 02/18/23 01:42 02/17/23 02/17/23 02/18/23 14:59 22:59 06:59 Intake Total 1050 / 1050 1076 / 2126 720 / 2846 Output Total 1000 / 1000 800 / 1800 450 / 2250 Balance 50 / 50 276 / 326 270 / 596 Weight last 48 hrs Weight 152 lb Weight 153 lb 6.4 oz Physical Exam Narrative: GENERAL: Patient is alert, awake and oriented x3. [] NECK: No jugular vein distension. [] HEENT: No cyanosis. No icterus. No pallor. [] HEART: Regular S1 and S2. No murmur, rub or gallop. [] LUNGS: Clear to auscultate bilaterally. [] CENTRAL NERVOUS SYSTEM: Grossly nonfocal. [] EXTREMITIES: Lower extremities with 1+ edema Urinary Catheter Management: Lizarraga Latex Free: Cath Placed During This Visit: no Reason for Continuing Indwelling Catheter: Accurate Measurement of Urinary Output in Critically Ill Patients Data 02/18/23 03:19 02/18/23 03:19 A&P Assessment and plan (1) CAD (coronary artery disease): (2) Occult blood in stools: (3) Hemoptysis: (4) COPD (chronic obstructive pulmonary disease): (5) CHF (congestive heart failure): (6) Hyperlipidemia: (7) Hypertension: (8) CKD (chronic kidney disease): Plan Medical therapy. Will need outpatient monitoring of Hgb and GI followup Thank you for involving us with care of this patient. Please call with questions. Attestations Medical Necessity Statement*: Care expected to cross 2 midnights. Coding Level of Care Code Acute Code for g Fwd Diagnoses CAD (coronary artery disease) I25.10 Occult blood in stools R19.5 Hemoptysis R04.2 COPD (chronic obstructive pulmonary disease) J44.9 CHF (congestive heart failure) I50.9 Hyperlipidemia E78.5 Hypertension I10 CKD (chronic kidney disease) N18.9
--- NOTE | 2023-02-18 09:07 | P.DS_ITS ---
Discharge Providers Date of Admission: 02/14/23 14:07 Date of Discharge: February 18, 2023 Attending Provider at Admission: Brandie Miguel MD Attending Provider at Discharge: Everardo Cotto MD Primary Care Provider: Tyrese Rodriguez NP Diagnoses at Discharge Discharge Diagnosis (1) CAD (coronary artery disease): Status: Chronic Permanent problem details: STEMI 08/2022 with NIGEL to mid RCA (2) Occult blood in stools: Status: Acute (3) Hemoptysis: Status: Acute (4) COPD (chronic obstructive pulmonary disease): Status: Chronic (5) CHF (congestive heart failure): Status: Acute (6) Hyperlipidemia: Status: Chronic (7) Hypertension: Status: Chronic (8) CKD (chronic kidney disease): Status: Chronic Reason for Visit Reason for Visit: SOB/ LEG EDEMA Brief History: History as per HPI: Marco Antonio Sebastian is a 82 year old male who presented to the emergency room with chief complaint of difficulty breathing.? He has been hospitalized a couple of times this year already with chest pain, respiratory issues, anemia.? He has a history of coronary artery disease identified when he had an ST elevation DE in August 2022.? He has an RCA stent.? He has had issues with chronic kidney disease and anemia for some time.? He has a longstanding history of smoking and COPD for which he is on 4 L of oxygen by nasal cannula.? Most recent hospitaliz ation was earlier this month when he was felt to have pneumonia.? He was discharged on February 09 with continuation of a course of Levaquin.? He has 1 more dose to complete.? He has not been having any increased productive cough.? He thinks he was probably doing okay until last night he became acutely short of breath around 2 AM.? He felt like his oxygen was not working but when he checked it was blowing out the nasal cannula.? He got up to go to the bathroom in the middle of the night having to only walk a couple of steps and was very short of breath with that degree of exertion.? He has had some right-sided chest pain.? Denies any left-sided chest pain.? He continued to worsen through the night and this morning he called his daughter around 7 AM saying that he needed to come into the emergency room.? His daughter describes him as sounding very short of breath and she was worried about him.? He has been having some increasing edema.? In addition he has had some penile edema which he associates with having had a Lizarraga catheter last hospital stay.? He coughs all the time.? Cough is sometimes productive of mucus and other times he does describe hemoptysis.? This is not a new problem but 1 that has not yet been able to be worked up much because of his renal function.? Sometimes he has small amounts of bright red blood and other times he gets some clots up.? He has had some dark stools.? He was found to have Hemoccult positive stools earlier this month and underwent EGD that was unrevealing for any source of bleeding on February 05.? He did receive 1 unit of packed red blood cells during the last hospital stay for worsening anemia.? He was found to have significant iron deficiency with percent saturation at 11.8%.? Over the last few months he has had multiple changes to medications as will be described below that were identified on review of records dating back to August of last year.? He has had issues with both high and low blood pressures, at least one documented episode of bradycardia into the low 50s that was symptomatic.? Overall he has had clinical decline for the last few months.? He denies significant change in weight stating that he is holding his own .? Reviewing available measurements within the computer I believe most of the weights are stated rather than exact so difficult to discern.? Mr. Perez does report that he has not been able to smoke more than a couple of cigarettes since the last left the hospital.? In the emergency room he was noted to have significant swelling, evidence of pulmonary edema on chest x-ray and significant increase in BNP compared to prior values along with worsening renal function.? Clinically was felt to have acute CHF.? He received a dose of Lasix.? Based on his COPD history he was initially treated with steroids and breathing treatments.? At the present time he is breathing a little bit better.? Hospitalist were contacted for admission. Hospital Course Hospital Course Patient was admitted to hospital further evaluation and management of hypoxia in setting of congestive heart failure, non-ST elevation DE, NIGHAT on CKD. On admission he was started on IV diuresis and heparin drip. After starting on heparin drip patient has drop in his blood pressures and drop down to 6.6 requiring 2 units of blood transfusion during this hospitalization. Heparin drip was discontinued and since then his hemoglobin has remained stable. Patient's oxygenation improved with regular IV diuresis though his creatinine trended up. 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 Given worsening of renal functions on diuresis he underwent th oracentesis to improve his oxygenation. His hospital stay was otherwise unremarkable. Echocardiogram was done which showed a drop in EF to 40% with regional wall motion abnormality as below. Given involvement of multiple organs and multiple comorbidities further goals of care discussions were done with both patient and patient's daughter at bedside as below. We discussed currently there are 4 things going on with him including non-ST elevation DE, congestive heart failure because of non-ST ovation DE, COPD complicated by left-sided pleural effusion, treatment complicated by possibility of ongoing lower GI slow bleed leading to anemia and CKD which puts him at a higher risk of RIMA. We discussed his difficulty in breathing on oxygen because of congestive heart failure which has been getting worse given his cardiac status along with pleural effusion and COPD.? We discussed that he should be on inhalers and daily water pill.? We discussed for non-ST ovation DE treatment plan could be heparin drip for anticoagulation versus cardiac angiogram.? Also discussed the concerns for both treatment with the possibility of worsening GI bleed requiring more blood transfusions versus high chance of RIMA given CKD leading up to dialysis.? Patient does not want dialysis no matter what.? Discussed given the frailty of his condition along with multiple comorbidities any treatment would come with high chances of adverse effects.? Both verbalized understanding and do not want to go ahead with either anticoagulation or cardiac angiogram. Discussed CODE STATUS in detail given multiple comorbidities as above.? Patient does not want to live as a vegetable.? We discussed in the event of possible cardiac arrest is quality of life would deteriorate further.? CODE STATUS changed to DNR/DNI as per patient's request. He has been discharged in hemodynamically stable condition with home health. He has been discharged on oral Protonix twice daily along with Carafate. As his hemoglobin has remained stable he will follow-up as an outpatient with surgery for a possible colonoscopy. He has been discharged on oral Lasix twice daily along with inhalation treatment which he is to take daily. His cardiac medications were further optimized. He is to follow-up with his primary care provider within next 1 week and with cardiology within next 2 weeks. He is to follow-up with Dr. Zaragoza in his office early next week for a possible colonoscopy as an outpatient. Physical Exam Narrative: General: No acute distress, AO x3, nasal cannula oxygen supplementation, chronically sick appearing HEENT: PERRLA, pupils bilaterally equal and reactive Chest: Bilateral bronchial breath sounds all over lung shi, occasional rhonchi present all lung shi with fine crackles present in base going up to mid lungs, decreased air entry bilaterally in lower zones CVS: S1-S2 regular, no murmurs, no tachycardia, no gallops, no rubs Abdomen: Soft, nontender, no organomegaly, bowel sounds present Neuro: No focal deficits, no facial deformity, AO x3, power 5/5 in all limbs Urinary Catheter Management: Lizarraga Latex Free: Cath Placed During This Visit: no Reason for Continuing Indwelling Catheter: Accurate Measurement of Urinary Output in Critically Ill Patients Discharge Data Studies Completed and Pending Completed Studies During Hospitalization Category Date Time Status CT chest abdomen pelvis [[place] [id number] Cat Scan 02/15/23 08:44 Completed ] Routine XR chest 1V portable [id number] Routine Exams 02/17/23 14:37 Completed XR chest 1V portable [id number] Stat Exams 02/14/23 09:25 Completed CV. echo limited [id number] Routine Ultrasound 02/16/23 08:25 Completed US thoracentesis [id number] Routine Ultrasound 02/17/23 08:31 Completed Pending at discharge Category Date Time Status Anaerobic Culture Routine Lab 02/17/23 15:15 Received Body Fluid Culture & GS Routine Lab 02/17/23 15:15 Received Fungal Culture not HR/SK/BL Routine Lab 02/17/23 15:15 Received Mycobacteria, Culture w/Fluor Routine Lab 02/17/23 15:15 Received Occult Blood Stool [Immunochemical Fecal OCB] Routine Lab 02/17/23 16:02 Ordered Cytology [PTH] Routine Pth 02/17/23 16:35 Received Radiology Impressions Chest/Abdomen/Pelvis CT 02/15/23 08:44 IMPRESSION: 1. Moderate bilateral pleural effusions and compressive atelectasis in both lower lobes, similar to findings on 02/03/2023. 2. Mild interstitial edema, similar to 02/03/2023. 3. Moderate centrilobular emphysema. 4. Incidental findings above. IMPRESSION: 1. No acute findings. 2. Incidental findings above. COMMENTS: Consistent with the [employer]'s Incidental Findings Committee white paper (J Am Radha Radiol 2018): Any incidental renal lesion less than 1 cm or classified as too small to characterize, or any incidental cystic renal lesion characterized as simple-appearing, is likely benign. No follow-up imaging is recommended for these lesions per consensus recommendations based on imaging criteria. Thoracentesis Ultrasound 02/17/23 08:31 IMPRESSION: Uncomplicated ultrasound-guided LEFT thoracentesis with removal of 600 cc. Chest X-Ray 02/17/23 14:37 IMPRESSION: LEFT pleural effusion has resolved post thoracentesis. No pneumothorax. Echocardiogram: CONCLUSIONS ?Moderate hypokinesia of the mid and apical septum and the ?anteroseptal segments.? LV ejection fraction possibly around ?40%.(Visual).? Technically difficult study because of the poor ?ultrasonic window. ?Mildly increased left atrial size. ?Thickened aortic valve. ?Possible large pleural effusion on the left side ?Consider contrast echo to better evaluate the LV ejection ?fraction.? Compared to the previous study from 02/01/2023, there ?is a drop in the LV ejection fraction. ?Dr. Li was informed about this finding ?Dr Patricia Alvarado MD [facility] ?(Electronically Signed) ?Final Date:? ? ? 16 February 2023 ? 17:46 Laboratory Results WBC 6.5 10^3/uL (4.0-10.0) 02/18/23 03:19 RBC 3.18 10^6/uL (4.1-5.3) L 02/18/23 03:19 Hgb 9.7 g/dL (11.7-16.6) L 02/18/23 03:19 Hct 29.7 % (42.0-52.0) L 02/18/23 03:19 MCV 93.4 fl (80-94) 02/18/23 03:19 MCH 30.5 pg (28.0-34.0) 02/18/23 03:19 MCHC 32.7 g/dL (30.0-36.0) 02/18/23 03:19 RDW 15.9 % (12.1-15.1) H 02/18/23 03:19 Plt Count 202 10^3/cmm (130-400) 02/18/23 03:19 MPV 10.9 fL (7.4-10.4) H 02/18/23 03:19 Neut % (Auto) 69.3 % 02/18/23 03:19 Lymph % (Auto) 18.1 % 02/18/23 03:19 [place] % (Auto) 9.5 % 02/18/23 03:19 Eos % (Auto) 2.5 % 02/18/23 03:19 Baso % (Auto) 0.3 % 02/18/23 03:19 Neut # (Auto) 4.52 10^3/uL (1.8-7.7) 02/18/23 03:19 Lymph # (Auto) 1.2 10^3/uL (0.8-4.8) 02/18/23 03:19 [place] # (Auto) 0.6 10^3/uL (0.2-0.9) 02/18/23 03:19 Eos # (Auto) 0.2 10^3/uL (0.0-0.8) 02/18/23 03:19 Baso # (Auto) 0.0 10^3/uL (0.0-0.1) 02/18/23 03:19 Nucleated RBC % (auto) 0 % 02/18/23 03:19 Nucleated RBCs # 0.0 /100WBC 02/18/23 03:19 PT 13.50 SECONDS (12.1-14.9) 02/14/23 09:36 INR 1.00 (0.8-1.2) 02/14/23 09:36 APTT 96.2 SECONDS (23.9-36.7) H 02/15/23 06:13 Specimen Type Arterial 02/14/23 10:09 Sample Site Radial, left 02/14/23 10:09 ABG pH 7.41 (7.35-7.45) 02/14/23 10:09 ABG pCO2 28.5 mmHg (35-45) L 02/14/23 10:09 ABG pO2 55.1 mmHg (80.0-100.0) L 02/14/23 10:09 ABG HCO3 18.1 mmol/L (22-26) L 02/14/23 10:09 ABG O2 Saturation 89.3 02/14/23 10:09 ABG Base Excess -5.4 mmol/L (-2.0-2.0) L 02/14/23 10:09 Narinder Test Pos 02/14/23 10:09 A-a O2 Gradient 21.7 mmHg (5-10) H 02/14/23 10:09 Hematocrit 36.3 % (42-52) L 02/14/23 10:09 Hgb O2 Saturation 88.1 % (95-100) L 02/14/23 10:09 Carboxyhemoglobin 1.0 %THgb (0.4-20.1) 02/14/23 10:09 Methemoglobin 0.4 % (0.4-1.5) 02/14/23 10:09 Total Hemoglobin 11.8 g/dL (14-18) L 02/14/23 10:09 Sodium 142.0 mmol/L (131-143) 02/14/23 10:09 Potassium 4.1 mmol/L (3.5-5.0) 02/14/23 10:09 Glucose 100.0 mg/dL (70-115) 02/14/23 10:09 Ionized Calcium 1.2 mmol/L (1.1-1.4) 02/14/23 10:09 O2 Delivery Device Nc 02/14/23 10:09 O2 Liters/Min 4.0 % 02/14/23 10:09 FiO2 36.0 % 02/14/23 10:09 Dyed Raw Stock Blower Feeder ID glc 02/14/23 10:09 Sodium 135 mmol/L (136-145) L 02/18/23 03:19 Potassium 3.7 mmol/L (3.5-5.1) 02/18/23 03:19 Chloride 102 mmol/L (98-107) 02/18/23 03:19 Carbon Dioxide 25 mmol/L (22-29) 02/18/23 03:19 Anion Gap 11.7 (5-19) 02/18/23 03:19 BUN 42 mg/dL (8-23) H 02/18/23 03:19 Creatinine 2.4 mg/dL (0.7-1.2) H 02/18/23 03:19 GFR Calculation Not Reportable 02/18/23 03:19 Glucose 89 mg/dL (65-115) 02/18/23 03:19 Calculated Osmolality 290 mOsm/kg (285-295) 02/18/23 03:19 Uric Acid 9.1 mg/dL (3.4-7.0) H 02/15/23 06:13 Calcium 8.3 mg/dL (8.5-10.5) L 02/18/23 03:19 Phosphorus 4.3 mg/dL (2.5-4.5) 02/15/23 06:13 Magnesium 2.1 mg/dL (1.7-2.3) 02/15/23 06:13 Iron 78 ug/dL (59-158) 02/15/23 06:13 TIBC 219 mcg/dl 02/15/23 06:13 % Saturation 35.6 % (20-50) 02/15/23 06:13 Unsat Iron Binding 141 ug/dL (112-347) 02/15/23 06:13 Total Bilirubin 0.5 mg/dL (0.15-1.2) 02/18/23 03:19 AST 11 U/L (0-40) 02/18/23 03:19 ALT 7 U/L (0-41) 02/18/23 03:19 Alkaline Phosphatase 54 U/L (40-130) 02/18/23 03:19 Troponin T Gen 5 ng/L 594 ng/L (0-15) H* 02/16/23 03:16 Troponin T Baseline 472 ng/L (0-15) H* 02/14/23 16:19 Troponin T 120 Minute 448.7 ng/L (0-15) H 02/14/23 18:50 Delta Troponin T -23.3 ABS# (0-10) L 02/14/23 18:50 Troponin T Hi Sens 6Hr 485.5 ng/L (0-15) H 02/14/23 23:18 Troponin T Hi Sens 6Hr Delta 13.5 ng/L (0-12) H* 02/14/23 23:18 NT-Pro-B Natriuret Pep 51870 pg/mL (0-450) H 02/14/23 09:36 Total Protein 5.4 g/dL (6.6-8.7) L 02/18/23 03:19 Albumin 2.5 g/dL (3.5-5.2) L 02/18/23 03:19 Globulin 2.9 g/dL (1.3-4.6) 02/18/23 03:19 Vitamin B12 336 pg/mL (232-1245) 02/15/23 06:13 Folate 5.5 ng/mL (4.5-32.2) 02/15/23 06:13 TSH 10.18 uIU/mL (0.27-4.20) H 02/15/23 06:13 Free T4 0.96 ng/dL (0.82-1.77) 02/15/23 06:13 Urine Color Straw (Yellow) 02/14/23 18:15 Urine Appearance Clear (CLEAR) 02/14/23 18:15 Urine pH 5 (5-7) 02/14/23 18:15 Ur Specific [place] 1.010 (1.005-1.030) 02/14/23 18:15 Urine Protein 1+ (Negative) H 02/14/23 18:15 Urine Glucose (UA) Norm (Normal) 02/14/23 18:15 Urine Ketones Negative (Negative) 02/14/23 18:15 Urine Blood Neg (Negative) 02/14/23 18:15 Urine Nitrate Negative (Negative) 02/14/23 18:15 Urine Bilirubin Neg (Negative) 02/14/23 18:15 Urine Urobilinogen Neg mg/dL (Negative) 02/14/23 18:15 Ur Leukocyte Esterase Negative (Negative) 02/14/23 18:15 Urine RBC None /hpf (0-2) 02/14/23 18:15 Urine WBC None /hpf (0-5) 02/14/23 18:15 Ur Squamous Epith Cells None /hpf (0-5) 02/14/23 18:15 Amorphous Sediment Not Reportable 02/14/23 18:15 Urine Bacteria None /hpf (NONE) 02/14/23 18:15 Ur Random Sodium 122 mmol/L 02/14/23 18:15 Urine Creatinine 24 mg/dL (39-259) L 02/14/23 18:15 Fluid Color Pale yellow 02/17/23 15:15 Fluid Appearance Clear 02/17/23 15:15 Fluid Specific Grav 1.005 02/17/23 15:15 Fluid pH 9.0 02/17/23 15:15 Fluid WBC 174 /uL 02/17/23 15:15 Fluid RBC 0 10^3/uL 02/17/23 15:15 Fld Polynuclear WBCs # 0.048 02/17/23 15:15 Fld Polynuclear WBCs % 27.600 % 02/17/23 15:15 Fl Mononucl WBCs #(Auto) 0.126 02/17/23 15:15 Fl Mononuclear % Auto 72.400 % 02/17/23 15:15 Fluid Glucose 106.0 mg/dL 02/17/23 15:15 Fluid Albumin 0.9 g/dL 02/17/23 15:15 Fluid LDH 88 U/L 02/17/23 15:15 Fluid Amylase 33 U/L 02/17/23 15:15 Fluid Alk Phosphatase 9 IU/L 02/17/23 15:15 Fluid Cholesterol 27 mg/dL (0-200) 02/17/23 15:15 Fluid Triglycerides 9 mg/dL (0-150) 02/17/23 15:15 Fluid Uric Acid 11 mg/dL 02/17/23 15:15 Pleural Total Protein 1.6 g/dL 02/17/23 15:15 Nasal Influ A H1 2009 PCR Not detected (NOT DETECT) 02/15/23 16:56 Adenovirus (PCR) Not detected (NOT DETECT) 02/15/23 16:56 C. pneumoniae DNA (PCR) Not detected (NOT DETECT) 02/15/23 16:56 Coronavirus 229E (PCR) Not detected (NOT DETECT) 02/15/23 16:56 Human Metapneumovir PCR Not detected (NOT DETECT) 02/15/23 16:56 Influenza A (H1) PCR Not detected (NOT DETECT) 02/15/23 16:56 Influenza A (H3) PCR Not detected (NOT DETECT) 02/15/23 16:56 Influenza Type A (PCR) Not detected (NOT DETECT) 02/15/23 16:56 Influenza Type B (PCR) Not detected (NOT DETECT) 02/15/23 16:56 M. pneumoniae (PCR) Not detected (NOT DETECT) 02/15/23 16:56 Parainfluenza 1 (PCR) Not detected (NOT DETECT) 02/15/23 16:56 Parainfluenza 2 (PCR) Not detected (NOT DETECT) 02/15/23 16:56 Parainfluenza 3 (PCR) Not detected (NOT DETECT) 02/15/23 16:56 Parainfluenza 4 (PCR) Not detected (NOT DETECT) 02/15/23 16:56 RSV Type A (PCR) Not detected (NOT DETECT) 02/15/23 16:56 RSV Type B (PCR) Not detected (NOT DETECT) 02/15/23 16:56 Entero/Rhino (PCR) Not detected (NOT DETECT) 02/15/23 16:56 SARS-CoV-2 (PCR) Not detected (NOT DETECT) 02/15/23 16:56 Blood Type A Positive 02/15/23 09:15 Rho(D) Type Positive 02/15/23 09:15 Antibody Screen Negative 02/15/23 09:15 Crossmatch See Detail 02/15/23 09:15 Vitals Last Vital Signs Temp 97.9 F 02/18/23 04:00 Pulse 65 02/18/23 05:48 Resp 22 H 02/18/23 04:00 BP 130/44 02/18/23 04:00 Pulse Ox 99 02/18/23 04:00 O2 Del Method 02/18/23 04:00 O2 Flow Rate 2 02/18/23 01:42 Discharge Plan Discharge Patient Disposition: Home Condition: Stable Prescriptions: New Vitamin B-12 1,000 mcg Tablet 500 mcg PO DAILY Qty: 30 0RF gabapentin 100 mg Capsule 200 mg PO TID Qty: 90 0RF ferrous sulfate 325 mg (65 mg iron) Tablet,Delayed Release (Dr/Ec) 325 mg PO BIDWM Qty: 60 0RF sucralfate 100 mg/mL Suspension 1 g PO AC&BEDTIME 14 Days Qty: 300 0RF Lasix 40 mg tablet 40 mg PO BID Qty: 60 0RF Spiriva with HandiHaler 18 mcg capsule, w/inhalation device 1 cap inhalation DAILY Qty: 30 0RF Rx Instructions: puncture 1 cap using device; one dose = 2 inhalations Breo Ellipta 100-25 mcg/dose blister with device 1 inh inhalation DAILY Qty: 60 0RF Continued clopidogrel 75 mg tablet 75 mg PO DAILY Qty: 90 3RF pravastatin 40 mg tablet 80 mg PO BEDTIME Qty: 90 3RF levothyroxine 100 mcg tablet 100 mcg PO QAM metoprolol tartrate 25 mg Tablet 12.5 mg PO BID Qty: 60 2RF aspirin 81 mg Tablet,Delayed Release (Dr/Ec) 81 mg PO QAM Qty: 30 0RF Changed isosorbide mononitrate 30 mg tablet extended release 24 hr 30 mg PO BID Qty: 60 0RF pantoprazole 40 mg tablet,delayed release (DR/EC) 40 mg PO BIDWM Qty: 60 0RF Discontinued gabapentin 400 mg capsule 400 mg PO TID amlodipine 10 mg tablet 10 mg PO QAM levofloxacin 750 mg tablet 750 mg PO Q48H Rx Instructions: for 7 days (rx filled 02/04/23) sucralfate 1 gram tablet 1 g PO BID Discharge Orders: Discharge Order (Routine); Ordered 02/18/23 Ordered By: Everardo Cotto Referrals: Tyrese Rodriguez NP [Primary Care Provider] - (Please call Tyrese Rodriguez's Office on Monday at [phone] to schedule a follow up appointment for 2 weeks. Thank you.) Jensen Arroyo M.D [Physician] - 1 month Lottie Rider FNP [Nurse Practitioner] - 7-10 days Mason Zaragoza DO [Physician] - 4-7 days Discharge Diet: Cardiac Discharge Activity: Resume usual activity and Increase activity as tolerated Patient Instructions: Iron Supplements (By mouth) (Duofer, Fe-20, Bifera, Phill- Iron), Furosemide (By mouth) (Lasix), Sucralfate (By mouth) (Carafate), Gabapentin (By mouth) (Neurontin, FusePaq Fanatrex, G[place],..., Fluticasone (By breathing) (Arnuity Ellipta, Flovent Diskus,..., Tiotropium (By breathing) (Spiriva, Spiriva Respimat), Vitamin B-12 (By mouth) (B-12-SL, [facility] Vitamin..., Opioid Safety Activity Restrictions/Additional Instructions: Take Protonix twice daily along with Carafate before meals and at bedtime. Please follow-up with Dr. Zaragoza at the earliest within next 1 week for a possible colonoscopy as an outpatient. Please follow-up with a primary care provider within next 1 week for repeat CBC and CMP. Please follow-up with Dr. Arroyo and nurse practitioner from cardiology. Follow-up with a nurse practitioner in [address] Arroyo within next 4 weeks. You will be on Lasix daily at home along with inhalation treatment. Discharge Attestations Time Spent in Discharge Care*: greater than 30 min Specific Discharge Activities: educating patient, educating and/or supporting family/caregiver, discussing with pcp/other providers, discussing with caseworker protective services/social workers/dc planners, documenting/other paperwork and evaluating patient/reviewing data Status at Discharge: Cognitive status at discharge: cognitively intact , Behavioral status at discharge: cooperative , Functional status at discharge: independent ambulation , Overall status at discharge: patient is back to baseline Quality Metrics Clinical Quality Measures [ No reported AMI, CVA or VTE this stay] Coding Level of Care Code 91525 Total time (in minutes) for Discharge: 80 Diagnoses CAD (coronary artery disease) I25.10 Occult blood in stools R19.5 Hemoptysis R04.2 COPD (chronic obstructive pulmonary disease) J44.9 CHF (congestive heart failure) I50.9 Hyperlipidemia E78.5 Hypertension I10 CKD (chronic kidney disease) N18.9
[2023-02-18] MEDS: cyanocobalamin 1,000 mcg Tablet 500 MCG PO (10:07)
[2023-02-18] MEDS: clopidogrel 75 mg Tablet PO (10:08)
[2023-02-18] MEDS: docusate sodium 100 mg Capsule PO (10:08)
[2023-02-18] MEDS: metoprolol tartrate 25 mg Tablet 12.5 MG PO (10:09)
[2023-02-18] MEDS: gabapentin 100 mg Capsule 200 MG PO (10:10)
[2023-02-18] MEDS: ferrous sulfate EC 325 mg Tablet PO (10:10)
[2023-02-18] MEDS: pantoprazole 40 mg SDV IVP (10:11)
[2023-02-18] MEDS: neomycin-poly-bacitracin oint 28 gm 1 APPLIC TOPICAL (10:13)
== END 2023-02-18 14:00 | disposition home health service (06) | DRG 280 ==
LOC: ER 14:06 → CSU 14:07
PROVIDERS: Admitting Provider Hospitalist; Emergency Provider Family Medicine; PCP Nurse Practitioner Family; Visit Provider Student in an Organized Health Care Education/Training Program
DX: I13.0 Hypertensive heart and chronic kidney disease with heart failure and stage 1 through stage 4 chronic kidney disease, or unspecified chronic kidney disease (principal); I50.33 Acute on chronic diastolic (congestive) heart failure; I21.4 Non-ST elevation (NSTEMI) myocardial infarction; N17.9 Acute kidney failure, unspecified; K92.1 Melena; J90 Pleural effusion, not elsewhere classified; N18.32 Chronic kidney disease, stage 3b; I25.10 Atherosclerotic heart disease of native coronary artery without angina pectoris; Z95.5 Presence of coronary angioplasty implant and graft; D63.1 Anemia in chronic kidney disease; F17.210 Nicotine dependence, cigarettes, uncomplicated; J43.9 Emphysema, unspecified; Z99.81 Dependence on supplemental oxygen; Z87.01 Personal history of pneumonia (recurrent); D50.9 Iron deficiency anemia, unspecified; Z66 Do not resuscitate; Z79.02 Long term (current) use of antithrombotics/antiplatelets; Z79.82 Long term (current) use of aspirin; N48.89 Other specified disorders of penis; I73.9 Peripheral vascular disease, unspecified; G62.9 Polyneuropathy, unspecified; E03.9 Hypothyroidism, unspecified; E78.5 Hyperlipidemia, unspecified; I25.2 Old myocardial infarction
CPT/HCPCS: 32555; 36415; 36430; 36600; 51702; 71045; 71250; 74176; 80048; 80051; 80053; 80503; 81001; 81015; 82042; 82150; 82330; 82465; 82570; 82607; 82746; 82805; 82945; 83540; 83550; 83615; 83735; 83880; 83986; 84075; 84100; 84157; 84300; 84315; 84439; 84443; 84478; 84484; 84550; 84560; 85014; 85018; 85025; 85610; 85730; 86403; 86850; 86900; 86920; 87015; 87070; 87075; 87102; 87116; 87205; 87206; 87449; 87486; 87581; 87633; 87801; 88112; 89050; 93005; 93308; 94640; 96372; 96376; 97116; 97161; 97530; 99285; C9113; J1644; J1940; J2930; J3420; J7626; P9016

== ENCOUNTER → 2023-02-22 07:58 | Outpatient (BNVA) | payer MEDICARE, SELFPAY | PROVIDERS: PCP Nurse Practitioner Family; Visit Provider Nurse Practitioner Family | DX: I25.10 Atherosclerotic heart disease of native coronary artery without angina pectoris (principal); I13.0 Hypertensive heart and chronic kidney disease with heart failure and stage 1 through stage 4 chronic kidney disease, or unspecified chronic kidney disease; F17.210 Nicotine dependence, cigarettes, uncomplicated; N18.9 Chronic kidney disease, unspecified; I50.9 Heart failure, unspecified; Z79.82 Long term (current) use of aspirin | CPT/HCPCS: 99214 ==

== ENCOUNTER 2023-02-26 13:32 | Emergency (ER) | payer MEDICARE, SELFPAY ==
[2023-02-26 13:34] VITALS: BP 129/41; PULSE 72; TEMP 35.9; O2SAT 100; BMI 20.7
--- NOTE | 2023-02-26 13:36 | W.ED.SYNCOPE ---
HPI - Syncope General: Chief Complaint: Syncope Stated Complaint: SYNCOPE Time Seen by Provider: 02/26/23 13:36 History of Present Illness: Mr. Sebastian is an 82-year-old gentleman with complex past medical history including CAD, CHF, COPD with chronic hypoxic respiratory failure intermittent home oxygen use, CKD presenting to the emergency department for syncopal episode. He reports being at his baseline health and actually feeling relatively well lately. He was sitting on the porch and had sudden onset without prodrome of syncope. The next thing he knew people around him tried to wake him up. Denies symptoms since that time. No other specific changes in health, exacerbating, or alleviating factors identified. Onset (ago): minute(s) Prodromal symptoms: none Context: at rest Injuries sustained associated with event: none Associated symptoms: Reports no associated symptoms History: history of CAD and other Treatments prior to arrival: none Review of Systems General: Reports: 10 or more systems reviewed and unremarkable except in HPI and below PFSH ED PFSH: Medical History Atherosclerosis of coronary artery BMI 22.0-22.9, adult CAD (coronary artery disease) STEMI 08/2022 with NIGEL to mid RCA CHF (congestive heart failure) CKD (chronic kidney disease) COPD (chronic obstructive pulmonary disease) Gastric ulcer by EGD in 2019 History of cardiovascular stress test 02/06/2023 nonspecific EKG changes with lexiscan infusion. Myocardial imaging suggestive of scarring in distribution of all 3 coronary arteries with a small area of possible rama-infarction ischemia in left circumflex distribution History of Doppler ultrasound carotids 01/30/2023 Right ICA 50-60% stenosis, Left ICA <50% stenosis, normal antegrade flow in right and left vertebral arteries History of echocardiogram 02/02/2023 EF 61%, mild LVH, no wall motion abnormalities, Grade I/IV diastolic dysfunction, estimated PAP 35 mmHg, mild to moderate AR and MR Hyperlipidemia Hypertension Hypothyroidism Iron deficiency anemia Neuropathy Occult blood in stools PAD (peripheral artery disease) YEIMY 02/02/2023 Abnormal resting ABIs bilaterally(0.78 on the right and 0.73 on the left) suggesting moderate peripheral arterial disease. Primary osteoarthritis of left knee Primary osteoarthritis of right knee Surgical History H/O colonoscopy 09/11/19 H/O esophagogastroduodenoscopy 09/11/19; 02/05/2023 - no active bleeding History of appendectomy History of cardiac catheterization 08/2022 severe RCA stenosis s/p NIGEL. Angiogram was done through the right radial artery, but intervention was performed to the right groin because of the abnormal anatomy of the artery-the RCA ostium had a godinez hook takeoff. History of hernia surgery Family History Sister Cancer Brother Diabetes Denies family history of Anesthesia complication Bleeding disorder Social History Smoking and tobacco status: current every day smoker cigarettes [ Other cigarette details: smoked since age 14, cut back significantly] Alcohol intake: never Lives independently: Yes Current occupational status: retired Physical Exam Const: COMMON NORMALS: patient oriented x3 and alert GENERAL APPEARANCE: cooperative, well developed and ill appearing (Chronically) HENMT: COMMON NORMALS: normocephalic and atraumatic HEAD & SCALP: normocephalic and atraumatic Eye: COMMON NORMALS: conjunctivae normal CONJUNCTIVA: Yes conjunctivae normal SCLERA: sclerae normal Neck/C-Spine: COMMON NORMALS: supple GENERAL: Yes trachea midline Resp: COMMON NORMALS: normal respiratory effort EFFORT & INSPECTION: Yes able to speak in complete sentences Cardio: COMMON NORMALS: regular rate and regular rhythm RATE: regular rate RHYTHM: regular rhythm GI: COMMON NORMALS: Soft to palpation PALPATION: Yes Soft to palpation and No Tenderness to palpation present (GI) Extremity: GENERAL: Yes normal exam except as noted and No edema Neuro: COMMON NORMALS: patient oriented x3, CN's II-XII intact bilaterally, moves all extremities, no focal motor deficits and no sensory deficits noted SENSORIUM/ORIENTATION: Yes alert and No Orientation impaired Psych: COMMON NORMALS: mental status grossly normal and Normal thought process present THOUGHT PROCESS: Normal thought process present Course Vital Signs: Vital signs: Vital Signs Temperature 96.7 F L 02/26/23 13:34 Pulse Rate 56 L 02/26/23 18:57 Respiratory Rate 16 02/26/23 18:57 Blood Pressure 130/44 02/26/23 18:57 Pulse Oximetry 100 02/26/23 18:57 Oxygen Delivery Me thod 02/26/23 18:57 Oxygen Flow Rate 3 02/26/23 15:20 MDM - Syncope Medical Decision Making 82-year-old gentleman presenting to the emergency department for syncopal episode at rest. Exam as above, no focal neurologic deficits. He is nontoxic in appearance. EKG demonstrates atrial fibrillation with marked ST segment abnormalities, borderline interventricular conduction delay, no STEMI. Labs with no leukocytosis, mild improvement in macrocytic anemia. Metabolic panel with mild hypokalemia, patient has baseline CKD, mildly increased creatinine from baseline. Initial troponin is elevated as is BNP though overall troponin is improved from prior. CT head with likely age-related changes, no evidence of intracranial hemorrhage or mass. Chest x-ray demonstrates no lobar consolidation or pneumothorax. Potassium replenishment ordered. I discussed the case with cardiology on-call, given recent hospitalization and cardiac evaluation no indication for repeat hospitalization at this time. Hospitalist similarly feels patient does not require admission. I will plan to have patient have close follow-up in the outpatient setting. Outpatient Holter monitor ordered. The results of ED evaluation were discussed with the patient including prescriptions and/or symptomatic cares (if applicable) including appropriate and responsible use, followup plan, and return precautions. The patient verbalized understanding and felt safe for discharge. Medical Records I reviewed the patient's medical records. Lab Data I reviewed the patient's lab results. 02/26/23 14:15 02/26/23 16:28 Radiology Impressions Chest X-Ray 02/26/23 13:52 IMPRESSION: Emphysematous change and without acute findings. Head CT 02/26/23 13:52 IMPRESSION: 1. Atrophic or involutional change for age, along with mild periventricular chronic small-vessel disease change. 2. No acute intracranial abnormality. 3. Follow-up or further evaluation as clinically indicated. Laboratory Results WBC 6.7 10^3/uL (4.0-10.0) 02/26/23 14:15 RBC 3.71 10^6/uL (4.1-5.3) L 02/26/23 14:15 Hgb 11.4 g/dL (11.7-16.6) L 02/26/23 14:15 Hct 35.5 % (42.0-52.0) L 02/26/23 14:15 MCV 95.7 fl (80-94) H 02/26/23 14:15 MCH 30.7 pg (28.0-34.0) 02/26/23 14:15 MCHC 32.1 g/dL (30.0-36.0) 02/26/23 14:15 RDW 15.0 % (12.1-15.1) 02/26/23 14:15 Plt Count 254 10^3/cmm (130-400) 02/26/23 14:15 MPV 10.9 fL (7.4-10.4) H 02/26/23 14:15 Neut % (Auto) 66.6 % 02/26/23 14:15 Lymph % (Auto) 21.6 % 02/26/23 14:15 [place] % (Auto) 6.7 % 02/26/23 14:15 Eos % (Auto) 4.0 % 02/26/23 14:15 Baso % (Auto) 0.7 % 02/26/23 14:15 Neut # (Auto) 4.45 10^3/uL (1.8-7.7) 02/26/23 14:15 Lymph # (Auto) 1.5 10^3/uL (0.8-4.8) 02/26/23 14:15 [place] # (Auto) 0.5 10^3/uL (0.2-0.9) 02/26/23 14:15 Eos # (Auto) 0.3 10^3/uL (0.0-0.8) 02/26/23 14:15 Baso # (Auto) 0.1 10^3/uL (0.0-0.1) 02/26/23 14:15 Nucleated RBC % (auto) 0 % 02/26/23 14:15 Nucleated RBCs # 0.0 /100WBC 02/26/23 14:15 Sodium 142 mmol/L (136-145) 02/26/23 16:28 Potassium 3.4 mmol/L (3.5-5.1) L 02/26/23 16:28 Chloride 102 mmol/L (98-107) 02/26/23 16:28 Carbon Dioxide 28 mmol/L (22-29) 02/26/23 16:28 Anion Gap 15.4 (5-19) 02/26/23 16:28 BUN 56 mg/dL (8-23) H 02/26/23 16:28 Creatinine 3.0 mg/dL (0.7-1.2) H 02/26/23 16:28 GFR Calculation Not Reportable 02/26/23 16:28 Glucose 108 mg/dL (65-115) 02/26/23 16:28 Calculated Osmolality 310 mOsm/kg (285-295) H 02/26/23 16:28 Calcium 8.8 mg/dL (8.5-10.5) 02/26/23 16:28 Magnesium 2.0 mg/dL (1.7-2.3) 02/26/23 16:28 Total Bilirubin 0.3 mg/dL (0.15-1.2) 02/26/23 16:28 AST 14 U/L (0-40) 02/26/23 16:28 ALT 9 U/L (0-41) 02/26/23 16:28 Alkaline Phosphatase 58 U/L (40-130) 02/26/23 16:28 Troponin T Baseline 130 ng/L (0-15) H* 02/26/23 16:28 NT-Pro-B Natriuret Pep 26526 pg/mL (0-450) H 02/26/23 16:28 Total Protein 6.8 g/dL (6.6-8.7) 02/26/23 16:28 Albumin 3.4 g/dL (3.5-5.2) L 02/26/23 16:28 Globulin 3.4 g/dL (1.3-4.6) 02/26/23 16:28 Discharge Plan Discharge Patient Disposition: Home Clinical Impression: Syncope, CKD (chronic kidney disease), Hypokalemia Condition: Stable Prescriptions: No Action pravastatin 40 mg tablet 80 mg PO BEDTIME Qty: 90 3RF levothyroxine 100 mcg tablet 100 mcg PO QAM metoprolol tartrate 25 mg Tablet 12.5 mg PO BID Qty: 60 2RF aspirin 81 mg Tablet,Delayed Release (Dr/Ec) 81 mg PO QAM Qty: 30 0RF cyanocobalamin (vitamin B-12) [Vitamin B-12] 1,000 mcg Tablet 500 mcg PO DAILY Qty: 30 0RF gabapentin 100 mg Capsule 200 mg PO TID Qty: 90 0RF ferrous sulfate 325 mg (65 mg iron) Tablet,Delayed Release (Dr/Ec) 325 mg PO BIDWM Qty: 60 0RF sucralfate 100 mg/mL Suspension 1 g PO AC&BEDTIME 14 Days Qty: 300 0RF furosemide [Lasix] 40 mg tablet 40 mg PO BID Qty: 60 0RF Spiriva with HandiHaler 18 mcg capsule, w/inhalation device 1 cap inhalation DAILY Qty: 30 0RF Rx Instructions: puncture 1 cap using device; one dose = 2 inhalations isosorbide mononitrate 30 mg tablet extended release 24 hr 30 mg PO BID Qty: 60 0RF pantoprazole 40 mg tablet,delayed release (DR/EC) 40 mg PO BIDWM Qty: 60 0RF clopidogrel 75 mg tablet 75 mg PO QAM Breo Ellipta 100-25 mcg/dose blister with device 1 inh inhalation QAM Discharge Orders: Discharge ED (Routine); Ordered 02/26/23 Ordered By: Corey Steele Other Ambulatory Orders: ECG holter monitor 7 Days (Routine) Timeframe: 2 Days Facility: [facility] - Location: Radiology Ordered By: Corey Steele Referrals: Tyrese Rodriguez NP [Primary Care Provider] - Discharge Diet: Usual diet Discharge Activity: Resume usual activity Patient Instructions: Syncope (ED), Opioid Safety Activity Restrictions/Additional Instructions: Thank you for visiting the emergency department. You were seen antibiotic for syncopal episode. The exact cause of your symptoms is unclear however after discussion with cardiology and the hospitalist service does not appear to need inpatient management at this time. Please follow-up with your virtual classroom manager and primary care provider. Please continue your medication regimen. Return to the emergency department for recurrent symptoms, any new neurologic symptoms, or anything else that you are concerned about and feel needs emergency department evaluation. Coding Level of Care Code ED Resident Physician In Radiology for Mark Ochoa
--- NOTE | 2023-02-26 13:52 | CTR_ITS ---
PROCEDURE INFORMATION: Exam: CT Head Without Contrast Exam date and time: 02/26/2023 1:59 PM Age: 82 years old Clinical indication: Dizziness; Additional info: Syncope TECHNIQUE: Imaging protocol: Computed tomography of the head without contrast. Radiation optimization: All CT scans at this facility use at least one of these dose optimization techniques: automated exposure control; mA and/or kV adjustment per patient size (includes targeted exams where dose is matched to clinical indication); or iterative reconstruction. REPORTING DATA: Count of CT and Cardiac NM exams in prior 12 months: This patient has received 3 known CTs and 0 known cardiac nuclear medicine studies in the 12 months prior to the current study. COMPARISON: No relevant prior studies available. RADIATION DOSE METRICS: Total DLP (mGy-cm): 1066.99 FINDINGS: Brain: Atrophic or involutional change for age. Mild periventricular hypodensity or chronic small-vessel disease change. No findings to indicate large vessel ischemic change or infarct. No intracranial hemorrhage or hematoma is seen. No mass effect or shift of midline structures. Small basal ganglia calcifications bilaterally. Benign falx calcification. Cerebral ventricles: Mild ventricular prominence with atrophic change. Vascular calcification at the base of the brain. Paranasal sinuses: Visualized sinuses are unremarkable. No fluid levels. Mastoid air cells: Visualized mastoid air cells are well aerated. Bones/joints: Unremarkable. No acute fracture. Soft tissues: Unremarkable. CT/CT head wo con* [id number] IMPRESSION: 1. Atrophic or involutional change for age, along with mild periventricular chronic small-vessel disease change. 2. No acute intracranial abnormality. 3. Follow-up or further evaluation as clinically indicated.
--- NOTE | 2023-02-26 13:52 | XRR_ITS ---
PROCEDURE INFORMATION: Exam: XR Chest Exam date and time: 02/26/2023 1:56 PM Age: 82 years old Clinical indication: Other: Syncope; Prior surgery; Surgery type: Heart stents TECHNIQUE: Imaging protocol: Radiologic exam of the chest. Views: 1 view. COMPARISON: CR XR chest 1V portable [id number] 02/17/2023 2:08 PM FINDINGS: Lungs: Emphysematous change, without focal infiltrate or consolidation. Pleural spaces: No significant blunting of the costophrenic angles or pleural effusion with interval resolution right basilar effusion from prior exam. No pneumothorax is seen. Heart/Mediastinum: Unremarkable. No cardiomegaly. Vasculature: Arteriosclerosis of the thoracic aorta. Bones/joints: No acute osseous abnormality. XR/XR chest 1V portable [id number] IMPRESSION: Emphysematous change and without acute findings.
--- NOTE | 2023-02-26 14:09 | ECG_ITS ---
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1940 Requested By: Corey Steele Order Number: [id number] Reading MD: Oswald Turner Measurements Intervals [place] Rate: 68 P: 0 AK: 0 QRS: 90 QRSD: 114 T: -47 QT: 490 QTc: 524 Interpretive Statements ATRIAL FIBRILLATION POSSIBLE INFERIOR MYOCARDIAL INFARCTION , OF INDETERMINATE AGE [30 ms Q WAVE IN II/aVF] MODERATE T-WAVE ABNORMALITY, CONSIDER LATERAL ISCHEMIA [-0.1+ mV T-WAVE IN I/aVL/V5/V6] Compared to ECG 02/14/2023 21:01:04 Myocardial infarct finding now present Possible ischemia now present Sinus rhythm no longer present Ventricular premature complex(es) no longer present T-wave abnormality still present Electronically Signed On 02-26-2023 18:57:09 CDT by Oswald Turner [id number]
[2023-02-26 14:19] VITALS: BP 129/41; PULSE 74; RESP 16; O2SAT 100
[2023-02-26 14:29] LABS: Basophils # 0.1 10^3/uL (0.0-0.1); Basophils % 0.7 %; Eosinophils # 0.3 10^3/uL (0.0-0.8); Hematocrit 35.5 % (42.0-52.0); Hemoglobin 11.4 g/dL (11.7-16.6); Lymphocytes # 1.5 10^3/uL (0.8-4.8); Lymphocytes % 21.6 %; Mean Corpuscular HGB Conc 32.1 g/dL (30.0-36.0); Mean Corpuscular Hemoglobin 30.7 pg (28.0-34.0); Mean Corpuscular Volume 95.7 fl (80-94); Mean Platelet Volume 10.9 fL (7.4-10.4); Monocytes # 0.5 10^3/uL (0.2-0.9); Monocytes % 6.7 %; Neutrophils # 4.45 10^3/uL (1.8-7.7); Neutrophils % 66.6 %; Nucleated Red Blood Cells % 0 %; Platelet Count 254 10^3/cmm (130-400); Red Blood Count 3.71 10^6/uL (4.1-5.3); White Blood Count 6.7 10^3/uL (4.0-10.0)
--- NOTE | 2023-02-26 15:17 | PC.PHAR ---
pts daughter verified pts medications-ext med history shows amlodipine 5mg qam filled 02/25/23 90d/s pts daughter had said previously pt was on 10mg daily notes were made in previous entered med list notes that 5mg daily was filled medication was dced on last visit upon discharge 02/18/23-lisinopril 40mg daily filled 02/24/23 90d/s was dced 02/05/23-pts daughter states the pt has been out of his levothyroxine 100mcg since monday02/24/23 ext med history shows last filled 02/19/23
[2023-02-26 15:20] VITALS: BP 129/41; PULSE 64; RESP 16; O2SAT 100
--- NOTE | 2023-02-26 16:41 | ECG_ITS ---
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1940 Requested By: Corey Steele Order Number: [id number] Rm MD: Oswald Turner Measurements Intervals [place] Rate: 57 P: 149 MI: 189 QRS: 68 QRSD: 109 T: -48 QT: 505 QTc: 492 Interpretive Statements Sinus BRADYCARDIA ST DEVIATION AND MODERATE T-WAVE ABNORMALITY, CONSIDER LATERAL ISCHEMIA [-0.1+ mV T-WAVE IN I/aVL/V5/V6] ST DEVIATION AND MODERATE T-WAVE ABNORMALITY, CONSIDER INFERIOR ISCHEMIA [-0.1+ mV T-WAVE IN II/aVF] Compared to ECG 02/26/2023 14:09:54 Bradycardia, nonsinus now present Atrial fibrillation no longer present Myocardial infarct finding no longer present T-wave abnormality still present Possible ischemia still present Electronically Signed On 02-26-2023 19:03:41 CDT by Oswald Turner [id number]
[2023-02-26 17:05] LABS: Troponin(5th) Baseline 130 ng/L (0-15)
[2023-02-26 17:08] LABS: Alanine Aminotransferase 9 U/L (0-41); Albumin Level 3.4 g/dL (3.5-5.2); Alkaline Phosphatase 58 U/L (40-130); Anion Gap 15.4 (5-19); Aspartate Amino Transferase 14 U/L (0-40); Blood Urea Nitrogen 56 mg/dL (8-23); Calcium 8.8 mg/dL (8.5-10.5); Carbon Dioxide 28 mmol/L (22-29); Chloride 102 mmol/L (98-107); Globulin 3.4 g/dL (1.3-4.6); Glucose 108 mg/dL (65-115); NT Pro B Type Natriuretic Pept 19918 pg/mL (0-450); Osmolality Calculated 310 mOsm/kg (285-295); Potassium 3.4 mmol/L (3.5-5.1); Sodium 142 mmol/L (136-145); Total Bilirubin 0.3 mg/dL (0.15-1.2); Total Protein 6.8 g/dL (6.6-8.7)
[2023-02-26 18:57] VITALS: BP 130/44; PULSE 56; RESP 16; O2SAT 100
== END 2023-02-26 18:58 | disposition home or self-care (01) ==
PROVIDERS: Emergency Provider Emergency Medicine; PCP Nurse Practitioner Family
DX: R55 Syncope and collapse (principal); I13.0 Hypertensive heart and chronic kidney disease with heart failure and stage 1 through stage 4 chronic kidney disease, or unspecified chronic kidney disease; N18.9 Chronic kidney disease, unspecified; I50.9 Heart failure, unspecified; E87.6 Hypokalemia; Z79.82 Long term (current) use of aspirin; Z79.02 Long term (current) use of antithrombotics/antiplatelets; I25.10 Atherosclerotic heart disease of native coronary artery without angina pectoris; J44.9 Chronic obstructive pulmonary disease, unspecified; E78.5 Hyperlipidemia, unspecified; F17.210 Nicotine dependence, cigarettes, uncomplicated
CPT/HCPCS: 36415; 70450; 71045; 80053; 83735; 83880; 84484; 85025; 93005; 99285

== ENCOUNTER 2023-03-19 08:13 | Emergency (ER) | payer MEDICARE, SELFPAY ==
[2023-03-19 08:22] VITALS: BP 140/46; RESP 16; TEMP 35.9; BMI 24.3
[2023-03-19 08:28] VITALS: PULSE 88; O2SAT 100
--- NOTE | 2023-03-19 08:55 | CTR_ITS ---
PROCEDURE INFORMATION: Exam: CT Head Without Contrast Exam date and time: 03/19/2023 9:40 AM Age: 82 years old Clinical indication: Altered mental status/memory loss; Additional info: AMS TECHNIQUE: Imaging protocol: Computed tomography of the head without contrast. Radiation optimization: All CT scans at this facility use at least one of these dose optimization techniques: automated exposure control; mA and/or kV adjustment per patient size (includes targeted exams where dose is matched to clinical indication); or iterative reconstruction. REPORTING DATA: Count of CT and Cardiac NM exams in prior 12 months: This patient has received 4 known CTs and 0 known cardiac nuclear medicine studies in the 12 months prior to the current study. COMPARISON: CT head wo con* [id number] 02/26/2023 1:59 PM RADIATION DOSE METRICS: Total DLP (mGy-cm): 1085.69 FINDINGS: Brain: No intracranial hemorrhage, edema or other acute abnormality is seen in the brain. There is generalized chronic atrophy with prominence of the ventricles and sulci. There is patchy decreased white matter density which is consistent with chronic small vessel white matter ischemia. No mass effect or midline shift. Cerebral ventricles: Ventricles are prominent consistent with chronic atrophy. Paranasal sinuses: Visualized sinuses are unremarkable. No fluid levels. Mastoid air cells: Visualized mastoid air cells are well aerated. Bones/joints: Unremarkable. No acute fracture. Soft tissues: Unremarkable. CT/CT head wo con* [id number] IMPRESSION: No acute intracranial abnormality.
--- NOTE | 2023-03-19 08:55 | XRR_ITS ---
PROCEDURE INFORMATION: Exam: XR Chest Exam date and time: 03/19/2023 9:38 AM Age: 82 years old Clinical indication: Dyspnea; Additional info: AMS TECHNIQUE: Imaging protocol: Radiologic exam of the chest. Views: 1 view. COMPARISON: CR (CHEST, ) 02/26/2023 1:56 PM FINDINGS: Lungs: Unremarkable. No consolidation. Pleural spaces: Unremarkable. No pleural effusion. No pneumothorax. Heart/Mediastinum: Unremarkable. No cardiomegaly. Bones/joints: Unremarkable. XR/XR chest 1V portable [id number] IMPRESSION: No acute findings.
--- NOTE | 2023-03-19 08:57 | ECG_ITS ---
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 Measurements Intervals [place] Rate: 67 P: 74 MD: 186 QRS: 69 QRSD: 117 T: -72 QT: 470 QTc: 500 Interpretive Statements SINUS RHYTHM POSSIBLE INFERIOR MYOCARDIAL INFARCTION , OF INDETERMINATE AGE [30 ms Q WAVE IN II/aVF] Compared to ECG 02/26/2023 16:41:19 Myocardial infarct finding now present Sinus bradycardia no longer present T-wave abnormality no longer present Possible ischemia no longer present Electronically Signed On 03-19-2023 9:46:14 CDT by Serge Thomas M.D. [id number]
--- NOTE | 2023-03-19 08:57 | ED_ITS ---
HPI - Male Genitourinary General: Chief complaint: Urogenital-Male Stated complaint: urinary pain/feet burning Time Seen by Provider: 03/19/23 08:21 History of Present Illness: Ana Sebastian is a an 82-year-old man that presents to the emergency department with complaints of urinary burning, neuropathy, and questionable AMS. Patient has a family member with him she reports he seemed off yesterday. Patient is very hard of hearing but is able to orient to person place and events surrounding today. Patient primary complaints seem to be his neuropathy. He has not been able to take his gabapentin several days as he ran out and cannot refill until tomorrow. Patient denies fever or chills, chest pain or shortness of breath, abdominal pain nausea vomiting or diarrhea. Patient's history includes CAD CHF CKD, COPD, oxygen dependent at times, Associated symptoms: Deny dysuria, hematuria, nausea or vomiting Review of Systems General: Reports: 10 or more systems reviewed and unremarkable except in HPI and below Const: Denies: fever(s), chills, change in appetite, change in weight, fatigue or malaise Eyes: Denies: change in vision, eye discomfort, eye discharge or eye redness ENMT: Denies: throat pain, enlarged tonsils, odynophagia, hoarseness, ear or mastoid pain, ear discharge, change in hearing, tinnitus, nasal discharge, nasal congestion, post nasal drip or sinus pain Card: Denies: chest pain, palpitations, irregular heart rhythm, edema, dyspnea on exertion, orthopnea or leg pain with exertion Resp: Denies: dyspnea, productive cough, non-productive cough, wheezing, stridor or chest congestion GI: Denies: abdominal pain, nausea, vomiting, dysphagia, diarrhea, constipatio n, bloating, GI cramping or hematochezia : Denies: flank pain, dysuria, urinary frequency, urinary urgency, urinary hesitancy, oliguria or hematuria Musc: Denies: neck pain, back pain, extremity pain, joint pain, joint swelling, joint redness, joint warmth or muscle weakness Skin/Breast: Denies: rash, pruritus, erythema, photosensitivity or new lesions Neuro: Reports: numbness in extremities and sensory changes; Denies: headache(s), weakness in extremities, lack of coordination, difficulty walking, frequent falls, dizziness, confusion, Slurred speech present, difficulty communicating thoughts, seizure-like activity or involuntary movements Endo: Denies: polyuria, polydipsia or tired all the time Bossman/Lymph: Denies: easy bruising or easy bleeding PFSH ED PFSH: Medical History Atherosclerosis of coronary artery BMI 22.0-22.9, adult CAD (coronary artery disease) STEMI 08/2022 with NIGEL to mid RCA CHF (congestive heart failure) CKD (chronic kidney disease) COPD (chronic obstructive pulmonary disease) Gastric ulcer by EGD in 2019 History of cardiovascular stress test 02/06/2023 nonspecific EKG changes with lexiscan infusion. Myocardial imagin g suggestive of scarring in distribution of all 3 coronary arteries with a small area of possible rama-infarction ischemia in left circumflex distribution History of Doppler ultrasound carotids 01/30/2023 Right ICA 50-60% stenosis, Left ICA <50% stenosis, normal antegrade flow in right and left vertebral arteries History of echocardiogram 02/02/2023 EF 61%, mild LVH, no wall motion abnormalities, Grade I/IV diastolic dysfunction, estimated PAP 35 mmHg, mild to moderate AR and MR Hyperlipidemia Hypertension Hypothyroidism Iron deficiency anemia Neuropathy Occult blood in stools PAD (peripheral artery disease) YEIMY 02/02/2023 Abnormal resting ABIs bilaterally(0.78 on the right and 0.73 on the left) suggesting moderate peripheral arterial disease. Primary osteoarthritis of left knee Primary osteoarthritis of right knee Surgical History H/O colonoscopy 09/11/19 H/O esophagogastroduodenoscopy 09/11/19; 02/05/2023 - no active bleeding History of appendectomy History of cardiac catheterization 08/2022 severe RCA stenosis s/p NIGEL. Angiogram was done through the right radial artery, but intervention was performed to the right groin because of the abnormal anatomy of the artery-the RCA ostium had a godinez hook takeoff. History of hernia surgery Family History Sister Cancer Brother Diabetes Denies family history of Anesthesia complication Bleeding disorder Social History Smoking and tobacco status: current every day smoker cigarettes [ Other cigarette details: smoked since age 14, cut back significantly] Alcohol intake: never Substance/Drug Use: never Lives independently: Yes Current occupational status: retired Physical Exam Const: COMMON NORMALS: no acute distress, patient oriented x3 and alert GENERAL APPEARANCE: cooperative ORIENTATION/CONSCIOUSNESS: Yes awake, Yes oriented to person, Yes oriented to place and Yes oriented to time HENMT: COMMON NORMALS: normocephalic and atraumatic HEAD & SCALP: normocephalic and atraumatic FACE & SINUS: normal facial exam MOUTH: Normal oral and palatal mucosa present THROAT: posterior oropharynx normal Eye: COMMON NORMALS: Equal, round and reactive pupils present, EOMs intact bilaterally, conjunctivae normal and no scleral icterus GENERAL EYE: appearance normal, both eyes and all related structures ALIGNMENT: Yes alignment normal PERIORBITAL: periorbital findings normal CONJUNCTIVA: Yes conjunctivae normal PUPIL: Yes Equal, round and reactive pupils present Neck/C-Spine: COMMON NORMALS: full ROM GENERAL: Yes normal visual inspection Lymph: LYMPHATIC: no lymphadenopathy noted Chest: COMMONS NORMALS: normal inspection of the chest Breast/axilla inspection: Yes no chest deformity, asymmetry, normal contours, no nodules, masses, tenderness Resp: COMMON NORMALS: normal respiratory effort, No retractions, No use of accessory muscles and clear to auscultation bilaterally EFFORT & INSPECTION: Yes able to speak in complete sentences and Yes symmetric chest movement AUSCULTATION: clear to auscultation bilaterally Cardio: COMMON NORMALS: regular rate, regular rhythm and Peripheral pulses 2+ throughout RATE: regular rate RHYTHM: regular rhythm PERIPHERAL PULSES: Peripheral pulses 2+ throughout GI: COMMON NORMALS: Normal to inspection, nondistended, normoactive bowel sounds present, Soft to palpation, non-tender and No hepatosplenomegaly present INSPECTION: Yes normal to inspection AUSCULTATION: Yes normoactive bowel sounds PALPATION: Yes Soft to palpation and Yes No hepatosplenomegaly present RECTAL EXAM: Yes deferred Extremity: COMMON NORMALS: normal to inspection GENERAL: Yes normal exam except as noted Neuro: COMMON NORMALS: patient oriented x3 SENSORIUM/ORIENTATION: Yes alert, Yes oriented to person, Yes oriented to place and Yes oriented to time CRANIAL NERVES: Yes CN normal except as noted Psych: COMMON NORMALS: mental status grossly normal, Normal thought process present, cooperative, activity/motor behavior normal, denies homicidal ideation and denies suicidal ideation THOUGHT PROCESS: Normal thought process present Skin: COMMON NORMALS: no rashes or lesions noted, no wounds and turgor normal GENERAL SKIN EXAM: no rashes or lesions noted and turgor normal Course Vital Signs: Vital signs: Vital Signs Temperature 96.6 F L 03/19/23 08:22 Pulse Rate 71 03/19/23 12:30 Respiratory Rate 16 03/19/23 08:22 Blood Pressure 143/49 03/19/23 12:30 Pulse Oximetry 98 03/19/23 12:30 Oxygen Delivery Me thod Room Air 03/19/23 09:58 MDM - Male Medical Decision Making Differential diagnoses include worsening neuropathy, chronic back pain, ra diculopathy, worsening renal function, heart disease, congestive heart failure, Patient was evaluated in the emergency department today after multiple diagnostics including laboratory studies, imaging, and EKGs Patient was found to be hypokalemic. Initially I was planning to give him 20 mEq over 2 hours however after discussion with Dr. steele, we elected to discharge patient home with close follow-up. 10 mEq will be run over 1 hour and then we will give 40 mEq p.o. Patient will need to have follow-up with his general practitioner in the next 3 to 5 days. While his BNP and troponin are elevated. This is unchanged from his baseline and patient denies any chest pain or shortness of breath. Lab Data 03/19/23 10:13 03/19/23 10:13 Radiology Impressions Chest X-Ray 03/19/23 08:55 IMPRESSION: No acute findings. Head CT 03/19/23 08:55 IMPRESSION: No acute intracranial abnormality. Laboratory Results WBC 5.5 10^3/uL (4.0-10.0) 03/19/23 10:13 RBC 2.92 10^6/uL (4.1-5.3) L 03/19/23 10:13 Hgb 9.4 g/dL (11.7-16.6) L 03/19/23 10:13 Hct 29.8 % (42.0-52.0) L 03/19/23 10:13 MCV 102.1 fl (80-94) H 03/19/23 10:13 MCH 32.2 pg (28.0-34.0) 03/19/23 10:13 MCHC 31.5 g/dL (30.0-36.0) 03/19/23 10:13 RDW 17.7 % (12.1-15.1) H 03/19/23 10:13 Plt Count 187 10^3/cmm (130-400) 03/19/23 10:13 MPV 11.1 fL (7.4-10.4) H 03/19/23 10:13 Neut % (Auto) 71.6 % 03/19/23 10:13 Lymph % (Auto) 16.7 % 03/19/23 10:13 Kings % (Auto) 7.2 % 03/19/23 10:13 Eos % (Auto) 3.6 % 03/19/23 10:13 Baso % (Auto) 0.7 % 03/19/23 10:13 Neut # (Auto) 3.95 10^3/uL (1.8-7.7) 03/19/23 10:13 Lymph # (Auto) 0.9 10^3/uL (0.8-4.8) 03/19/23 10:13 Kings # (Auto) 0.4 10^3/uL (0.2-0.9) 03/19/23 10:13 Eos # (Auto) 0.2 10^3/uL (0.0-0.8) 03/19/23 10:13 Baso # (Auto) 0.0 10^3/uL (0.0-0.1) 03/19/23 10:13 Nucleated RBC % (auto) 0 % 03/19/23 10:13 Nucleated RBCs # 0.0 /100WBC 03/19/23 10:13 Sodium 140 mmol/L (136-145) 03/19/23 10:13 Potassium 2.8 mmol/L (3.5-5.1) L* 03/19/23 10:13 Chloride 100 mmol/L (98-107) 03/19/23 10:13 Carbon Dioxide 23 mmol/L (22-29) 03/19/23 10:13 Anion Gap 19.8 (5-19) H 03/19/23 10:13 BUN 38 mg/dL (8-23) H 03/19/23 10:13 Creatinine 2.6 mg/dL (0.7-1.2) H 03/19/23 10:13 GFR Calculation Not Reportable 03/19/23 10:13 Glucose 82 mg/dL (65-115) 03/19/23 10:13 Calculated Osmolality 298 mOsm/kg (285-295) H 03/19/23 10:13 Lactate 1.6 mmol/L (0.5-2.2) 03/19/23 10:13 Calcium 8.9 mg/dL (8.5-10.5) 03/19/23 10:13 Phosphorus 2.4 mg/dL (2.5-4.5) L 03/19/23 10:03 Magnesium 2.0 mg/dL (1.7-2.3) 03/19/23 10:03 Total Bilirubin 0.4 mg/dL (0.15-1.2) 03/19/23 10:13 AST 20 U/L (0-40) 03/19/23 10:13 ALT 12 U/L (0-41) 03/19/23 10:13 Alkaline Phosphatase 57 U/L (40-130) 03/19/23 10:13 Troponin T Gen 5 ng/L 142 ng/L (0-15) H* 03/19/23 12:49 Troponin T Baseline 135 ng/L (0-15) H* 03/19/23 10:13 NT-Pro-B Natriuret Pep 33791 pg/mL (0-450) H 03/19/23 10:13 Total Protein 6.5 g/dL (6.6-8.7) L 03/19/23 10:13 Albumin 3.8 g/dL (3.5-5.2) 03/19/23 10:13 Globulin 2.7 g/dL (1.3-4.6) 03/19/23 10:13 Urine Color Yellow (Yellow) 03/19/23 08:45 Urine Appearance Clear (CLEAR) 03/19/23 08:45 Urine pH 6 (5-7) 03/19/23 08:45 Ur Specific Fitzwilliam 1.010 (1.005-1.030) 03/19/23 08:45 Urine Protein 1+ (Negative) H 03/19/23 08:45 Urine Glucose (UA) Norm (Normal) 03/19/23 08:45 Urine Ketones Negative (Negative) 03/19/23 08:45 Urine Blood Neg (Negative) 03/19/23 08:45 Urine Nitrate Negative (Negative) 03/19/23 08:45 Urine Bilirubin Neg (Negative) 03/19/23 08:45 Urine Urobilinogen Norm mg/dL (Negative) 03/19/23 08:45 Ur Leukocyte Esterase Negative (Negative) 03/19/23 08:45 Urine RBC None /hpf (0-2) 03/19/23 08:45 Urine WBC None /hpf (0-5) 03/19/23 08:45 Ur Squamous Epith Cells None /hpf (0-5) 03/19/23 08:45 Amorphous Sediment Not Reportable 03/19/23 08:45 Urine Bacteria Trace /hpf (NONE) 03/19/23 08:45 Discharge Plan Discharge Patient Disposition: Home Clinical Impression: CKD (chronic kidney disease), Neuropathy, Acute hypokalemia Condition: Stable Prescriptions: New gabapentin 100 mg capsule 200 mg PO TID 5 Days Qty: 30 0RF No Action pravastatin 40 mg tablet 80 mg PO BEDTIME Qty: 90 3RF levothyroxine 100 mcg tablet 100 mcg PO QAM metoprolol tartrate 25 mg Tablet 12.5 mg PO BID Qty: 60 2RF aspirin 81 mg Tablet,Delayed Release (Dr/Ec) 81 mg PO QAM Qty: 30 0RF cyanocobalamin (vitamin B-12) [Vitamin B-12] 1,000 mcg Tablet 500 mcg PO DAILY Qty: 30 0RF gabapentin 100 mg Capsule 200 mg PO TID Qty: 90 0RF ferrous sulfate 325 mg (65 mg iron) Tablet,Delayed Release (Dr/Ec) 325 mg PO BIDWM Qty: 60 0RF furosemide [Lasix] 40 mg tablet 40 mg PO BID Qty: 60 0RF Spiriva with HandiHaler 18 mcg capsule, w/inhalation device 1 cap inhalation DAILY Qty: 30 0RF Rx Instructions: puncture 1 cap using device; one dose = 2 inhalations isosorbide mononitrate 30 mg tablet extended release 24 hr 30 mg PO BID Qty: 60 0RF pantoprazole 40 mg tablet,delayed release (DR/EC) 40 mg PO BIDWM Qty: 60 0RF clopidogrel 75 mg tablet 75 mg PO QAM Breo Ellipta 100-25 mcg/dose blister with device 1 inh inhalation QAM Discharge Orders: Discharge ED (Routine); Ordered 03/19/23 Ordered By: Shauna Ramsay Referrals: Tyrese Rodriguez NP [Primary Care Provider] - Patient Instructions: Hypokalemia (ED), Pain Management Activity Restrictions/Additional Instructions: Potassium was replaced today with IV and oral medications. You need to follow- up with your primary care doctor in the next couple of days for reevaluation and repeat lab check Coding Level of Care Code ED Director Of Strategic Programs for Mark Ochoa
[2023-03-19 09:18] LABS: Protein Urine 1+ (Negative); Urine Appearance Clear (CLEAR); Urine Color Yellow (Yellow); pH Urine 6 (5-7)
[2023-03-19 09:19] LABS: Add Urine Culture? No; Add Urine Microscopic? YES; Bacteria Urine TRACE /hpf; Bilirubin Urine Neg (Negative); Blood Urine Neg (Negative); Glucose Urine UA Norm (Normal); Ketones Urine Negative (Negative); Leukocyte Esterase Urine Negative (Negative); Nitrate Urine Negative (Negative); Urobilinogen Urine Norm (Negative)
[2023-03-19 09:58] VITALS: BP 128/43; PULSE 77; O2SAT 100
[2023-03-19] MEDS: gabapentin 100 mg Capsule 200 MG PO (10:13)
[2023-03-19 10:22] LABS: Basophils % 0.7 %; Eosinophils # 0.2 10^3/uL (0.0-0.8); Eosinophils % 3.6 %; Hematocrit 29.8 % (42.0-52.0); Hemoglobin 9.4 g/dL (11.7-16.6); Lymphocytes # 0.9 10^3/uL (0.8-4.8); Lymphocytes % 16.7 %; Mean Corpuscular HGB Conc 31.5 g/dL (30.0-36.0); Mean Corpuscular Hemoglobin 32.2 pg (28.0-34.0); Mean Corpuscular Volume 102.1 fl (80-94); Mean Platelet Volume 11.1 fL (7.4-10.4); Monocytes # 0.4 10^3/uL (0.2-0.9); Monocytes % 7.2 %; Neutrophils # 3.95 10^3/uL (1.8-7.7); Neutrophils % 71.6 %; Nucleated Red Blood Cells % 0 %; Platelet Count 187 10^3/cmm (130-400); Red Blood Count 2.92 10^6/uL (4.1-5.3); Red Cell Distribution Width 17.7 % (12.1-15.1); White Blood Count 5.5 10^3/uL (4.0-10.0)
[2023-03-19 10:43] LABS: Lactate (Lactic Acid level) 1.6 mmol/L (0.5-2.2)
[2023-03-19 10:53] LABS: Troponin(5th) Baseline 135 ng/L (0-15)
[2023-03-19 10:54] VITALS: BP 122/45; PULSE 72; O2SAT 97
[2023-03-19 11:21] LABS: Alanine Aminotransferase 12 U/L (0-41); Albumin Level 3.8 g/dL (3.5-5.2); Alkaline Phosphatase 57 U/L (40-130); Aspartate Amino Transferase 20 U/L (0-40); Blood Urea Nitrogen 38 mg/dL (8-23); Calcium 8.9 mg/dL (8.5-10.5); Carbon Dioxide 23 mmol/L (22-29); Chloride 100 mmol/L (98-107); Globulin 2.7 g/dL (1.3-4.6); Glucose 82 mg/dL (65-115); Osmolality Calculated 298 mOsm/kg (285-295); Sodium 140 mmol/L (136-145); Total Bilirubin 0.4 mg/dL (0.15-1.2); Total Protein 6.5 g/dL (6.6-8.7)
[2023-03-19 11:26] LABS: Anion Gap 19.8 (5-19); Potassium 2.8 mmol/L (3.5-5.1)
[2023-03-19 11:55] LABS: NT Pro B Type Natriuretic Pept 21313 pg/mL (0-450)
[2023-03-19 12:30] VITALS: BP 143/49; PULSE 71; O2SAT 98
[2023-03-19 12:36] LABS: Phosphorus 2.4 mg/dL (2.5-4.5)
[2023-03-19] MEDS: potassium chloride premix 100 ML 50 MEQ IV (13:14)
[2023-03-19 13:34] LABS: Troponin T (5th) Once 142 ng/L (0-15)
[2023-03-19] MEDS: potassium chloride ER 20 mEq Tablet 40 MEQ PO (14:13)
[2023-03-19 14:20] VITALS: O2SAT 99
== END 2023-03-19 14:21 | disposition home or self-care (01) ==
PROVIDERS: Emergency Provider Nurse Practitioner; PCP Nurse Practitioner Family
DX: G62.9 Polyneuropathy, unspecified (principal); E87.6 Hypokalemia; I13.0 Hypertensive heart and chronic kidney disease with heart failure and stage 1 through stage 4 chronic kidney disease, or unspecified chronic kidney disease; N18.9 Chronic kidney disease, unspecified; I50.9 Heart failure, unspecified; Z79.82 Long term (current) use of aspirin; Z79.02 Long term (current) use of antithrombotics/antiplatelets; I25.10 Atherosclerotic heart disease of native coronary artery without angina pectoris; E78.5 Hyperlipidemia, unspecified
CPT/HCPCS: 36415; 70450; 71045; 80053; 81001; 83605; 83735; 83880; 84100; 84484; 85025; 93005; 96365; 99285; J3480

== ENCOUNTER 2023-03-28 02:05 | Inpatient (IN) | payer MEDICARE, SELFPAY ==
[2023-03-28] VITALS (16 sets, daily range): BP systolic 100–145; BP diastolic 48–86; PULSE 75–107; RESP 15–24; TEMP 36.4–36.7; O2SAT 93–98
--- NOTE | 2023-03-28 02:08 | XRR_ITS ---
PROCEDURE INFORMATION: Exam: XR Chest Exam date and time: 03/28/2023 2:26 AM Age: 82 years old Clinical indication: Shortness of breath; Additional info: SOB TECHNIQUE: Imaging protocol: Radiologic exam of the chest. Views: 1 view. COMPARISON: CR (CHEST, ) 03/19/2023 9:38 AM FINDINGS: Lungs: [id number] COPD. Scattered lung scarring. Progressive mild venous congestion. Vague areas of edema possible. Pneumonitis also possible. Pleural spaces: No pneumothorax. Minute bilateral effusions are possible. Heart/Mediastinum: Unremarkable. No cardiomegaly. Bones/joints: Unremarkable. XR/XR chest 1V portable [id number] IMPRESSION: 1. Minimal evidence of CHF or positive fluid balance, mildly progressed from 03/19/2023. 2. COPD and other chronic findings again noted.
--- NOTE | 2023-03-28 02:20 | ECG_ITS ---
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 Measurements Intervals [place] Rate: 96 P: 80 [place]: 168 QRS: 75 QRSD: 112 T: -70 QT: 392 QTc: 497 Interpretive Statements SINUS RHYTHM WITH OCCASIONAL VENTRICULAR PREMATURE COMPLEXES POSSIBLE INFERIOR MYOCARDIAL INFARCTION , OF INDETERMINATE AGE [30 ms Q WAVE IN II/aVF] Compared to ECG 03/19/2023 09:20:24 Ventricular premature complex(es) now present Myocardial infarct finding still present Electronically Signed On 03-28-2023 7:08:44 CDT by Patricia Alvarado M.D. [id number]
--- NOTE | 2023-03-28 02:22 | ED_ITS ---
HPI - SOB/Dyspnea General: Chief Complaint: Shortness of Breath/Dyspnea Stated Complaint: N\SOB Time Seen by Provider: 03/28/23 02:06 Source: patient Mode of arrival: ambulatory Limitations: no limitations History of Present Illness: HPI Narrative: 82-year-old male has a history of COPD states that he has had some generalized fatigue and states that roughly 2 hours ago he started feeling short of breath with steps and felt a little anxious his pulse ox here is 97%. He denies any fever he has a chronic cough he does use an inhaler at home. He is able speak in full senses here he denies any chest pain. Associated symptoms: Deny abdominal pain, chest pain, fever(s), nausea or vomiting Review of Systems Const: Reports: fatigue; Denies: fever(s), chills or body aches Eyes: Denies: eye discomfort ENMT: Denies: throat pain or dental pain Card: Denies: chest pain Resp: Reports: dyspnea GI: Denies: abdominal pain, nausea, vomiting or diarrhea : Denies: dysuria Musc: Denies: neck pain or back pain Skin/Breast: Denies: rash Neuro: Denies: headache(s) PFSH ED PFSH: Medical History Atherosclerosis of coronary artery BMI 22.0-22.9, adult CAD (coronary artery disease) STEMI 08/2022 with NIGEL to mid RCA CHF (congestive heart failure) CKD (chronic kidney disease) COPD (chronic obstructive pulmonary disease) Gastric ulcer by EGD in 2019 History of cardiovascular stress test 02/06/2023 nonspecific EKG changes with lexiscan infusion. Myocardial imaging suggestive of scarring in distribution of all 3 coronary arteries with a small area of possible rama-infarction ischemia in left circumflex distribution History of Doppler ultrasound carotids 01/30/2023 Right ICA 50-60% stenosis, Left ICA <50% stenosis, normal antegrade flow in right and left vertebral arteries History of echocardiogram 02/02/2023 EF 61%, mild LVH, no wall motion abnormalities, Grade I/IV diastolic dysfunction, estimated PAP 35 mmHg, mild to moderate AR and MR Hyperlipidemia Hypertension Hypothyroidism Iron deficiency anemia Neuropathy Occult blood in stools PAD (peripheral artery disease) YEIMY 02/02/2023 Abnormal resting ABIs bilaterally(0.78 on the right and 0.73 on the left) suggesting moderate peripheral arterial disease. Primary osteoarthritis of left knee Primary osteoarthritis of right knee Surgical History H/O colonoscopy 09/11/19 H/O esophagogastroduodenoscopy 09/11/19; 02/05/2023 - no active bleeding History of appendectomy History of cardiac catheterization 08/2022 severe RCA stenosis s/p NIGEL. Angiogram was done through the right ra dial artery, but intervention was performed to the right groin because of the abnormal anatomy of the artery-the RCA ostium had a godinez hook takeoff. History of hernia surgery Family History Sister Cancer Brother Diabetes Denies family history of Anesthesia complication Bleeding disorder Social History Smoking and tobacco status: current every day smoker cigarettes [ Other cigarette details: smoked since age 14, cut back significantly] Alcohol intake: never Substance/Drug Use: never Lives independently: Yes Current occupational status: retired Physical Exam Const: COMMON NORMALS: patient oriented x3 GENERAL APPEARANCE: in distress HENMT: COMMON NORMALS: normocephalic and atraumatic HEAD & SCALP: normocephalic and atraumatic Eye: COMMON NORMALS: conjunctivae normal CONJUNCTIVA: Yes conjunctivae normal Neck/C-Spine: COMMON NORMALS: full ROM and supple Chest: COMMONS NORMALS: normal inspection of the chest and normal palpation of entire chest wall Resp: COMMON NORMALS: No retractions and No use of accessory muscles EFFORT & INSPECTION: Yes respiratory distress AUSCULTATION: rales Cardio: COMMON NORMALS: regular rate, regular rhythm and No murmurs present (Cardio) RATE: regular rate RHYTHM: regular rhythm GI: COMMON NORMALS: Normal to inspection, nondistended, normoactive bowel sounds present, Soft to palpation, non-tender and no masses PALPATION: Yes Soft to palpation Extremity: COMMON NORMALS: normal to inspection and full ROM Neuro: COMMON NORMALS: patient oriented x3, moves all extremities and no focal motor deficits Psych: COMMON NORMALS: mental status grossly normal, Normal thought process present and cooperative THOUGHT PROCESS: Normal thought process present Skin: COMMON NORMALS: no rashes or lesions noted and no wounds GENERAL SKIN EXAM: no rashes or lesions noted Course Vital Signs: Vital signs: Vital Signs Temperature 97.5 F L 03/28/23 02:21 Pulse Rate 91 03/28/23 03:04 Respiratory Rate 18 03/28/23 03:04 Blood Pressure 143/72 03/28/23 02:26 Pulse Oximetry 98 03/28/23 03:04 Oxygen Delivery Me thod Room Air 03/28/23 03:04 MDM - SOB/Dyspnea Medical Decision Making PulmonaryPatient presents here with a CHF exacerbation email on his chest x-ray BNP is elevated from baseline spoke to the hospitalist and will admit at this time. Medical Records I reviewed the patient's medical records. Lab Data I reviewed the patient's lab results. 03/28/23 02:25 03/28/23 02:25 Labs/Radiology: Laboratory Results WBC 6.9 10^3/uL (4.0-10.0) 03/28/23 02:25 RBC 2.83 10^6/uL (4.1-5.3) L 03/28/23 02:25 Hgb 9.3 g/dL (11.7-16.6) L 03/28/23 02:25 Hct 29.2 % (42.0-52.0) L 03/28/23 02:25 MCV 103.2 fl (80-94) H 03/28/23 02:25 MCH 32.9 pg (28.0-34.0) 03/28/23 02:25 MCHC 31.8 g/dL (30.0-36.0) 03/28/23 02:25 RDW 17.8 % (12.1-15.1) H 03/28/23 02:25 Plt Count 243 10^3/cmm (130-400) 03/28/23 02:25 MPV 10.5 fL (7.4-10.4) H 03/28/23 02:25 Neut % (Auto) 64.6 % 03/28/23 02:25 Lymph % (Auto) 20.7 % 03/28/23 02:25 Menard % (Auto) 8.9 % 03/28/23 02:25 Eos % (Auto) 4.8 % 03/28/23 02:25 Baso % (Auto) 0.7 % 03/28/23 02:25 Neut # (Auto) 4.43 10^3/uL (1.8-7.7) 03/28/23 02:25 Lymph # (Auto) 1.4 10^3/uL (0.8-4.8) 03/28/23 02:25 Menard # (Auto) 0.6 10^3/uL (0.2-0.9) 03/28/23 02:25 Eos # (Auto) 0.3 10^3/uL (0.0-0.8) 03/28/23 02:25 Baso # (Auto) 0.1 10^3/uL (0.0-0.1) 03/28/23 02:25 Nucleated RBC % (auto) 0 % 03/28/23 02:25 Nucleated RBCs # 0.0 /100WBC 03/28/23 02:25 Sodium 140 mmol/L (136-145) 03/28/23 02:25 Potassium 3.4 mmol/L (3.5-5.1) L 03/28/23 02:25 Chloride 105 mmol/L (98-107) 03/28/23 02:25 Carbon Dioxide 18 mmol/L (22-29) L 03/28/23 02:25 Anion Gap 20.4 (5-19) H 03/28/23 02:25 BUN 26 mg/dL (8-23) H 03/28/23 02:25 Creatinine 2.0 mg/dL (0.7-1.2) H 03/28/23 02:25 GFR Calculation Not Reportable 03/28/23 02:25 Glucose 96 mg/dL (65-115) 03/28/23 02:25 Calculated Osmolality 295 mOsm/kg (285-295) 03/28/23 02:25 Calcium 9.2 mg/dL (8.5-10.5) 03/28/23 02:25 Total Bilirubin 0.4 mg/dL (0.15-1.2) 03/28/23 02:25 AST 23 U/L (0-40) 03/28/23 02:25 ALT 10 U/L (0-41) 03/28/23 02:25 Alkaline Phosphatase 66 U/L (40-130) 03/28/23 02:25 NT-Pro-B Natriuret Pep 12783 pg/mL (0-450) H 03/28/23 02:25 Total Protein 7.3 g/dL (6.6-8.7) 03/28/23 02:25 Albumin 3.7 g/dL (3.5-5.2) 03/28/23 02:25 Globulin 3.6 g/dL (1.3-4.6) 03/28/23 02:25 Imaging Data CXR: I personally reviewed and interpreted this imaging study as follows: My impression: pulmonary edema EKG Data EKG 1: I personally reviewed and interpreted this EKG as follows: EKG Interpretation Date: 03/28/23 EKG interpretation time: 02:20 Interpretation: nsr hr [address] or t wave abnormalities qrs 112 qtc 446 Discharge Plan Discharge Patient Disposition: Admitted As Inpatient Clinical Impression: CHF exacerbation Condition: Stable Prescriptions: No Action pravastatin 40 mg tablet 80 mg PO BEDTIME Qty: 90 3RF levothyroxine 100 mcg tablet 100 mcg PO QAM metoprolol tartrate 25 mg Tablet 12.5 mg PO BID Qty: 60 2RF aspirin 81 mg Tablet,Delayed Release (Dr/Ec) 81 mg PO QAM Qty: 30 0RF cyanocobalamin (vitamin B-12) [Vitamin B-12] 1,000 mcg Tablet 500 mcg PO DAILY Qty: 30 0RF gabapentin 100 mg Capsule 200 mg PO TID Qty: 90 0RF ferrous sulfate 325 mg (65 mg iron) Tablet,Delayed Release (Dr/Ec) 325 mg PO BIDWM Qty: 60 0RF furosemide [Lasix] 40 mg tablet 40 mg PO BID Qty: 60 0RF Spiriva with HandiHaler 18 mcg capsule, w/inhalation device 1 cap inhalation DAILY Qty: 30 0RF Rx Instructions: puncture 1 cap using device; one dose = 2 inhalations isosorbide mononitrate 30 mg tablet extended release 24 hr 30 mg PO BID Qty: 60 0RF pantoprazole 40 mg tablet,delayed release (DR/EC) 40 mg PO BIDWM Qty: 60 0RF clopidogrel 75 mg tablet 75 mg PO QAM Breo Ellipta 100-25 mcg/dose blister with device 1 inh inhalation QAM Referrals: Tyrese Rodriguez NP [Primary Care Provider] - Coding Level of Care Code ED Practice Specialist for Chg Fwmeeta
[2023-03-28 02:34] LABS: Basophils # 0.1 10^3/uL (0.0-0.1); Basophils % 0.7 %; Eosinophils # 0.3 10^3/uL (0.0-0.8); Eosinophils % 4.8 %; Hematocrit 29.2 % (42.0-52.0); Hemoglobin 9.3 g/dL (11.7-16.6); Lymphocytes # 1.4 10^3/uL (0.8-4.8); Lymphocytes % 20.7 %; Mean Corpuscular HGB Conc 31.8 g/dL (30.0-36.0); Mean Corpuscular Hemoglobin 32.9 pg (28.0-34.0); Mean Corpuscular Volume 103.2 fl (80-94); Mean Platelet Volume 10.5 fL (7.4-10.4); Monocytes # 0.6 10^3/uL (0.2-0.9); Monocytes % 8.9 %; Neutrophils # 4.43 10^3/uL (1.8-7.7); Neutrophils % 64.6 %; Nucleated Red Blood Cells % 0 %; Platelet Count 243 10^3/cmm (130-400); Red Blood Count 2.83 10^6/uL (4.1-5.3); Red Cell Distribution Width 17.8 % (12.1-15.1); White Blood Count 6.9 10^3/uL (4.0-10.0)
[2023-03-28] MEDS: dexamethasone 10 mg/mL INJ IVP (02:41)
[2023-03-28] MEDS: albuterol 2.5 mg/3 mL Neb INHALATION (03:01)
[2023-03-28 03:02] LABS: Alanine Aminotransferase 10 U/L (0-41); Albumin Level 3.7 g/dL (3.5-5.2); Alkaline Phosphatase 66 U/L (40-130); Blood Urea Nitrogen 26 mg/dL (8-23); Calcium 9.2 mg/dL (8.5-10.5); Carbon Dioxide 18 mmol/L (22-29); Chloride 105 mmol/L (98-107); Globulin 3.6 g/dL (1.3-4.6); Glucose 96 mg/dL (65-115); NT Pro B Type Natriuretic Pept 32340 pg/mL (0-450); Osmolality Calculated 295 mOsm/kg (285-295); Sodium 140 mmol/L (136-145); Total Bilirubin 0.4 mg/dL (0.15-1.2); Total Protein 7.3 g/dL (6.6-8.7)
[2023-03-28 03:06] LABS: Anion Gap 20.4 (5-19); Aspartate Amino Transferase 23 U/L (0-40); Potassium 3.4 mmol/L (3.5-5.1)
[2023-03-28] MEDS: FUROsemide 10 mg/mL SDV 4mL 40 MG IVP (03:19)
--- NOTE | 2023-03-28 04:20 | ECG_ITS ---
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 Measurements Intervals [place] Rate: 88 P: 77 [place]: 167 QRS: 69 QRSD: 114 T: -68 QT: 445 QTc: 540 Interpretive Statements SINUS RHYTHM WITH FREQUENT VENTRICULAR PREMATURE COMPLEXES POSSIBLE INFERIOR MYOCARDIAL INFARCTION , OF INDETERMINATE AGE [30 ms Q WAVE IN II/aVF] Nonspecific T wave changes INTERPRETATION BASED ON A DEFAULT AGE OF 40 YEARS Compared to ECG 03/28/2023 02:20:14 No significant changes Electronically Signed On 03-28-2023 7:09:14 CDT by Patricia Alvarado M.D. [id number]
--- NOTE | 2023-03-28 04:41 | P.HP_ITS ---
Providers/Chief Complaint Admitting Physician: Adonis Majano MD Primary Care Provider: Tyrese Rodriguez NP Chief Complaint: N\SOB\Knot in Arm History of Present Illness Marco Antonio Sebastian is a 82 year old male with a past medical history of COPD, smoker, on 4 L at baseline, systolic CHF, history of NSTEMI, history of CKD, history of anemia history of pleural effusion, during his last hospitalization it was found that patient had a EF of 40% with wall motion abnormalities, patient declined cardiac catheterization, concerns for GI bleed and anemia during hospitalization, requiring blood transfusions, who presents to [facility] due to multiple complaints. He tells me that he has been feeling weak, fatigued, tired, short of breath, since getting home from the hospital. Currently living with his daughter, he tells me he has no appetite, he is short of breath with exertion. No lightheadedness, no dizziness, he denies any falls. He tells me he has flulike symptoms, with sinus congestion, cough, no fevers, no chills, that is the primary reason why he came to the emergency room tonight. He also has concerns about a tick bite he has on his right arm, he picked off a tick less than 24 hours ago, and now he has developed a bull's-eye's rash, he does report having chest pain, but very mild he tells me, left-sided, nonradiating lasting a few seconds, sharp like pain, Review of Systems Const: Reports: fatigue and malaise; Denies: fever(s) Eyes: Denies: change in vision Card: Denies: chest pain Resp: Reports: dyspnea and non-productive cough GI: Denies: abdominal pain : Denies: flank pain Musc: Denies: back pain Skin/Breast: Reports: rash Medications/Allergies Home Medications Medication Instructions Recorded Confirmed Last Taken Type pravastatin 40 mg tablet 80 mg PO BEDTIME #90 tabs 12/23/22 02/26/23 02/25/23 Rx levothyroxine 100 mcg tablet 100 mcg PO QAM 02/01/23 02/26/23 02/24/23 History daughter states out aspirin 81 mg tablet,delayed 81 mg PO QAM #30 tabs 02/03/23 02/26/23 02/26/23 Rx release metoprolol tartrate 25 mg tablet 12.5 mg PO BID #60 tabs 02/03/23 02/26/23 02/26/23 Rx cyanocobalamin (vitamin B-12) 500 mcg PO DAILY #30 tabs 02/18/23 02/26/23 U nknown Rx 1,000 mcg tablet (Vitamin B-12) ferrous sulfate 325 mg (65 mg 325 mg PO BIDWM #60 tabs 02/18/23 02/26/23 02/26/23 Rx iron) tablet,delayed release furosemide 40 mg tablet (Lasix) 40 mg PO BID #60 tabs 02/18/23 02/26/23 02/26/23 Rx gabapentin 100 mg capsule 200 mg PO TID #90 caps 02/18/23 02/26/23 02/26/23 Rx isosorbide mononitrate 30 mg 30 mg PO BID #60 tabs 02/18/23 02/26/23 02/26/23 Rx tablet,extended release 24 hr pantoprazole 40 mg tablet,delayed 40 mg PO BIDWM #60 tabs 02/18/23 02/26/23 02/26/23 Rx release tiotropium bromide 18 mcg capsule 1 cap inhalation DAILY #30 02/18/23 02/26/23 Unknown Rx with inhalation device (Spiriva inhalations with HandiHaler) clopidogrel 75 mg tablet 75 mg PO QAM 02/26/23 02/26/23 02/26/23 History fluticasone furoate 100 1 inh inhalation QAM 02/26/23 02/26/23 02/25/23 History mcg-vilanterol 25 mcg/dose inhalation powder (Breo Ellipta) Allergies Allergy/AdvReac Type Severity Reaction Status Date / Time No Known Allergies Allergy Verified 02/26/23 15:11 PFSH Acute PFSH: Medical History Atherosclerosis of coronary artery BMI 22.0-22.9, adult CAD (coronary artery disease) STEMI 08/2022 with NIGEL to mid RCA CHF (congestive heart failure) CKD (chronic kidney disease) COPD (chronic obstructive pulmonary disease) Gastric ulcer by EGD in 2019 History of cardiovascular stress test 02/06/2023 nonspecific EKG changes with lexiscan infusion. Myocardial imaging suggestive of scarring in distribution of all 3 coronary arteries with a small area of possible rama-infarction ischemia in left circumflex distribution History of Doppler ultrasound carotids 01/30/2023 Right ICA 50-60% stenosis, Left ICA <50% stenosis, normal antegrade flow in right and left vertebral arteries History of echocardiogram 02/02/2023 EF 61%, mild LVH, no wall motion abnormalities, Grade I/IV diastolic dysfunction, estimated PAP 35 mmHg, mild to moderate AR and MR Hyperlipidemia Hypertension Hypothyroidism Iron deficiency anemia Neuropathy Occult blood in stools PAD (peripheral artery disease) YEIMY 02/02/2023 Abnormal resting ABIs bilaterally(0.78 on the right and 0.73 on the left) suggesting moderate peripheral arterial disease. Primary osteoarthritis of left knee Primary osteoarthritis of right knee Surgical History H/O colonoscopy 09/11/19 H/O esophagogastroduodenoscopy 09/11/19; 02/05/2023 - no active bleeding History of appendectomy History of cardiac catheterization 08/2022 severe RCA stenosis s/p NIGEL. Angiogram was done through the right radial artery, but intervention was performed to the right groin because of the abnormal anatomy of the artery-the RCA ostium had a godinez hook takeoff . History of hernia surgery Family History Sister Cancer Brother Diabetes Denies family history of Anesthesia complication Bleeding disorder Social History Smoking and tobacco status: current every day smoker cigarettes [ Other cigarette details: smoked since age 14, cut back significantly] Alcohol intake: never Substance/Drug Use: never Lives independently: Yes Current occupational status: retired Vitals/I&O/Wt Last Vital Signs Temp 97.5 F L 03/28/23 04:14 Pulse 102 H 03/28/23 04:14 Resp 18 03/28/23 04:14 BP 145/69 03/28/23 04:14 Pulse Ox 97 03/28/23 04:14 O2 Del Method Room Air 03/28/23 04:11 Weight last 48 hrs Weight 63.503 kg Physical Exam 2 Const: COMMON NORMALS: no acute distress and patient oriented x3 Eye: COMMON NORMALS: Equal, round and reactive pupils present Neck/C-Spine: COMMON NORMALS: full ROM and no lymphadenopathy Lymph: LYMPHATIC: no lymphadenopathy noted Resp: COMMON NORMALS: normal respiratory effort, No retractions, No use of accessory muscles and clear to auscultation bilaterally AUSCULTATION: clear to auscultation bilaterally Cardio: COMMON NORMALS: regular rate, regular rhythm, S1 normal heart sound present and S2 normal heart sound present RATE: regular rate RHYTHM: regular rhythm HEART SOUNDS: S1 normal heart sound present and S2 normal heart sound present GI: COMMON NORMALS: Normal to inspection, nondistended, normoactive bowel sounds present, Soft to palpation, non-tender and no bruits Extremity: COMMON NORMALS: no pedal edema Neuro: COMMON NORMALS: patient oriented x3, CN's II-XII intact bilaterally, moves all extremities and no focal motor deficits Psych: COMMON NORMALS: mental status grossly normal Skin: NARRATIVE SKIN EXAM: Right arm, bull's-eye rash, measuring 2 x 2 cm round Data 03/28/23 02:25 03/28/23 02:25 A&P Assessment and plan (1) Tick bite: (2) Myxedema coma: (3) CKD (chronic kidney disease): (4) COPD (chronic obstructive pulmonary disease): (5) On home oxygen therapy: (6) Iron deficiency anemia: (7) CHF (congestive heart failure): (8) GI bleed: Plan Myxedema coma? -With complaints of fatigue, tiredness, shortness of breath, TSH 117 -We will obtain a free T3, T4, lactic acid -We will give him 100 mcg of levothyroxine IV push once, with 5 mg of Cytomel -We will follow free T3, free T4, -Consider further doses of Cytomel based on work-up CHF exacerbation -History of EF of 40%, with stress test showing wall motion abnormalities, patient does not want to pursue coronary angiography -Lasix 40 IV twice daily -Monitor respiratory status closely Ischemic cardiomyopathy -Complaints of chest pain -Serial EKGs consider troponins, telemetry monitoring Chest pain complaints -None currently -Will order serial troponin series History of GI bleed, with anemia requiring transfusion, Hemoccult positive stools -Iron studies, monitor hemoglobin CKD, monitor COPD, not exacerbation, monitor Patient is DNR/DNI SCDs for DVT prophylaxis, Lovenox relatively contraindicated given history of GI bleed Attestations Medical Necessity Statement*: Patient requires hospitalization, inpatient, greater than 2 midnights, for CHF exacerbation, myxedema coma Diagnoses Tick bite W57.XXXA 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
[2023-03-28] MEDS: potassium chloride ER 20 mEq Tablet 40 MEQ PO (05:02)
[2023-03-28] MEDS: clopidogrel 75 mg Tablet PO (05:02)
[2023-03-28] MEDS: aspirin 81 mg EC Tablet PO (05:02)
[2023-03-28] MEDS: pantoprazole 40 mg SDV IVP (05:02)
[2023-03-28 05:26] LABS: Troponin(5th) Baseline 165 ng/L (0-15)
[2023-03-28] MEDS: levothyroxine 100 mcg SDV IVP (05:26)
[2023-03-28] MEDS: liothyronine 5 mcg Tablet PO (05:26)
[2023-03-28 05:34] LABS: Add Urine Microscopic? YES; Bilirubin Urine Neg (Negative); Blood Urine Neg (Negative); Glucose Urine UA Norm (Normal); Ketones Urine Negative (Negative); Leukocyte Esterase Urine Negative (Negative); Nitrate Urine Negative (Negative); Protein Urine Trace (Negative); Sulfosalicylic Acid Urine Positive (Negative); Urine Appearance Clear (CLEAR); Urine Color Colorless (Yellow); Urobilinogen Urine Neg (Negative); pH Urine 8 (5-7)
[2023-03-28 05:35] LABS: Add Urine Culture? No
[2023-03-28 05:41] LABS: Lactic Sepsis W/Reflex 2.2 mmol/L (0.5-2.2)
[2023-03-28 06:11] LABS: Chol HDL Ratio 3.21 mg/dL (1.0-5.00); Cholesterol 199 mg/dL (0-200); Creatine Phosphokinase 211 U/L (39-308); Ferritin 51 ng/mL (30-400); HDL Cholesterol 62 mg/dL (60-100); Iron 63 ug/dL (59-158); LDL Cholesterol Calculated 122 mg/dL (50-129); LDL HDL Ratio 1.97 RATIO (0.00-3.22); Triglycerides 74 mg/dL (0-150)
[2023-03-28 06:17] LABS: Procalcitonin 0.09 ng/mL (0-0.5)
[2023-03-28 06:37] LABS: Reflex Lactate Order REFLEX LACTIC ORDERD
[2023-03-28 06:58] LABS: Adenovirus Not Detected (NOT DETECT); Chlamydia Pneumoniae Not Detected (NOT DETECT); Coronavirus 229E,HKU1,NL63,OC4 Not Detected (NOT DETECT); Human Metapneumovirus Not Detected (NOT DETECT); Human Rhinovirus/Enterovirus Not Detected (NOT DETECT); Influenza A Not Detected (NOT DETECT); Influenza A H1 Not Detected (NOT DETECT); Influenza A H1-2009 Not Detected (NOT DETECT); Influenza A H3 Not Detected (NOT DETECT); Influenza B Not Detected (NOT DETECT); Mycoplasma Pneumoniae Not Detected (NOT DETECT); Parainfluenza Virus Type 1 Not Detected (NOT DETECT); Parainfluenza Virus Type 2 Not Detected (NOT DETECT); Parainfluenza Virus Type 3 Not Detected (NOT DETECT); Parainfluenza Virus Type 4 Not Detected (NOT DETECT); Respiratory Syncytial Virus A Not Detected (NOT DETECT); Respiratory Syncytial Virus B Not Detected (NOT DETECT); SARS-COV-2 Not Detected (NOT DETECT)
[2023-03-28 06:59] LABS: Free T4 Free Thyroxine 1.27 ng/dL (0.82-1.77); T3 Free 1.3 PG/ML (2.0-4.4)
[2023-03-28 07:13] LABS: Estmated Average Glucose 80; Hemoglobin A1C 4.4 % (4.0-6.0)
[2023-03-28] MEDS: ipratropium-albuterol 3 mL Neb INHALATION (07:28)
[2023-03-28] MEDS: budesonide 0.5 mg/2 mL Neb INHALATION ×2 (07:28→21:06)
[2023-03-28 07:50] LABS: Lactic Acid level (Lactate) 1.2 mmol/L (0.5-2.2)
[2023-03-28 08:09] LABS: Troponin 5 2HR 162.3 ng/L (0-15); Troponin 5 2HR Delta -2.7 ABS# (0-10)
--- NOTE | 2023-03-28 08:27 | PC.OT ---
HOLD OT EVALUATION SECONDARY TO ELEVATED TROPONIN THIS DATE. WILL ATTEMPT AGAIN TOMORROW.
[2023-03-28] MEDS: doxycycline 100 mg Tablet PO ×2 (08:36→17:24)
[2023-03-28] MEDS: gabapentin 100 mg Capsule 200 MG PO ×3 (08:36→21:09)
[2023-03-28] MEDS: metoprolol tartrate 25 mg Tablet 12.5 MG PO ×2 (08:37→17:24)
[2023-03-28] MEDS: isosorbide mononitrate ER 30 mg Tablet PO ×2 (08:37→17:24)
--- NOTE | 2023-03-28 09:14 | PC.PHAR ---
pts daughter monica [phone] verified pts medications-states the pt hasnt started the kcl citrate er 5meq daily filled 03/27/23 -pts daughter states the pts amlodipine 5mg daily filled 02/27/23 90d/s-lisinopril 40mg daily filled 02/24/23 90d/s and hctz 12.5mg daily filled 01/05/23 90d/s was dced-
--- NOTE | 2023-03-28 10:20 | ECG_ITS ---
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 Measurements Intervals [place] Rate: 83 P: 60 CT: 171 QRS: 68 QRSD: 112 T: -67 QT: 434 QTc: 510 Interpretive Statements SINUS RHYTHM WITH OCCASIONAL VENTRICULAR PREMATURE COMPLEXES PROBABLE INFERIOR MYOCARDIAL INFARCTION , OF INDETERMINATE AGE [35 ms Q WAVE IN II/aVF] INTERPRETATION BASED ON A DEFAULT AGE OF 40 YEARS Compared to ECG 03/28/2023 05:39:08 T-wave abnormality no longer present Myocardial infarct finding still present Electronically Signed On 03-29-2023 0:29:59 CDT by Patricia Alvarado M.D. [email or web address].Doist/store/NU/[id number] f
--- NOTE | 2023-03-28 11:10 | PM.PN ---
Subjective Subjective: Patient is awake and alert Alert oriented Patient told me that he is DNR/DNI Agreeable to use levothyroxine He is willing to go to rehab if needed we will follow-up with PT No active signs of encephalopathy Vitals/I&O/Wt Last Vital Signs Temp 97.8 F 03/28/23 08:00 Pulse 92 03/28/23 08:00 Resp 16 03/28/23 08:00 BP 103/55 03/28/23 08:00 Pulse Ox 96 03/28/23 08:00 O2 Del Method Room Air 03/28/23 08:00 03/27/23 03/28/23 03/28/23 22:59 06:59 14:59 Intake Total 240 / 240 Output Total 600 / 600 300 / 300 Balance -600 / -600 -60 / -60 Weight last 48 hrs Weight 63.503 kg Physical Exam Narrative: Awake and alert GCS 15 Does not have typical myxedema coma signs Alert and oriented Family at the bedside S1, S2 variable No active signs of congestive heart failure Low 70 no edema Abdomen soft Currently on room air Data 03/28/23 02:25 03/28/23 02:25 A&P Assessment and plan (1) GI bleed: (2) Myxedema coma: (3) Tick bite: (4) CHF exacerbation: (5) Hypothyroidism: (6) Goals of care, counseling/discussion: (7) CKD (chronic kidney disease): (8) CAD (coronary artery disease): (9) COPD (chronic obstructive pulmonary disease): (10) On home oxygen therapy: (11) Nicotine dependence, cigarettes, with other nicotine-induced disorders: (12) Iron deficiency anemia: Plan Generalized weakness and fatigue Does not have typical myxedema coma signs I will start patient on 200 mcg of levothyroxine Watch for any signs of palpitations, worsening of hemodynamic stability Patient will work with PT today He does have home health services COPD: Active smoker No active wheezing Patient uses oxygen as needed basis at home Still smoking 4 to 5 cigarettes a day Counseling done at the bedside Tick bite: Continue doxycycline Systolic CHF with mild exacerbation, I would use p.o. Lasix low-dose, Hypokalemia: Potassium repleted Patient is DNR/DNI Currently on cardiac diet Anticipating discharge by tomorrow if he is able to go home Attestations Medical Necessity Statement*: Discharge tomorrow Diagnoses GI bleed K92.2 Myxedema coma E03.5 Tick bite W57.XXXA CHF exacerbation I50.9 Hypothyroidism E03.9 Goals of care, counseling/discussion Z71.89 CKD (chronic kidney disease) N18.9 CAD (coronary artery disease) I25.10 COPD (chronic obstructive pulmonary disease) J44.9 On home oxygen therapy Z99.81 Nicotine dependence, cigarettes, with other nicotine-induced disorders F17.218 Iron deficiency anemia D50.9
[2023-03-28 11:26] LABS: Troponin 5 6HR 168.7 ng/L (0-15); Troponin 5 6HR Delta 3.7 ng/L (0-12)
[2023-03-28] MEDS: potassium chloride ER 20 mEq Tablet PO (12:05)
[2023-03-28] MEDS: atorvastatin 40 mg Tablet 20 MG PO (21:09)
[2023-03-29] VITALS (31 sets, daily range): BP systolic 90–164; BP diastolic 44–87; PULSE 71–118; RESP 8–23; TEMP 36.4–37.1; O2SAT 84–97
[2023-03-29] MEDS: pantoprazole 40 mg SDV IVP (04:49)
[2023-03-29] MEDS: aspirin 81 mg EC Tablet PO (04:59)
[2023-03-29] MEDS: clopidogrel 75 mg Tablet PO (04:59)
[2023-03-29 05:29] LABS: Anion Gap 13.5 (5-19); Blood Urea Nitrogen 36 mg/dL (8-23); Calcium 8.5 mg/dL (8.5-10.5); Carbon Dioxide 21 mmol/L (22-29); Chloride 112 mmol/L (98-107); Glucose 114 mg/dL (65-115); Osmolality Calculated 305 mOsm/kg (285-295); Potassium 3.5 mmol/L (3.5-5.1); Sodium 143 mmol/L (136-145)
[2023-03-29] MEDS: ipratropium-albuterol 3 mL Neb INHALATION ×2 (07:46→12:17)
[2023-03-29] MEDS: budesonide 0.5 mg/2 mL Neb INHALATION ×2 (07:46→19:38)
[2023-03-29] MEDS: doxycycline 100 mg Tablet PO ×2 (09:59→17:34)
[2023-03-29] MEDS: gabapentin 100 mg Capsule 200 MG PO ×3 (09:59→20:45)
[2023-03-29] MEDS: FUROsemide 20 mg Tablet PO (09:59)
--- NOTE | 2023-03-29 10:46 | PC.CHAP ---
Pastoral Care Encounter/Spiritual Assessment Type of Contact [] Declined mortar mixer visit [] Patient/Family/Request visit [] Outpatient visit [] Follow-up visit [] Physician referral [] Code/Alert [x] Routine visit [] Staff referral [] Actively dying [] Patient sleeping [x] Family support [] [] Out of room [] Palliative care [] [] Receiving care in room [] Pre-surgical visit [] Trauma [] Long length of stay [] ICU visit [] Other: Relational/Emotional Strength [x] Patient feels connected with others/family/visitors/staff [] Distress [] Loneliness/isolation [] Abandonment Spirituality of Patient [x] Person of Gayatri [] Attends Oriental Orthodox of their Gayatri [] Believes in Prayer [] Reads Bible or Taoism materials [x] There are Spiritual issues to be addressed Retort Cooler Interventions [x] Prayer [x] Active listening [] Non-anxious presence [] Spiritual/emotional support [] Crisis/trauma care [x] Spiritual counseling [] Bereavement support [] Provided bereavement packet [] Provided Bible/devotional materials [] Provided toy/stuffed animal, coloring book to patient or family member [] Provided Communion [] Anointing/[place] [] Salvation [x] Completed spiritual assessment [] Other: Impact on Illness or Injury [] Angry [] Fearful [] Anxious [] Often cries [] Exhaustion [] Unable to work [] Unable to attend baptism [] Unable to walk/stand [] Unable to read [] Unable to drive [] Unable to eat/drink [] Unable to sleep [] Unable to be with family [] Patient intubated [] Other: Summary Time spent with patient 5 min
--- NOTE | 2023-03-29 10:50 | ECG_ITS ---
[facility] Test Date: 2023-03-29 Pat Name: Marco Antonio Sebastian Department: Room: 254 Gender: Male Professional Model: : 1940 Requested By: Gentry Lewis Order Number: [id number] Rm MD: Serge Thomas M.D. Measurements Intervals [place] Rate: 87 P: 50 [place]: 167 QRS: 64 QRSD: 117 T: -58 QT: 418 QTc: 504 Interpretive Statements SINUS RHYTHM WITH OCCASIONAL VENTRICULAR PREMATURE COMPLEXES PROBABLE INFERIOR MYOCARDIAL INFARCTION , OF INDETERMINATE AGE [35 ms Q WAVE IN II/aVF] ST DEPRESSION, CONSIDER SUBENDOCARDIAL INJURY [0.1+ mV ST DEPRESSION] Compared to ECG 03/28/2023 11:07:35 ST (T wave) deviation now present Myocardial infarct finding still present Electronically Signed On 03-29-2023 14:19:52 CDT by Serge Thomas M.D. [id number] f
[2023-03-29] MEDS: morphine 4 mg/mL SDV 1 mL 2 MG IVP (11:00)
[2023-03-29] MEDS: nitroglycerin 1 gm/inch oint Pkt 0.5 INCH TOPICAL (11:27)
--- NOTE | 2023-03-29 12:20 | PM.PN ---
Subjective Subjective: She was having chest pain today Had a lengthy discussion with the patient and his daughter, they both agreed with angiogram they do know that he carries risk of getting dialysis dependent, they are willing to take the risk, I have consulted Dr. Alvarado Patient is having active chest pain EKG showing PVCs with T wave inversions, I will transfer patient to CSU start nitroglycerin drip, Nitropaste did not help patient, he will stay DNR/DNI Vitals/I&O/Wt Last Vital Signs Temp 97.5 F L 03/29/23 11:46 Pulse 85 03/29/23 12:17 Resp 16 03/29/23 12:17 BP 152/68 03/29/23 11:46 Pulse Ox 90 03/29/23 12:17 O2 Del Method Nasal Cannula 03/29/23 12:17 O2 Flow Rate 5 03/29/23 12:17 03/28/23 03/29/23 03/29/23 22:59 06:59 14:59 Intake Total 120 / 600 240 / 840 120 / 120 Output Total 400 / 400 Balance 120 / 300 240 / 540 -280 / -280 Weight last 48 hrs Weight 63.503 kg Physical Exam Narrative: Active chest pain S1, S2 Tachycardia Cold and sweaty Hypertensive Currently on 5 L GCS 15 Abdomen soft Malnourished Data 03/28/23 02:25 03/29/23 04:47 A&P Assessment and plan (1) Myxedema coma: (2) Tick bite: (3) Hypothyroidism: (4) Goals of care, counseling/discussion: (5) Hypoxia: (6) CAD (coronary artery disease): (7) CKD (chronic kidney disease): (8) COPD (chronic obstructive pulmonary disease): (9) On home oxygen therapy: (10) Nicotine dependence, cigarettes, with other nicotine-induced disorders: (11) Iron deficiency anemia: Plan Unstable angina Transfer to CSU Start nitroglycerin drip Currently on oxygen Active chest pain Started Nitropaste Consulted cardiology Lengthy discussion took place between the patient myself and his daughter patient had decided to go with the angiogram he does want to take the risk of getting the angiogram he does know that he is at risk of getting dialysis dependent with contrast-induced nephropathy risk with the angiogram Dr. Alvarado has been consulted Chronic hypoxia patient uses 3 to 4 L of oxygen at baseline currently on 5 L COPD without active wheezing Currently on 5 L still smoking 4 cigarettes a day Hypothyroid No signs of myxedema coma Levothyroxine dose has been increased Systolic CHF mild exacerbation continue low-dose p.o. Lasix, EF 40% Potassium: Repleted Patient wants to stay is DNR/DNI, but she is agreeable for angiogram He is not sure about dialysis if that is needed down the road Nurse updated Extra 10 to 50 minutes spent for family discussion Patient was examined multiple times today EKG showed T wave inversion with PVCs Attestations Medical Necessity Statement*: Angiogram is needed Diagnoses Myxedema coma E03.5 Tick bite W57.XXXA Hypothyroidism E03.9 Goals of care, counseling/discussion Z71.89 Hypoxia R09.02 CAD (coronary artery disease) I25.10 CKD (chronic kidney disease) N18.9 COPD (chronic obstructive pulmonary disease) J44.9 On home oxygen therapy Z99.81 Nicotine dependence, cigarettes, with other nicotine-induced disorders F17.218 Iron deficiency anemia D50.9
[2023-03-29] MEDS: nitroglycerin drip 50 MG/250 ML PREMIX IV (12:42)
--- NOTE | 2023-03-29 14:29 | PC.NURSE ---
received from [facility] floor via bed at 1235.report received.pt is alert and awake and oriented x 4.sr w/occas pvc's on monitor.bp stable.pt rates chest pain 06/05.substernal.no radiation.mildly sob.o2 sat's in high 80's on 5 l/o2 via nasal cannula.skin is warm and dry to touch.denies nausea.nitroglycerin drip initiated at 10 mcgs/min as ordered.oriented to room environment.instructed to notify staff for any increase in chest pain,increased sob,nausea,or for any concerns at all.pt verb understanding of instructions.bipap initiated by rt at 1250.fio2 40%
--- NOTE | 2023-03-29 14:42 | PC.NURSE ---
continue to titrate nitro drip for chest pain.currently at 20 mcg/min.pt rates substernal cp at 5/10 currently.
--- NOTE | 2023-03-29 15:03 | PC.NURSE ---
chest pain is now completed relieved on 20 mcg/min ntg.vss.
[2023-03-29 15:04] LABS: Lyme AB Screen <0.90 index
[2023-03-29] MEDS: metoprolol tartrate 25 mg Tablet 12.5 MG PO ×2 (17:33→23:26)
[2023-03-29] MEDS: atorvastatin 40 mg Tablet 20 MG PO (20:45)
--- NOTE | 2023-03-29 21:51 | P.CONIM_ITS ---
Providers/Reason For Consult Consulting Physician/Specialty*: ADEEL Alvarado MD/cardiology Reason for Consult*: Patient with chest pain/elevated troponin/LV dysfunction Requesting Physician: Dr. Lewis Attending Physician: Gentry Lewis MD Primary Care Provider: Tyrese Rodriguez NP History of Present Illness History of Present Illness Marco Antonio Sebastian is a 82 year old male with multiple medical problems, including coronary artery disease, recent non-ST elevation myocardial infarction, congestive heart failure is admitted to hospital through the emergency room where he presented with complaints of generalized weakness and acute worsening of shortness of breath. He was found to have features of congestive heart failure. He is admitted to hospital for further evaluation management. This patient has a history of coronary disease and had an ST elevation myocardial infarction in August 2022. Cardiac catheterization revealed a thrombotic occlusion of the right coronary artery. Patient underwent PCI of this lesion. According to him, he felt okay for a few months with no chest pain or any significant shortness of breath. But for the last of 3 months also, he been having increasing episodes of chest pain. He had several hospital admissions/ER visits for various complaints during this time. He is known to abad ve a chronic GI bleed requiring multiple blood transfusions. He is known to have chronic kidney disease and recurrent decompensated heart failure. The echocardiogram in January of this year revealed ejection fraction around 40%, a significant decline from the previous echocardiogram in August. During his last hospital admission with a congestive heart failure and GI bleed, was evaluated by cardiology. He was found to have persistently elevated troponin T. He had a Myocardial perfusion imaging which revealed multiple areas of fixed defects with a very small areas of reversible defects. In view of the patient's multiple comorbidities including stage III chronic kidney disease and GI bleed requiring blood transfusion, it was decided to continue the medical treatment. This afternoon while being at the med surgery floor, patient started having increasing episodes of chest pain. The intensity of the pain was moderate to severe. The pain was on the left side of the chest, radiating across the chest and occasionally to the back. He had associated shortness of breath and some nausea. Initially the pain was moderate. It has been waxing and waning. Because of the persistent pain, he was brought down to the [facility] for IV nitroglycerin. Currently seems to be pain-free. Patient has a DNI DNR status. Because of his worsening chest pain he is wanting to go ahead with a coronary angiogram, even though he carries a high risk for acute contrast-induced nephropathy. The patient and his daughter wants to go ahead with a cardiac catheterization. According the patient, his symptoms are disabling. Patient's baseline troponin T was 165. No significant delta was noted at the 2 and 6 hours. This patient has multiple medical problems. He is diagnosed with a severe COPD requiring 4 L of oxygen by nasal cannula. He has [id number] history of smoking abuse. Also is known to have GERD, dyslipidemia, hypothyroidism, chronic iron deficiency anemia , GI bleed requiring multiple transfusions, history of hypothyroidism, chronic kidney disease currently compensated heart failure, peripheral neuropathy. Review of Systems Narrative: CONSTITUTIONAL: No fever or chills. EYES: No blurring of vision or other visual disturbances lately. ENT: No hoarseness of voice, auditory disturbances or sore throat. CARDIOVASCULAR: As mentioned above. RESPIRATORY: Severe COPD, requiring 4 L of oxygen by nasal cannula. GASTROINTESTINAL: History of GI bleed. No recent bleed. GENITOURINARY: No dysuria or hematuria. INTEGUMENTARY: No skin rashes or history of skin cancer. NEURO: No transient ischemic attacks or amaurosis. PSYCHIATRIC: No history of psychosis or major depression. HEMATOLOGIC: Chronic anemia ENDOCRINE: No history of polyuria or polydipsia. MUSCULOSKELETAL: No recent joint pain or swelling. ALLERGY/IMMUNOLOGY: As mentioned above. Medications/Allergies Home Medications Medication Instructions Recorded Confirmed Last Taken Type pravastatin 40 mg tablet 80 mg PO BEDTIME #90 tabs 12/23/22 03/28/23 02/25/23 Rx levothyroxine 100 mcg tablet See Rx Instructions .Route .COMPLEX 02/01/23 03/28/23 02/24/23 History daughter states out aspirin 81 mg tablet,delayed 81 mg PO QAM #30 tabs 02/03/23 03/28/23 02/26/23 Rx release metoprolol tartrate 25 mg tablet 12.5 mg PO BID #60 tabs 02/03/23 03/28/23 02/26/23 Rx cyanocobalamin (vitamin B-12) 500 mcg PO DAILY #30 tabs 02/18/23 03/28/23 Unknown Rx 1,000 mcg tablet (Vitamin B-12) ferrous sulfate 325 mg (65 mg 325 mg PO BIDWM #60 tabs 02/18/23 03/28/23 02/26/23 Rx iron) tablet,delayed release furosemide 40 mg tablet (Lasix) 40 mg PO BID #60 tabs 02/18/23 03/28/23 02/26/23 Rx gabapentin 100 mg capsule 200 mg PO TID #90 caps 02/18/23 03/28/23 02/26/23 Rx isosorbide mononitrate 30 mg 30 mg PO BID #60 tabs 02/18/23 03/28/23 02/26/23 Rx tablet,extended release 24 hr pantoprazole 40 mg tablet,delayed 40 mg PO BIDWM #60 tabs 02/18/23 03/28/23 02/26/23 Rx release tiotropium bromide 18 mcg capsule 1 cap inhalation DAILY #30 02/18/23 03/28/23 Unknown Rx with inhalation device (Spiriva inhalations with HandiHaler) clopidogrel 75 mg tablet 75 mg PO QAM 02/26/23 03/28/23 02/26/23 History fluticasone furoate 100 1 inh inhalation QAM 02/26/23 03/28/23 02/25/23 History mcg-vilanterol 25 mcg/dose inhalation powder (Breo Ellipta) potassium citrate 5 mEq (540 mg) 5 meq PO DAILY 03/28/23 03/28/23 Unknown History tablet,extended release sucralfate 1 gram tablet 1 g PO BID 03/28/23 03/28/23 Unknown History Allergies Allergy/AdvReac Type Severity Reaction Status Date / Time No Known Allergies Allergy Verified 03/28/23 09:06 Current Medications Generic Name Dose Route Start Last Admin Trade Name Freq PRN Reason Stop Dose Admin Albuterol/Ipratropium 3 ml 03/28/23 04:48 03/29/23 12:17 Ipratropium-Albuterol 3 Ml Neb INHALATION 3 ml Q4H PRN Administration SHORTNESS OF BREATH Aspirin 81 mg 03/28/23 06:00 03/29/23 04:59 Aspirin 81 Mg Ec Tablet PO 81 mg QAM FATIMAH Administration Atorvastatin Calcium 20 mg 03/28/23 21:00 03/29/23 20:45 Atorvastatin 40 Mg Tablet PO 20 mg BEDTIME FATIMAH Administration Budesonide 0.5 mg 03/28/23 08:00 03/29/23 19:38 Budesonide 0.5 Mg/2 Ml Neb INHALATION 0.5 mg BID.RESPIRATORY FATIMAH Administration Clopidogrel Bisulfate 75 mg 03/28/23 06:00 03/29/23 04:59 Clopidogrel 75 Mg Tablet PO 75 mg QAM FATIMAH Administration Doxycycline Monohydrate 100 mg 03/28/23 09:00 03/29/23 17:34 Doxycycline 100 Mg Tablet PO 100 mg BID FATIMAH Administration Protocol Furosemide 20 mg 03/29/23 08:00 03/29/23 09:59 Furosemide 20 Mg Tablet PO 20 mg DAILY@0800 FATIMAH Administration Gabapentin 200 mg 03/28/23 09:00 03/29/23 20:45 Gabapentin 100 Mg Capsule PO 200 mg TID FATIMAH Administration Nitroglycerin/Dextrose 50 mg in 250 mls @ 0 mls/hr 03/29/23 12:17 03/29/23 14:10 Nitroglycerin Drip IV 20 mcg/min .Q0M FATIMAH 6 mls/hr Titration Protocol Per Protocol Isosorbide Mononitrate 30 mg 03/28/23 09:00 03/29/23 17:38 Isosorbide Mononitrate Er 30 Mg Tablet PO Not Given BID FATIMAH Metoprolol Tartrate 12.5 mg 03/28/23 09:00 03/29/23 17:33 Metoprolol Tartrate 25 Mg Tablet PO 12.5 mg BID FATIMAH Administration Morphine Sulfate 2 mg 03/29/23 10:50 03/29/23 11:00 Morphine 4 Mg/Ml Sdv 1 Ml IVP 2 mg Q4H PRN Administration SEVERE PAIN Pantoprazole Sodium 40 mg 03/28/23 04:45 03/29/23 04:49 Pantoprazole 40 Mg Sdv IVP 40 mg Q24H FATIMAH Administration PFSH Acute PFSH: Medical History Atherosclerosis of coronary artery BMI 22.0-22.9, adult CAD (coronary artery disease) STEMI 08/2022 with NIGEL to mid RCA CHF (congestive heart failure) CKD (chronic kidney disease) COPD (chronic obstructive pulmonary disease) Gastric ulcer by EGD in 2019 History of cardiovascular stress test 02/06/2023 nonspecific EKG changes with lexiscan infusion. Myocardial imaging suggestive of scarring in distribution of all 3 coronary arteries with a small area of possible rama-infarction ischemia in left circumflex distribution History of Doppler ultrasound carotids 01/30/2023 Right ICA 50-60% stenosis, Left ICA <50% stenosis, normal antegrade flow in right and left vertebral arteries History of echocardiogram 02/02/2023 EF 61%, mild LVH, no wall motion abnormalities, Grade I/IV diastolic dysfunction, estimated PAP 35 mmHg, mild to moderate AR and MR Hyperlipidemia Hypertension Hypothyroidism Iron deficiency anemia Neuropathy Occult blood in stools PAD (peripheral artery disease) YEIMY 02/02/2023 Abnormal resting ABIs bilaterally(0.78 on the right and 0.73 on the left) suggesting moderate peripheral arterial disease. Primary osteoarthritis of left knee Primary osteoarthritis of right knee Surgical History H/O colonoscopy 09/11/19 H/O esophagogastroduodenoscopy 09/11/19; 02/05/2023 - no active bleeding History of appendectomy History of cardiac catheterization 08/2022 severe RCA stenosis s/p NIGEL. Angiogram was done through the right radial artery, but intervention was performed to the right groin because of the abnormal anatomy of the artery-the RCA ostium had a godinez hook takeoff. History of hernia surgery Family History Sister Cancer Brother Diabetes Denies family history of Anesthesia complication Bleeding disorder Social History Smoking and tobacco status: current every day smoker cigarettes [ Other cigarette details: smoked since age 14, cut back significantly] Alcohol intake: never Substance/Drug Use: never Lives independently: Yes Current occupational status: retired Vitals/I&O/Wt Last Vital Signs Temp 98.8 F 03/29/23 19:55 Pulse 85 03/29/23 20:00 Resp 14 03/29/23 20:00 BP 127/62 03/29/23 20:00 Pulse Ox 94 03/29/23 20:00 O2 Del Method Nasal Cannula 03/29/23 19:39 O2 Flow Rate 5 03/29/23 19:39 FiO2 40 03/29/23 12:49 03/29/23 03/29/23 03/29/23 06:59 14:59 22:59 Intake Total 240 / 840 125.65 / 125.65 240 / 365.65 Output Total 400 / 400 Balance 240 / 540 -274.35 / -274.35 240 / -34.35 Weight last 48 hrs Weight 140 lb Physical Exam Narrative: GENERAL: The patient is alert and oriented times three. Not in any acute distress. Chronically ill looking. Generalized wasting. HEENT: Moderate pallor with no, icterus or lymphadenopathy.Oral cavity: There are no mucous membrane lesions. NECK: Trachea appears to be central. No masses noted. No JVD or thyromegaly appreciated. RESPIRATORY: Chest is symmetrical. No intercostals muscle retraction or any accessory muscle activation. There is no chest wall tenderness. Breath sounds are heard bilaterally. No rales or rhonchi heard. No evidence of any consolidat ion. BREASTS: Deferred. HEART: The heart sounds are normal. No S3 or S4. Short systolic murmur in the mitral area and the tricuspid area. No diastolic murmurs. Murmurs]. No pericardial rub ABDOMEN: No vessel pulsations or distention. No tenderness. No organomegaly appreciated. Bowel sounds are normally heard. : Deferred. RECTAL: Deferred. LYMPHATIC: No lymphadenopathy noted in the neck. EXTREMITIES: No edema or cyanosis. No clubbing. MUSCULOSKELETAL: No acute joint deformities or swelling SKIN: There are no significant rashes or ecchymosis NEUROPSYCHIATRIC: The patient is alert and oriented x3. Appears to be very hard of hearing. No tremors or rigidity noted. Data 03/28/23 02:25 03/29/23 04:47 Other Labs: Laboratory Last Values WBC 6.9 10^3/uL (4.0-10.0) 03/28/23 02:25 RBC 2.83 10^6/uL (4.1-5.3) L 03/28/23 02:25 Hgb 9.3 g/dL (11.7-16.6) L 03/28/23 02:25 Hct 29.2 % (42.0-52.0) L 03/28/23 02:25 MCV 103.2 fl (80-94) H 03/28/23 02:25 MCH 32.9 pg (28.0-34.0) 03/28/23 02:25 MCHC 31.8 g/dL (30.0-36.0) 03/28/23 02:25 RDW 17.8 % (12.1-15.1) H 03/28/23 02:25 Plt Count 243 10^3/cmm (130-400) 03/28/23 02:25 MPV 10.5 fL (7.4-10.4) H 03/28/23 02:25 Neut % (Auto) 64.6 % 03/28/23 02:25 Lymph % (Auto) 20.7 % 03/28/23 02:25 Vance % (Auto) 8.9 % 03/28/23 02:25 Eos % (Auto) 4.8 % 03/28/23 02:25 Baso % (Auto) 0.7 % 03/28/23 02:25 Neut # (Auto) 4.43 10^3/uL (1.8-7.7) 03/28/23 02:25 Lymph # (Auto) 1.4 10^3/uL (0.8-4.8) 03/28/23 02:25 Vance # (Auto) 0.6 10^3/uL (0.2-0.9) 03/28/23 02:25 Eos # (Auto) 0.3 10^3/uL (0.0-0.8) 03/28/23 02:25 Baso # (Auto) 0.1 10^3/uL (0.0-0.1) 03/28/23 02:25 Nucleated RBC % (auto) 0 % 03/28/23 02:25 Nucleated RBCs # 0.0 /100WBC 03/28/23 02:25 Sodium 143 mmol/L (136-145) 03/29/23 04:47 Potassium 3.5 mmol/L (3.5-5.1) 03/29/23 04:47 Chloride 112 mmol/L (98-107) H 03/29/23 04:47 Carbon Dioxide 21 mmol/L (22-29) L 03/29/23 04:47 Anion Gap 13.5 (5-19) 03/29/23 04:47 BUN 36 mg/dL (8-23) H 03/29/23 04:47 Creatinine 2.3 mg/dL (0.7-1.2) H 03/29/23 04:47 GFR Calculation Not Reportable 03/29/23 04:47 Glucose 114 mg/dL (65-115) 03/29/23 04:47 Estimat Average Glucose 80 03/28/23 02:25 Hemoglobin A1c 4.4 % (4.0-6.0) 03/28/23 02:25 Calculated Osmolality 305 mOsm/kg (285-295) H 03/29/23 04:47 Lactic Acid 2.2 mmol/L (0.5-2.2) 03/28/23 04:40 Lactic Acid (Sepsis) 1.2 mmol/L (0.5-2.2) 03/28/23 07:15 Calcium 8.5 mg/dL (8.5-10.5) 03/29/23 04:47 Iron 63 ug/dL (59-158) 03/28/23 04:40 Ferritin 51 ng/mL (30-400) 03/28/23 04:40 Total Bilirubin 0.4 mg/dL (0.15-1.2) 03/28/23 02:25 AST 23 U/L (0-40) 03/28/23 02:25 ALT 10 U/L (0-41) 03/28/23 02:25 Alkaline Phosphatase 66 U/L (40-130) 03/28/23 02:25 Creatine Kinase 211 U/L (39-308) 03/28/23 04:40 Troponin T Baseline 165 ng/L (0-15) H* 03/28/23 04:40 Troponin T 120 Minute 162.3 ng/L (0-15) H 03/28/23 07:15 Delta Troponin T -2.7 ABS# (0-10) L 03/28/23 07:15 Troponin T Hi Sens 6Hr 168.7 ng/L (0-15) H 03/28/23 10:46 Troponin T Hi Sens 6Hr Delta 3.7 ng/L (0-12) 03/28/23 10:46 C-Reactive Protein 3.0 mg/L (0.0-4.9) 03/28/23 04:40 NT-Pro-B Natriuret Pep 14190 pg/mL (0-450) H 03/28/23 02:25 Total Protein 7.3 g/dL (6.6-8.7) 03/28/23 02:25 Albumin 3.7 g/dL (3.5-5.2) 03/28/23 02:25 Globulin 3.6 g/dL (1.3-4.6) 03/28/23 02:25 Triglycerides 74 mg/dL (0-150) 03/28/23 04:40 Cholesterol 199 mg/dL (0-200) 03/28/23 04:40 LDL Cholesterol, Calc 122 mg/dL (50-129) 03/28/23 04:40 HDL Cholesterol 62 mg/dL (60-100) 03/28/23 04:40 LDL/HDL Ratio 1.97 RATIO (0.00-3.22) 03/28/23 04:40 Cholesterol/HDL Ratio 3.21 mg/dL (1.0-5.00) 03/28/23 04:40 Procalcitonin 0.09 ng/mL (0-0.5) 03/28/23 04:40 TSH 117.30 uIU/mL (0.27-4.20) H 03/28/23 02:25 Free T4 1.27 ng/dL (0.82-1.77) 03/28/23 04:40 Free T3 1.3 PG/ML (2.0-4.4) L 03/28/23 04:40 Urine Color Colorless (Yellow) 03/28/23 04:20 Urine Appearance Clear (CLEAR) 03/28/23 04:20 Urine pH 8 (5-7) H 03/28/23 04:20 Ur Specific [place] 1.010 (1.005-1.030) 03/28/23 04:20 Urine Protein Trace (Negative) 03/28/23 04:20 Urine Glucose (UA) Norm (Normal) 03/28/23 04:20 Urine Ketones Negative (Negative) 03/28/23 04:20 Urine Blood Neg (Negative) 03/28/23 04:20 Urine Nitrate Negative (Negative) 03/28/23 04:20 Urine Bilirubin Neg (Negative) 03/28/23 04:20 Prot Sulfosalicylic Acd Positive (Negative) 03/28/23 04:20 Urine Urobilinogen Neg mg/dL (Negative) 03/28/23 04:20 Ur Leukocyte Esterase Negative (Negative) 03/28/23 04:20 Urine RBC None /hpf (0-2) 03/28/23 04:20 Urine WBC None /hpf (0-5) 03/28/23 04:20 Ur Squamous Epith Cells None /hpf (0-5) 03/28/23 04:20 Amorphous Sediment Not Reportable 03/28/23 04:20 Urine Bacteria None /hpf (NONE) 03/28/23 04:20 Nasal Influ A H1 2009 PCR Not detected (NOT DETECT) 03/28/23 05:00 Adenovirus (PCR) Not detected (NOT DETECT) 03/28/23 05:00 Lyme Ab (Western Blot) <0.90 index 03/28/23 04:40 C. pneumoniae DNA (PCR) Not detected (NOT DETECT) 03/28/23 05:00 Coronavirus 229E (PCR) Not detected (NOT DETECT) 03/28/23 05:00 Human Metapneumovir PCR Not detected (NOT DETECT) 03/28/23 05:00 Influenza A (H1) PCR Not detected (NOT DETECT) 03/28/23 05:00 Influenza A (H3) PCR Not detected (NOT DETECT) 03/28/23 05:00 Influenza Type A (PCR) Not detected (NOT DETECT) 03/28/23 05:00 Influenza Type B (PCR) Not detected (NOT DETECT) 03/28/23 05:00 M. pneumoniae (PCR) Not detected (NOT DETECT) 03/28/23 05:00 Parainfluenza 1 (PCR) Not detected (NOT DETECT) 03/28/23 05:00 Parainfluenza 2 (PCR) Not detected (NOT DETECT) 03/28/23 05:00 Parainfluenza 3 (PCR) Not detected (NOT DETECT) 03/28/23 05:00 Parainfluenza 4 (PCR) Not detected (NOT DETECT) 03/28/23 05:00 RSV Type A (PCR) Not detected (NOT DETECT) 03/28/23 05:00 RSV Type B (PCR) Not detected (NOT DETECT) 03/28/23 05:00 Entero/Rhino (PCR) Not detected (NOT DETECT) 03/28/23 05:00 SARS-CoV-2 (PCR) Not detected (NOT DETECT) 03/28/23 05:00 CXR: My impression: .1.? Minimal evidence of CHF or positive fluid balance, mildly progressed from 03/19/2023. 2. ? COPD and other chronic findings again noted. EKG 1: My Interpretation: Normal sinus rhythm with a rate of 87 bpm. Features of recent inferior wall PR. Nonspecific T wave changes. Occasional PVCs. Nonspecific IVCD. Other data: Nuclear medicine scan ?IMPRESSIONS ?1.? Myocardial perfusion imaging revealing moderate area of moderate to ?severely decreased tracer uptake in the inferior, inferolateral and apical ?regions with a subtle area of reversibility in the inferolateral region, ?suggestive of myocardial scarring in the distribution of all the 3 coronary ?arteries with a small area of possible rama-infarction ischemia in the ?distribution of the left circumflex artery. ?2.? Normal LV ejection fraction of 54%. ?3.? LV wall motion abnormalities as mentioned above. ?4.? Mildly dilated LV cavity with an end-systolic volume of 65 ml. ?No similar previous studies are available for comparison 02/16/23 Sestamibi stress test CONCLUSION: 1. Nonspecific EKG changes with the LexiScan infusion 2. No LexiScan induced chest pain or cardiac arrhythmia 3. Normal blood pressure and heart rate response 4. Sestamibi/sestamibi perfusion scan pending; see separate report. 02/16/23 Echocardiogram ?CONCLUSIONS ?Moderate hypokinesia of the mid and apical septum and the ?anteroseptal segments.? LV ejection fraction possibly around ?40%.(Visual).? Technically difficult study because of the poor ?ultrasonic window. ?Mildly increased left atrial size. ?Thickened aortic valve. ?Possible large pleural effusion on the left side ?Consider contrast echo to better evaluate the LV ejection ?fraction.? Compared to the previous study from 02/01/2023, there ?is a drop in the LV ejection fraction. ?Dr. Li was informed about this finding 09/14/22 Procedure(s): DISTANCE LEARNING PROGRAM COORDINATOR request for service Conclusions ? 1. Severe, thrombotic ? 2. stenosis of mid RCA.? This was ? 3. culprit lesion for ST elevation PR. ? 4. Revascularization performed with NIGEL x1.. ? 5. Mid Right Coronary Artery was treated with a Drug Eluting Stent. Recommendations ? * Transferred back to ICU. ? * Aspirin and Plavix for at least 1 year. ? * High intensity statin therapy. ? * Order echocardiogram. ? * Outpatient cardiology follow-up in 4 weeks. A&P Assessment and plan (1) Atherosclerotic heart disease of [place] coronary artery with unstable angina pectoris: This patient has persistently elevated troponin T. Currently has unstable anginal symptoms. To further evaluate his coronary status, a repeat cardiac catheterization would be appropriate. However because of his chronic kidney disease, he carries a high risk for contrast-induced nephropathy. The presence of anemia also increases the risk. (2) Acute on chronic systolic heart failure: Patient seems to be clinically getting stabilized. The oxygen saturation is a round 95% on 5 L of oxygen by nasal cannula. (3) Hypothyroidism: Patient was found to have markedly elevated TSH. The hypothyroidism management as per the primary. (4) COPD (chronic obstructive pulmonary disease): The mild seizure might be aggravating the COPD. (5) CKD (chronic kidney disease): The patient's the BUN/creatinine seems to be remaining stable with no significant worsening. (6) Ischemic cardiomyopathy: Pain and was found to have an LV ejection fraction around 40% by echocardiogram in January of this year. A limited 2D echocardiogram to reevaluate LV ejection fraction might be appropriate. Plan Other problems are Severe hypothyroidism Anemia Upper respiratory infection symptoms Recent tick bite Based on the results of the above tests and the patient's clinical progress, further recommendations will be made. In view of the patient's increasing episodes of chest pains, and repeated cardiac colorization may be appropriate even though he carries a high risk for contrast-induced nephropathy. Patient and the family I want to go ahead with the angiogram and they are willing to take the risk of him developing acute renal failure and possible dialysis. I will discuss this with Dr. Arroyo in the morning. Consult Attestations Medical Necessity Statement: Patient requires continued hospital stay for close monitoring and further management Coding Level of Care Code 75302 Diagnoses Atherosclerotic heart disease of [place] coronary artery with unstable angina pectoris I25.110 Acute on chronic systolic heart failure I50.23 Hypothyroidism E03.9 COPD (chronic obstructive pulmonary disease) J44.9 CKD (chronic kidney disease) N18.9 Ischemic cardiomyopathy I25.5 Time Spent (min) 70
[2023-03-29] MEDS: magnesium lactate 84 mg Tablet PO (23:26)
[2023-03-30] VITALS (13 sets, daily range): BP systolic 124–159; BP diastolic 52–74; PULSE 73–155; RESP 14–26; TEMP 36.4–37.1; O2SAT 92–96
[2023-03-30] MEDS: pantoprazole 40 mg SDV IVP (05:26)
[2023-03-30] MEDS: clopidogrel 75 mg Tablet PO (05:26)
[2023-03-30] MEDS: aspirin 81 mg EC Tablet PO (05:26)
[2023-03-30 05:32] LABS: Anion Gap 13.4 (5-19); Blood Urea Nitrogen 35 mg/dL (8-23); Calcium 8.3 mg/dL (8.5-10.5); Carbon Dioxide 21 mmol/L (22-29); Chloride 109 mmol/L (98-107); Glucose 90 mg/dL (65-115); Osmolality Calculated 298 mOsm/kg (285-295); Potassium 3.4 mmol/L (3.5-5.1); Sodium 140 mmol/L (136-145)
[2023-03-30] MEDS: metoprolol tartrate 25 mg Tablet PO ×2 (08:20→17:21)
[2023-03-30] MEDS: magnesium lactate 84 mg Tablet PO (08:20)
[2023-03-30] MEDS: isosorbide mononitrate ER 30 mg Tablet PO ×2 (08:20→17:21)
[2023-03-30] MEDS: doxycycline 100 mg Tablet PO ×2 (08:20→17:20)
[2023-03-30] MEDS: gabapentin 100 mg Capsule 200 MG PO ×3 (08:20→20:26)
--- NOTE | 2023-03-30 08:31 | PM.PN ---
Subjective Subjective: Patient had coronary angiogram today that showed severe 90% instent restenosis of the mid RCA stent. He underwent successful revascularization with balloon angioplasty. Vitals/I&O/Wt Last Vital Signs Temp 98 F 03/30/23 07:37 Pulse 88 03/30/23 08:00 Resp 18 03/30/23 08:00 BP 131/52 03/30/23 07:37 Pulse Ox 92 03/30/23 08:00 O2 Del Method Nasal Cannula 03/30/23 08:00 O2 Flow Rate 5 03/30/23 08:00 FiO2 40 03/30/23 03:49 03/29/23 03/30/23 03/30/23 22:59 06:59 14:59 Intake Total 240 / 365.65 Output Total 600 / 1000 Balance -360 / -634.35 Physical Exam Narrative: GENERAL: Patient is alert, awake and oriented x3. [] NECK: No jugular vein distension. [] HEENT: No cyanosis. No icterus. No pallor. [] HEART: Regular S1 and S2. No murmur, rub or gallop. [] LUNGS: Clear to auscultate bilaterally. [] CENTRAL NERVOUS SYSTEM: Grossly nonfocal. [] EXTREMITIES: Lower extremities with 1+ edema Data 03/31/23 04:36 03/31/23 04:36 A&P Assessment and plan (1) Ischemic cardiomyopathy: (2) GI bleed: (3) CHF exacerbation: (4) CAD (coronary artery disease): (5) Unstable angina: Plan Patient underwent coronary angiogram today secondary to unstable anginal symptoms. It showed severe in-stent restenosis of mid RCA stent. He underwent successful revascularization with balloon angioplasty. Continue aspirin and Plavix. He will need IV fluids as has significant risk of contrast-induced nephropathy. Monitor renal function. Hemoglobin will need close monitoring as well. Thank you for involving us with care of this patient. We will continue to follow. Please call with questions. Attestations Medical Necessity Statement*: Care expected to cross 2 midnights. Coding Level of Care Code Acute Code for [facility] Fwd Diagnoses Ischemic cardiomyopathy I25.5 GI bleed K92.2 CHF exacerbation I50.9 CAD (coronary artery disease) I25.10 Unstable angina I20.0
--- NOTE | 2023-03-30 08:40 | XACV_ITS ---
Exam Room: [facility] Ht: 178 cm Wt: 64 kg BSA: 1.76 m2 Gender: Male : 1940 Any Known Allergies: No known allergies Exam Priority: Routine Indication(s): - Non-ST elevation DC Procedure(s): Procedure Description: Diagnostic procedure Procedure Description: PCI procedure Procedure Description: Drug Eluting Coronary Stent Procedure Description: Miscellaneous Procedure Description: ACT Procedure Description: Coronary Angiography Diagnostic Cath Status: Urgent Diagnostic Findings * INDICATION: Unstable angina. * Left Anterior Descending has diffuse mild to moderate luminal irregularities. No severe stenosis.. * Circumflex has diffuse mild to moderate luminal irregularities.. * Proximal RCA is heavily calcified, tortuous vessel with 30 to 40% stenosis. Prior mid RCA stent has critical 95% in-stent restenosis. * M * id Right Coronary Artery to Mid Right Coronary Artery: critical 95% instent re-stenosis, THELMA: 3 flow. * Left Main has no disease. * Coronary angiography shows right dominance. PCI Status: Urgent PCI Indication: Other Interventional Findings * PROCEDURE DETAIL: We engaged RCA with AL 0.75 guide catheter. IV heparin was administered to maintain anticoagulation. 0.014 run-through guidewire was used to cross critical mid RCA stenosis and was put in distal vessel. We performed high pressure inflation with a 4.0 x 12 mm NC balloon to treat mid RCA critical in-stent restenosis. At this time final angiogram was performed which showed excellent stent expansion, no residual stenosis and THELMA-3 flow. 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 . * Mid Right Coronary Artery to Mid Right Coronary Artery: 95% stenosis treated with a MDT SAMANTHA HERNANDEZ RX [id number] BALLOON. 0% residual stenosis, THELMA: 3 flow. Conclusions 1. Critical mid RCA in-stent restenosis s/p successful revascularization with balloon angioplasty.. 2. Mid Right Coronary Artery to Mid Right Coronary Artery was treated with a Balloon. Recommendations * Dual antiplatelet therapy. * Risk factor modification. * Outpatient cardiology follow up in 4 weeks. Interventional RX Recommendation: PCI w/o planned CABG Diagnostic RX Recommendation: PCI w/o planned CABG Anticoagulation: Heparin Pressures Phase:Rest AO : 163 / 124 ( 110 ) @ 10:15:00 AM 92 / 22 ( 53 ) @ 10:33:00 AM 64 / 18 ( 36 ) @ 10:34:00 AM 137 / 68 ( 89 ) @ 10:39:00 AM Clinical Evaluation EBL: 5mL-10mL Procedural Details Procedure Consent Obtained. Admit Source: In Patient. Pre-Procedure Time Out. Identified patient by full name and date of as verbalized by the patient/guarantor. Does the consent match the physician's order: Yes. Accurate & Complete Informed Consent: Yes. Inpatient/Outpatient History & Physical on Chart: Yes. If H&P is completed, is and addenduem needed: No; If yes, is the addendum complete: N/A. Visualize and Verify Site with Patient/Guarantor: N/A. Relevant Radiology Images available: N/A. The risks, benefits, and alternatives of sedation and/or procedure were discussed by physician. The patient agrees to continue. Current Diagnosis : NSTEMI. [facility] Clinical Fraility Score: 4: Vulnerable. 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 Chest Pain Symptom Assessment: Typical Angina Symptoms. Cardiovascular Instability: No, stable. Correct patient, site and procedure confirmed by cath team. Current diagnosis: NSTEMI. PERRLA. Strong, equal hand rod placer bilaterally. Lungs clear x 5 lobes. IV Site on Arrival: 20 gauge in the left forearm. IV Fluids: 0.9% NaCl at KVO. 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 Pre Procedural Pulses: bilateral radial was 2+. Pre Procedural Pulses: bilateral posterior tibial was Doppled. Pre Procedural Pulses: bilateral dorsalis pedis was Doppled. Oxygen started at 6liters/min via nasal canula. bilateral groins was prepped with chloroprep then draped in the usual sterile fashion. Procedure started. Physician notified. Baseline sample Acquired. HR: 85 BPM. Baseline sample Acquired. HR: 83 BPM. Family updated prior to arrival by MD. Equipment: 5F - Femoral. Heparinized Saline (2 units/mL), 1000 mL bag. Kit, Micropuncture. Cardiac Cath Pack. ACIST Manifold Kit Model BT 2000. Equipment: 6F - Femoral. Physician arrived. Physician scrubbed in. Immediate Pre-Procedure Time Out. Correct Patient: Yes; Correct Procedure: Yes; Correct Site: Yes; Correct Patient Position: Yes; Correct Supplies: Yes; Dried Flammable Prep: Yes; Blood Products Available: N/A;. Lidocaine 1% infiltrated to the right groin. Arterial access obtained with micropuncture set. A CRD 5F JL4 Diagnostic Catheter was advanced over the wire and used for Left coronary angiography. Multiple views taken of left coronary artery. Catheter removed over the standard wire. A CRD 5F JR4 Diagnostic Catheter was advanced over the wire and used for Right coronary angiography. Multiple views taken of right coronary artery. Catheter removed over the standard wire. 6 azeri AL 0.75 guide catheter was inserted over the wire. Guide catheter seated. Runthrough guidewire was advanced through the guide catheter to lesion in the mid RCA. Guidewire advanced across lesion. Balloon inserted. No Cross. Balloon out. Guideliner inserted. Inflation number : 1 A MDT NC EUPHORA RX [id number] BALLOON was prepped and advanced across the Mid RCA , then inflated to 14 FRANCES for 0:21 seconds. Inflation number: 2 The MDT NC EUPHORA RX [id number] BALLOON was reinflated across the Mid RCA, to 14 FRANCES for 0:21 seconds. Balloon back into guide. Results checked. Balloon out. Switching patient to simple mask- 8lpm. Results checked. Guideliner and Wire out. Results checked. Guide catheter out. ACT drawn. Results 212 seconds. Therapeutic limits - pre-heparin administration 90-150 seconds and monitoring heparin during a vascular procedure >250 seconds. Physician review of films. Physician scrubbed out. A Suture was successful obtaining hemostatsis at the Right Femoral artery insertion site. Sheath(s) sutured into position with 2-0 silk and sterile 4x4's and Op-site applied over the site. No oozing or signs and symptoms of hematoma noted. Arterial sheath flushed and connected to tranducer and pressure bag with heparinized saline. Post Procedure: Pulses reassessed and unchanged. PERRLA. Strong, equal hand rod placer bilaterally. No VTE prophylaxis required. Medication waste: Lidocaine- Nitro- Heparin-. Total IV fluids: 116 mL. Fluoro: 7:01. Contrast type used: Visipaque 320 mgI/mL, 200 mL bottle. [id number]. Post-op diagnosis: Severe in stent restenosis; Staus post balloon angioplasty to mid RCA. Complications: None. Estimated blood loss: 5mL-10mL. Responsiveness - Normal response to verbal stimuli; alert and oriented, PERRLA. Airway - Unaffected, no intervention required; spontaneous ventilation. Circulation: W/N/L, pulses unchanged. Nausea/Vomiting: No. Procedure completed. Patient transferred by bed to 1st floor. Vital chart was stopped. Bolus stopped per MD. Access Site Site: Right Femoral artery Sheath Size: 6 Fr Hemostasis Method: Suture Hemostasis Success: Successful Procedure Medications Start: 9:16 AM Stop: 9:16 AM Medication: Versed Amount: 1 mg Route: I.V. Start: 9:30 AM Stop: 9:30 AM Medication: Heparin Amount: 6000 units Route: I.V. Start: 9:39 AM Stop: 9:39 AM Medication: 0.9% Saline Amount: 250 ml Route: I.V. bolus Start: 9:46 AM Stop: 9:46 AM Medication: Heparin Amount: 1000 units Route: I.V. I, the attending physician, have reviewed and verified all procedure medications. Yes, all medications given per verbal order History/Risk Factors Hypertension: Yes Dyslipidemia: Yes Peripheral Arterial Disease (PAD): No Myocardial Infarction (DC): Yes Obesity: No Renal Disease: No Prior Interventions PCI: Yes CABG: No Valve Surgery: No Date of PCI: 08/27/2022 Report Signatures Finalized by Jensen Arroyo MD on 04/13/2023 11:20 AM
--- NOTE | 2023-03-30 09:09 | W.PM.OPSUD ---
Surgery/Procedure H&P Update DATE OF PROCEDURE: March 30, 2023 DATE H&P PERFORMED: 03/29/23 H&P UPDATE INFORMATION: I have reviewed H&P completed within last 30 days, I have examined patient prior to procedure and No changes to prior documentation CHANGES TO PREVIOUS DOCUMENTATION: Patient is OK to change the code status to full code for the duration of procedure. Risks and benefits of the procedure have been discussed with the patient. He understands the risks and benefits and wants to proceed. PREOP DIAGNOSIS: Unstable angina PRIMARY INDICATION FOR PROCEDURE: Unstable angina PLANNED PROCEDURE: Left heart cath with possible percutaneous coronary intervention PATIENT REASSESSED PRIOR TO SEDATION, WITH NO CHANGE NOTED: Yes PHYSICAL EXAM: alert, oriented x 3, clear to auscultation bilaterally and regular rate & rhythm AIRWAY EVAL/ANESTHESIA PLAN: normal airway, ASA III, Local Anesthesia, Risks, benefits & alternatives of sedation and/or procedure discussed and Patient agrees to continue as planned ADDITIONAL INFORMATION: Moderate sedation
--- NOTE | 2023-03-30 09:20 | PC.NURSE ---
Pt taken to research laboratory technician family ushered to research laboratory technician waiting area.
--- NOTE | 2023-03-30 09:52 | PC.OT ---
OT TREATMENT HELD PATIENT IS IN DYE HOUSE HAND THIS A.M. TREATMENT TO BE ATTEMPTED TOMORROW.
[2023-03-30] MEDS: sodium chloride 0.9% 1,000 ML 50 ML IV (10:30)
--- NOTE | 2023-03-30 11:09 | PM.PN ---
Subjective Subjective: Balloon angioplasty was done for mid RCA severe stenosis of old stent, Patient can eat now We will monitor her his kidney function next 24 hours most likely he will be able to go home if kidney function is not worsening in next 24 hours Nitroglycerin drip could be turned off Vitals/I&O/Wt Last Vital Signs Temp 98 F 03/30/23 07:37 Pulse 73 03/30/23 10:30 Resp 18 03/30/23 10:30 BP 140/74 03/30/23 10:30 Pulse Ox 93 03/30/23 10:30 O2 Del Method Nasal Cannula 03/30/23 10:30 O2 Flow Rate 5 03/30/23 10:30 FiO2 40 03/30/23 03:49 03/29/23 03/30/23 03/30/23 22:59 06:59 14:59 Intake Total 240 / 365.65 Output Total 600 / 1000 350 / 350 Balance -360 / -634.35 -350 / -350 Physical Exam Narrative: GCS 15 Awake and alert Nitroglycerin was running at 6 before angiogram Abdomen soft Euvolemic No active chest pain Nonfocal neuro exam Currently on 5 L nasal cannula Data 03/28/23 02:25 03/30/23 04:48 A&P Assessment and plan (1) Ischemic cardiomyopathy: (2) Acute on chronic systolic heart failure: (3) Myxedema coma: (4) Tick bite: (5) CHF exacerbation: (6) Hypothyroidism: (7) Pleural effusion: (8) Goals of care, counseling/discussion: (9) Hypoxia: (10) CKD (chronic kidney disease): (11) CAD (coronary artery disease): (12) COPD (chronic obstructive pulmonary disease): (13) On home oxygen therapy: (14) Iron deficiency anemia: Plan Status post coronary angiogram, balloon angioplasty was done for mid RCA stenosed stent Nitroglycerin drip could be turned off Monitor kidney function Chronic kidney disease creatinine 6.2 Chronic hypoxia patient requires 4 L at baseline, Patient can eat and ambulate 6 hours after angiogram Tickborne related illness: Continue doxycycline Myxedema coma ruled out He needs adjustment of levothyroxine dose No active chest pain DNR/DNI If kidney function does not worsen next 24 hours he might be able to go home Attestations Medical Necessity Statement*: Monitor kidney function for today and tomorrow Diagnoses Ischemic cardiomyopathy I25.5 Acute on chronic systolic heart failure I50.23 Myxedema coma E03.5 Tick bite W57.XXXA CHF exacerbation I50.9 Hypothyroidism E03.9 Pleural effusion J90 Goals of care, counseling/discussion Z71.89 Hypoxia R09.02 CKD (chronic kidney disease) N18.9 CAD (coronary artery disease) I25.10 COPD (chronic obstructive pulmonary disease) J44.9 On home oxygen therapy Z99.81 Iron deficiency anemia D50.9
[2023-03-30 13:03] LABS: Partial Thromboplastin Time 106.1 SECONDS (23.9-36.7)
[2023-03-30 15:06] LABS: Partial Thromboplastin Time 41.7 SECONDS (23.9-36.7)
[2023-03-30] MEDS: acetaminophen 325 mg Tablet 650 MG PO (17:21)
--- NOTE | 2023-03-30 18:39 | ECG_ITS ---
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 Measurements Intervals [place] Rate: 94 P: 47 [place]: 132 QRS: 61 QRSD: 102 T: -50 QT: 394 QTc: 493 Interpretive Statements SINUS RHYTHM WITH OCCASIONAL VENTRICULAR PREMATURE COMPLEXES POSSIBLE INFERIOR MYOCARDIAL INFARCTION , OF INDETERMINATE AGE [30 ms Q WAVE IN II/aVF] Compared to ECG 03/29/2023 11:16:01 ST (T wave) deviation no longer present Myocardial infarct finding still present Electronically Signed On 03-30-2023 21:33:43 CDT by Patricia Alvarado M.D. [id number]
--- NOTE | 2023-03-30 19:23 | PC.NURSE ---
1535 pm Sheath Removed explained procedure to pt on sheath removal from his right groin. 6 Fr sheath removed from right femoral artery. Manual pressure held for 20 mins. No hematoma or swelling noted post sheath pull. Cath tip intact. Educated pt on activity restrictions such as bedrest, no flexion and movement to right leg. pt verbalizes understanding. call light provided to pt. vital signs and neurovascular checks .
[2023-03-30] MEDS: atorvastatin 40 mg Tablet 20 MG PO (20:26)
--- NOTE | 2023-03-30 21:10 | PC.NURSE ---
Patients bedrest completed at 9pm, patient was assisted OOB to commode. After returning to bed right groin site assessed. Right groin cath site is soft, no hematoma present, right pedal pulses are present. Dressing is dry and intact.
[2023-03-31] VITALS: BP 127/53; PULSE 85; RESP 20; TEMP 37.1; O2SAT 94
[2023-03-31] MEDS: acetaminophen 325 mg Tablet 650 MG PO (00:14)
[2023-03-31 04:00] VITALS: BP 118/51; PULSE 71; RESP 14; O2SAT 92
[2023-03-31] MEDS: aspirin 81 mg EC Tablet PO (04:31)
[2023-03-31] MEDS: pantoprazole 40 mg SDV IVP (04:31)
[2023-03-31] MEDS: clopidogrel 75 mg Tablet PO (04:31)
[2023-03-31 05:12] LABS: Anion Gap 14.3 (5-19); Blood Urea Nitrogen 40 mg/dL (8-23); Calcium 7.7 mg/dL (8.5-10.5); Carbon Dioxide 19 mmol/L (22-29); Chloride 111 mmol/L (98-107); Glucose 96 mg/dL (65-115); Osmolality Calculated 302 mOsm/kg (285-295); Potassium 3.3 mmol/L (3.5-5.1); Sodium 141 mmol/L (136-145)
[2023-03-31 05:43] VITALS: PULSE 68
[2023-03-31 08:03] VITALS: BP 104/46; PULSE 75; RESP 14; TEMP 36.7; O2SAT 96
--- NOTE | 2023-03-31 08:14 | PC.SOCIAL ---
IMM update IMM updated with patient. Copy Pg 2 provided. Verbalized an understanding. Initialled, dated, timed, and placed in chart.
[2023-03-31] MEDS: doxycycline 100 mg Tablet PO (08:35)
[2023-03-31] MEDS: isosorbide mononitrate ER 30 mg Tablet PO (08:35)
[2023-03-31] MEDS: magnesium lactate 84 mg Tablet PO (08:35)
[2023-03-31] MEDS: FUROsemide 20 mg Tablet PO (08:36)
[2023-03-31] MEDS: metoprolol tartrate 25 mg Tablet PO (08:36)
[2023-03-31] MEDS: gabapentin 100 mg Capsule 200 MG PO (08:36)
--- NOTE | 2023-03-31 08:38 | P.PN_ITS ---
Subjective Subjective: Patient is doing well. Denies chest pain. Hgb was lower on initial check but repeat shows improved number. Vitals/I&O/Wt Last Vital Signs Temp 98.0 F 03/31/23 08:03 Pulse 75 03/31/23 08:03 Resp 14 03/31/23 08:03 BP 104/46 03/31/23 08:03 Pulse Ox 96 03/31/23 08:03 O2 Del Method Nasal Cannula 03/31/23 08:03 O2 Flow Rate 6 03/31/23 08:03 FiO2 40 03/30/23 03:49 03/30/23 03/31/23 03/31/23 22:59 06:59 14:59 Intake Total 1073.233 / 1553.233 240 / 1793.233 Output Total 400 / 750 Balance 673.233 / 803.233 240 / 1043.233 Physical Exam Narrative: GENERAL: Patient is alert, awake and oriented x3. [] NECK: No jugular vein distension. [] HEENT: No cyanosis. No icterus. No pallor. [] HEART: Regular S1 and S2. No murmur, rub or gallop. [] LUNGS: Clear to auscultate bilaterally. [] CENTRAL NERVOUS SYSTEM: Grossly nonfocal. [] EXTREMITIES: Lower extremities with 1+ edema Data 03/31/23 09:09 03/31/23 04:36 A&P Assessment and plan (1) Ischemic cardiomyopathy: (2) GI bleed: (3) CHF exacerbation: (4) CAD (coronary artery disease): (5) Unstable angina: Plan Patient is overall stable. Continue aspirin and Plavix. Outpatient repeat CBC and BMP. Thank you for involving us with care of this patient. Please call with questions. Attestations Medical Necessity Statement*: Care expected to cross 2 midnights. Coding Level of Care Code Acute Code for [facility] Fwd Diagnoses Ischemic cardiomyopathy I25.5 GI bleed K92.2 CHF exacerbation I50.9 CAD (coronary artery disease) I25.10 Unstable angina I20.0
[2023-03-31] MEDS: ipratropium-albuterol 3 mL Neb INHALATION (09:07)
[2023-03-31 09:08] VITALS: PULSE 75; RESP 14; O2SAT 96
[2023-03-31] MEDS: budesonide 0.5 mg/2 mL Neb INHALATION (09:08)
[2023-03-31 09:21] LABS: Hematocrit 27.4 % (42.0-52.0); Hemoglobin 8.7 g/dL (11.7-16.6)
--- NOTE | 2023-03-31 09:24 | P.DS_ITS ---
Discharge Providers Date of Admission: 03/28/23 03:25 Date of Discharge: March 31, 2023 Attending Provider at Admission: Adonis Majano MD Attending Provider at Discharge: Gentry Lewis MD Primary Care Provider: Tyrese Rodriguez NP Diagnoses at Discharge Discharge Diagnosis (1) Ischemic cardiomyopathy: Status: Acute (2) GI bleed: Status: Acute (3) CHF exacerbation: Status: Acute (4) CAD (coronary artery disease): Status: Chronic Permanent problem details: STEMI 08/2022 with NIGEL to mid RCA (5) Unstable angina: Status: Acute Reason for Visit Reason for Visit: N\SOB\[place] Hospital Course Hospital Course 82 male with 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 Dr. Arroyo did coronary angiogram on 03/30, he did balloon angioplasty of mid RCA which had severe stenosis/old stent. Creatinine seems to be around baseline. Patient had drop in H&H, that was a lab error, lab called me to report that at her as well, repeat H&H is 8.7, I will add iron and folic acid patient is already taking B12 at home he has macrocytic anemia patient is scheduled to get colonoscopy on [address] Zaragoza. 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 Minimal evidence of CHF or positive fluid balance, mildly progressed from 03/19/2023. 2. COPD and other chronic findings again noted. Laboratory Results WBC 7.0 10^3/uL (4.0-10.0) 03/31/23 04:36 RBC 2.07 10^6/uL (4.1-5.3) L 03/31/23 04:36 Hgb 6.8 g/dL (11.7-16.6) L 03/31/23 04:36 Hct 22.8 % (42.0-52.0) L 03/31/23 04:36 MCV 110.1 fl (80-94) H 03/31/23 04:36 MCH 32.9 pg (28.0-34.0) 03/31/23 04:36 MCHC 29.8 g/dL (30.0-36.0) L 03/31/23 04:36 RDW 17.6 % (12.1-15.1) H 03/31/23 04:36 Plt Count 185 10^3/cmm (130-400) 03/31/23 04:36 MPV 11.3 fL (7.4-10.4) H 03/31/23 04:36 Neut % (Auto) 64.7 % 03/31/23 04:36 Lymph % (Auto) 18.7 % 03/31/23 04:36 [place] % (Auto) 11.5 % 03/31/23 04:36 Eos % (Auto) 4.2 % 03/31/23 04:36 Baso % (Auto) 0.6 % 03/31/23 04:36 Neut # (Auto) 4.50 10^3/uL (1.8-7.7) 03/31/23 04:36 Lymph # (Auto) 1.3 10^3/uL (0.8-4.8) 03/31/23 04:36 [place] # (Auto) 0.8 10^3/uL (0.2-0.9) 03/31/23 04:36 Eos # (Auto) 0.3 10^3/uL (0.0-0.8) 03/31/23 04:36 Baso # (Auto) 0.0 10^3/uL (0.0-0.1) 03/31/23 04:36 Nucleated RBC % (auto) 0 % 03/31/23 04:36 Nucleated RBCs # 0.0 /100WBC 03/31/23 04:36 APTT 41.7 SECONDS (23.9-36.7) H D 03/30/23 13:50 Sodium 141 mmol/L (136-145) 03/31/23 04:36 Potassium 3.3 mmol/L (3.5-5.1) L 03/31/23 04:36 Chloride 111 mmol/L (98-107) H 03/31/23 04:36 Carbon Dioxide 19 mmol/L (22-29) L 03/31/23 04:36 Anion Gap 14.3 (5-19) 03/31/23 04:36 BUN 40 mg/dL (8-23) H 03/31/23 04:36 Creatinine 2.3 mg/dL (0.7-1.2) H 03/31/23 04:36 GFR Calculation Not Reportable 03/31/23 04:36 Glucose 96 mg/dL (65-115) 03/31/23 04:36 Estimat Average Glucose 80 03/28/23 02:25 Hemoglobin A1c 4.4 % (4.0-6.0) 03/28/23 02:25 Calculated Osmolality 302 mOsm/kg (285-295) H 03/31/23 04:36 Lactic Acid 2.2 mmol/L (0.5-2.2) 03/28/23 04:40 Lactic Acid (Sepsis) 1.2 mmol/L (0.5-2.2) 03/28/23 07:15 Calcium 7.7 mg/dL (8.5-10.5) L 03/31/23 04:36 Iron 63 ug/dL (59-158) 03/28/23 04:40 Ferritin 51 ng/mL (30-400) 03/28/23 04:40 Total Bilirubin 0.4 mg/dL (0.15-1.2) 03/28/23 02:25 AST 23 U/L (0-40) 03/28/23 02:25 ALT 10 U/L (0-41) 03/28/23 02:25 Alkaline Phosphatase 66 U/L (40-130) 03/28/23 02:25 Creatine Kinase 211 U/L (39-308) 03/28/23 04:40 Troponin T Baseline 165 ng/L (0-15) H* 03/28/23 04:40 Troponin T 120 Minute 162.3 ng/L (0-15) H 03/28/23 07:15 Delta Troponin T -2.7 ABS# (0-10) L 03/28/23 07:15 Troponin T Hi Sens 6Hr 168.7 ng/L (0-15) H 03/28/23 10:46 Troponin T Hi Sens 6Hr Delta 3.7 ng/L (0-12) 03/28/23 10:46 C-Reactive Protein 3.0 mg/L (0.0-4.9) 03/28/23 04:40 NT-Pro-B Natriuret Pep 45741 pg/mL (0-450) H 03/28/23 02:25 Total Protein 7.3 g/dL (6.6-8.7) 03/28/23 02:25 Albumin 3.7 g/dL (3.5-5.2) 03/28/23 02:25 Globulin 3.6 g/dL (1.3-4.6) 03/28/23 02:25 Triglycerides 74 mg/dL (0-150) 03/28/23 04:40 Cholesterol 199 mg/dL (0-200) 03/28/23 04:40 LDL Cholesterol, Calc 122 mg/dL (50-129) 03/28/23 04:40 HDL Cholesterol 62 mg/dL (60-100) 03/28/23 04:40 LDL/HDL Ratio 1.97 RATIO (0.00-3.22) 03/28/23 04:40 Cholesterol/HDL Ratio 3.21 mg/dL (1.0-5.00) 03/28/23 04:40 Procalcitonin 0.09 ng/mL (0-0.5) 03/28/23 04:40 TSH 117.30 uIU/mL (0.27-4.20) H 03/28/23 02:25 Free T4 1.27 ng/dL (0.82-1.77) 03/28/23 04:40 Free T3 1.3 PG/ML (2.0-4.4) L 03/28/23 04:40 Urine Color Colorless (Yellow) 03/28/23 04:20 Urine Appearance Clear (CLEAR) 03/28/23 04:20 Urine pH 8 (5-7) H 03/28/23 04:20 Ur Specific Foley 1.010 (1.005-1.030) 03/28/23 04:20 Urine Protein Trace (Negative) 03/28/23 04:20 Urine Glucose (UA) Norm (Normal) 03/28/23 04:20 Urine Ketones Negative (Negative) 03/28/23 04:20 Urine Blood Neg (Negative) 03/28/23 04:20 Urine Nitrate Negative (Negative) 03/28/23 04:20 Urine Bilirubin Neg (Negative) 03/28/23 04:20 Prot Sulfosalicylic Acd Positive (Negative) 03/28/23 04:20 Urine Urobilinogen Neg mg/dL (Negative) 03/28/23 04:20 Ur Leukocyte Esterase Negative (Negative) 03/28/23 04:20 Urine RBC None /hpf (0-2) 03/28/23 04:20 Urine WBC None /hpf (0-5) 03/28/23 04:20 Ur Squamous Epith Cells None /hpf (0-5) 03/28/23 04:20 Amorphous Sediment Not Reportable 03/28/23 04:20 Urine Bacteria None /hpf (NONE) 03/28/23 04:20 Nasal Influ A H1 2009 PCR Not detected (NOT DETECT) 03/28/23 05:00 Adenovirus (PCR) Not detected (NOT DETECT) 03/28/23 05:00 Lyme Ab (Western Blot) <0.90 index 03/28/23 04:40 C. pneumoniae DNA (PCR) Not detected (NOT DETECT) 03/28/23 05:00 Coronavirus 229E (PCR) Not detected (NOT DETECT) 03/28/23 05:00 Human Metapneumovir PCR Not detected (NOT DETECT) 03/28/23 05:00 Influenza A (H1) PCR Not detected (NOT DETECT) 03/28/23 05:00 Influenza A (H3) PCR Not detected (NOT DETECT) 03/28/23 05:00 Influenza Type A (PCR) Not detected (NOT DETECT) 03/28/23 05:00 Influenza Type B (PCR) Not detected (NOT DETECT) 03/28/23 05:00 M. pneumoniae (PCR) Not detected (NOT DETECT) 03/28/23 05:00 Parainfluenza 1 (PCR) Not detected (NOT DETECT) 03/28/23 05:00 Parainfluenza 2 (PCR) Not detected (NOT DETECT) 03/28/23 05:00 Parainfluenza 3 (PCR) Not detected (NOT DETECT) 03/28/23 05:00 Parainfluenza 4 (PCR) Not detected (NOT DETECT) 03/28/23 05:00 RSV Type A (PCR) Not detected (NOT DETECT) 03/28/23 05:00 RSV Type B (PCR) Not detected (NOT DETECT) 03/28/23 05:00 Entero/Rhino (PCR) Not detected (NOT DETECT) 03/28/23 05:00 SARS-CoV-2 (PCR) Not detected (NOT DETECT) 03/28/23 05:00 Vitals Last Vital Signs Temp 98.0 F 03/31/23 08:03 Pulse 75 03/31/23 09:08 Resp 14 03/31/23 09:08 BP 104/46 03/31/23 08:03 Pulse Ox 96 03/31/23 09:08 O2 Del Method Nasal Cannula 03/31/23 09:08 O2 Flow Rate 5 03/31/23 09:08 FiO2 40 03/30/23 03:49 Discharge Plan Discharge Patient Disposition: Home Health Service Condition: Stable Prescriptions: New levothyroxine 150 mcg capsule 150 mcg PO DAILY Qty: 90 3RF ferrous sulfate [FeroSul] 325 mg (65 mg iron) tablet 325 mg PO DAILY Qty: 30 0RF sennosides-docusate sodium [Senna-S] 8.6-50 mg tablet 1 tab-cap PO DAILY Qty: 20 0RF albuterol sulfate 90 mcg/actuation HFA aerosol inhaler 2 inh inhalation Q8H PRN (Reason: shortness of breath or wheezing) Qty: 8.5 3RF folic acid 1 mg tablet 1 mg PO DAILY Qty: 60 0RF Continued pravastatin 40 mg tablet 80 mg PO BEDTIME Qty: 90 3RF metoprolol tartrate 25 mg Tablet 12.5 mg PO BID Qty: 60 2RF cyanocobalamin (vitamin B-12) [Vitamin B-12] 1,000 mcg Tablet 500 mcg PO DAILY Qty: 30 0RF ferrous sulfate 325 mg (65 mg iron) Tablet,Delayed Release (Dr/Ec) 325 mg PO BIDWM Qty: 60 0RF Spiriva with HandiHaler 18 mcg capsule, w/inhalation device 1 cap inhalation DAILY Qty: 30 0RF Rx Instructions: puncture 1 cap using device; one dose = 2 inhalations sucralfate 1 gram tablet 1 g PO BID potassium citrate 5 mEq (540 mg) tablet extended release 5 meq PO DAILY Rx Instructions: rx filled 03/27/23 (pt not started as of 03/28/23) fluticasone furoate-vilanterol [Breo Ellipta] 100-25 mcg/dose blister with device 1 inh inhalation QAM pantoprazole 40 mg tablet,delayed release (DR/EC) 40 mg PO BIDWM Qty: 60 2RF clopidogrel 75 mg tablet 75 mg PO QAM Qty: 60 0RF Changed furosemide [Lasix] 40 mg tablet 40 mg PO DAILY Qty: 60 0RF Discontinued levothyroxine 100 mcg tablet See Rx Instructions .ROUTE .COMPLEX Rx Instructions: Take 1 and 1/4 tab (125mcg) po qam aspirin 81 mg Tablet,Delayed Release (Dr/Ec) 81 mg PO QAM Qty: 30 0RF gabapentin 100 mg Capsule 200 mg PO TID Qty: 90 0RF isosorbide mononitrate 30 mg tablet extended release 24 hr 30 mg PO BID Qty: 60 0RF Discharge Orders: Discharge Order (Routine); Ordered 03/31/23 Ordered By: Gentry Lewis Referrals: [facility] [Outside] Tyrese Rodriguez NP [Primary Care Provider] - Lottie Rider FNP [Nurse Practitioner] - 04/10/23 2:00 pm Discharge Diet: Cardiac Discharge Activity: Increase activity as tolerated Patient Instructions: Opioid Safety Discharge Attestations Time Spent in Discharge Care*: greater than 30 min Status at Discharge: Cognitive status at discharge: cognitively intact , Behavioral status at discharge: cooperative , Quality Metrics Clinical Quality Measures [ No reported AMI, CVA or VTE this stay] Coding Level of Care Code Acute Code for Chg Fwd Diagnoses Ischemic cardiomyopathy I25.5 GI bleed K92.2 CHF exacerbation I50.9 CAD (coronary artery disease) I25.10 Unstable angina I20.0
[2023-03-31 09:41] LABS: Iron 20 ug/dL (59-158); Percent Saturation 8.6 % (20-50); Total Iron Binding Capacity 230 mcg/dl; Unsaturated Iron Binding 210 ug/dL (112-347)
[2023-03-31 09:52] LABS: Folate Level 3.9 ng/mL (4.5-32.2)
[2023-03-31 09:57] LABS: Vitamin B12 323 pg/mL (232-1245)
[2023-03-31 10:51] VITALS: PULSE 75; RESP 14; TEMP 36.9; O2SAT 96
[2023-04-04 17:33] LABS: E. Chaffeensis AB IGG <1:64; E. Chaffeensis AB IGM <1:20
[2023-04-06 00:24] LABS: RMSF IGG DETECTED; RMSF IGM NOT DETECTED
== END 2023-03-31 12:16 | disposition home health service (06) | DRG 250 ==
LOC: ER 03:16 → MEDSURG 03:25 → CSU 03-29 12:26
PROVIDERS: Internal Medicine; Admitting Provider Family Medicine; Emergency Provider Emergency Medicine; PCP Nurse Practitioner Family; Visit Provider Internal Medicine
PROC: 02703ZZ Dilation of Coronary Artery, One Artery, Percutaneous Approach (ICD-10-PCS; principal; 2023-03-30 09:00)
PROC: 02703ZZ Dilation of Coronary Artery, One Artery, Percutaneous Approach (ICD-10-PCS; 2023-03-30 09:00)
DX: T82.855A Stenosis of coronary artery stent, initial encounter (principal); I21.4 Non-ST elevation (NSTEMI) myocardial infarction; I50.23 Acute on chronic systolic (congestive) heart failure; I25.110 Atherosclerotic heart disease of native coronary artery with unstable angina pectoris; I13.0 Hypertensive heart and chronic kidney disease with heart failure and stage 1 through stage 4 chronic kidney disease, or unspecified chronic kidney disease; N18.4 Chronic kidney disease, stage 4 (severe); K92.2 Gastrointestinal hemorrhage, unspecified; Y71.8 Miscellaneous cardiovascular devices associated with adverse incidents, not elsewhere classified; Z95.5 Presence of coronary angioplasty implant and graft; I25.5 Ischemic cardiomyopathy; J44.9 Chronic obstructive pulmonary disease, unspecified; Z99.81 Dependence on supplemental oxygen; E03.9 Hypothyroidism, unspecified; D63.1 Anemia in chronic kidney disease; Z66 Do not resuscitate; Z79.51 Long term (current) use of inhaled steroids; Z79.02 Long term (current) use of antithrombotics/antiplatelets; I25.2 Old myocardial infarction; T14.8XXA Other injury of unspecified body region, initial encounter; W57.XXXA Bitten or stung by nonvenomous insect and other nonvenomous arthropods, initial encounter; D50.0 Iron deficiency anemia secondary to blood loss (chronic); F17.210 Nicotine dependence, cigarettes, uncomplicated; M17.0 Bilateral primary osteoarthritis of knee; I73.9 Peripheral vascular disease, unspecified; G62.9 Polyneuropathy, unspecified; E78.5 Hyperlipidemia, unspecified
CPT/HCPCS: 36415; 71045; 80048; 80053; 80061; 81001; 82550; 82607; 82728; 82746; 83036; 83540; 83550; 83605; 83880; 84145; 84439; 84443; 84481; 84484; 85014; 85018; 85025; 85347; 85610; 85730; 86140; 86618; 86666; 86757; 87486; 87581; 87633; 92920; 93005; 93454; 94640; 94660; 96365; 96367; 96374; 96375; 96376; 97161; 97167; 99152; 99153; 99285; C1725; C1769; C1887; C1894; C9113; J1100; J1644; J1940; J2250; J2270; J2405; J3010; J3490; J7030; J7613; J7626; Q9967

== ENCOUNTER 2023-04-01 18:55 | Inpatient (IN) | payer MEDICARE, SELFPAY ==
[2023-04-01 19:00] VITALS: BP 103/57; PULSE 97; RESP 16; TEMP 36.6; O2SAT 97; BMI 22.2
--- NOTE | 2023-04-01 19:03 | ECG_ITS ---
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 Measurements Intervals Saxis Rate: 88 P: 46 OH: 162 QRS: 49 QRSD: 109 T: -64 QT: 419 QTc: 508 Interpretive Statements SINUS RHYTHM WITH SINUS ARRHYTHMIA ST DEVIATION AND MODERATE T-WAVE ABNORMALITY, CONSIDER LATERAL ISCHEMIA [-0.1+ mV T-WAVE IN I/aVL/V5/V6] ST DEVIATION AND MODERATE T-WAVE ABNORMALITY, CONSIDER INFERIOR ISCHEMIA [-0.1+ mV T-WAVE IN II/aVF] Compared to ECG 03/30/2023 18:39:18 T-wave abnormality now present Possible ischemia now present Ventricular premature complex(es) no longer present Myocardial infarct finding no longer present Electronically Signed On 04-02-2023 10:20:44 CDT by Serge Thomas M.D. [email or web address]
--- NOTE | 2023-04-01 19:12 | XRR_ITS ---
PROCEDURE INFORMATION: Exam: XR Chest Exam date and time: 04/01/2023 7:16 PM Age: 82 years old Clinical indication: Pain; Chest pressure; Additional info: Chest pain TECHNIQUE: Imaging protocol: Radiologic exam of the chest. Views: 1 view. COMPARISON: CR (CHEST, ) 03/28/2023 2:26 AM FINDINGS: Lungs: There are small bibasilar pleural effusions that have developed from previous exam. There are some wispy indistinct opacities the lung bases likely secondary to subsegmental atelectasis. Remaining lung shi are clear. Pleural spaces: See Lungs finding. Heart/Mediastinum: Heart is mildly enlarged, stable. Bones/joints: Unremarkable for age. XR/XR chest 1V portable [id number] IMPRESSION: Mild cardiomegaly with small bibasilar pleural effusions and adjacent mild subsegmental atelectasis developed from previous exam.
[2023-04-01 19:52] LABS: Basophils % 0.4 %; Eosinophils # 0.3 10^3/uL (0.0-0.8); Eosinophils % 4.3 %; Hematocrit 29.1 % (42.0-52.0); Hemoglobin 9.1 g/dL (11.7-16.6); Lymphocytes # 1.3 10^3/uL (0.8-4.8); Lymphocytes % 19.8 %; Mean Corpuscular HGB Conc 31.3 g/dL (30.0-36.0); Mean Corpuscular Hemoglobin 32.6 pg (28.0-34.0); Mean Corpuscular Volume 104.3 fl (80-94); Mean Platelet Volume 10.8 fL (7.4-10.4); Monocytes # 0.5 10^3/uL (0.2-0.9); Monocytes % 7.7 %; Neutrophils # 4.58 10^3/uL (1.8-7.7); Neutrophils % 67.5 %; Nucleated Red Blood Cells % 0 %; Platelet Count 252 10^3/cmm (130-400); Red Blood Count 2.79 10^6/uL (4.1-5.3); Red Cell Distribution Width 16.8 % (12.1-15.1); White Blood Count 6.8 10^3/uL (4.0-10.0)
[2023-04-01 20:06] LABS: INR 1.07 (0.8-1.2)
[2023-04-01 20:07] LABS: Partial Thromboplastin Time 29.2 SECONDS (23.9-36.7)
[2023-04-01] MEDS: morphine 4 mg/mL SDV 1 mL IVP (20:13)
[2023-04-01] MEDS: aspirin 325 mg Tablet PO (20:13)
[2023-04-01] MEDS: nitroglycerin 1 gm/inch oint Pkt 1 INCH TOPICAL (20:13)
[2023-04-01] MEDS: ondansetron 2 mg/ML SDV 2 mL 4 MG IVP (20:13)
[2023-04-01 20:14] LABS: Alanine Aminotransferase 10 U/L (0-41); Albumin Level 3.5 g/dL (3.5-5.2); Alkaline Phosphatase 62 U/L (40-130); Anion Gap 16.1 (5-19); Aspartate Amino Transferase 22 U/L (0-40); Blood Urea Nitrogen 36 mg/dL (8-23); Calcium 8.1 mg/dL (8.5-10.5); Carbon Dioxide 20 mmol/L (22-29); Chloride 109 mmol/L (98-107); Globulin 2.7 g/dL (1.3-4.6); Glucose 93 mg/dL (65-115); Osmolality Calculated 302 mOsm/kg (285-295); Potassium 3.1 mmol/L (3.5-5.1); Sodium 142 mmol/L (136-145); Total Bilirubin 0.3 mg/dL (0.15-1.2); Total Protein 6.2 g/dL (6.6-8.7)
[2023-04-01 20:18] LABS: Troponin(5th) Baseline 1814 ng/L (0-15)
[2023-04-01 20:48] VITALS: BP 157/51; PULSE 93; RESP 20; O2SAT 100
[2023-04-01] MEDS: potassium chloride ER 20 mEq Tablet 40 MEQ PO (21:03)
--- NOTE | 2023-04-01 21:08 | ED_ITS ---
HPI - Chest Pain General: Chief Complaint: Chest Pain Stated Complaint: CP Time Seen by Provider: 04/01/23 19:15 History of Present Illness: 82-year-old male who is status post angioplasty to the RCA for in-stent stenosis on 03/30. He presents with chest discomfort starting at home today. He notes that the chest discomfort feels like it had previously with his previous episodes. He feels mildly short of breath. He uses oxygen at home at 4 L. 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 Onset (ago): hour(s) Timing of current episode: constant Prior episodes: Yes Onset: during rest Pain location: substernal Pain radiation: none Quality: aching and heaviness Relieving factors: nothing Associated symptoms: Reports diaphoresis, dyspnea, leg edema and nausea; Deny abdominal pain, fever(s), palpitations or vomiting Review of Systems Const: Reports: diaphoresis; Denies: fever(s) ENMT: Denies: throat pain Card: Reports: chest pain; Denies: palpitations Resp: Reports: dyspnea; Denies: productive cough or non-productive cough GI: Reports: nausea; Denies: abdominal pain or vomiting : Denies: flank pain PFSH ED PFSH: Medical History Acute on chronic systolic heart failure Atherosclerosis of coronary artery Atherosclerotic heart disease of [place] coronary artery with unstable angina pectoris BMI 22.0-22.9, adult CAD (coronary artery disease) STEMI 08/2022 with NIGEL to mid RCA CHF (congestive heart failure) CHF exacerbation CKD (chronic kidney disease) COPD (chronic obstructive pulmonary disease) Gastric ulcer by EGD in 2019 GI bleed Goals of care, counseling/discussion History of cardiovascular stress test 02/06/2023 nonspecific EKG changes with lexiscan infusion. Myocardial imaging suggestive of scarring in distribution of all 3 coronary arteries with a small area of possible rama-infarction ischemia in left circumflex distribution History of Doppler ultrasound carotids 01/30/2023 Right ICA 50-60% stenosis, Left ICA <50% stenosis, normal antegrade flow in right and left vertebral arteries History of echocardiogram 02/02/2023 EF 61%, mild LVH, no wall motion abnormalities, Grade I/IV diastolic dysfunction, estimated PAP 35 mmHg, mild to moderate AR and MR Hyperlipidemia Hypertension Hypothyroidism Hypothyroidism Hypoxia Iron deficiency anemia Ischemic cardiomyopathy Myxedema coma Neuropathy Nicotine dependence, cigarettes, with other nicotine-induced disorders Occult blood in stools On home oxygen therapy 4L [facility] PAD (peripheral artery disease) YEIMY 02/02/2023 Abnormal resting ABIs bilaterally(0.78 on the right and 0.73 on the left) suggesting moderate peripheral arterial disease. Pleural effusion Primary osteoarthritis of left knee Primary osteoarthritis of right knee Tick bite Unstable angina Surgical History H/O colonoscopy 09/11/19 H/O esophagogastroduodenoscopy 09/11/19; 02/05/2023 - no active bleeding History of appendectomy History of cardiac catheterization 08/2022 severe RCA stenosis s/p NIGEL. Angiogram was done through the right radial artery, but intervention was performed to the right groin because of the abnormal anatomy of the artery-the RCA ostium had a godinez hook takeoff. History of hernia surgery Family History Sister Cancer Brother Diabetes Denies family history of Anesthesia complication Bleeding disorder Social History Smoking and tobacco status: current every day smoker cigarettes [ Other cigarette details: smoked since age 14, cut back significantly] Alcohol intake: never Substance/Drug Use: never Lives independently: Yes Current occupational status: retired Physical Exam Const: GENERAL APPEARANCE: cooperative and ill appearing (Mildly) HENMT: COMMON NORMALS: normocephalic, atraumatic and Normal external nose present HEAD & SCALP: normocephalic and atraumatic FACE & SINUS: normal facial exam and face symmetric NOSE: Normal external nose present Eye: COMMON NORMALS: Equal, round and reactive pupils present and EOMs intact bilaterally PUPIL: Yes Equal, round and reactive pupils present Neck/C-Spine: GENERAL: Yes trachea midline Chest: CHEST: Yes Symmetrical chest wall rise Resp: COMMON NORMALS: normal respiratory effort, No retractions, No use of accessory muscles and clear to auscultation bilaterally AUSCULTATION: clear to auscultation bilaterally Cardio: COMMON NORMALS: regular rate and regular rhythm RATE: regular rate RHYTHM: regular rhythm GI: COMMON NORMALS: Normal to inspection, nondistended, normoactive bowel sounds present Extremity: COMMON NORMALS: no pedal edema Neuro: DIEUDONNE COMA SCALE: document GCS findings [place] coma scale eye opening: Spontaneous [place] coma scale verbal response: Orientated [place] coma scale motor response: Obey commands [place] coma scale total score: 15 SENSORY EXAM: Yes extremities (intact) Psych: COMMON NORMALS: speech normal SPEECH: Yes normal speech Skin: COMMON NORMALS: no rashes or lesions noted GENERAL SKIN EXAM: no rashes or lesions noted Course Consultations: Consultation #1: gabriela Consultation #2: shawnee Vital Signs: Vital signs: Vital Signs Temperature 98.6 F 04/02/23 00:00 Pulse Rate 0 L 04/02/23 02:25 Respiratory Rate 0 L 04/02/23 02:25 Blood Pressure 120/88 04/02/23 02:30 Pulse Oximetry 82 L 04/02/23 01:55 Oxygen Delivery Me thod Nasal Cannula 04/02/23 00:02 Oxygen Flow Rate 4 04/01/23 23:27 MDM - Chest Pain Medical Decision Making Initial EKG showed a sinus rhythm. Borderline QRS widening. There is T wave inversion laterally and inferiorly T wave inversion appears old, present on prior EKG. [place] is normal. Rate was 88. Chest pain improved after morphine, and nitroglycerin paste, although did not resolve. First troponin was significantly high at 1800, but the patient had had intervention 2 days prior, which can cause troponin elevation and of itself. Potassium was low, and was repleted orally. At 2 hours, troponin had not changed. However, EKG showed increasing frequency of PVCs present. Still no significant ST elevation with no rmal beats. There was some QRS widening, but not significantly progressed from prior EKG. The patient was beginning to complain of chest discomfort again, at about 5. Spoke with cardiology. Recommendations were nitroglycerin drip, heparin drip, and pain control with possible intervention the following morning if necessary, versus early intervention if symptoms worsen. When the patient left the emergency department, pain had improved significantly. I have spoken with the hospitalist, and he had seen the patient in the emergency department. We agreed on ICU admission with the above interventions. Lab Data 04/01/23 19:35 04/01/23 19:35 Radiology Impressions Chest X-Ray 04/01/23 19:12 IMPRESSION: Mild cardiomegaly with small bibasilar pleural effusions and adjacent mild subsegmental atelectasis developed from previous exam. Laboratory Results WBC 6.8 10^3/uL (4.0-10.0) 04/01/23 19:35 RBC 2.79 10^6/uL (4.1-5.3) L 04/01/23 19:35 Hgb 9.1 g/dL (11.7-16.6) L 04/01/23 19:35 Hct 29.1 % (42.0-52.0) L 04/01/23 19:35 MCV 104.3 fl (80-94) H 04/01/23 19:35 MCH 32.6 pg (28.0-34.0) 04/01/23 19:35 MCHC 31.3 g/dL (30.0-36.0) 04/01/23 19:35 RDW 16.8 % (12.1-15.1) H 04/01/23 19:35 Plt Count 252 10^3/cmm (130-400) 04/01/23 19:35 MPV 10.8 fL (7.4-10.4) H 04/01/23 19:35 Neut % (Auto) 67.5 % 04/01/23 19:35 Lymph % (Auto) 19.8 % 04/01/23 19:35 Hardy % (Auto) 7.7 % 04/01/23 19:35 Eos % (Auto) 4.3 % 04/01/23 19:35 Baso % (Auto) 0.4 % 04/01/23 19:35 Neut # (Auto) 4.58 10^3/uL (1.8-7.7) 04/01/23 19:35 Lymph # (Auto) 1.3 10^3/uL (0.8-4.8) 04/01/23 19:35 Hardy # (Auto) 0.5 10^3/uL (0.2-0.9) 04/01/23 19:35 Eos # (Auto) 0.3 10^3/uL (0.0-0.8) 04/01/23 19:35 Baso # (Auto) 0.0 10^3/uL (0.0-0.1) 04/01/23 19:35 Nucleated RBC % (auto) 0 % 04/01/23 19:35 Nucleated RBCs # 0.0 /100WBC 04/01/23 19:35 PT 14.30 SECONDS (12.1-14.9) 04/01/23 19:35 INR 1.07 (0.8-1.2) 04/01/23 19:35 APTT 29.2 SECONDS (23.9-36.7) 04/01/23 19:35 Sodium 142 mmol/L (136-145) 04/01/23 19:35 Potassium 3.1 mmol/L (3.5-5.1) L 04/01/23 19:35 Chloride 109 mmol/L (98-107) H 04/01/23 19:35 Carbon Dioxide 20 mmol/L (22-29) L 04/01/23 19:35 Anion Gap 16.1 (5-19) 04/01/23 19:35 BUN 36 mg/dL (8-23) H 04/01/23 19:35 Creatinine 2.1 mg/dL (0.7-1.2) H 04/01/23 19:35 GFR Calculation Not Reportable 04/01/23 19:35 Glucose 93 mg/dL (65-115) 04/01/23 19:35 Calculated Osmolality 302 mOsm/kg (285-295) H 04/01/23 19:35 Calcium 8.1 mg/dL (8.5-10.5) L 04/01/23 19:35 Total Bilirubin 0.3 mg/dL (0.15-1.2) 04/01/23 19:35 AST 22 U/L (0-40) 04/01/23 19:35 ALT 10 U/L (0-41) 04/01/23 19:35 Alkaline Phosphatase 62 U/L (40-130) 04/01/23 19:35 Troponin T Baseline 1814 ng/L (0-15) H* 04/01/23 19:35 Troponin T 120 Minute 1789 ng/L (0-15) H 04/01/23 21:21 Delta Troponin T -35 ABS# (0-10) L 04/01/23 21:21 Total Protein 6.2 g/dL (6.6-8.7) L 04/01/23 19:35 Albumin 3.5 g/dL (3.5-5.2) 04/01/23 19:35 Globulin 2.7 g/dL (1.3-4.6) 04/01/23 19:35 Urine Color Yellow (Yellow) 04/01/23 21:21 Urine Appearance Clear (CLEAR) 04/01/23 21:21 Urine pH 5 (5-7) 04/01/23 21:21 Ur Specific Christine 1.015 (1.005-1.030) 04/01/23 21:21 Urine Protein 3+ (Negative) H 04/01/23 21:21 Urine Glucose (UA) 1+ (Normal) H 04/01/23 21:21 Urine Ketones Negative (Negative) 04/01/23 21:21 Urine Blood Neg (Negative) 04/01/23 21:21 Urine Nitrate Negative (Negative) 04/01/23 21:21 Urine Bilirubin Neg (Negative) 04/01/23 21:21 Urine Urobilinogen Norm mg/dL (Negative) 04/01/23 21:21 Ur Leukocyte Esterase Negative (Negative) 04/01/23 21:21 Urine RBC None /hpf (0-2) 04/01/23 21:21 Urine WBC None /hpf (0-5) 04/01/23 21:21 Ur Squamous Epith Cells None /hpf (0-5) 04/01/23 21:21 Amorphous Sediment Not Reportable 04/01/23 21:21 Urine Bacteria Trace /hpf (NONE) 04/01/23 21:21 Critical Care Time Critical Care Time: Critical Care Time: Yes Total Critical Care Time: 40 Attestation: This case had a high probability of a clinically significant, sudden, or life threatening deterioration of this patient's condition which required my full and direct attention, intervention and personal management. Time is independent of any procedures performed Discharge Plan Discharge Patient Disposition: Admitted As Inpatient Admit Provider: Adonis Majano Clinical Impression: Chest pain, Non-STEMI (non-ST elevated myocardial infarction) Condition: Serious Coding Level of Care Code ED Cash Management Officer for Mark Ochoa
--- NOTE | 2023-04-01 21:12 | ECG_ITS ---
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 Measurements Intervals [place] Rate: 97 P: 50 NC: 133 QRS: 75 QRSD: 111 T: -32 QT: 386 QTc: 491 Interpretive Statements SINUS RHYTHM MODERATE INTRAVENTRICULAR CONDUCTION DELAY [110+ ms QRS DURATION] NONSPECIFIC ST & T-WAVE ABNORMALITY Compared to ECG 03/30/2023 18:39:18 Intraventricular conduction delay now present T-wave abnormality now present Ventricular premature complex(es) no longer present Myocardial infarct finding no longer present Electronically Signed On 04-02-2023 10:29:22 CDT by Serge Thomas M.D. [id number]
[2023-04-01 21:46] LABS: Troponin 5 2HR 1789 ng/L (0-15)
[2023-04-01 21:49] LABS: Troponin 5 2HR Delta -35 ABS# (0-10)
--- NOTE | 2023-04-01 22:05 | ECG_ITS ---
[facility] Test Date: 2023-04-01 Pat Name: Marco Antonio Sebastian Department: Room: Gender: Male Step Down Specialist: : 1940 Requested By: Kervin Kimball Order Number: [id number] Rm MD: Serge Thomas M.D. Measurements Intervals [place] Rate: 97 P: -80 TX: 167 QRS: 260 QRSD: 129 T: 37 QT: 400 QTc: 509 Interpretive Statements ECTOPIC ATRIAL RHYTHM WITH FREQUENT SUPRAVENTRICULAR PREMATURE COMPLEXES RIGHT AXIS DEVIATION [QRS AXIS > 100] RIGHT BUNDLE BRANCH BLOCK [120+ ms QRS DURATION, UPRIGHT V1, 40+ ms S IN I/aVL/V4/V5/V6] INFERIOR MYOCARDIAL INFARCTION , age-indeterminate [40+ ms Q WAVE AND/OR ST/T ABNORMALITY IN II/aVF] Possible ANTEROLATERAL MYOCARDIAL INFARCTION , OF INDETERMINATE AGE [40+ ms Q WAVE IN I/aVL/V3-V6] Compared to ECG 04/01/2023 19:43:36 Ectopic atrial rhythm now present Right-axis deviation now present Right bundle-branch block now present Myocardial infarct finding now present T-wave abnormality no longer present Possible ischemia no longer present Electronically Signed On 04-02-2023 10:23:59 CDT by Serge Thomas M.D. [id number]
[2023-04-01] MEDS: FUROsemide 10 mg/mL SDV 10mL 60 MG IVP (22:12)
--- NOTE | 2023-04-01 22:47 | PM.HP ---
Providers/Chief Complaint Admitting Physician: Adonis Majano MD Primary Care Provider: Tyrese Rodriguez NP Chief Complaint: CP History of Present Illness Marco Antonio Sebastian is a 82 year old male with a past medical history of COPD, 4 L, CKD autism,, recent hospitalization for NSTEMI, had balloon angioplasty of mid RCA which had severe stenosis, he did have anemia during hospitalization, hemoglobin remained stable, discharged home, presents back to [facility] due to substernal chest pain. Patient tells me that roughly at 5 PM today, he was sitting down watching TV, when he had severe substernal chest pain, like someone punching him in the chest he tells me, nonradiating, no lightheadedness, dizziness, no nausea, no vomiting, chest pain persist to some degree he has a nitro patch on, he tells me the chest pain is 5 out of 10 currently, denies shortness of breath Review of Systems Const: Denies: fever(s) Card: Reports: chest pain Resp: Denies: dyspnea GI: Denies: abdominal pain Musc: Denies: neck pain or back pain Neuro: Denies: headache(s) Medications/Allergies Home Medications Medication Instructions Recorded Confirmed Last Taken Type pravastatin 40 mg tablet 80 mg PO BEDTIME #90 tabs 12/23/22 03/28/23 02/25/23 Rx metoprolol tartrate 25 mg tablet 12.5 mg PO BID #60 tabs 02/03/23 03/28/23 02/26/23 Rx cyanocobalamin (vitamin B-12) 500 mcg PO DAILY #30 tabs 02/18/23 03/28/23 Unknown Rx 1,000 mcg tablet (Vitamin B-12) ferrous sulfate 325 mg (65 mg 325 mg PO BIDWM #60 tabs 02/18/23 03/28/23 02/26/23 Rx iron) tablet,delayed release tiotropium bromide 18 mcg capsule 1 cap inhalation DAILY #30 02/18/23 03/28/23 Unknown Rx with inhalation device (Spiriva inhalations with HandiHaler) fluticasone furoate 100 1 inh inhalation QAM 02/26/23 03/28/23 02/25/23 History mcg-vilanterol 25 mcg/dose inhalation powder (Breo Ellipta) potassium citrate 5 mEq (540 mg) 5 meq PO DAILY 03/28/23 03/28/23 Unknown History tablet,extended release sucralfate 1 gram tablet 1 g PO BID 03/28/23 03/28/23 Unknown History albuterol sulfate 90 mcg/actuation 2 inh inhalation Q8H PRN shortness 03/31/23 Unknown Rx aerosol inhaler of breath or wheezing #8.5 grams clopidogrel 75 mg tablet 75 mg PO QAM #60 tabs 03/31/23 03/28/23 02/26/23 Rx ferrous sulfate 325 mg (65 mg 325 mg PO DAILY #30 tabs 03/31/23 Unknown Rx iron) tablet (FeroSul) folic acid 1 mg tablet 1 mg PO DAILY #60 tabs 03/31/23 Unknown Rx furosemide 40 mg tablet (Lasix) 40 mg PO DAILY #60 tabs 03/31/23 03/28/23 02/26/23 Rx levothyroxine 150 mcg capsule 150 mcg PO DAILY #90 caps 03/31/23 Unknown Rx pantoprazole 40 mg tablet,delayed 40 mg PO BIDWM #60 tabs 03/31/23 03/28/23 02/26/23 Rx release sennosides 8.6 mg-docusate sodium 1 tab-cap PO DAILY #20 tabs 03/31/23 Unknown Rx 50 mg tablet (Senna-S) Allergies Allergy/AdvReac Type Severity Reaction Status Date / Time No Known Allergies Allergy Verified 04/01/23 19:03 PFSH Acute PFSH: Medical History Acute on chronic systolic heart failure Atherosclerosis of coronary artery Atherosclerotic heart disease of [place] coronary artery with unstable angina pectoris BMI 22.0-22.9, adult CAD (coronary artery disease) STEMI 08/2022 with NIGEL to mid RCA CHF (congestive heart failure) CHF exacerbation CKD (chronic kidney disease) COPD (chronic obstructive pulmonary disease) Gastric ulcer by EGD in 2019 GI bleed Goals of care, counseling/discussion History of cardiovascular stress test 02/06/2023 nonspecific EKG changes with lexiscan infusion. Myocardial imaging suggestive of scarring in distribution of all 3 coronary arteries with a small area of possible rama-infarction ischemia in left circumflex distribution History of Doppler ultrasound carotids 01/30/2023 Right ICA 50-60% stenosis, Left ICA <50% stenosis, normal antegrade flow in right and left vertebral arteries History of echocardiogram 02/02/2023 EF 61%, mild LVH, no wall motion abnormalities, Grade I/IV diastolic dysfunction, estimated PAP 35 mmHg, mild to moderate AR and MR Hyperlipidemia Hypertension Hypothyroidism Hypothyroidism Hypoxia Iron deficiency anemia Ischemic cardiomyopathy Myxedema coma Neuropathy Nicotine dependence, cigarettes, with other nicotine-induced disorders Occult blood in stools On home oxygen therapy 4L [facility] PAD (peripheral artery disease) YEIMY 02/02/2023 Abnormal resting ABIs bilaterally(0.78 on the right and 0.73 on the left) suggesting moderate peripheral arterial disease. Pleural effusion Primary osteoarthritis of left knee Primary osteoarthritis of right knee Tick bite Unstable angina Surgical History H/O colonoscopy 09/11/19 H/O esophagogastroduodenoscopy 09/11/19; 02/05/2023 - no active bleeding History of appendectomy History of cardiac catheterization 08/2022 severe RCA stenosis s/p NIGEL. Angiogram was done through the right radial artery, but intervention was performed to the right groin because of the abnormal anatomy of the artery-the RCA ostium had a godinez hook takeoff. History of hernia surgery Family History Sister Cancer Brother Diabetes Denies family history of Anesthesia complication Bleeding disorder Social History Smoking and tobacco status: current every day smoker cigarettes [ Other cigarette details: smoked since age 14, cut back significantly] Alcohol intake: never Substance/Drug Use: never Lives independently: Yes Current occupational status: retired Vitals/I&O/Wt Last Vital Signs Temp 97.9 F 04/01/23 19:00 Pulse 97 04/01/23 19:00 Resp 16 04/01/23 19:00 BP 103/57 04/01/23 19:00 Pulse Ox 97 04/01/23 19:00 O2 Del Method Room Air 04/01/23 19:00 Weight last 48 hrs Weight 70.307 kg Physical Exam Const: COMMON NORMALS: no acute distress and patient oriented x3 Eye: COMMON NORMALS: Equal, round and reactive pupils present and EOMs intact bilaterally Neck/C-Spine: COMMON NORMALS: full ROM and no lymphadenopathy Lymph: LYMPHATIC: no lymphadenopathy noted Chest: COMMONS NORMALS: normal inspection of the chest Resp: COMMON NORMALS: normal respiratory effort, No retractions, No use of accessory muscles and clear to auscultation bilaterally AUSCULTATION: clear to auscultation bilaterally Cardio: COMMON NORMALS: regular rate, regular rhythm, S1 normal heart sound present and S2 normal heart sound present RATE: regular rate RHYTHM: regular rhythm HEART SOUNDS: S1 normal heart sound present and S2 normal heart sound present GI: COMMON NORMALS: Normal to inspection, nondistended, normoactive bowel sounds present, Soft to palpation and non-tender Extremity: COMMON NORMALS: no pedal edema Neuro: COMMON NORMALS: patient oriented x3, CN's II-XII intact bilaterally, moves all extremities and no focal motor deficits Psych: COMMON NORMALS: mental status grossly normal Data 04/01/23 19:35 04/01/23 19:35 A&P Assessment and plan (1) NSTEMI (non-ST elevated myocardial infarction): (2) CAD (coronary artery disease): (3) Chest pain: (4) CKD (chronic kidney disease): (5) Anemia: (6) Acute hypokalemia: (7) COPD (chronic obstructive pulmonary disease): (8) Gastric ulcer: (9) Hyperlipidemia: (10) Hypertension: (11) Hypothyroidism: (12) Iron deficiency anemia: Plan Unstable angina, with NSTEMI Plan -Cardiology consulted -Monitor in ICU -Heparin drip -Nitroglycerin drip -Has received aspirin, statin, Plavix, beta-otto -Monitor for recurrent chest pain -Serial EKGs, serial troponins, telemetry monitoring -Patient is a DNR/DNI -Heparin drip for DVT prophylaxis Acute on chronic anemia, history of gastric ulcer, history of GI bleed -Monitor hemoglobin, iron studies -Transfuse if less than 8 -Protonix, Carafate CKD, creatinine 2.1, monitor Hypokalemia monitor History of CAD History of COPD History of hypothyroidism, TSH, free T3, free T4 Attestations Medical Necessity Statement*: Patient requires hospitalization, inpatient, greater than 2 midnights, for NSTEMI, chest pain Diagnoses NSTEMI (non-ST elevated myocardial infarction) I21.4 CAD (coronary artery disease) I25.10 Chest pain R07.9 CKD (chronic kidney disease) N18.9 Anemia D64.9 Acute hypokalemia E87.6 COPD (chronic obstructive pulmonary disease) J44.9 Gastric ulcer K25.9 Hyperlipidemia E78.5 Hypertension I10 Hypothyroidism E03.9 Iron deficiency anemia D50.9
[2023-04-01] MEDS: heparin 5,000 unit/mL INJ 1 mL IV (23:13)
[2023-04-01] MEDS: heparin drip 25,000 UNIT/500 ML PREMIX 20 UNIT IV (23:15)
[2023-04-01] MEDS: nitroglycerin drip 50 MG/250 ML PREMIX IV (23:17)
[2023-04-01 23:27] VITALS: BP 118/35; PULSE 99; RESP 18; O2SAT 100
[2023-04-01 23:41] LABS: Urine Appearance Clear (CLEAR); Urine Color Yellow (Yellow)
[2023-04-01 23:42] LABS: Add Urine Microscopic? YES; Bilirubin Urine Neg (Negative); Blood Urine Neg (Negative); Glucose Urine UA 1+ (Normal); Ketones Urine Negative (Negative); Leukocyte Esterase Urine Negative (Negative); Nitrate Urine Negative (Negative); Protein Urine 3+ (Negative); Specific Gravity, Urine 1.015 (1.005-1.030); Urobilinogen Urine Norm (Negative); pH Urine 5 (5-7)
[2023-04-01 23:47] LABS: Bacteria Urine TRACE /hpf
[2023-04-01 23:52] VITALS: O2SAT 97
[2023-04-01 23:55] VITALS: BP 148/56; O2SAT 100
[2023-04-01 23:59] VITALS: PULSE 92
[2023-04-02] VITALS (31 sets, daily range): BP systolic 112–148; BP diastolic 41–88; PULSE 0–112; RESP 0–72; TEMP 37; O2SAT 82–100
[2023-04-02] MEDS: sucralfate 1 gm Tablet PO (00:51)
[2023-04-02] MEDS: morphine 4 mg/mL SDV 1 mL 1 MG IVP (02:10)
[2023-04-02 02:20] LABS: Troponin 5 6HR 1915 ng/L (0-15)
[2023-04-02 02:21] LABS: Troponin 5 6HR Delta 99 ng/L (0-12)
--- NOTE | 2023-04-02 03:29 | PC.NURSE ---
At 01:53, Patient went into Vfib and found unresponsive. Dr. Majano called to bedside. Almost immediately patient went into PEA; Rhythm then alternated between vfib and PEA. Order received from Dr. Majano for 1 mg of morphine for comfort, called patient family with update. Official time of at 02:26 AM confirmed by two RN's.
--- NOTE | 2023-04-02 03:42 | PC.NURSE ---
[facility] notified at 0300 AM, spoke with Amirah Calderón. referral number [phone]. At 0330, [facility] called back to inform that patient is a candidate for bone and tissue donation, further contact to be made.
--- NOTE | 2023-04-02 03:57 | PC.NURSE ---
Patient had a seven beat run of [facility], Dr. Majano notified with new orders received to give metoprolol 12.5. Medication was not administered due to patient going into Vfib almost immediately.
--- NOTE | 2023-04-02 05:14 | PC.NURSE ---
Claude Sanchez with [facility] called to release patient to home; patient is neither a viable candidate for [facility] nor [facility].
--- NOTE | 2023-04-02 07:12 | PC.NURSE ---
patient left with [facility] at 0714.
--- NOTE | 2023-04-18 10:01 | PM.DDS ---
Discharge Providers DDS Date of Admission: 04/01/23 22:33 Date Summary Completed: 04/18/23 Attending Provider at Admission: Adonis Majano MD Attending Provider at Discharge: Adonis Majano MD Primary Care Provider: Tyrese Rodriguez NP DS Diagnoses Hospital Diagnoses (1) NSTEMI (non-ST elevated myocardial infarction): (2) CAD (coronary artery disease): Permanent Problem Comments: STEMI 08/2022 with NIGEL to mid RCA (3) Chest pain: (4) CKD (chronic kidney disease): (5) Anemia: (6) Acute hypokalemia: (7) COPD (chronic obstructive pulmonary disease): (8) Gastric ulcer: Permanent Problem Comments: by EGD in 2019 (9) Hyperlipidemia: (10) Hypertension: (11) Hypothyroidism: (12) Iron deficiency anemia: Reason for Visit Reason for Visit CP Summary Summary Summary: dyan Sebastian is a 82 year old male with a past medical history of COPD, 4 L, CKD autism,, recent hospitalization for NSTEMI, had balloon angioplasty of mid RCA which had severe stenosis, he did have anemia during hospitalization, hemoglobin remained stable, discharged home, presents back to [facility] due to substernal chest pain.? Patient tells me that roughly at 5 PM today, he was sitting down watching TV, when he had severe substernal chest pain, like someone punching him in the chest he tells me, nonradiating, no lightheadedness, dizziness, no nausea, no vomiting, chest pain persist to some degree he has a nitro patch on, he tells me the chest pain is 5 out of 10 currently, denies shortness of breath 1) NSTEMI (non-ST elevated myocardial infarction): (2) CAD (coronary artery disease): (3) Chest pain: (4) CKD (chronic kidney disease): (5) Anemia: (6) Acute hypokalemia: (7) COPD (chronic obstructive pulmonary disease): (8) Gastric ulcer: (9) Hyperlipidemia: (10) Hypertension: (11) Hypothyroidism: (12) Iron deficiency anemia: Plan Unstable angina, with NSTEMI Plan -Cardiology consulted -Monitor in ICU -Heparin drip -Nitroglycerin drip -Has received aspirin, statin, Plavix, beta-otot -Monitor for recurrent chest pain -Serial EKGs, serial troponins, telemetry monitoring -Patient is a DNR/DNI -Heparin drip for DVT prophylaxis Acute on chronic anemia, history of gastric ulcer, history of GI bleed -Monitor hemoglobin, iron studies -Transfuse if less than 8 -Protonix, Carafate CKD, creatinine 2.1, monitor Hypokalemia monitor History of CAD History of COPD History of hypothyroidism, TSH, free T3, free T4 - At roughly 150 AM patient had a 8 beat run of V. tach, nurses had called me, I recommended for them to start his home metoprolol now -SINCERE JACOBS was called at 1:55 AM -According to nursing staff, he went into PEA, agonal respiration, nonresponsive, -I was at bedside, patient was agonal breathing, nonresponsive, in PEA, -On admission, patient explicitly stated to me that he did not want to be resuscitated, did not want CPR, did not want drugs per ACLS, did not want shocking, he did not want to be intubated, he expressly told me that if he were to end, he wants to be let go -Given patient's suffering, and agonal respiration, PEA, his dropping blood pressures MAP less than 65, I gave him 1 mg of IV push morphine for pain, air hunger -Time of 2:26 AM -I updated family members, updated daughter, Additional Data Attending/PCP notified?: I am attending Was code activated?: No Autopsy requested?: No Advance directives?: Yes (Natalie Sharma) Discharge Plan Discharge Patient Disposition: Condition: Serious DS Attestations Time Spent in /Discharge Care*: greater than 30 min Quality - AMI: AMI present?: Yes Quality - Stroke: CVA present?: No Quality - VTE: VTE present?: No Deep Vein Thrombosis/Pulmonary Embolism Present on Admission: No Coding Level of Care Code 59240 Total time (in minutes) for Discharge: 45 Diagnoses NSTEMI (non-ST elevated myocardial infarction) I21.4 CAD (coronary artery disease) I25.10 Chest pain R07.9 CKD (chronic kidney disease) N18.9 Anemia D64.9 Acute hypokalemia E87.6 COPD (chronic obstructive pulmonary disease) J44.9 Gastric ulcer K25.9 Hyperlipidemia E78.5 Hypertension I10 Hypothyroidism E03.9 Iron deficiency anemia D50.9
== END 2023-04-02 07:13 | disposition expired ==
LOC: ER 21:08 → ICU 22:46
PROVIDERS: Admitting Provider Family Medicine; Emergency Provider Emergency Medicine; PCP Nurse Practitioner Family; Visit Provider Family Medicine
DX: I21.4 Non-ST elevation (NSTEMI) myocardial infarction (principal); F84.0 Autistic disorder; I47.20 Ventricular tachycardia, unspecified; I13.0 Hypertensive heart and chronic kidney disease with heart failure and stage 1 through stage 4 chronic kidney disease, or unspecified chronic kidney disease; I50.22 Chronic systolic (congestive) heart failure; I46.9 Cardiac arrest, cause unspecified; Z66 Do not resuscitate; J44.9 Chronic obstructive pulmonary disease, unspecified; Z99.81 Dependence on supplemental oxygen; N18.9 Chronic kidney disease, unspecified; I25.2 Old myocardial infarction; I25.110 Atherosclerotic heart disease of native coronary artery with unstable angina pectoris; Z95.5 Presence of coronary angioplasty implant and graft; E78.5 Hyperlipidemia, unspecified; I25.5 Ischemic cardiomyopathy; G62.9 Polyneuropathy, unspecified; F17.210 Nicotine dependence, cigarettes, uncomplicated; M17.0 Bilateral primary osteoarthritis of knee; D50.9 Iron deficiency anemia, unspecified; E03.9 Hypothyroidism, unspecified; E87.6 Hypokalemia; D63.1 Anemia in chronic kidney disease
CPT/HCPCS: 36415; 71045; 80053; 81001; 84484; 85025; 85610; 85730; 93005; 96365; 96375; 96376; 99285; J1644; J1940; J2270; J2405; J3490